=== PATIENT | male | born 1955 | race American Indian/Alaskan Native ===

== ENCOUNTER 2020-02-21 15:06 | Inpatient (IN) | payer OTHER ==
[2020-02-21 15:50] LABS: Basophils # (Auto) 0.1 K/mm3 (0.0-0.1); Basophils % (Auto) 1.7 % (0.0-1.8); Eosinophils % (Auto) 0.1 % (0.0-4.3); Hematocrit 47.5 % (35.5-45.6); Hemoglobin 16.5 gm/dl (11.8-15.2); Lymphocytes # (Auto) 0.6 K/mm3 (1.2-5.4); Mean Corpuscular HGB Conc 35 % (32-34); Mean Corpuscular Volume 85 fl (84-94); Monocytes # (Auto) 0.3 K/mm3 (0.0-0.8); Monocytes % (Auto) 8.9 % (0.0-7.3); Platelet Count 321 K/mm3 (140-440); Red Blood Count 5.62 M/mm3 (3.65-5.03); Red Cell Distribution Width 13.8 % (13.2-15.2)
--- NOTE | 2020-02-21 16:02 | XRay Report ---
CHEST 2 VIEWS INDICATION / CLINICAL INFORMATION: Fever cough hypoxia. COMPARISON: None available. FINDINGS: SUPPORT DEVICES: None. HEART / MEDIASTINUM: No significant abnormality. LUNGS / PLEURA: Moderate streaky bilateral parenchymal disease suggestive for pneumonia. No pneumotho rax. ADDITIONAL FINDINGS: No significant additional findings. IMPRESSION: 1. Probable bilateral pneumonia Signer Name: Sanjiv Henry MD Signed: 02/21/2020 3:58 PM Workstation Name: [id number]
[2020-02-21 16:13] LABS: Alanine Aminotransferase 18 units/L (7-56); Albumin 3.8 g/dL (3.9-5); BUN/Creatinine Ratio 20; Blood Urea Nitrogen 22 mg/dL (9-20); C-Reactive Protein 4.4 mg/dL (0.00-1.30); Calcium 8.8 mg/dL (8.4-10.2); Hemolysis Index 6
[2020-02-21] MEDS ORDERED: ACETAMINOPHEN 325 MG TAB ONE (16:32)
[2020-02-21] MEDS ORDERED: ONDANSETRON 4 MG/2 ML INJ ONE (16:32)
[2020-02-21] MEDS ORDERED: cefTRIAXone/NS 1 GM/50 ML 1 GM/50 ML BAG IV ONE (16:33)
[2020-02-21] MEDS ORDERED: AZITHROMYCIN 500 MG in SODIUM CHLORIDE 0.9% 250ML 250 ML IV ONE (16:34)
--- NOTE | 2020-02-21 16:35 | Emergency Department Report ---
HPI - General Chief Complaint: Nausea/Vomiting/Diarrhea Time Seen by Provider: 02/21/20 16:05 - HPI HPI: 64-year-old male presents to the emergency department with complaint of a few days of intermittent fever, loss of appetite, generalized headache, mild shortness of breath and mild mixed dry and productive cough. He has not taken anything for symptoms prior to presentation. No recent travel or sick contacts at home. No known exposure to anyone positive for Covid 19. Denies any tobacco or illicit drug use. Denies any past medical history. ED Past Medical Hx - Past Medical History Previous Medical History?: No - Surgical History Past Surgical History?: Yes Additional Surgical History: hernia repair x2. knee scope - Social History Smoking Status: Never Smoker Substance Use Type: None ED Review of Systems ROS: Stated complaint: HEADACHES Other details as noted in HPI Comment: All other systems reviewed and negative Constitutional: chills, fever Eyes: denies: eye pain, vision change ENT: denies: ear pain, throat pain Respiratory: cough, shortness of breath Cardiovascular: denies: chest pain, palpitations Gastrointestinal: nausea. denies: abdominal pain Genitourinary: denies: dysuria, discharge Musculoskeletal: myalgia. denies: joint swelling Skin: denies: rash, lesions Neurological: headache. denies: weakness, numbness, paresthesias Physical Exam - Physical Exam Physical Exam: GENERAL: The patient is well-developed well-nourished. HENT: Normocephalic. Atraumatic. Patient has moist mucous membranes. EYES: Extraocular motions are intact. NECK: Supple. Trachea is midline. CHEST/LUNGS: No tachypnea or accessory muscle use. No cough heard during examination. There is no respiratory distress noted. HEART/CARDIOVASCULAR: Regular. There is no tachycardia. ABDOMEN: Abdomen is soft, nontender. SKIN: Skin is warm and dry. NEURO: The patient is awake, alert, and oriented. The patient is cooperative. The patient has no focal neurologic deficits. Normal speech. MUSCULOSKELETAL: There is no tenderness or deformity. There is no evidence of acute injury. ED Medical Decision Making - Lab Data Result diagrams: 02/21/20 15:29 02/21/20 15:29 - Radiology Data Radiology results: image reviewed interpreted by me: Chest x-ray shows some bilateral patchy infiltrates concerning for pneumonia. - Medical Decision Making This patient presents with a few days of intermittent fevers, mild shortness of breath and cough, decreased appetite, generalized fatigue/weakness. On exami nation the patient does not appear in any respiratory or acute distress. However the patient had a room air pulse ox of about 88 to 90%. His oxygen went back up with oxygen supplementation via nasal cannula. Chest x-ray shows bilateral infiltrates/pneumonia. Blood cultures were sent and the patient was started on antibiotics. However he does not have any leukocytosis and does have leukopenia and this appears more consistent with a viral pneumonia and concern/suspicion for COVID-19. The patient was placed in droplet precautions immediately upon arrival to room 8. For this reason I will order full PPE including surgical, and 95, gown, double gloves and eye protection. The patient does have elevated inflammatory markers such as ferritin, CRP, d-dimer and LDH concerning for progression of this disease. For this reason, as well as the room air hypoxia, the patient will be admitted to the hospital for further evaluation and treatment and was accepted for admission by the hospitalist, Dr. Kramer. Critical Care Time: Yes Critical care time in (mins) excluding proc time.: 31 Critical care attestation.: If time is entered above; I have spent that time in minutes in the direct care of this critically ill patient, excluding procedure time. Critical care time was spent on this patient in doing his initial evaluation, multiple re- evaluations, ordering and interpretation of labs and imaging, supplemental ox ygen for his hypoxemia, discussion with the admitting hospitalist, treatment with IV antibiotics and IV fluid resuscitation. Critical Care Time: 31 minutes ED Disposition Clinical Impression: Suspected 2019 novel coronavirus infection, Hypoxemia Bilateral pneumonia Qualifiers: Pneumonia type: due to unspecified organism Lung location: unspecified part of lung Qualified Code(s): J18.9 - Pneumonia, unspecified organism Disposition: 09 OP ADMIT IP TO THIS HOSP Is pt being admited?: Yes Condition: Serious Time of Disposition: 22:38
--- NOTE | 2020-02-21 16:37 | History and Physical Report ---
History of Present Illness Chief complaint: I feel weak, tired, and i have fever History of present illness: 64 YO Male with No PMH presents to ED for evaluation. Pt states that he has experienced subjective fever, loss of appetite, generalized weakness, headache, shortness of breath, both dry and productive cough with production of yellow sputum over the past 1 week with progressively worsening symptoms over the past 3 days. Patient transported to [facility] via private vehicle for further evaluation and care. Patient seen and evaluated in the emergency department. Lab and imaging studies reviewed. Patient found to have temperature of 100.3 F, and pulse oximetry of 86% on room air which is consistent with acute hypoxemic respiratory failure. Patient underwent chest x-ray which revealed bilateral pneumonia which are consistent with suspected CO VID19. Patient admitted to medical floor and treated with pneumonia protocol. Patient also treated with initiation of CO VID19 protocol. Infectious disease service consulted in ED. Patient denies chest pain, palpitations, syncope, trauma, prolonged travel/ immobility, individual/family history of DVT/bleeding/PE/blood clotting disorders, or known ill contacts. No prior admission for review. No medication listed for reconciliation at the time of admission. PUI?: Yes COVID19: Pending Past History Past Medical History: No medical history, other (Reviewed) Past Surgical History: hernia repair, Other (Knee surgery) Social history: , lives with family. denies: smoking, alcohol abuse, prescription drug abuse Family history: CAD, hypertension Medications and Allergies Allergies Allergy/AdvReac Type Severity Reaction Status Date / Time No Known Allergies Allergy Verified 02/21/20 15:12 Active Meds: Active Medications Ceftriaxone Sodium (Rocephin/Ns 1 Gm/50 Ml) 1 gm in 50 mls @ 100 mls/hr IV ONCE ONE; Protocol Stop: 02/21/20 17:02 Azithromycin 500 mg/ Sodium (Chloride) 250 mls @ 250 mls/hr IV ONCE ONE; Protocol Stop: 02/21/20 17:33 Review of Systems Constitutional: fever, fatigue, weakness, poor appetite Ears, nose, mouth and throat: no ear pain, no ear discharge, no tinnitis, no decreased hearing, no nose pain Cardiovascular: no chest pain, no orthopnea, no palpitations, no rapid/irregular heart beat Respiratory: cough, cough with sputum, shortness of breath, no hemoptysis, no pain on inspiration Gastrointestinal: vomiting, no abdominal pain, no diarrhea, no constipation Genitourinary Male: no hematuria, no flank pain, no discharge, no urinary frequency, no urinary hesitancy Rectal: no pain, no incontinence, no bleeding Musculoskeletal: no neck stiffness, no neck pain, no shooting arm pain, no arm numbness/tingling Integumentary: no rash, no pruritis, no redness, no sores, no wounds Neurological: no transient paralysis, no paralysis, no weakness, no parathesias, no numbness Psychiatric: no anxiety, no memory loss, no change in sleep habits, no sleep disturbances, no hypersomnia Endocrine: no cold intolerance, no heat intolerance, no polyphagia, no excessive thirst, no polydipsia Hematologic/Lymphatic: no easy bruising, no easy bleeding Allergic/Immunologic: no urticaria, no allergic rhinitis, no wheezing Exam - Constitutional General appearance: Present: mild distress - EENT Eyes: Present: PERRL ENT: hearing intact, clear oral mucosa - Neck Neck: Present: supple, normal ROM - Respiratory Respiratory effort: labored, accessory muscle use Respiratory: bilateral: diminished, rhonchi - Cardiovascular Heart Sounds: Present: S1 & S2. Absent: rub, click - Extremities Extremities: pulses symmetrical, No edema Peripheral Pulses: within normal limits - Abdominal General gastrointestinal: Present: soft, non-tender, non-distended, normal bowel sounds Male genitourinary: Present: normal - Integumentary Integumentary: Present: clear, warm, dry - Musculoskeletal Musculoskeletal: generalized weakness - Psychiatric Psychiatric: appropriate mood/affect, intact judgment & insight - Neurologic Neurologic: CNII-XII intact, moves all extremities Results - Labs CBC & Chem 7: 02/21/20 15:29 02/21/20 15:29 Labs: Abnormal lab results 02/21/20 02/21/20 02/21/20 Range/Units 15:29 15:29 15:29 WBC 3.7 L (4.5-11.0) K/mm3 RBC 5.62 H (3.65-5.03) M/mm3 Hgb 16.5 H (11.8-15.2) gm/dl Hct 47.5 H (35.5-45.6) % MCHC 35 H (32-34) % [place] % (Auto) 8.9 H (0.0-7.3) % Lymph # 0.6 L (1.2-5.4) K/mm3 Seg Neutrophils % 72.3 H (40.0-70.0) % D-Dimer 5638.87 H (0-234) ng/mlDDU Sodium 136 L (137-145) mmol/L Chloride 96.2 L (98-107) mmol/L Carbon Dioxide 20 L (22-30) mmol/L BUN 22 H (9-20) mg/dL Glucose 124 H (75-100) mg/dL Ferritin (13.0-400.0) ng/mL Lactate Dehydrogenase (91-180) units/L C-Reactive Protein (0.00-1.30) mg/dL Albumin 3.8 L (3.9-5) g/dL 02/21/20 02/21/20 Range/Units 15:29 15:29 WBC (4.5-11.0) K/mm3 RBC (3.65-5.03) M/mm3 Hgb (11.8-15.2) gm/dl Hct (35.5-45.6) % MCHC (32-34) % [place] % (Auto) (0.0-7.3) % Lymph # (1.2-5.4) K/mm3 Seg Neutrophils % (40.0-70.0) % D-Dimer (0-234) ng/mlDDU Sodium (137-145) mmol/L Chloride (98-107) mmol/L Carbon Dioxide (22-30) mmol/L BUN (9-20) mg/dL Glucose (75-100) mg/dL Ferritin 1484.0 H (13.0-400.0) ng/mL Lactate Dehydrogenase 486 H (91-180) units/L C-Reactive Protein 4.40 H (0.00-1.30) mg/dL Albumin (3.9-5) g/dL Assessment and Plan - Patient Problems (1) Acute hypoxemic respiratory failure Current Visit: Yes Status: Acute Plan to address problem: Supplemental oxygen, chest x ray, pulse oximetry, nebulizer therapy, (2) Bilateral pneumonia Current Visit: Yes Status: Acute Qualifiers: Lung location: lower lobe of lung Plan to address problem: Chest x ray, pulse oximetry, nebulizer therapy, NIPPV as clinically indicated, IV antibiotic therapy, (3) Suspected 2019 novel coronavirus infection Current Visit: Yes Status: Acute Plan to address problem: COVID 19 Protocol: LDH, Ferritin, D dimer, CRP, ID consulted, (4) DVT prophylaxis Current Visit: Yes Status: Acute Plan to address problem: SCD to BLE while in bed, prophylactic heparin
[2020-02-21] MEDS ORDERED: SODIUM CHLORIDE 0.9% 1000 ML 1,000 ML IV ONE (16:38)
[2020-02-21] MEDS ORDERED: ACETAMINOPHEN 325 MG TAB PO ONE (16:59)
[2020-02-21] MEDS ORDERED: ONDANSETRON 4 MG/2 ML INJ IV ONE (16:59)
[2020-02-21] MEDS: ACETAMINOPHEN 325 MG TAB PO PRN (21:48)
[2020-02-22 04:42] LABS: Basophils % (Auto) 0.9 % (0.0-1.8); Eosinophils % (Auto) 0.4 % (0.0-4.3); Hematocrit 45.4 % (35.5-45.6); Hemoglobin 15.8 gm/dl (11.8-15.2); Lymphocytes # (Auto) 0.7 K/mm3 (1.2-5.4); Lymphocytes % (Auto) 18.1 % (13.4-35.0); Mean Corpuscular HGB Conc 35 % (32-34); Mean Corpuscular Volume 83 fl (84-94); Monocytes # (Auto) 0.4 K/mm3 (0.0-0.8); Monocytes % (Auto) 10.5 % (0.0-7.3); Platelet Count 322 K/mm3 (140-440); Red Blood Count 5.47 M/mm3 (3.65-5.03); Red Cell Distribution Width 13.9 % (13.2-15.2)
[2020-02-22 05:05] LABS: BUN/Creatinine Ratio 20; Blood Urea Nitrogen 20 mg/dL (9-20); Calcium 8.3 mg/dL (8.4-10.2); Hemolysis Index 6
--- NOTE | 2020-02-22 08:54 | Progress Note ---
Assessment and Plan Assessment and plan: 64 YO Male with No PMH presents to ED for evaluation. Pt states that he has experienced subjective fever, loss of appetite, generalized weakness, headache, shortness of breath, both dry and productive cough with production of yellow sputum over the past 1 week with progressively worsening symptoms over the past 3 days. Patient transported to [facility] via private vehicle for further evaluation and care. Patient seen and evaluated in the emergency department. Lab and imaging studies reviewed. Patient found to have temperature of 100.3 F, and pulse oximetry of 86% on room air which is consistent with acute hypoxemic respiratory failure. Patient underwent chest x-ray which revealed bilateral pneumonia which are consistent with suspected CO VID19. Patient admitted to medical floor and treated with pneumonia protocol. Patient also treated with initiation of CO VID19 protocol. Infectious disease service consulted in ED. Patient denies chest pain, palpitations, syncope, trauma, prolonged tr rolanda/immobility, individual/family history of DVT/bleeding/PE/blood clotting disorders, or known ill contacts. No prior admission for review. No medication listed for reconciliation at the time of admission. Bilateral pneumonia with suspicion for COVID-19 Sepsis syndrome Acute hypoxic respiratory failure with pulse oximetry of 86% on room air Elevated d-dimer Headache Plan We will start patient on sepsis protocol, fluid is restricted due to the concern for COVID-19 and rapidly to ARDS. We will start patient on full dose Lovenox considering a d-dimer greater than 5000 Await ID evaluation in the meantime we will start patient on Plaquenil in addition to the azithromycin will monitor EKGs for QT prolongation. Resume appropriate home medications At this time there are no neurological symptoms but if any arises will pursue imaging studies of the head. If no improvement in respiratory status will obtain pulmonary consult Daily pre-and post ambulatory pulse ox. History Interval history: Patient seen and examined resting comfortably this morning although earlier on this morning should he worsen increased respiratory distress. PUI?: Yes COVID19: Pending Hospitalist Physical - Physical exam Narrative exam: VITAL SIGNS: Reviewed. GENERAL: The patient appears normally developed, Vital signs as documented. HEAD: No signs of head trauma. EYES: Pupils are equal. Extraocular motions intact. EARS: Hearing grossly intact. MOUTH: Oropharynx is normal. NECK: No adenopathy, no JVD. CHEST: Chest with clear breath sounds bilaterally. No wheezes, rales, or rhonchi. CARDIAC: Regular rate and rhythm. S1 and S2, without murmurs, gallops, or rubs. VASCULAR: No Edema. Peripheral pulses normal and equal in all extremities. ABDOMEN: Soft, non tender and non distended. No rebound or guarding, and no masses palpated. Bowel Sounds normal. MUSCULOSKELETAL: Good range of motion of all major joints. Extremities without clubbing, cyanosis or edema. NEUROLOGIC EXAM: Alert and oriented x 3 No focal sensory or strength deficits. Speech normal. Follows commands. PSYCHIATRIC: Mood normal. SKIN: detial exam as documented in skin assessment - Constitutional Vitals: Temp Pulse Resp BP Pulse Ox 100.0 F H 71 22 130/83 92 02/22/20 04:59 02/22/20 04:59 02/22/20 06:29 02/22/20 04:59 02/22/20 06:29 General appearance: Present: mild distress Results - Labs CBC & Chem 7: 02/22/20 04:04 02/22/20 04:04 Labs: Laboratory Last Values WBC 3.9 K/mm3 (4.5-11.0) L 02/22/20 04:04 RBC 5.47 M/mm3 (3.65-5.03) H 02/22/20 04:04 Hgb 15.8 gm/dl (11.8-15.2) H 02/22/20 04:04 Hct 45.4 % (35.5-45.6) 02/22/20 04:04 MCV 83 fl (84-94) L 02/22/20 04:04 MCH 29 pg (28-32) 02/22/20 04:04 MCHC 35 % (32-34) H 02/22/20 04:04 RDW 13.9 % (13.2-15.2) 02/22/20 04:04 Plt Count 322 K/mm3 (140-440) 02/22/20 04:04 Lymph % (Auto) 18.1 % (13.4-35.0) 02/22/20 04:04 [place] % (Auto) 10.5 % (0.0-7.3) H 02/22/20 04:04 Eos % (Auto) 0.4 % (0.0-4.3) 02/22/20 04:04 Baso % (Auto) 0.9 % (0.0-1.8) 02/22/20 04:04 Lymph # 0.7 K/mm3 (1.2-5.4) L 02/22/20 04:04 [place] # 0.4 K/mm3 (0.0-0.8) 02/22/20 04:04 Eos # 0.0 K/mm3 (0.0-0.4) 02/22/20 04:04 Baso # 0.0 K/mm3 (0.0-0.1) 02/22/20 04:04 Seg Neutrophils % 70.1 % (40.0-70.0) H 02/22/20 04:04 Seg Neutrophils # 2.8 K/mm3 (1.8-7.7) 02/22/20 04:04 D-Dimer 5638.87 ng/mlDDU (0-234) H 02/21/20 15:29 Sodium 139 mmol/L (137-145) 02/22/20 04:04 Potassium 4.3 mmol/L (3.6-5.0) 02/22/20 04:04 Chloride 102.8 mmol/L (98-107) 02/22/20 04:04 Carbon Dioxide 25 mmol/L (22-30) 02/22/20 04:04 Anion Gap 16 mmol/L 02/22/20 04:04 BUN 20 mg/dL (9-20) 02/22/20 04:04 Creatinine 1.0 mg/dL (0.8-1.5) 02/22/20 04:04 Estimated GFR > 60 ml/min 02/22/20 04:04 BUN/Creatinine Ratio 20 % 02/22/20 04:04 Glucose 114 mg/dL (75-100) H 02/22/20 04:04 Lactic Acid 1.80 mmol/L (0.7-2.0) 02/21/20 15: Calcium 8.3 mg/dL (8.4-10.2) L 02/22/20 04:04 Ferritin 1484.0 ng/mL (13.0-400.0) H 02/21/20 15:29 Total Bilirubin 0.60 mg/dL (0.1-1.2) 02/21/20 15:29 AST 31 units/L (5-40) 02/21/20 15:29 ALT 18 units/L (7-56) 02/21/20 15:29 Alkaline Phosphatase 71 units/L (35-129) 02/21/20 15:29 Lactate Dehydrogenase 486 units/L (91-180) H 02/21/20 15:29 C-Reactive Protein 4.40 mg/dL (0.00-1.30) H 02/21/20 15:29 Total Protein 7.4 g/dL (6.3-8.2) 02/21/20 15:29 Albumin 3.8 g/dL (3.9-5) L 02/21/20 15:29 Albumin/Globulin Ratio 1.1 % 02/21/20 15:29 Influenza A (Rapid) Negative (Negative) 02/21/20 16:34 Influenza B (Rapid) Negative (Negative) 02/21/20 16:34 Microbiology: Microbiology 02/21/20 15:38 Peripheral/Venous Blood Culture - Preliminary Culture in Progress 02/21/20 15:29 Peripheral/Venous Blood Culture - Preliminary Culture in Progress Rivera/IV: Voiding Method Toilet IV Catheter Type [Right INT / Saline Lock Forearm] IV Catheter Type [Right INT / Saline Lock Antecubital] Active Medications - Current Medications Current Medications: Generic Name Dose Route Start Last Admin Trade Name Freq PRN Reason Stop Dose Admin Acetaminophen 650 mg 02/21/20 16:41 02/21/20 21:48 Tylenol PO 650 mg Q4H PRN Administration Pain MILD(1-3)/Fever >100.5/DELUNA Enoxaparin Sodium 130 mg 02/22/20 10:00 Enoxaparin 1.5 mg/kg (130 mg) SUB-Q Q24HR SCOT Ondansetron HCl 4 mg 02/21/20 16:41 Zofran IV Q8H PRN Nausea And Vomiting Sodium Chloride 10 ml 02/21/20 22:00 02/21/20 22:38 Sodium Chloride Flush Syringe 10 Ml IV Not Given BID SCOT Sodium Chloride 10 ml 02/21/20 16:41 Sodium Chloride Flush Syringe 10 Ml IV PRN PRN LINE FLUSH
--- NOTE | 2020-02-22 09:30 | Consultation ---
History of Present Illness Consult date: 02/22/20 Requesting physician: VICETNE BARRERA Reason for consult: hypoxemia, other (Rule COVID 19) Past History Past Medical History: No medical history, other (Reviewed) Past Surgical History: hernia repair, Other (Knee surgery) Social history: , lives with family. denies: smoking, alcohol abuse, prescription drug abuse Family history: CAD, hypertension Medications and Allergies Allergies Allergy/AdvReac Type Severity Reaction Status Date / Time No Known Allergies Allergy Verified 02/21/20 15:12 Home Medications Medication Instructions Recorded Confirmed Last Taken Type No Known Home Medications [No 02/22/20 02/22/20 Unknown History Reported Home Medications] Active Meds: Active Medications Acetaminophen (Tylenol) 650 mg PO Q4H PRN PRN Reason: Pain MILD(1-3)/Fever >100.5/DELUNA Last Admin: 02/21/20 21:48 Dose: 650 mg Documented by: Enoxaparin Sodium (Enoxaparin) 130 mg SUB-Q Q24HR [facility] Hydroxychloroquine Sulfate (Plaquenil) 400 mg PO BID [facility] Stop: 02/22/20 22:01 Hydroxychloroquine Sulfate (Plaquenil) 200 mg PO BID [facility] Stop: 02/26/20 22:01 Ondansetron HCl (Zofran) 4 mg IV Q8H PRN PRN Reason: Nausea And Vomiting Sodium Chloride (Sodium Chloride Flush Syringe 10 Ml) 10 ml IV BID [facility] Last Admin: 02/21/20 22:38 Dose: Not Given Documented by: Sodium Chloride (Sodium Chloride Flush Syringe 10 Ml) 10 ml IV PRN PRN PRN Reason: LINE FLUSH Physical Examination Vital signs: Vital Signs Temp Pulse Resp BP Pulse Ox 100.3 F H 89 20 108/70 90 02/21/20 15:16 02/21/20 15:16 02/21/20 15:16 02/21/20 15:16 02/21/20 15:16 Results - Laboratory Findings CBC and BMP: 02/22/20 04:04 02/22/20 04:04 PT/INR, D-dimer D-Dimer 5638.87 ng/mlDDU (0-234) H 02/21/20 15:29 Abnormal lab findings: Abnormal Labs 02/21/20 02/21/20 02/21/20 15:29 15:29 15:29 WBC 3.7 L RBC 5.62 H Hgb 16.5 H Hct 47.5 H MCV MCHC 35 H Leslie % (Auto) 8.9 H Lymph # 0.6 L Seg Neutrophils % 72.3 H D-Dimer 5638.87 H Sodium 136 L Chloride 96.2 L Carbon Dioxide 20 L BUN 22 H Glucose 124 H Calcium Ferritin Lactate Dehydrogenase C-Reactive Protein Albumin 3.8 L 02/21/20 02/21/20 02/22/20 15:29 15:29 04:04 WBC 3.9 L RBC 5.47 H Hgb 15.8 H Hct MCV 83 L MCHC 35 H Leslie % (Auto) 10.5 H Lymph # 0.7 L Seg Neutrophils % 70.1 H D-Dimer Sodium Chloride Carbon Dioxide BUN Glucose Calcium Ferritin 1484.0 H Lactate Dehydrogenase 486 H C-Reactive Protein 4.40 H Albumin 02/22/20 04:04 WBC RBC Hgb Hct MCV MCHC Leslie % (Auto) Lymph # Seg Neutrophils % D-Dimer Sodium Chloride Carbon Dioxide BUN Glucose 114 H Calcium 8.3 L Ferritin Lactate Dehydrogenase C-Reactive Protein Albumin Assessment and Plan 64 y/o male with COVID 19 positive pneumonia and no other prior medical history. 1. Tested positive, back today. Already on experimental therapy 2. Requiring 6 liters of Nasal cannula but improved with proning. Would ask that patient prone himself, multiple times during the day shit and sleep proned at night. 3. No IVF, suggest to encourage PO intake 4. Will continue to follow and monitor.
[2020-02-22] MEDS ORDERED: ENOXAPARIN 100 MG/1 ML INJ SUB-Q SCH (10:00)
[2020-02-22] MEDS: HYDROXYCHLOROQUINE 200 MG TAB PO SCH ×2 (10:12→21:04)
[2020-02-22] MEDS: ENOXAPARIN 150 MG/1 ML INJ SUB-Q SCH (10:13)
--- NOTE | 2020-02-22 14:02 | Consultation ---
History of Present Illness - Reason for Consult Consult date: 02/22/20 COVID rule out Requesting physician: MARIBELL HUII?: Yes COVID19: Pending - History of Present Illness The patient is a 64-year-old male with no significant past medical history came into the emergency room with complaints of subjective fever, loss of appetite, weakness, headaches along with cough and shortness of breath for a week. Chest x-ray revealed bilateral pneumonia. Concern for COVID-19 was raised. Infectious diseases was consulted for additional evaluation. Temperature on admission was 100.3 F. Labs show leukopenia, elevated d-dimer along with elevated ferritin, LDH and CRP. Procalcitonin is 0.06. Influenza rapid test is negative. Review of Systems: reviewed in the chart, unable to obtain directly due to PPE shortage and preservation Past History Past Medical History: No medical history, other (Reviewed) Past Surgical History: hernia repair, Other (Knee surgery) Social history: , lives with family. denies: smoking, alcohol abuse, prescription drug abuse Family history: CAD, hypertension Medications and Allergies Allergies Allergy/AdvReac Type Severity Reaction Status Date / Time No Known Allergies Allergy Verified 02/21/20 15:12 Home Medications Medication Instructions Recorded Confirmed Last Taken Type No Known Home Medications [No 02/22/20 02/22/20 Unknown History Reported Home Medications] Active Meds: Active Medications Acetaminophen (Tylenol) 650 mg PO Q4H PRN PRN Reason: Pain MILD(1-3)/Fever >100.5/DELUNA Last Admin: 02/21/20 21:48 Dose: 650 mg Documented by: Enoxaparin Sodium (Enoxaparin) 130 mg SUB-Q Q24HR [facility] Last Admin: 02/22/20 10:13 Dose: 130 mg Documented by: Hydroxychloroquine Sulfate (Plaquenil) 400 mg PO BID [facility] Stop: 02/22/20 22:01 Last Admin: 02/22/20 10:12 Dose: 400 mg Documented by: Hydroxychloroquine Sulfate (Plaquenil) 200 mg PO BID [facility] Stop: 02/26/20 22:01 Ondansetron HCl (Zofran) 4 mg IV Q8H PRN PRN Reason: Nausea And Vomiting Sodium Chloride (Sodium Chloride Flush Syringe 10 Ml) 10 ml IV BID [facility] Last Admin: 02/22/20 10:13 Dose: 10 ml Documented by: Sodium Chloride (Sodium Chloride Flush Syringe 10 Ml) 10 ml IV PRN PRN PRN Reason: LINE FLUSH Physical Examination - Physical Exam Narrative exam: Physical Exam (reviewed in chart due to PPE conservation) Constitutional: limited due to PPE conservation strategy Head, Ears, Nose: limited due to PPE conservation strategy Eyes: limited due to PPE conservation strategy Neck: limited due to PPE conservation strategy Oral: limited due to PPE conservation strategy Cardiovascular: limited due to PPE conservation strategy Respiratory: limited due to PPE conservation strategy GI: limited due to PPE conservation strategy Musculoskeletal: limited due to PPE conservation strategy Skin: limited due to PPE conservation strategy Hem/Lymphatic: limited due to PPE conservation strategy Psych: limited due to PPE conservation strategy Neurological: limited due to PPE conservation strategy - Constitutional Vitals: Vital Signs Temp Pulse Resp BP Pulse Ox 98.0 F 80 20 118/56 91 02/22/20 11:30 02/22/20 11:30 02/22/20 11:30 02/22/20 11:30 02/22/20 11:30 Temperature -Last 24 Hours Temperature 98.0 F Temperature 100.0 F Temperature 97.7 F Temperature 100.3 F Results - Labs CBC & Chem 7: 02/22/20 04:04 02/22/20 04:04 Labs: Abnormal lab results 02/21/20 02/21/20 02/21/20 Range/Units 15:29 15:29 15:29 WBC 3.7 L (4.5-11.0) K/mm3 RBC 5.62 H (3.65-5.03) M/mm3 Hgb 16.5 H (11.8-15.2) gm/dl Hct 47.5 H (35.5-45.6) % MCV (84-94) fl MCHC 35 H (32-34) % [place] % (Auto) 8.9 H (0.0-7.3) % Lymph # 0.6 L (1.2-5.4) K/mm3 Seg Neutrophils % 72.3 H (40.0-70.0) % D-Dimer 5638.87 H (0-234) ng/mlDDU Sodium 136 L (137-145) mmol/L Chloride 96.2 L (98-107) mmol/L Carbon Dioxide 20 L (22-30) mmol/L BUN 22 H (9-20) mg/dL Glucose 124 H (75-100) mg/dL Calcium (8.4-10.2) mg/dL Ferritin (13.0-400.0) ng/mL Lactate Dehydrogenase (91-180) units/L C-Reactive Protein (0.00-1.30) mg/dL Albumin 3.8 L (3.9-5) g/dL 02/21/20 02/21/20 02/22/20 Range/Units 15:29 15:29 04:04 WBC 3.9 L (4.5-11.0) K/mm3 RBC 5.47 H (3.65-5.03) M/mm3 Hgb 15.8 H (11.8-15.2) gm/dl Hct (35.5-45.6) % MCV 83 L (84-94) fl MCHC 35 H (32-34) % [place] % (Auto) 10.5 H (0.0-7.3) % Lymph # 0.7 L (1.2-5.4) K/mm3 Seg Neutrophils % 70.1 H (40.0-70.0) % D-Dimer (0-234) ng/mlDDU Sodium (137-145) mmol/L Chloride (98-107) mmol/L Carbon Dioxide (22-30) mmol/L BUN (9-20) mg/dL Glucose (75-100) mg/dL Calcium (8.4-10.2) mg/dL Ferritin 1484.0 H (13.0-400.0) ng/mL Lactate Dehydrogenase 486 H (91-180) units/L C-Reactive Protein 4.40 H (0.00-1.30) mg/dL Albumin (3.9-5) g/dL 02/22/20 Range/Units 04:04 WBC (4.5-11.0) K/mm3 RBC (3.65-5.03) M/mm3 Hgb (11.8-15.2) gm/dl Hct (35.5-45.6) % MCV (84-94) fl MCHC (32-34) % [place] % (Auto) (0.0-7.3) % Lymph # (1.2-5.4) K/mm3 Seg Neutrophils % (40.0-70.0) % D-Dimer (0-234) ng/mlDDU Sodium (137-145) mmol/L Chloride (98-107) mmol/L Carbon Dioxide (22-30) mmol/L BUN (9-20) mg/dL Glucose 114 H (75-100) mg/dL Calcium 8.3 L (8.4-10.2) mg/dL Ferritin (13.0-400.0) ng/mL Lactate Dehydrogenase (91-180) units/L C-Reactive Protein (0.00-1.30) mg/dL Albumin (3.9-5) g/dL - Imaging and Cardiology Chest x-ray: report reviewed, image reviewed (probable b/l pneumonia) Assessment and Plan Cultures: 02/21/2020 blood culture: In progress A/P: 64/M with subjective fever, loss of appetite, weakness, headaches along with cough and shortness of breath for a week prior to admission #Bilateral pneumonia: Agree with COVID-19 evaluation. Labs show leukopenia, elevated d-dimer along with elevated ferritin, LDH and CRP. Procalcitonin is 0.06. Influenza rapid test is negative. #Acute hypoxic respiratory failure: Requiring oxygen. Recs: Agree with COVID-19 evaluation Since inflammatory markers are elevated, reasonable to treat empirically with Plaquenil till COVID-19 results are back trend ferritin, LDH, d-dimer, CRP every 2-3 days for risk stratification and to assess disease progression Jocelynn Chahal MD, FACP [facility] ([facility] C: [phone] O: [phone] F: [phone]
[2020-02-22] MEDS: ACETAMINOPHEN 325 MG TAB PO PRN ×2 (16:44→21:05)
[2020-02-23 06:38] LABS: Hematocrit 43.8 % (35.5-45.6); Hemoglobin 15.1 gm/dl (11.8-15.2); Mean Corpuscular HGB Conc 35 % (32-34); Mean Corpuscular Volume 84 fl (84-94); Platelet Count 349 K/mm3 (140-440); Red Blood Count 5.19 M/mm3 (3.65-5.03); Red Cell Distribution Width 13.8 % (13.2-15.2)
[2020-02-23 07:05] LABS: BUN/Creatinine Ratio 17; Blood Urea Nitrogen 17 mg/dL (9-20); Calcium 8.4 mg/dL (8.4-10.2); Hemolysis Index 24
--- NOTE | 2020-02-23 07:28 | Progress Note ---
Assessment and Plan Assessment and plan: 64 YO Male with No PMH presents to ED for evaluation. Pt states that he has experienced subjective fever, loss of appetite, generalized weakness, headache, shortness of breath, both dry and productive cough with production of yellow sputum over the past 1 week with progressively worsening symptoms over the past 3 days. Patient transported to [facility] via private vehicle for further evaluation and care. Patient seen and evaluated in the emergency department. Lab and imaging studies reviewed. Patient found to have temperature of 100.3 F, and pulse oximetry of 86% on room air which is consistent with acute hypoxemic respiratory failure. Patient underwent chest x-ray which revealed bilateral pneumonia which are consistent with suspected CO VID19. Patient admitted to medical floor and treated with pneumonia protocol. Patient also treated with initiation of CO VID19 protocol. Infectious disease service consulted in ED. Patient denies chest pain, palpitations, syncope, trauma, prolonged tr rolanda/immobility, individual/family history of DVT/bleeding/PE/blood clotting disorders, or known ill contacts. No prior admission for review. No medication listed for reconciliation at the time of admission. Bilateral pneumonia suspected secondary to COVID-19 Sepsis syndrome Acute hypoxic respiratory failure with pulse oximetry of 86% on room air Elevated d-dimer Headache Plan We will start patient on sepsis protocol, fluid is restricted due to the concern for COVID-19 and rapidly to ARDS. Awaiting result Continue Lovenox considering a d-dimer greater than 5000, will obtain imaging studies prior to discharge if needed Pulmonary and ID input noted Continue experimental drugs Plaquenil in addition to the azithromycin will monitor EKGs for QT prolongation. Resume appropriate home medications Continue suggested Prone Positioning At this time there are no neurological symptoms but if any arises will pursue imaging studies of the head. If no improvement in respiratory status will obtain pulmonary consult Daily pre-and post ambulatory pulse ox. History Interval history: Patient seen and examined resting comfortably this morning but still with intermittent fever, he still complaints of shortness of breath with exertion. PUI?: Yes COVID19: Pending Hospitalist Physical - Physical exam Narrative exam: VITAL SIGNS: Reviewed. GENERAL: The patient appears normally developed, Vital signs as documented. HEAD: No signs of head trauma. EYES: Pupils are equal. Extraocular motions intact. EARS: Hearing grossly intact. MOUTH: Oropharynx is normal. NECK: No adenopathy, no JVD. CHEST: Chest with diminished breath sounds bilaterally. No wheezes, rales, or rhonchi. CARDIAC: Regular rate and rhythm. S1 and S2, without murmurs, gallops, or rubs. VASCULAR: No Edema. Peripheral pulses normal and equal in all extremities. ABDOMEN: Soft, non tender and non distended. No rebound or guarding, and no masses palpated. Bowel Sounds normal. MUSCULOSKELETAL: Good range of motion of all major joints. Extremities without clubbing, cyanosis or edema. NEUROLOGIC EXAM: Alert and oriented x 3 No focal sensory or strength deficits. Speech normal. Follows commands. PSYCHIATRIC: Mood normal. SKIN: detail exam as documented in skin assessment - Constitutional Vitals: Temp Pulse Resp BP Pulse Ox 98.8 F 64 20 114/66 91 02/23/20 04:50 02/23/20 04:50 02/23/20 04:50 02/23/20 04:50 02/23/20 04:50 General appearance: Present: mild distress Results - Labs CBC & Chem 7: 02/23/20 05:02 02/23/20 05:02 Labs: Laboratory Last Values WBC 3.3 K/mm3 (4.5-11.0) L 02/23/20 05:02 RBC 5.19 M/mm3 (3.65-5.03) H 02/23/20 05:02 Hgb 15.1 gm/dl (11.8-15.2) 02/23/20 05:02 Hct 43.8 % (35.5-45.6) 02/23/20 05:02 MCV 84 fl (84-94) 02/23/20 05:02 MCH 29 pg (28-32) 02/23/20 05:02 MCHC 35 % (32-34) H 02/23/20 05:02 RDW 13.8 % (13.2-15.2) 02/23/20 05:02 Plt Count 349 K/mm3 (140-440) 02/23/20 05:02 Lymph % (Auto) 18.1 % (13.4-35.0) 02/22/20 04:04 [place] % (Auto) 10.5 % (0.0-7.3) H 02/22/20 04:04 Eos % (Auto) 0.4 % (0.0-4.3) 02/22/20 04:04 Baso % (Auto) 0.9 % (0.0-1.8) 02/22/20 04:04 Lymph # 0.7 K/mm3 (1.2-5.4) L 02/22/20 04:04 [place] # 0.4 K/mm3 (0.0-0.8) 02/22/20 04:04 Eos # 0.0 K/mm3 (0.0-0.4) 02/22/20 04:04 Baso # 0.0 K/mm3 (0.0-0.1) 02/22/20 04:04 Seg Neutrophils % 70.1 % (40.0-70.0) H 02/22/20 04:04 Seg Neutrophils # 2.8 K/mm3 (1.8-7.7) 02/22/20 04:04 D-Dimer 2109.52 ng/mlDDU (0-234) H 02/23/20 05:02 Sodium 138 mmol/L (137-145) 02/23/20 05:02 Potassium 4.1 mmol/L (3.6-5.0) 02/23/20 05:02 Chloride 100.6 mmol/L (98-107) 02/23/20 05:02 Carbon Dioxide 22 mmol/L (22-30) 02/23/20 05:02 Anion Gap 20 mmol/L 02/23/20 05:02 BUN 17 mg/dL (9-20) 02/23/20 05:02 Creatinine 1.0 mg/dL (0.8-1.5) 02/23/20 05:02 Estimated GFR > 60 ml/min 02/23/20 05:02 BUN/Creatinine Ratio 17 % 02/23/20 05:02 Glucose 94 mg/dL (75-100) 02/23/20 05:02 Lactic Acid 1.80 mmol/L (0.7-2.0) 02/21/20 15:29 Calcium 8.4 mg/dL (8.4-10.2) 02/23/20 05:02 Ferritin 1571.0 ng/mL (13.0-400.0) H 02/23/20 05:02 Total Bilirubin 0.60 mg/dL (0.1-1.2) 02/21/20 15:29 AST 31 units/L (5-40) 02/21/20 15:29 ALT 18 units/L (7-56) 02/21/20 15:29 Alkaline Phosphatase 71 units/L (35-129) 02/21/20 15:29 Lactate Dehydrogenase 531 units/L (91-180) H 02/23/20 05:02 C-Reactive Protein 6.40 mg/dL (0.00-1.30) H 02/23/20 05:02 Total Protein 7.4 g/dL (6.3-8.2) 02/21/20 15:29 Albumin 3.8 g/dL (3.9-5) L 02/21/20 15:29 Albumin/Globulin Ratio 1.1 % 02/21/20 15:29 Procalcitonin 0.06 ng/mL (<0.15) 02/21/20 15:29 Influenza A (Rapid) Negative (Negative) 02/21/20 16:34 Influenza B (Rapid) Negative (Negative) 02/21/20 16:34 Microbiology: Microbiology 02/21/20 15:29 Peripheral/Venous Blood Culture - Preliminary NO GROWTH AFTER 24 HOURS 02/21/20 15:38 Peripheral/Venous Blood Culture - Preliminary NO GROWTH AFTER 24 HOURS Rivera/IV: Voiding Method Toilet IV Catheter Type [Right INT / Saline Lock Forearm] IV Catheter Type [Right INT / Saline Lock Antecubital] Active Medications - Current Medications Current Medications: Generic Name Dose Route Start Last Admin Trade Name Freq PRN Reason Stop Dose Admin Acetaminophen 650 mg 02/21/20 16:41 02/22/20 21:05 Tylenol PO 650 mg Q4H PRN Administration Pain MILD(1-3)/Fever >100.5/DELUNA Enoxaparin Sodium 130 mg 02/22/20 10:00 02/22/20 10:13 Enoxaparin SUB-Q 130 mg Q24HR [facility] Administration Hydroxychloroquine Sulfate 200 mg 02/23/20 10:00 Plaquenil PO 02/26/20 22:01 BID SCOT Ondansetron HCl 4 mg 02/21/20 16:41 Zofran IV Q8H PRN Nausea And Vomiting Sodium Chloride 10 ml 02/21/20 22:00 02/22/20 21:07 Sodium Chloride Flush Syringe 10 Ml IV 10 ml BID [facility] Administration Sodium Chloride 10 ml 02/21/20 16:41 Sodium Chloride Flush Syringe 10 Ml IV PRN PRN LINE FLUSH
[2020-02-23] MEDS: ENOXAPARIN 150 MG/1 ML INJ SUB-Q SCH (09:13)
[2020-02-23] MEDS: HYDROXYCHLOROQUINE 200 MG TAB PO SCH ×2 (09:15→22:17)
[2020-02-23] MEDS: ACETAMINOPHEN 325 MG TAB PO PRN ×2 (12:23→17:42)
--- NOTE | 2020-02-23 12:59 | Progress Note ---
Assessment and Plan Cultures: 02/21/2020 blood culture: no growth A/P: 64/M with subjective fever, loss of appetite, weakness, headaches along with cough and shortness of breath for a week prior to admission #Bilateral pneumonia secondary to COVID-19: Labs show leukopenia, elevated d- dimer along with elevated ferritin, LDH and CRP. Procalcitonin is 0.06. Influenza rapid test is negative. #Acute hypoxic respiratory failure: Requiring oxygen. Recs: complete 5 days of Plaquenil trend ferritin, LDH, d-dimer, CRP every 2-3 days for risk stratification and to assess disease progression if hypoxia progressive, may consider Actemra or steroid trial encourage lying in prone position if patient able to tolerate Jocelynn Chahal MD, FACP [facility] C: [phone] O: [phone] F: [phone] Subjective Date of service: 02/23/20 Interval history: COVID test positive. Remains febrile, on oxygen. PUI?: Yes COVID19: Positive Objective - Exam Narrative Exam: Physical Exam (reviewed in chart due to PPE conservation) Constitutional: limited due to PPE conservation strategy Head, Ears, Nose: limited due to PPE conservation strategy Eyes: limited due to PPE conservation strategy Neck: limited due to PPE conservation strategy Oral: limited due to PPE conservation strategy Cardiovascular: limited due to PPE conservation strategy Respiratory: limited due to PPE conservation strategy GI: limited due to PPE conservation strategy Musculoskeletal: limited due to PPE conservation strategy Skin: limited due to PPE conservation strategy Hem/Lymphatic: limited due to PPE conservation strategy Psych: limited due to PPE conservation strategy Neurological: limited due to PPE conservation strategy - Constitutional Vitals: Vital Signs Temp Pulse Resp BP Pulse Ox 102.3 F H 83 24 109/66 96 02/23/20 11:39 02/23/20 11:39 02/23/20 11:39 02/23/20 11:39 02/23/20 11:39 Temperature -Last 24 Hours Temperature 102.3 F Temperature 98.8 F Temperature 98.5 F Temperature 102.9 F - Labs CBC & Chem 7: 02/23/20 05:02 02/23/20 05:02 Labs: Abnormal lab results 02/22/20 02/23/20 02/23/20 Range/Units 11:23 05:02 05:02 WBC 3.3 L (4.5-11.0) K/mm3 RBC 5.19 H (3.65-5.03) M/mm3 MCHC 35 H (32-34) % D-Dimer 2109.52 H (0-234) ng/mlDDU Ferritin (13.0-400.0) ng/mL Lactate Dehydrogenase (91-180) units/L C-Reactive Protein (0.00-1.30) mg/dL Coronavirus (PCR) Positive A (Negative) 02/23/20 02/23/20 Range/Units 05:02 05:02 WBC (4.5-11.0) K/mm3 RBC (3.65-5.03) M/mm3 MCHC (32-34) % D-Dimer (0-234) ng/mlDDU Ferritin 1571.0 H (13.0-400.0) ng/mL Lactate Dehydrogenase 531 H (91-180) units/L C-Reactive Protein 6.40 H (0.00-1.30) mg/dL Coronavirus (PCR) (Negative)
--- NOTE | 2020-02-23 15:28 | Progress Note ---
Assessment and Plan 64 y/o male with COVID 19 positive pneumonia and no other prior medical history. 1. COVID positive 2. Requiring 6 liters of Nasal cannula but improved with proning. Would ask that patient prone himself, multiple times during the day shit and sleep proned at night. 3. No IVF, suggest to encourage PO intake 4. Will continue to follow and monitor. Subjective Date of service: 02/23/20 Interval history: Remains on 6 liters NC. Sats stable. PUI?: Yes COVID19: Pending Objective Vital Signs - 12hr 02/23/20 02/23/20 02/23/20 04:50 08:28 11:39 Temperature 98.8 F 102.3 F H Pulse Rate 64 83 Respiratory 20 20 24 Rate Blood Pressure 114/66 109/66 O2 Sat by Pulse 91 96 Oximetry 02/23/20 13:15 Temperature 98.9 F Pulse Rate Respiratory Rate Blood Pressure O2 Sat by Pulse Oximetry CBC and BMP: 02/23/20 05:02 02/23/20 05:02 ABG, PT/INR, D-dimer: PT/INR, D-dimer D-Dimer 2109.52 ng/mlDDU (0-234) H 02/23/20 05:02 Abnormal lab findings: Abnormal Labs 02/21/20 02/21/20 02/21/20 15:29 15:29 15:29 WBC 3.7 L RBC 5.62 H Hgb 16.5 H Hct 47.5 H MCV MCHC 35 H [place] % (Auto) 8.9 H Lymph # 0.6 L Seg Neutrophils % 72.3 H D-Dimer 5638.87 H Sodium 136 L Chloride 96.2 L Carbon Dioxide 20 L BUN 22 H Glucose 124 H Calcium Ferritin Lactate Dehydrogenase C-Reactive Protein Albumin 3.8 L Coronavirus (PCR) 02/21/20 02/21/20 02/22/20 15:29 15:29 04:04 WBC 3.9 L RBC 5.47 H Hgb 15.8 H Hct MCV 83 L MCHC 35 H [place] % (Auto) 10.5 H Lymph # 0.7 L Seg Neutrophils % 70.1 H D-Dimer Sodium Chloride Carbon Dioxide BUN Glucose Calcium Ferritin 1484.0 H Lactate Dehydrogenase 486 H C-Reactive Protein 4.40 H Albumin Coronavirus (PCR) 0402/22/20 02/23/20 04:04 11:23 05:02 WBC 3.3 L RBC 5.19 H Hgb Hct MCV MCHC 35 H [place] % (Auto) Lymph # Seg Neutrophils % D-Dimer Sodium Chloride Carbon Dioxide BUN Glucose 114 H Calcium 8.3 L Ferritin Lactate Dehydrogenase C-Reactive Protein Albumin Coronavirus (PCR) Positive A 02/23/20 02/23/20 02/23/20 05:02 05:02 05:02 WBC RBC Hgb Hct MCV MCHC [place] % (Auto) Lymph # Seg Neutrophils % D-Dimer 2109.52 H Sodium Chloride Carbon Dioxide BUN Glucose Calcium Ferritin 1571.0 H Lactate Dehydrogenase 531 H C-Reactive Protein 6.40 H Albumin Coronavirus (PCR)
[2020-02-24] MEDS: ACETAMINOPHEN 325 MG TAB PO PRN ×2 (06:44→16:11)
--- NOTE | 2020-02-24 08:36 | Progress Note ---
Assessment and Plan Assessment and plan: 64 YO Male with No PMH presents to ED for evaluation. Pt states that he has experienced subjective fever, loss of appetite, generalized weakness, headache, shortness of breath, both dry and productive cough with production of yellow sputum over the past 1 week with progressively worsening symptoms over the past 3 days. Patient transported to [facility] via private vehicle for further evaluation and care. Patient seen and evaluated in the emergency department. Lab and imaging studies reviewed. Patient found to have temperature of 100.3 F, and pulse oximetry of 86% on room air which is consistent with acute hypoxemic respiratory failure. Patient underwent chest x-ray which revealed bilateral pneumonia which are consistent with suspected CO VID19. Patient admitted to medical floor and treated with pneumonia protocol. Patient also treated with initiation of CO VID19 protocol. Infectious disease service consulted in ED. Patient denies chest pain, palpitations, syncope, trauma, prolonged tr rolanda/immobility, individual/family history of DVT/bleeding/PE/blood clotting disorders, or known ill contacts. No prior admission for review. No medication listed for reconciliation at the time of admission. Bilateral pneumonia secondary to COVID-19 COVID-19 viral infection confirmed Sepsis syndrome Acute hypoxic respiratory failure with pulse oximetry of 86% on room air Elevated d-dimer Headache Plan Patient unfortunately continues to have repeated fever. Inflammatory markers improving. With d-dimer now down to just mildly above 2000. Repeat blood cultures are done still with no growth Antibiotics per ID -if hypoxia progressive, may consider Actemra or steroid trial Continue Lovenox considering a d-dimer greater than 5000, will obtain imaging studies prior to discharge if needed Remains on 6 L of nasal cannula continue to encourage prone position multiple times during the day and during hours of sleep Pulmonary and ID input noted Complete 5 days of experimental drugs Plaquenil in addition to the azithromycin will monitor EKGs for QT prolongation. Daily pre-and post ambulatory pulse ox. History Interval history: Patient seen and examined resting comfortably this morning but still with intermittent fever, he still complaints of shortness of breath with exertion. Was on 6 L this morning with decreased to 4 L as patient was satting 98% PUI?: Yes COVID19: Positive Hospitalist Physical - Physical exam Narrative exam: VITAL SIGNS: Reviewed. GENERAL: The patient appears normally developed, Vital signs as documented. HEAD: No signs of head trauma. EYES: Pupils are equal. Extraocular motions intact. EARS: Hearing grossly intact. MOUTH: Oropharynx is normal. NECK: No adenopathy, no JVD. CHEST: Chest with diminished breath sounds bilaterally. No wheezes, rales, or rhonchi. CARDIAC: Regular rate and rhythm. S1 and S2, without murmurs, gallops, or rubs. VASCULAR: No Edema. Peripheral pulses normal and equal in all extremities. ABDOMEN: Soft, non tender and non distended. No rebound or guarding, and no masses palpated. Bowel Sounds normal. MUSCULOSKELETAL: Good range of motion of all major joints. Extremities without clubbing, cyanosis or edema. NEUROLOGIC EXAM: Alert and oriented x 3 No focal sensory or strength deficits. Speech normal. Follows commands. PSYCHIATRIC: Mood normal. SKIN: detail exam as documented in skin assessment - Constitutional Vitals: Temp Pulse Resp BP Pulse Ox 101.0 F H 82 18 112/67 91 02/24/20 03:58 02/24/20 03:58 02/24/20 03:58 02/24/20 03:58 02/24/20 03:58 General appearance: Present: mild distress Results - Labs CBC & Chem 7: 02/23/20 05:02 02/23/20 05:02 Labs: Laboratory Last Values WBC 3.3 K/mm3 (4.5-11.0) L 02/23/20 05:02 RBC 5.19 M/mm3 (3.65-5.03) H 02/23/20 05:02 Hgb 15.1 gm/dl (11.8-15.2) 02/23/20 05:02 Hct 43.8 % (35.5-45.6) 02/23/20 05:02 MCV 84 fl (84-94) 02/23/20 05:02 MCH 29 pg (28-32) 02/23/20 05:02 MCHC 35 % (32-34) H 02/23/20 05:02 RDW 13.8 % (13.2-15.2) 02/23/20 05:02 Plt Count 349 K/mm3 (140-440) 02/23/20 05:02 Lymph % (Auto) 18.1 % (13.4-35.0) 02/22/20 04:04 [place] % (Auto) 10.5 % (0.0-7.3) H 02/22/20 04:04 Eos % (Auto) 0.4 % (0.0-4.3) 02/22/20 04:04 Baso % (Auto) 0.9 % (0.0-1.8) 02/22/20 04:04 Lymph # 0.7 K/mm3 (1.2-5.4) L 02/22/20 04:04 [place] # 0.4 K/mm3 (0.0-0.8) 02/22/20 04:04 Eos # 0.0 K/mm3 (0.0-0.4) 02/22/20 04:04 Baso # 0.0 K/mm3 (0.0-0.1) 02/22/20 04:04 Seg Neutrophils % 70.1 % (40.0-70.0) H 02/22/20 04:04 Seg Neutrophils # 2.8 K/mm3 (1.8-7.7) 02/22/20 04:04 D-Dimer 2109.52 ng/mlDDU (0-234) H 02/23/20 05:02 Sodium 138 mmol/L (137-145) 02/23/20 05:02 Potassium 4.1 mmol/L (3.6-5.0) 02/23/20 05:02 Chloride 100.6 mmol/L (98-107) 02/23/20 05:02 Carbon Dioxide 22 mmol/L (22-30) 02/23/20 05:02 Anion Gap 20 mmol/L 02/23/20 05:02 BUN 17 mg/dL (9-20) 02/23/20 05:02 Creatinine 1.0 mg/dL (0.8-1.5) 02/23/20 05:02 Estimated GFR > 60 ml/min 02/23/20 05:02 BUN/Creatinine Ratio 17 % 02/23/20 05:02 Glucose 94 mg/dL (75-100) 02/23/20 05:02 Lactic Acid 1.80 mmol/L (0.7-2.0) 02/21/20 15:29 Calcium 8.4 mg/dL (8.4-10.2) 02/23/20 05:02 Ferritin 1571.0 ng/mL (13.0-400.0) H 02/23/20 05:02 Total Bilirubin 0.60 mg/dL (0.1-1.2) 02/21/20 15:29 AST 31 units/L (5-40) 02/21/20 15:29 ALT 18 units/L (7-56) 02/21/20 15:29 Alkaline Phosphatase 71 units/L (35-129) 02/21/20 15:29 Lactate Dehydrogenase 531 units/L (91-180) H 02/23/20 05:02 C-Reactive Protein 6.40 mg/dL (0.00-1.30) H 02/23/20 05:02 Total Protein 7.4 g/dL (6.3-8.2) 02/21/20 15:29 Albumin 3.8 g/dL (3.9-5) L 02/21/20 15:29 Albumin/Globulin Ratio 1.1 % 02/21/20 15:29 Procalcitonin 0.09 ng/mL (<0.15) 02/23/20 05:02 Coronavirus (PCR) Positive (Negative) A 02/22/20 11:23 Influenza A (Rapid) Negative (Negative) 02/21/20 16:34 Influenza B (Rapid) Negative (Negative) 02/21/20 16:34 Microbiology: Microbiology 02/23/20 20:41 Peripheral/Venous Blood Culture - Preliminary Culture in Progress 02/23/20 20:41 Peripheral/Venous Blood Culture - Preliminary Culture in Progress 02/21/20 15:38 Peripheral/Venous Blood Culture - Preliminary NO GROWTH AFTER 48 HOURS 02/21/20 15:29 Peripheral/Venous Blood Culture - Preliminary NO GROWTH AFTER 48 HOURS Rivera/IV: Voiding Method Urinal IV Catheter Type [Right INT / Saline Lock Forearm] IV Catheter Type [Right INT / Saline Lock Antecubital] Active Medications - Current Medications Current Medications: Generic Name Dose Route Start Last Admin Trade Name Freq PRN Reason Stop Dose Admin Acetaminophen 650 mg 02/21/20 16:41 02/24/20 06:44 Tylenol PO 650 mg Q4H PRN Administration Pain MILD(1-3)/Fever >100.5/DELUNA Enoxaparin Sodium 130 mg 02/22/20 10:00 02/23/20 09:13 Enoxaparin SUB-Q 130 mg Q24HR SCOT Administration Hydroxychloroquine Sulfate 200 mg 02/23/20 10:00 02/23/20 22:17 Plaquenil PO 02/26/20 22:01 200 mg BID SCOT Administration Ondansetron HCl 4 mg 02/21/20 16:41 Zofran IV Q8H PRN Nausea And Vomiting Sodium Chloride 10 ml 02/21/20 22:00 02/23/20 22:16 Sodium Chloride Flush Syringe 10 Ml IV 10 ml BID SCOT Administration Sodium Chloride 10 ml 02/21/20 16:41 Sodium Chloride Flush Syringe 10 Ml IV PRN PRN LINE FLUSH Nutrition/Malnutrition Assess - Dietary Evaluation Nutrition/Malnutrition Findings: Nutrition Notes Start: 02/23/20 09:12 Freq: Status: Active Protocol: Document 02/23/20 09:12 LM (Rec: 02/23/20 09:13 LM [email or web address]) Nutrition Notes Need for Assessment generated from: Low BMI Initial or Follow up Brief Note Height 5 ft 9 in Weight 83.91 kg [place] Body Weight (kg) 72.72 BMI 27.3 Subjective/Other Information Screen for low BMI. Wrong wt entered in chart. Nutrition Intervention Revisit per MD consult or patient Sign Off request:
[2020-02-24] MEDS: ENOXAPARIN 150 MG/1 ML INJ SUB-Q SCH (09:42)
[2020-02-24] MEDS: HYDROXYCHLOROQUINE 200 MG TAB PO SCH ×2 (09:43→21:46)
--- NOTE | 2020-02-24 09:55 | Progress Note ---
Assessment and Plan 64 y/o male with COVID 19 positive pneumonia and no other prior medical history. 1. COVID positive 2. Requiring 6 liters of Nasal cannula but improved with proning. Would ask that patient prone himself, multiple times during the day shit and sleep proned at night. 3. No IVF, suggest to encourage PO intake 4. Will continue to follow and monitor. Subjective Date of service: 02/24/20 Interval history: Still on 6 liters NC with adequate sats. PUI?: Yes COVID19: Positive Objective Vital Signs - 12hr 02/23/20 02/23/20 02/23/20 22:00 22:29 22:30 Temperature Pulse Rate 79 79 Respiratory 16 Rate Blood Pressure O2 Sat by Pulse 92 92 Oximetry 02/24/20 02/24/20 03:58 09:38 Temperature 101.0 F H Pulse Rate 82 Respiratory 18 Rate Blood Pressure 112/67 O2 Sat by Pulse 91 91 Oximetry CBC and BMP: 02/23/20 05:02 02/23/20 05:02 ABG, PT/INR, D-dimer: PT/INR, D-dimer D-Dimer 2109.52 ng/mlDDU (0-234) H 02/23/20 05:02 Abnormal lab findings: Abnormal Labs 02/21/20 02/21/20 02/21/20 15:29 15:29 15:29 WBC 3.7 L RBC 5.62 H Hgb 16.5 H Hct 47.5 H MCV MCHC 35 H [place] % (Auto) 8.9 H Lymph # 0.6 L Seg Neutrophils % 72.3 H D-Dimer 5638.87 H Sodium 136 L Chloride 96.2 L Carbon Dioxide 20 L BUN 22 H Glucose 124 H Calcium Ferritin Lactate Dehydrogenase C-Reactive Protein Albumin 3.8 L Coronavirus (PCR) 02/21/20 02/21/20 02/22/20 15:29 15:29 04:04 WBC 3.9 L RBC 5.47 H Hgb 15.8 H Hct MCV 83 L MCHC 35 H [place] % (Auto) 10.5 H Lymph # 0.7 L Seg Neutrophils % 70.1 H D-Dimer Sodium Chloride Carbon Dioxide BUN Glucose Calcium Ferritin 1484.0 H Lactate Dehydrogenase 486 H C-Reactive Protein 4.40 H Albumin Coronavirus (PCR) 02/22/20 02/22/2002/22/20 04:04 11:23 05:02 WBC 3.3 L RBC 5.19 H Hgb Hct MCV MCHC 35 H [place] % (Auto) Lymph # Seg Neutrophils % D-Dimer Sodium Chloride Carbon Dioxide BUN Glucose 114 H Calcium 8.3 L Ferritin Lactate Dehydrogenase C-Reactive Protein Albumin Coronavirus (PCR) Positive A 02/23/20 02/23/20 02/23/20 05:02 05:02 05:02 WBC RBC Hgb Hct MCV MCHC [place] % (Auto) Lymph # Seg Neutrophils % D-Dimer 2109.52 H Sodium Chloride Carbon Dioxide BUN Glucose Calcium Ferritin 1571.0 H Lactate Dehydrogenase 531 H C-Reactive Protein 6.40 H Albumin Coronavirus (PCR)
--- NOTE | 2020-02-24 10:45 | Progress Note ---
Assessment and Plan Cultures: 02/21/2020 blood culture: no growth 02/23/2020 blood culture: in progress A/P: 64/M with subjective fever, loss of appetite, weakness, headaches along with cough and shortness of breath for a week prior to admission #Bilateral pneumonia secondary to COVID-19: Labs show leukopenia, elevated d- dimer along with elevated ferritin, LDH and CRP. Procalcitonin is 0.06. Influenza rapid test is negative. #Acute hypoxic respiratory failure: Requiring oxygen. Recs: complete 5 days of Plaquenil trend ferritin, LDH, d-dimer, CRP every 2-3 days for risk stratification and to assess disease progression if hypoxia progressive, may consider Actemra or steroid trial continue to encourage lying in prone position if patient able to tolerate Jocelynn Chahal MD, FACP [facility] C: [phone] O: [phone] F: [phone] Subjective Date of service: 02/24/20 Interval history: STill febrile. Remains on 6 liters oxygen. PUI?: Yes COVID19: Positive Objective - Exam Narrative Exam: Physical Exam (reviewed in chart due to PPE conservation) Constitutional: limited due to PPE conservation strategy Head, Ears, Nose: limited due to PPE conservation strategy Eyes: limited due to PPE conservation strategy Neck: limited due to PPE conservation strategy Oral: limited due to PPE conservation strategy Cardiovascular: limited due to PPE conservation strategy Respiratory: limited due to PPE conservation strategy GI: limited due to PPE conservation strategy Musculoskeletal: limited due to PPE conservation strategy Skin: limited due to PPE conservation strategy Hem/Lymphatic: limited due to PPE conservation strategy Psych: limited due to PPE conservation strategy Neurological: limited due to PPE conservation strategy - Constitutional Vitals: Vital Signs Temp Pulse Resp BP Pulse Ox 101.0 F H 82 18 112/67 91 02/24/20 03:58 02/24/20 03:58 02/24/20 03:58 02/24/20 03:58 02/24/20 09:38 Temperature -Last 24 Hours Temperature 101.0 F Temperature 99.3 F Temperature 99.3 F Temperature 102.0 F Temperature 98.9 F Temperature 102.3 F - Labs CBC & Chem 7: 02/23/20 05:02 02/23/20 05:02 Labs: Abnormal lab results 02/22/20 Range/Units 11:23 Coronavirus (PCR) Positive A (Negative)
[2020-02-25] MEDS: ONDANSETRON 4 MG/2 ML INJ IV PRN ×2 (03:15→16:17)
[2020-02-25] MEDS: ACETAMINOPHEN 325 MG TAB PO PRN (05:27)
[2020-02-25 05:48] LABS: C-Reactive Protein 8.7 mg/dL (0.00-1.30)
--- NOTE | 2020-02-25 07:40 | Progress Note ---
Assessment and Plan Assessment and plan: 64 YO Male with No PMH presents to ED for evaluation. Pt states that he has experienced subjective fever, loss of appetite, generalized weakness, headache, shortness of breath, both dry and productive cough with production of yellow sputum over the past 1 week with progressively worsening symptoms over the past 3 days. Patient transported to [facility] via private vehicle for further evaluation and care. Patient seen and evaluated in the emergency department. Lab and imaging studies reviewed. Patient found to have temperature of 100.3 F, and pulse oximetry of 86% on room air which is consistent with acute hypoxemic respiratory failure. Patient underwent chest x-ray which revealed bilateral pneumonia which are consistent with suspected CO VID19. Patient admitted to medical floor and treated with pneumonia protocol. Patient also treated with initiation of CO VID19 protocol. Infectious disease service consulted in ED. Patient denies chest pain, palpitations, syncope, trauma, prolonged tr rolanda/immobility, individual/family history of DVT/bleeding/PE/blood clotting disorders, or known ill contacts. No prior admission for review. No medication listed for reconciliation at the time of admission. Bilateral pneumonia secondary to COVID-19 COVID-19 viral infection confirmed Sepsis syndrome Acute hypoxic respiratory failure with pulse oximetry of 86% on room air Elevated d-dimer Headache Plan Patient unfortunately continues to have repeated fever. Worsening hypoxia requiring increased oxygen. Will defer to ID for possible trial of Actemra or steroid trial Inflammatory markers improving. With d-dimer now down to just mildly above 2000. Repeat blood cultures are done still with no growth Antibiotics per ID Continue Lovenox considering a d-dimer greater than 5000, will obtain imaging studies prior to discharge if needed Remains on 6 L of nasal cannula continue to encourage prone position multiple times during the day and during hours of sleep Pulmonary and ID input noted Complete 5 days of experimental drugs Plaquenil in addition to the azithromycin will monitor EKGs for QT prolongation. Daily pre-and post ambulatory pulse ox. History Interval history: Patient seen and examined unfortunately declined yesterday with worsening shortness of breath now on 90% high flow nasal cannula. Denies any chest pain nausea vomiting. Hospitalist Physical - Physical exam Narrative exam: VITAL SIGNS: Reviewed. GENERAL: The patient appears normally developed, Vital signs as documented. HEAD: No signs of head trauma. EYES: Pupils are equal. Extraocular motions intact. EARS: Hearing grossly intact. MOUTH: Oropharynx is normal. NECK: No adenopathy, no JVD. CHEST: Chest with diminished breath sounds bilaterally. No wheezes, rales, or rhonchi. CARDIAC: Regular rate and rhythm. S1 and S2, without murmurs, gallops, or rubs. VASCULAR: No Edema. Peripheral pulses normal and equal in all extremities. ABDOMEN: Soft, non tender and non distended. No rebound or guarding, and no masses palpated. Bowel Sounds normal. MUSCULOSKELETAL: Good range of motion of all major joints. Extremities without clubbing, cyanosis or edema. NEUROLOGIC EXAM: Alert and oriented x 3 No focal sensory or strength deficits. Speech normal. Follows commands. PSYCHIATRIC: Mood a bit more anxious than yesterday. SKIN: detail exam as documented in skin assessment - Constitutional Vitals: Temp Pulse Resp BP Pulse Ox 99.2 F 77 25 H 129/74 98 02/24/20 22:21 02/25/20 05:17 02/25/20 05:17 02/25/20 05:17 02/25/20 05:17 General appearance: Present: mild distress Results - Labs CBC & Chem 7: 02/23/20 05:02 02/23/20 05:02 Labs: Laboratory Last Values WBC 3.3 K/mm3 (4.5-11.0) L 02/23/20 05:02 RBC 5.19 M/mm3 (3.65-5.03) H 02/23/20 05:02 Hgb 15.1 gm/dl (11.8-15.2) 02/23/20 05:02 Hct 43.8 % (35.5-45.6) 02/23/20 05:02 MCV 84 fl (84-94) 02/23/20 05:02 MCH 29 pg (28-32) 02/23/20 05:02 MCHC 35 % (32-34) H 02/23/20 05:02 RDW 13.8 % (13.2-15.2) 02/23/20 05:02 Plt Count 349 K/mm3 (140-440) 02/23/20 05:02 Lymph % (Auto) 18.1 % (13.4-35.0) 02/22/20 04:04 [place] % (Auto) 10.5 % (0.0-7.3) H 02/22/20 04:04 Eos % (Auto) 0.4 % (0.0-4.3) 02/22/20 04:04 Baso % (Auto) 0.9 % (0.0-1.8) 02/22/20 04:04 Lymph # 0.7 K/mm3 (1.2-5.4) L 02/22/20 04:04 [place] # 0.4 K/mm3 (0.0-0.8) 02/22/20 04:04 Eos # 0.0 K/mm3 (0.0-0.4) 02/22/20 04:04 Baso # 0.0 K/mm3 (0.0-0.1) 02/22/20 04:04 Seg Neutrophils % 70.1 % (40.0-70.0) H 02/22/20 04:04 Seg Neutrophils # 2.8 K/mm3 (1.8-7.7) 02/22/20 04:04 D-Dimer 1422.33 ng/mlDDU (0-234) H 02/25/20 04:20 Sodium 138 mmol/L (137-145) 02/23/20 05:02 Potassium 4.1 mmol/L (3.6-5.0) 02/23/20 05:02 Chloride 100.6 mmol/L (98-107) 02/23/20 05:02 Carbon Dioxide 22 mmol/L (22-30) 02/23/20 05:02 Anion Gap 20 mmol/L 02/23/20 05:02 BUN 17 mg/dL (9-20) 02/23/20 05:02 Creatinine 1.0 mg/dL (0.8-1.5) 02/23/20 05:02 Estimated GFR > 60 ml/min 02/23/20 05:02 BUN/Creatinine Ratio 17 % 02/23/20 05:02 Glucose 94 mg/dL (75-100) 02/23/20 05:02 Lactic Acid 1.80 mmol/L (0.7-2.0) 02/21/20 15:29 Calcium 8.4 mg/dL (8.4-10.2) 02/23/20 05:02 Ferritin 2172.0 ng/mL (13.0-400.0) H 02/25/20 04:20 Total Bilirubin 0.60 mg/dL (0.1-1.2) 02/21/20 15:29 AST 31 units/L (5-40) 02/21/20 15:29 ALT 18 units/L (7-56) 02/21/20 15:29 Alkaline Phosphatase 71 units/L (35-129) 02/21/20 15:29 Lactate Dehydrogenase 594 units/L (91-180) H 02/25/20 04:20 C-Reactive Protein 8.70 mg/dL (0.00-1.30) H 02/25/20 04:20 Total Protein 7.4 g/dL (6.3-8.2) 02/21/20 15:29 Albumin 3.8 g/dL (3.9-5) L 02/21/20 15:29 Albumin/Globulin Ratio 1.1 % 02/21/20 15:29 Procalcitonin 0.09 ng/mL (<0.15) 02/23/20 05:02 Coronavirus (PCR) Positive (Negative) A 02/22/20 11:23 Influenza A (Rapid) Negative (Negative) 02/21/20 16:34 Influenza B (Rapid) Negative (Negative) 02/21/20 16:34 Microbiology: Microbiology 02/23/20 20:41 Peripheral/Venous Blood Culture - Preliminary NO GROWTH AFTER 24 HOURS 02/23/20 20:41 Peripheral/Venous Blood Culture - Preliminary NO GROWTH AFTER 24 HOURS 02/21/20 15:38 Peripheral/Venous Blood Culture - Preliminary NO GROWTH AFTER 72 HOURS 02/21/20 15:29 Peripheral/Venous Blood Culture - Preliminary NO GROWTH AFTER 72 HOURS Rivera/IV: Voiding Method Urinal IV Catheter Type [Right INT / Saline Lock Forearm] IV Catheter Type [Right INT / Saline Lock Antecubital] Active Medications - Current Medications Current Medications: Generic Name Dose Route Start Last Admin Trade Name Freq PRN Reason Stop Dose Admin Acetaminophen 650 mg 02/21/20 16:41 02/25/20 05:27 Tylenol PO 650 mg Q4H PRN Administration Pain MILD(1-3)/Fever >100.5/DELUNA Enoxaparin Sodium 130 mg 02/22/20 10:00 02/24/20 09:42 Enoxaparin SUB-Q 130 mg Q24HR SCOT Administration Hydroxychloroquine Sulfate 200 mg 02/23/20 10:00 02/24/20 21:46 Plaquenil PO 02/26/20 22:01 200 mg BID SCOT Administration Ondansetron HCl 4 mg 02/21/20 16:41 02/25/20 03:15 Zofran IV 4 mg Q8H PRN Administration Nausea And Vomiting Sodium Chloride 10 ml 02/21/20 22:00 02/24/20 21:47 Sodium Chloride Flush Syringe 10 Ml IV 10 ml BID SCOT Administration Sodium Chloride 10 ml 02/21/20 16:41 Sodium Chloride Flush Syringe 10 Ml IV PRN PRN LINE FLUSH Nutrition/Malnutrition Assess - Dietary Evaluation Nutrition/Malnutrition Findings: Nutrition Notes Start: 02/23/20 09:12 Freq: Status: Active Protocol: Document 02/23/20 09:12 LM (Rec: 02/23/20 09:13 LM [email or web address]) Nutrition Notes Need for Assessment generated from: Low BMI Initial or Follow up Brief Note Height 5 ft 9 in Weight 83.91 kg [place] Body Weight (kg) 72.72 BMI 27.3 Subjective/Other Information Screen for low BMI. Wrong wt entered in chart. Nutrition Intervention Revisit per MD consult or patient Sign Off request:
[2020-02-25] MEDS: HYDROXYCHLOROQUINE 200 MG TAB PO SCH ×2 (09:56→21:12)
[2020-02-25] MEDS: ENOXAPARIN 150 MG/1 ML INJ SUB-Q SCH (09:56)
[2020-02-25] MEDS ORDERED: ALBUTEROL 8.5 GM INHALATION IH PRN (10:39)
--- NOTE | 2020-02-25 11:32 | Progress Note ---
Assessment and Plan - Patient Problems (1) COVID-19 virus infection Current Visit: Yes Status: Acute (2) Acute hypoxemic respiratory failure Current Visit: Yes Status: Acute (3) Bilateral pneumonia Current Visit: Yes Status: Acute Qualifiers: Pneumonia type: due to unspecified organism Lung location: unspecified part of lung Qualified Code(s): J18.9 - Pneumonia, unspecified organism (4) Hypoxemia Current Visit: Yes Status: Acute Subjective Interval history: fever overnight Objective Vital Signs - 12hr 02/25/20 02/25/20 05:17 08:09 Pulse Rate 77 Respiratory 25 H Rate Blood Pressure 129/74 O2 Sat by Pulse 98 93 Oximetry Constitutional: no acute distress Eyes: non-icteric Ascultation: Bilateral: diminished breath sounds Cardiovascular: regular rate and rhythm Gastrointestinal: normoactive bowel sounds CBC and BMP: 02/23/20 05:02 02/23/20 05:02 ABG, PT/INR, D-dimer: PT/INR, D-dimer D-Dimer 1422.33 ng/mlDDU (0-234) H 02/25/20 04:20 Abnormal lab findings: Abnormal Labs 02/21/20 02/21/20 02/21/20 15:29 15:29 15:29 WBC 3.7 L RBC 5.62 H Hgb 16.5 H Hct 47.5 H MCV MCHC 35 H [place] % (Auto) 8.9 H Lymph # 0.6 L Seg Neutrophils % 72.3 H D-Dimer 5638.87 H Sodium 136 L Chloride 96.2 L Carbon Dioxide 20 L BUN 22 H Glucose 124 H Calcium Ferritin Lactate Dehydrogenase C-Reactive Protein Albumin 3.8 L Coronavirus (PCR) 02/21/20 02/21/20 02/22/20 15:29 15:29 04:04 WBC 3.9 L RBC 5.47 H Hgb 15.8 H Hct MCV 83 L MCHC 35 H [place] % (Auto) 10.5 H Lymph # 0.7 L Seg Neutrophils % 70.1 H D-Dimer Sodium Chloride Carbon Dioxide BUN Glucose Calcium Ferritin 1484.0 H Lactate Dehydrogenase 486 H C-Reactive Protein 4.40 H Albumin Coronavirus (PCR) 02/22/20 02/22/20 02/23/20 04:04 11:23 05:02 WBC 3.3 L RBC 5.19 H Hgb Hct MCV MCHC 35 H [place] % (Auto) Lymph # Seg Neutrophils % D-Dimer Sodium Chloride Carbon Dioxide BUN Glucose 114 H Calcium 8.3 L Ferritin Lactate Dehydrogenase C-Reactive Protein Albumin Coronavirus (PCR) Positive A 02/23/20 02/23/20 02/23/20 05:02 05:02 05:02 WBC RBC Hgb Hct MCV MCHC [place] % (Auto) Lymph # Seg Neutrophils % D-Dimer 2109.52 H Sodium Chloride Carbon Dioxide BUN Glucose Calcium Ferritin 1571.0 H Lactate Dehydrogenase 531 H C-Reactive Protein 6.40 H Albumin Coronavirus (PCR) 02/25/20 02/25/20 02/25/20 04:20 04:20 04:20 WBC RBC Hgb Hct MCV MCHC [place] % (Auto) Lymph # Seg Neutrophils % D-Dimer 1422.33 H Sodium Chloride Carbon Dioxide BUN Glucose Calcium Ferritin 2172.0 H Lactate Dehydrogenase 594 H C-Reactive Protein 8.70 H Albumin Coronavirus (PCR)
[2020-02-25] MEDS: ZINC SULFATE 220 MG CAP PO SCH (13:42)
--- NOTE | 2020-02-26 08:37 | Progress Note ---
Assessment and Plan Assessment and plan: 64 YO Male with No PMH presents to ED for evaluation. Pt states that he has experienced subjective fever, loss of appetite, generalized weakness, headache, shortness of breath, both dry and productive cough with production of yellow sputum over the past 1 week with progressively worsening symptoms over the past 3 days. Patient transported to [facility] via private vehicle for further evaluation and care. Patient seen and evaluated in the emergency department. Lab and imaging studies reviewed. Patient found to have temperature of 100.3 F, and pulse oximetry of 86% on room air which is consistent with acute hypoxemic respiratory failure. Patient underwent chest x-ray which revealed bilateral pneumonia which are consistent with suspected CO VID19. Patient admitted to medical floor and treated with pneumonia protocol. Patient also treated with initiation of CO VID19 protocol. Infectious disease service consulted in ED. Patient denies chest pain, palpitations, syncope, trauma, prolonged tr rolanda/immobility, individual/family history of DVT/bleeding/PE/blood clotting disorders, or known ill contacts. No prior admission for review. No medication listed for reconciliation at the time of admission. Bilateral pneumonia secondary to COVID-19 COVID-19 viral infection confirmed Sepsis syndrome Acute hypoxic respiratory failure with pulse oximetry of 86% on room air Elevated d-dimer Headache Plan No new fever, Has been unable to wean, May transfer to [facility] for closer monitoring, as patient still on High flow at 100% Obtain chest xray ?Trial of steroids, will discuss with ID Worsening hypoxia requiring increased oxygen. Will defer to ID for possible trial of Actemra or steroid trial Inflammatory markers improving. With d-dimer now down to just mildly above 2000. Repeat blood cultures are done still with no growth Antibiotics per ID Continue Lovenox considering a d-dimer greater than 5000, will obtain imaging studies prior to discharge if needed Continue to encourage prone position multiple times during the day and during hours of sleep Pulmonary and ID input noted Complete 5 days of experimental drugs Plaquenil in addition to the azithromycin will monitor EKGs for QT prolongation. Daily pre-and post ambulatory pulse ox. [place] threshold [place] [facility] [place] History Interval history: Patient seen and examined unfortunately continues on high flow oxygen 100% although denies any chest pain dizziness nausea vomiting he still does have significant exertional d hypoxia but does not have any use of accessory muscles. Hospitalist Physical - Physical exam Narrative exam: VITAL SIGNS: Reviewed. GENERAL: The patient appears normally developed, Vital signs as documented. HEAD: No signs of head trauma. EYES: Pupils are equal. Extraocular motions intact. EARS: Hearing grossly intact. MOUTH: Oropharynx is normal. NECK: No adenopathy, no JVD. CHEST: Chest with diminished breath sounds bilaterally. No wheezes, rales, or rhonchi. CARDIAC: Regular rate and rhythm. S1 and S2, without murmurs, gallops, or rubs. VASCULAR: No Edema. Peripheral pulses normal and equal in all extremities. ABDOMEN: Soft, non tender and non distended. No rebound or guarding, and no masses palpated. Bowel Sounds normal. MUSCULOSKELETAL: Good range of motion of all major joints. Extremities without clubbing, cyanosis or edema. NEUROLOGIC EXAM: Alert and oriented x 3 No focal sensory or strength deficits. Speech normal. Follows commands. PSYCHIATRIC: Mood a bit more anxious than yesterday. SKIN: detail exam as documented in skin assessment - Constitutional Vitals: Temp Pulse Resp BP Pulse Ox 99.7 F H 83 22 108/68 93 02/26/20 05:38 02/26/20 05:38 02/26/20 05:38 02/26/20 05:38 02/26/20 05:38 General appearance: Present: mild distress Results - Labs CBC & Chem 7: 02/23/20 05:02 02/23/20 05:02 Labs: Laboratory Last Values WBC 3.3 K/mm3 (4.5-11.0) L 02/23/20 05:02 RBC 5.19 M/mm3 (3.65-5.03) H 02/23/20 05:02 Hgb 15.1 gm/dl (11.8-15.2) 02/23/20 05:02 Hct 43.8 % (35.5-45.6) 02/23/20 05:02 MCV 84 fl (84-94) 02/23/20 05:02 MCH 29 pg (28-32) 02/23/20 05:02 MCHC 35 % (32-34) H 02/23/20 05:02 RDW 13.8 % (13.2-15.2) 02/23/20 05:02 Plt Count 349 K/mm3 (140-440) 02/23/20 05:02 Lymph % (Auto) 18.1 % (13.4-35.0) 02/22/20 04:04 [place] % (Auto) 10.5 % (0.0-7.3) H 02/22/20 04:04 Eos % (Auto) 0.4 % (0.0-4.3) 02/22/20 04:04 Baso % (Auto) 0.9 % (0.0-1.8) 02/22/20 04:04 Lymph # 0.7 K/mm3 (1.2-5.4) L 02/22/20 04:04 [place] # 0.4 K/mm3 (0.0-0.8) 02/22/20 04:04 Eos # 0.0 K/mm3 (0.0-0.4) 02/22/20 04:04 Baso # 0.0 K/mm3 (0.0-0.1) 02/22/20 04:04 Seg Neutrophils % 70.1 % (40.0-70.0) H 02/22/20 04:04 Seg Neutrophils # 2.8 K/mm3 (1.8-7.7) 02/22/20 04:04 D-Dimer 1422.33 ng/mlDDU (0-234) H 02/25/20 04:20 Sodium 138 mmol/L (137-145) 02/23/20 05:02 Potassium 4.1 mmol/L (3.6-5.0) 02/23/20 05:02 Chloride 100.6 mmol/L (98-107) 02/23/20 05:02 Carbon Dioxide 22 mmol/L (22-30) 02/23/20 05:02 Anion Gap 20 mmol/L 02/23/20 05:02 BUN 17 mg/dL (9-20) 02/23/20 05:02 Creatinine 1.0 mg/dL (0.8-1.5) 02/23/20 05:02 Estimated GFR > 60 ml/min 02/23/20 05:02 BUN/Creatinine Ratio 17 % 02/23/20 05:02 Glucose 94 mg/dL (75-100) 02/23/20 05:02 Lactic Acid 1.80 mmol/L (0.7-2.0) 02/21/20 15:29 Calcium 8.4 mg/dL (8.4-10.2) 02/23/20 05:02 Ferritin 2172.0 ng/mL (13.0-400.0) H 02/25/20 04:20 Total Bilirubin 0.60 mg/dL (0.1-1.2) 02/21/20 15:29 AST 31 units/L (5-40) 02/21/20 15:29 ALT 18 units/L (7-56) 02/21/20 15:29 Alkaline Phosphatase 71 units/L (35-129) 02/21/20 15:29 Lactate Dehydrogenase 594 units/L (91-180) H 02/25/20 04:20 C-Reactive Protein 8.70 mg/dL (0.00-1.30) H 02/25/20 04:20 Total Protein 7.4 g/dL (6.3-8.2) 02/21/20 15:29 Albumin 3.8 g/dL (3.9-5) L 02/21/20 15:29 Albumin/Globulin Ratio 1.1 % 02/21/20 15:29 Procalcitonin 0.16 ng/mL (<0.15) 02/25/20 04:20 Coronavirus (PCR) Positive (Negative) A 02/22/20 11:23 Influenza A (Rapid) Negative (Negative) 02/21/20 16:34 Influenza B (Rapid) Negative (Negative) 02/21/20 16:34 Microbiology: Microbiology 02/23/20 20:41 Peripheral/Venous Blood Culture - Preliminary NO GROWTH AFTER 48 HOURS 02/23/20 20:41 Peripheral/Venous Blood Culture - Preliminary NO GROWTH AFTER 48 HOURS 02/21/20 15:29 Peripheral/Venous Blood Culture - Preliminary NO GROWTH AFTER 4 DAYS 02/21/20 15:38 Peripheral/Venous Blood Culture - Preliminary NO GROWTH AFTER 4 DAYS Rivera/IV: Voiding Method Urinal IV Catheter Type [Right INT / Saline Lock Forearm] IV Catheter Type [Right INT / Saline Lock Antecubital] Active Medications - Current Medications Current Medications: Generic Name Dose Route Start Last Admin Trade Name Freq PRN Reason Stop Dose Admin Acetaminophen 650 mg 02/21/20 16:41 02/25/20 05:27 Tylenol PO 650 mg Q4H PRN Administration Pain MILD(1-3)/Fever >100.5/DELUNA Albuterol 2 puff 02/25/20 10:39 Proair IH Q6HRT PRN Shortness Of Breath Enoxaparin Sodium 130 mg 02/22/20 10:00 02/25/20 09:56 Enoxaparin SUB-Q 130 mg Q24HR SCOT Administration Hydroxychloroquine Sulfate 200 mg 02/23/20 10:00 02/25/20 21:12 Plaquenil PO 02/26/20 22:01 200 mg BID SCOT Administration Ondansetron HCl 4 mg 02/21/20 16:41 02/25/20 16:17 Zofran IV 4 mg Q8H PRN Administration Nausea And Vomiting Sodium Chloride 10 ml 02/21/20 22:00 02/25/20 21:12 Sodium Chloride Flush Syringe 10 Ml IV 10 ml BID SCOT Administration Sodium Chloride 10 ml 02/21/20 16:41 Sodium Chloride Flush Syringe 10 Ml IV PRN PRN LINE FLUSH Zinc Sulfate 220 mg 02/25/20 11:00 02/25/20 13:42 Zinc Sulfate PO 220 mg QDAY SCOT Administration Nutrition/Malnutrition Assess - Dietary Evaluation Nutrition/Malnutrition Findings: Nutrition Notes Start: 02/23/20 09:12 Freq: Status: Active Protocol: Document 02/23/20 09:12 LM (Rec: 02/23/20 09:13 LM [email or web address]) Nutrition Notes Need for Assessment generated from: Low BMI Initial or Follow up Brief Note Height 5 ft 9 in Weight 83.91 kg [place] Body Weight (kg) 72.72 BMI 27.3 Subjective/Other Information Screen for low BMI. Wrong wt entered in chart. Nutrition Intervention Revisit per MD consult or patient Sign Off request:
[2020-02-26] MEDS: ENOXAPARIN 150 MG/1 ML INJ SUB-Q SCH (09:39)
[2020-02-26] MEDS: acetaZOLAMIDE 250 MG TAB PO SCH (09:40)
[2020-02-26] MEDS: HYDROXYCHLOROQUINE 200 MG TAB PO SCH ×2 (09:40→21:18)
[2020-02-26] MEDS: ZINC SULFATE 220 MG CAP PO SCH (09:40)
--- NOTE | 2020-02-26 10:46 | XRay Report ---
CHEST 1 VIEW 02/26/2020 10:04 AM INDICATION / CLINICAL INFORMATION: covid 19 viral infection. COMPARISON: 2 views of the chest from 02/21/2020. FINDINGS: SUPPORT DEVICES: None. HEART / MEDIASTINUM: No significant abnormality. LUNGS / PLEURA: Bilateral airspace opacities have worsened. No significant pleural effusion. No pneum othorax. ADDITIONAL FINDINGS: No significant additional findings. IMPRESSION: Interval worsening of bilateral pneumonia. Signer Name: Nathaniel Damon MD Signed: 02/26/2020 10:42 AM Workstation Name: [id number]
--- NOTE | 2020-02-26 11:18 | Progress Note ---
Assessment and Plan - Patient Problems (1) COVID-19 virus infection Current Visit: Yes Status: Acute (2) Acute hypoxemic respiratory failure Current Visit: Yes Status: Acute (3) Bilateral pneumonia Current Visit: Yes Status: Acute Qualifiers: Pneumonia type: due to unspecified organism Lung location: unspecified part of lung Qualified Code(s): J18.9 - Pneumonia, unspecified organism (4) Hypoxemia Current Visit: Yes Status: Acute Subjective Interval history: reports nausea when in prone position no reports of abd pain or discomfort still on 100% Objective Vital Signs - 12hr 02/26/20 02/26/20 02/26/20 02:35 05:38 08:00 Temperature 99.7 F H Pulse Rate 83 Respiratory 22 Rate Blood Pressure 108/68 O2 Sat by Pulse 87 93 94 Oximetry 02/26/20 08:48 Temperature Pulse Rate Respiratory Rate Blood Pressure O2 Sat by Pulse 91 Oximetry Constitutional: no acute distress Eyes: non-icteric Ascultation: Bilateral: diminished breath sounds Cardiovascular: regular rate and rhythm Gastrointestinal: normoactive bowel sounds CBC and BMP: 02/23/20 05:02 02/23/20 05:02 ABG, PT/INR, D-dimer: PT/INR, D-dimer D-Dimer 1422.33 ng/mlDDU (0-234) H 02/25/20 04:20 Abnormal lab findings: Abnormal Labs 02/21/20 02/21/20 02/21/20 15:29 15:29 15:29 WBC 3.7 L RBC 5.62 H Hgb 16.5 H Hct 47.5 H MCV MCHC 35 H [place] % (Auto) 8.9 H Lymph # 0.6 L Seg Neutrophils % 72.3 H D-Dimer 5638.87 H Sodium 136 L Chloride 96.2 L Carbon Dioxide 20 L BUN 22 H Glucose 124 H Calcium Ferritin Lactate Dehydrogenase C-Reactive Protein Albumin 3.8 L Coronavirus (PCR) 02/21/20 02/21/20 02/22/20 15:29 15:29 04:04 WBC 3.9 L RBC 5.47 H Hgb 15.8 H Hct MCV 83 L MCHC 35 H [place] % (Auto) 10.5 H Lymph # 0.7 L Seg Neutrophils % 70.1 H D-Dimer Sodium Chloride Carbon Dioxide BUN Glucose Calcium Ferritin 1484.0 H Lactate Dehydrogenase 486 H C-Reactive Protein 4.40 H Albumin Coronavirus (PCR) 02/22/20 02/22/20 02/23/20 04:04 11:23 05:02 WBC 3.3 L RBC 5.19 H Hgb Hct MCV MCHC 35 H [place] % (Auto) Lymph # Seg Neutrophils % D-Dimer Sodium Chloride Carbon Dioxide BUN Glucose 114 H Calcium 8.3 L Ferritin Lactate Dehydrogenase C-Reactive Protein Albumin Coronavirus (PCR) Positive A 02/23/20 02/23/20 02/23/20 05:02 05:02 05:02 WBC RBC Hgb Hct MCV MCHC [place] % (Auto) Lymph # Seg Neutrophils % D-Dimer 2109.52 H Sodium Chloride Carbon Dioxide BUN Glucose Calcium Ferritin 1571.0 H Lactate Dehydrogenase 531 H C-Reactive Protein 6.40 H Albumin Coronavirus (PCR) 02/25/20 02/25/20 02/25/20 04:20 04:20 04:20 WBC RBC Hgb Hct MCV MCHC [place] % (Auto) Lymph # Seg Neutrophils % D-Dimer 1422.33 H Sodium Chloride Carbon Dioxide BUN Glucose Calcium Ferritin 2172.0 H Lactate Dehydrogenase 594 H C-Reactive Protein 8.70 H Albumin Coronavirus (PCR) Chest x-ray: report reviewed, image reviewed
--- NOTE | 2020-02-26 13:50 | Progress Note ---
Assessment and Plan Cultures: 02/21/2020 blood culture: no growth 02/23/2020 blood culture: in progress A/P: 64/M with subjective fever, loss of appetite, weakness, headaches along with cough and shortness of breath for a week prior to admission #Bilateral pneumonia secondary to COVID-19: Labs show leukopenia, elevated d- dimer along with elevated ferritin, LDH and CRP. Procalcitonin is 0.06. Influenza rapid test is negative. completed 5 days of Plaquenil. #Acute hypoxic respiratory failure: Requiring oxygen. Recs: given progressive hypoxia and risk of intubation, will administer 1 dose of Actemra today considering the risks and benefits trend ferritin, LDH, d-dimer, CRP every 2-3 days for risk stratification and to assess disease progression continue to encourage lying in prone position if patient is able to tolerate Jocelynn Chahal MD, FACP [facility] C: [phone] O: [phone] F: [phone] Subjective Date of service: 02/26/20 Interval history: No fever. Oxygen requirements have worsened, now on 100%. Objective - Exam Narrative Exam: Physical Exam (reviewed in chart due to PPE conservation) Constitutional: limited due to PPE conservation strategy Head, Ears, Nose: limited due to PPE conservation strategy Eyes: limited due to PPE conservation strategy Neck: limited due to PPE conservation strategy Oral: limited due to PPE conservation strategy Cardiovascular: limited due to PPE conservation strategy Respiratory: limited due to PPE conservation strategy GI: limited due to PPE conservation strategy Musculoskeletal: limited due to PPE conservation strategy Skin: limited due to PPE conservation strategy Hem/Lymphatic: limited due to PPE conservation strategy Psych: limited due to PPE conservation strategy Neurological: limited due to PPE conservation strategy - Constitutional Vitals: Vital Signs Temp Pulse Resp BP Pulse Ox 98.4 F 90 32 H 107/71 91 02/26/20 11:42 02/26/20 11:42 02/26/20 11:42 02/26/20 11:42 02/26/20 13:15 Temperature -Last 24 Hours Temperature 98.4 F Temperature 99.7 F Temperature 99.3 F Temperature 99.4 F - Labs CBC & Chem 7: 02/23/20 05:02 02/23/20 05:02
[2020-02-26] MEDS ORDERED: ACTEMRA IV ONE (13:51)
[2020-02-26] MEDS ORDERED: TOCILIZUMAB 400 MG in SODIUM CHLORIDE 0.9% 100 ML IV ONE (15:00)
[2020-02-26] MEDS: ACETAMINOPHEN 325 MG TAB PO PRN (16:53)
[2020-02-27 05:28] LABS: Hematocrit 43.3 % (35.5-45.6); Hemoglobin 14.9 gm/dl (11.8-15.2); Mean Corpuscular HGB Conc 34 % (32-34); Mean Corpuscular Volume 84 fl (84-94); Platelet Count 428 K/mm3 (140-440); Red Blood Count 5.19 M/mm3 (3.65-5.03); Red Cell Distribution Width 13.7 % (13.2-15.2)
[2020-02-27 05:56] LABS: BUN/Creatinine Ratio 27; Blood Urea Nitrogen 24 mg/dL (9-20); Calcium 8.5 mg/dL (8.4-10.2); Hemolysis Index 6
[2020-02-27 06:42] LABS: Hepatitis B Surface Antigen Non-Reactive (Negative); Hepatitis C Virus Antibody Non-Reactive (NonReactive)
--- NOTE | 2020-02-27 08:04 | Progress Note ---
Assessment and Plan Assessment and plan: 64 YO Male with No PMH presents to ED for evaluation. Pt states that he has experienced subjective fever, loss of appetite, generalized weakness, headache, shortness of breath, both dry and productive cough with production of yellow sputum over the past 1 week with progressively worsening symptoms over the past 3 days. Patient transported to [facility] via private vehicle for further evaluation and care. Patient seen and evaluated in the emergency department. Lab and imaging studies reviewed. Patient found to have temperature of 100.3 F, and pulse oximetry of 86% on room air which is consistent with acute hypoxemic respiratory failure. Patient underwent chest x-ray which revealed bilateral pneumonia which are consistent with suspected CO VID19. Patient admitted to medical floor and treated with pneumonia protocol. Patient also treated with initiation of CO VID19 protocol. Infectious disease service consulted in ED. Patient denies chest pain, palpitations, syncope, trauma, prolonged tr rolanda/immobility, individual/family history of DVT/bleeding/PE/blood clotting disorders, or known ill contacts. No prior admission for review. No medication listed for reconciliation at the time of admission. CXR: worsening Opacities Bilateral pneumonia secondary to COVID-19 COVID-19 viral infection confirmed Sepsis syndrome Hypotension Acute hypoxic respiratory failure with pulse oximetry of 86% on room air Elevated d-dimer Headache Leukopenia Plan No new fever, Has been unable to wean, Patient at high risk for intubation, 1 dose of Actemra given 02/25 considering risk and benefitis ?Trial of steroids, will discuss with ID Follow Inflammatory markers. With d-dimer now down to just mildly above 2000. Repeat blood cultures are done still with no growth Antibiotics per ID Continue Lovenox considering a d-dimer greater than 5000, will obtain imaging studies prior to discharge if needed Continue to encourage prone position multiple times during the day and during hours of sleep Pulmonary and ID input noted Complete 5 days of experimental drugs Plaquenil in addition to the azithromycin will monitor EKGs for QT prolongation. Daily pre-and post ambulatory pulse ox. Low threshold to transfer to [facility]. Discussed with oracle manager will keep patient in the floor unless patient requires a BiPAP or any other invasive measures. cct 35mins History Interval history: Patient seen and examined unfortunately continues on high flow oxygen 100% with desaturation to the 70% when off oxygen, although denies any chest pain dizziness nausea vomiting he still does have significant exertional hypoxia but does not have any use of accessory muscles. Hospitalist Physical - Physical exam Narrative exam: VITAL SIGNS: Reviewed. GENERAL: The patient appears normally developed, Vital signs as documented. HEAD: No signs of head trauma. EYES: Pupils are equal. Extraocular motions intact. EARS: Hearing grossly intact. MOUTH: Oropharynx is normal. NECK: No adenopathy, no JVD. CHEST: Chest with diminished breath sounds bilaterally. No wheezes, rales, or rhonchi. CARDIAC: Regular rate and rhythm. S1 and S2, without murmurs, gallops, or rubs. VASCULAR: No Edema. Peripheral pulses normal and equal in all extremities. ABDOMEN: Soft, non tender and non distended. No rebound or guarding, and no masses palpated. Bowel Sounds normal. MUSCULOSKELETAL: Good range of motion of all major joints. Extremities without clubbing, cyanosis or edema. NEUROLOGIC EXAM: Alert and oriented x 3 No focal sensory or strength deficits. Speech normal. Follows commands. PSYCHIATRIC: Mood anxious SKIN: detail exam as documented in skin assessment - Constitutional Vitals: Temp Pulse Resp BP Pulse Ox 97.6 F 66 22 95/64 97 02/27/20 05:27 02/27/20 05:27 02/27/20 05:27 02/27/20 05:27 02/27/20 05:27 General appearance: Present: mild distress Results - Labs CBC & Chem 7: 02/27/20 04:58 02/27/20 04:58 Labs: Laboratory Last Values WBC 2.1 K/mm3 (4.5-11.0) L 02/27/20 04:58 RBC 5.19 M/mm3 (3.65-5.03) H 02/27/20 04:58 Hgb 14.9 gm/dl (11.8-15.2) 02/27/20 04:58 Hct 43.3 % (35.5-45.6) 02/27/20 04:58 MCV 84 fl (84-94) 02/27/20 04:58 MCH 29 pg (28-32) 02/27/20 04:58 MCHC 34 % (32-34) 02/27/20 04:58 RDW 13.7 % (13.2-15.2) 02/27/20 04:58 Plt Count 428 K/mm3 (140-440) 02/27/20 04:58 Lymph % (Auto) 18.1 % (13.4-35.0) 02/22/20 04:04 [place] % (Auto) 10.5 % (0.0-7.3) H 02/22/20 04:04 Eos % (Auto) 0.4 % (0.0-4.3) 02/22/20 04:04 Baso % (Auto) 0.9 % (0.0-1.8) 02/22/20 04:04 Lymph # 0.7 K/mm3 (1.2-5.4) L 02/22/20 04:04 [place] # 0.4 K/mm3 (0.0-0.8) 02/22/20 04:04 Eos # 0.0 K/mm3 (0.0-0.4) 02/22/20 04:04 Baso # 0.0 K/mm3 (0.0-0.1) 02/22/20 04:04 Seg Neutrophils % 70.1 % (40.0-70.0) H 02/22/20 04:04 Seg Neutrophils # 2.8 K/mm3 (1.8-7.7) 02/22/20 04:04 D-Dimer 1111.97 ng/mlDDU (0-234) H 02/27/20 04:58 Sodium 134 mmol/L (137-145) L 02/27/20 04:58 Potassium 4.0 mmol/L (3.6-5.0) 02/27/20 04:58 Chloride 99.9 mmol/L (98-107) 02/27/20 04:58 Carbon Dioxide 18 mmol/L (22-30) L 02/27/20 04:58 Anion Gap 20 mmol/L 02/27/20 04:58 BUN 24 mg/dL (9-20) H 02/27/20 04:58 Creatinine 0.9 mg/dL (0.8-1.5) 02/27/20 04:58 Estimated GFR > 60 ml/min 02/27/20 04:58 BUN/Creatinine Ratio 27 % 02/27/20 04:58 Glucose 107 mg/dL (75-100) H 02/27/20 04:58 Lactic Acid 1.80 mmol/L (0.7-2.0) 02/21/20 15:29 Calcium 8.5 mg/dL (8.4-10.2) 02/27/20 04:58 Ferritin 3392.0 ng/mL (13.0-400.0) H 02/27/20 04:58 Total Bilirubin 0.60 mg/dL (0.1-1.2) 02/21/20 15:29 AST 31 units/L (5-40) 02/21/20 15:29 ALT 18 units/L (7-56) 02/21/20 15:29 Alkaline Phosphatase 71 units/L (35-129) 02/21/20 15:29 Lactate Dehydrogenase 681 units/L (91-180) H 02/27/20 04:58 C-Reactive Protein 9.70 mg/dL (0.00-1.30) H 02/27/20 04:58 Total Protein 7.4 g/dL (6.3-8.2) 02/21/20 15:29 Albumin 3.8 g/dL (3.9-5) L 02/21/20 15:29 Albumin/Globulin Ratio 1.1 % 02/21/20 15:29 Procalcitonin 0.16 ng/mL (<0.15) 02/25/20 04:20 Coronavirus (PCR) Positive (Negative) A 02/22/20 11:23 Hepatitis A IgM Ab Non-reactive (NonReactive) 02/27/20 04:58 Hep Bs Antigen Non-reactive (Negative) 02/27/20 04:58 Hep B Core IgM Ab Non-reactive (NonReactive) 02/27/20 04:58 Hepatitis C Antibody Non-reactive (NonReactive) 02/27/20 04:58 Influenza A (Rapid) Negative (Negative) 02/21/20 16:34 Influenza B (Rapid) Negative (Negative) 02/21/20 16:34 Microbiology: Microbiology 02/23/20 20:41 Peripheral/Venous Blood Culture - Preliminary NO GROWTH AFTER 72 HOURS 02/23/20 20:41 Peripheral/Venous Blood Culture - Preliminary NO GROWTH AFTER 72 HOURS 02/21/20 15:29 Peripheral/Venous Blood Culture - Final NO GROWTH AFTER 5 DAYS 02/21/20 15:38 Peripheral/Venous Blood Culture - Final NO GROWTH AFTER 5 DAYS Rivera/IV: Voiding Method Urinal IV Catheter Type [Right INT / Saline Lock Forearm] IV Catheter Type [Right INT / Saline Lock Antecubital] Active Medications - Current Medications Current Medications: Generic Name Dose Route Start Last Admin Trade Name Freq PRN Reason Stop Dose Admin Acetaminophen 650 mg 02/21/20 16:41 02/26/20 16:53 Tylenol PO 650 mg Q4H PRN Administration Pain MILD(1-3)/Fever >100.5/DELUNA Acetazolamide 250 mg 02/26/20 10:00 02/26/20 09:40 Diamox PO 02/27/20 10:01 250 mg DAILY SCOT Administration Albuterol 2 puff 02/25/20 10:39 Proair IH Q6HRT PRN Shortness Of Breath Enoxaparin Sodium 130 mg 02/22/20 10:00 02/26/20 09:39 Enoxaparin SUB-Q 130 mg Q24HR SCOT Administration Ondansetron HCl 4 mg 02/21/20 16:41 02/25/20 16:17 Zofran IV 4 mg Q8H PRN Administration Nausea And Vomiting Sodium Chloride 10 ml 02/21/20 22:00 02/26/20 21:17 Sodium Chloride Flush Syringe 10 Ml IV 10 ml BID SCOT Administration Sodium Chloride 10 ml 02/21/20 16:41 Sodium Chloride Flush Syringe 10 Ml IV PRN PRN LINE FLUSH Zinc Sulfate 220 mg 02/25/20 11:00 02/26/20 09:40 Zinc Sulfate PO 220 mg QDAY SCOT Administration Nutrition/Malnutrition Assess - Dietary Evaluation Nutrition/Malnutrition Findings: Nutrition Notes Start: 02/23/20 09:12 Freq: Status: Active Protocol: Document 02/23/20 09:12 LM (Rec: 02/23/20 09:13 LM [email or web address]) Nutrition Notes Need for Assessment generated from: Low BMI Initial or Follow up Brief Note Height 5 ft 9 in Weight 83.91 kg [place] Body Weight (kg) 72.72 BMI 27.3 Subjective/Other Information Screen for low BMI. Wrong wt entered in chart. Nutrition Intervention Revisit per MD consult or patient Sign Off request:
[2020-02-27] MEDS: ZINC SULFATE 220 MG CAP PO SCH (09:40)
[2020-02-27] MEDS: acetaZOLAMIDE 250 MG TAB PO SCH (09:40)
[2020-02-27] MEDS: ENOXAPARIN 150 MG/1 ML INJ SUB-Q SCH (09:40)
--- NOTE | 2020-02-27 12:33 | Progress Note ---
Assessment and Plan 64 y/o male with COVID 19 positive pneumonia and no other prior medical history. 1. COVID positive 2. Now on HFNC at 20 and 100%. Got Atemra yesterday. Continue HFNC, if work of breathing increases or unable to maintain adequate sats on HFNC, then will consider intubation. Would ask that patient prone himself, multiple times during the day shift and sleep proned at night. 3. No IVF, suggest to encourage PO intake 4. Will continue to follow and monitor. Subjective Date of service: 02/27/20 Interval history: Now on HFNC compared to 6 liters on Thursday morning the last time I saw him. Received Actemra on yesterday. Stable sats, complaing of how high the flow is. Objective Vital Signs - 12hr 02/27/20 02/27/20 02/27/20 00:42 02:22 05:27 Temperature 97.6 F Pulse Rate 66 66 Respiratory 22 Rate Blood Pressure 95/64 Blood Pressure 95/60 [Left] O2 Sat by Pulse 96 97 Oximetry 02/27/20 02/27/20 08:00 11:33 Temperature 98.0 F Pulse Rate 77 Respiratory 52 H Rate Blood Pressure 101/69 Blood Pressure [Left] O2 Sat by Pulse 93 93 Oximetry Constitutional: no acute distress Eyes: non-icteric Ascultation: Bilateral: diminished breath sounds Cardiovascular: regular rate and rhythm Gastrointestinal: normoactive bowel sounds CBC and BMP: 02/27/20 04:58 02/27/20 04:58 ABG, PT/INR, D-dimer: PT/INR, D-dimer D-Dimer 1111.97 ng/mlDDU (0-234) H 02/27/20 04:58 Abnormal lab findings: Abnormal Labs 02/21/20 02/21/20 02/21/20 15:29 15:29 15:29 WBC 3.7 L RBC 5.62 H Hgb 16.5 H Hct 47.5 H MCV MCHC 35 H [place] % (Auto) 8.9 H Lymph # 0.6 L Seg Neutrophils % 72.3 H D-Dimer 5638.87 H Sodium 136 L Chloride 96.2 L Carbon Dioxide 20 L BUN 22 H Glucose 124 H Calcium Ferritin Lactate Dehydrogenase C-Reactive Protein Albumin 3.8 L Coronavirus (PCR) 02/21/20 02/21/2002/21/20 15:29 15:29 04:04 WBC 3.9 L RBC 5.47 H Hgb 15.8 H Hct MCV 83 L MCHC 35 H [place] % (Auto) 10.5 H Lymph # 0.7 L Seg Neutrophils % 70.1 H D-Dimer Sodium Chloride Carbon Dioxide BUN Glucose Calcium Ferritin 1484.0 H Lactate Dehydrogenase 486 H C-Reactive Protein 4.40 H Albumin Coronavirus (PCR) 02/22/20 02/22/20 02/23/20 04:04 11:23 05:02 WBC 3.3 L RBC 5.19 H Hgb Hct MCV MCHC 35 H [place] % (Auto) Lymph # Seg Neutrophils % D-Dimer Sodium Chloride Carbon Dioxide BUN Glucose 114 H Calcium 8.3 L Ferritin Lactate Dehydrogenase C-Reactive Protein Albumin Coronavirus (PCR) Positive A 02/23/20 02/23/20 02/23/20 05:02 05:02 05:02 WBC RBC Hgb Hct MCV MCHC [place] % (Auto) Lymph # Seg Neutrophils % D-Dimer 2109.52 H Sodium Chloride Carbon Dioxide BUN Glucose Calcium Ferritin 1571.0 H Lactate Dehydrogenase 531 H C-Reactive Protein 6.40 H Albumin Coronavirus (PCR) 02/25/20 02/25/20 02/25/20 04:20 04:20 04:20 WBC RBC Hgb Hct MCV MCHC [place] % (Auto) Lymph # Seg Neutrophils % D-Dimer 1422.33 H Sodium Chloride Carbon Dioxide BUN Glucose Calcium Ferritin 2172.0 H Lactate Dehydrogenase 594 H C-Reactive Protein 8.70 H Albumin Coronavirus (PCR) 02/27/20 02/27/20 02/27/20 04:58 04:58 04:58 WBC RBC Hgb Hct MCV MCHC [place] % (Auto) Lymph # Seg Neutrophils % D-Dimer 1111.97 H Sodium 134 L Chloride Carbon Dioxide 18 L BUN 24 H Glucose 107 H Calcium Ferritin 3392.0 H Lactate Dehydrogenase 681 H C-Reactive Protein 9.70 H Albumin Coronavirus (PCR) 02/27/20 04:58 WBC 2.1 L RBC 5.19 H Hgb Hct MCV MCHC [place] % (Auto) Lymph # Seg Neutrophils % D-Dimer Sodium Chloride Carbon Dioxide BUN Glucose Calcium Ferritin Lactate Dehydrogenase C-Reactive Protein Albumin Coronavirus (PCR)
--- NOTE | 2020-02-27 12:35 | Progress Note ---
Assessment and Plan Cultures: 02/21/2020 blood culture: no growth 02/23/2020 blood culture: no growth A/P: 64/M with subjective fever, loss of appetite, weakness, headaches along with cough and shortness of breath for a week prior to admission #Severe bilateral pneumonia secondary to COVID-19: Completed 5 days of Brandon quenil. S/P Actemra 02/26/2020. #Acute hypoxic respiratory failure: Requiring oxygen. Recs: started IV Solumedrol 40 mg q12 hrs due to ongoing hypoxia post Actemra continue trend ferritin, LDH, d-dimer, CRP every 2-3 days for risk stratification and to assess disease progression continue to encourage lying in prone position if patient is able to tolerate Jocelynn Chahal MD, FACP [facility] C: [phone] O: [phone] F: [phone] Subjective Date of service: 02/27/20 Interval history: No fever. Oxygen requirements remain elevated. Got 1 dose of Actemra yesterday. Objective - Exam Narrative Exam: Physical Exam (reviewed in chart due to PPE conservation) Constitutional: limited due to PPE conservation strategy Head, Ears, Nose: limited due to PPE conservation strategy Eyes: limited due to PPE conservation strategy Neck: limited due to PPE conservation strategy Oral: limited due to PPE conservation strategy Cardiovascular: limited due to PPE conservation strategy Respiratory: limited due to PPE conservation strategy GI: limited due to PPE conservation strategy Musculoskeletal: limited due to PPE conservation strategy Skin: limited due to PPE conservation strategy Hem/Lymphatic: limited due to PPE conservation strategy Psych: limited due to PPE conservation strategy Neurological: limited due to PPE conservation strategy - Constitutional Vitals: Vital Signs Temp Pulse Resp BP Pulse Ox 98.0 F 77 52 H 101/69 93 02/27/20 11:33 02/27/20 11:33 02/27/20 11:33 02/27/20 11:33 02/27/20 11:33 Temperature -Last 24 Hours Temperature 98.0 F Temperature 97.6 F Temperature 97.6 F Temperature 100.7 F - Labs CBC & Chem 7: 02/27/20 04:58 02/27/20 04:58 Labs: Abnormal lab results 02/27/20 02/27/20 02/27/20 Range/Units 04:58 04:58 04:58 WBC (4.5-11.0) K/mm3 RBC (3.65-5.03) M/mm3 D-Dimer 1111.97 H (0-234) ng/mlDDU Sodium 134 L (137-145) mmol/L Carbon Dioxide 18 L (22-30) mmol/L BUN 24 H (9-20) mg/dL Glucose 107 H (75-100) mg/dL Ferritin 3392.0 H (13.0-400.0) ng/mL Lactate Dehydrogenase 681 H (91-180) units/L C-Reactive Protein 9.70 H (0.00-1.30) mg/dL 02/26/ Range/Units 04:58 WBC 2.1 L (4.5-11.0) K/mm3 RBC 5.19 H (3.65-5.03) M/mm3 D-Dimer (0-234) ng/mlDDU Sodium (137-145) mmol/L Carbon Dioxide (22-30) mmol/L BUN (9-20) mg/dL Glucose (75-100) mg/dL Ferritin (13.0-400.0) ng/mL Lactate Dehydrogenase (91-180) units/L C-Reactive Protein (0.00-1.30) mg/dL
[2020-02-27] MEDS: methylPREDNISolone Sod Succinate 40 MG/1 ML INJ IV SCH ×2 (13:37→21:29)
[2020-02-28] MEDS: ZINC SULFATE 220 MG CAP PO SCH (10:10)
[2020-02-28] MEDS: methylPREDNISolone Sod Succinate 40 MG/1 ML INJ IV SCH ×3 (10:11→22:51)
[2020-02-28] MEDS: ENOXAPARIN 150 MG/1 ML INJ SUB-Q SCH (10:11)
--- NOTE | 2020-02-28 12:47 | Progress Note ---
Assessment and Plan 64 y/o male with COVID 19 positive pneumonia and no other prior medical history. 1. COVID positive 2. Now on HFNC at 20 and 100%. Got Atemra 2 days ago. Continue HFNC, if work of breathing increases or unable to maintain adequate sats on HFNC, then will consider intubation. Would ask that patient prone himself, multiple times during the day shift and sleep proned at night. 3. No IVF, suggest to encourage PO intake 4. Will continue to follow and monitor. Subjective Date of service: 02/28/20 Interval history: No acute events. Still on HFNC at 25 liters and 100%. Sats in the low 90's. Objective Vital Signs - 12hr 02/28/20 02/28/20 02/28/20 02:00 05:26 07:50 Temperature 98.6 F Pulse Rate 78 Respiratory 44 H Rate Blood Pressure 103/68 O2 Sat by Pulse 94 90 93 Oximetry 02/28/20 02/28/20 08:00 11:21 Temperature 98.6 F Pulse Rate 72 Respiratory 18 Rate Blood Pressure 99/67 O2 Sat by Pulse 91 96 Oximetry Constitutional: no acute distress Eyes: non-icteric Ascultation: Bilateral: diminished breath sounds Cardiovascular: regular rate and rhythm Gastrointestinal: normoactive bowel sounds CBC and BMP: 02/27/20 04:58 02/27/20 04:58 ABG, PT/INR, D-dimer: PT/INR, D-dimer D-Dimer 1111.97 ng/mlDDU (0-234) H 02/27/20 04:58 Abnormal lab findings: Abnormal Labs 02/21/20 02/21/20 02/21/20 15:29 15:29 15:29 WBC 3.7 L RBC 5.62 H Hgb 16.5 H Hct 47.5 H MCV MCHC 35 H [place] % (Auto) 8.9 H Lymph # 0.6 L Seg Neutrophils % 72.3 H D-Dimer 5638.87 H Sodium 136 L Chloride 96.2 L Carbon Dioxide 20 L BUN 22 H Glucose 124 H POC Glucose Calcium Ferritin Lactate Dehydrogenase C-Reactive Protein Albumin 3.8 L Coronavirus (PCR) 02/21/20 02/21/20 02/22/20 15:29 15:29 04:04 WBC 3.9 L RBC 5.47 H Hgb 15.8 H Hct MCV 83 L MCHC 35 H [place] % (Auto) 10.5 H Lymph # 0.7 L Seg Neutrophils % 70.1 H D-Dimer Sodium Chloride Carbon Dioxide BUN Glucose POC Glucose Calcium Ferritin 1484.0 H Lactate Dehydrogenase 486 H C-Reactive Protein 4.40 H Albumin Coronavirus (PCR) 02/22/20 02/22/20 02/23/20 04:04 11:23 05:02 WBC 3.3 L RBC 5.19 H Hgb Hct MCV MCHC 35 H [place] % (Auto) Lymph # Seg Neutrophils % D-Dimer Sodium Chloride Carbon Dioxide BUN Glucose 114 H POC Glucose Calcium 8.3 L Ferritin Lactate Dehydrogenase C-Reactive Protein Albumin Coronavirus (PCR) Positive A 02/23/20 02/23/20 02/23/20 05:02 05:02 05:02 WBC RBC Hgb Hct MCV MCHC [place] % (Auto) Lymph # Seg Neutrophils % D-Dimer 2109.52 H Sodium Chloride Carbon Dioxide BUN Glucose POC Glucose Calcium Ferritin 1571.0 H Lactate Dehydrogenase 531 H C-Reactive Protein 6.40 H Albumin Coronavirus (PCR) 02/25/20 02/25/20 02/25/20 04:20 04:20 04:20 WBC RBC Hgb Hct MCV MCHC [place] % (Auto) Lymph # Seg Neutrophils % D-Dimer 1422.33 H Sodium Chloride Carbon Dioxide BUN Glucose POC Glucose Calcium Ferritin 2172.0 H Lactate Dehydrogenase 594 H C-Reactive Protein 8.70 H Albumin Coronavirus (PCR) 02/27/20 02/27/20 02/27/20 04:58 04:58 04:58 WBC RBC Hgb Hct MCV MCHC [place] % (Auto) Lymph # Seg Neutrophils % D-Dimer 1111.97 H Sodium 134 L Chloride Carbon Dioxide 18 L BUN 24 H Glucose 107 H POC Glucose Calcium Ferritin 3392.0 H Lactate Dehydrogenase 681 H C-Reactive Protein 9.70 H Albumin Coronavirus (PCR) 02/27/20 02/28/20 02/28/20 04:58 07:47 11:32 WBC 2.1 L RBC 5.19 H Hgb Hct MCV MCHC [place] % (Auto) Lymph # Seg Neutrophils % D-Dimer Sodium Chloride Carbon Dioxide BUN Glucose POC Glucose 130 H 120 H Calcium Ferritin Lactate Dehydrogenase C-Reactive Protein Albumin Coronavirus (PCR)
--- NOTE | 2020-02-28 15:26 | Progress Note ---
Assessment and Plan Cultures: 02/21/2020 blood culture: no growth 02/23/2020 blood culture: no growth A/P: 64/M with subjective fever, loss of appetite, weakness, headaches along with cough and shortness of breath for a week prior to admission #Severe bilateral pneumonia secondary to COVID-19: Completed 5 days of [place] quenil. S/P Actemra 02/26/2020. Started steroid trial on 02/27/2020 #Acute hypoxic respiratory failure: Requiring oxygen. Recs: increased IV Solumedrol dose to 40 mg q8 hrs due to ongoing hypoxia post Actemra. Plan for 5-7 days followed by slow taper continue to encourage lying in prone position if patient is able to tolerate agree with weight based anticoagulation/LMWH prophylaxis Jocelynn Chahal MD, FACP [facility] ([facility] C: [phone] O: [phone] F: [phone] Subjective Date of service: 02/28/20 Interval history: No fever. Oxygen requirements remain elevated. Started steroids yesterday. Objective - Exam Narrative Exam: Physical Exam (reviewed in chart due to PPE conservation) Constitutional: limited due to PPE conservation strategy Head, Ears, Nose: limited due to PPE conservation strategy Eyes: limited due to PPE conservation strategy Neck: limited due to PPE conservation strategy Oral: limited due to PPE conservation strategy Cardiovascular: limited due to PPE conservation strategy Respiratory: limited due to PPE conservation strategy GI: limited due to PPE conservation strategy Musculoskeletal: limited due to PPE conservation strategy Skin: limited due to PPE conservation strategy Hem/Lymphatic: limited due to PPE conservation strategy Psych: limited due to PPE conservation strategy Neurological: limited due to PPE conservation strategy - Constitutional Vitals: Vital Signs Temp Pulse Resp BP Pulse Ox 98.6 F 72 18 99/67 96 02/28/20 11:21 02/28/20 11:21 02/28/20 11:21 02/28/20 11:21 02/28/20 11:21 Temperature -Last 24 Hours Temperature 98.6 F Temperature 98.6 F Temperature 98.7 F Temperature 98.2 F - Labs CBC & Chem 7: 02/27/20 04:58 02/27/20 04:58 Labs: Abnormal lab results 02/28/20 02/28/20 Range/Units 07:47 11:32 POC Glucose 130 H 120 H (70-105)
--- NOTE | 2020-02-28 16:18 | Progress Note ---
Assessment and Plan Assessment and plan: Patient is a 64 yo AA man without known past medical condition who presented to [facility] ED with subjective fever, loss of appetite, generalized weakness, headache, shortness of breath, both dry and productive cough with production of yellow sputum over the past 1 week with progressively worsening symptoms over the past 3 days. Patient transported to [facility] via private vehicle for further evaluation and care. Patient seen and evaluated in the emergency department. Lab and imaging studies reviewed. Patient found to have temperature of 100.3 F, and pulse oximetry of 86% on room air which is consistent with acute hypoxemic respiratory failure. Patient underwent chest x-ray which revealed bilateral pneu monia which are consistent with suspected CO VID19. Patient admitted to medical floor and treated with pna and COVID-19 protocol. Infectious disease service consulted in ED. Acute hypoxic respiratory failure due to COVID-19 pneumonia Bilateral pneumonia secondary to COVID-19 COVID-19 viral infection confirmed, completed 5 days of plaquenil Sepsis syndrome, poa due to above Hypotension Acute hypoxic respiratory failure with pulse oximetry of 86% on room air Elevated d-dimer Headache Plan 02/28/20: Day 7, my first day with patient and he looks ill but is trying to move around, he was in the prone position overnight which did help some; he is on 100% high flow. I spoke with cousin, Derrick Ray [phone] who is NOK. Patient has a son who is estranged per Derrick, Stressed the importance of Incentive spirometry History Interval history: Patient was seen and examined. Follow-up on current diagnosis COVID-19 pneumonia. Overnight uneventful as no events directly reported to me. Patient denies any chest pain, , nausea/vomiting or severe headaches. Imaging, nursing note, chart, labs and old chart reviewed. Discussed with patient. Incentive spirometry at bedside. Hospitalist Physical - Physical exam Narrative exam: Gen: ill appearing, lethargic, mild increase accessory muscles, Awake, Alert, Orientated HEENT: NCAT, EOMI, PERRL, OP Clear Neck: supple, no adenopathy, no thyromegaly, no JVD CVS/Heart: RRR, normal S1S2, pulses present bilaterally Chest/Lungs: diminished with inspiratory crackles, Symmetrical chest expansion, good air entry bilaterally GI/Abdomen: soft, NTND, good bowel sounds, no guarding or rebound /Bladder: no suprapubic tenderness, no CVA or paraspinal tenderness Extermity/Skin: no c/c/e, no obvious rash MSK: FROM x 4 Neuro: CN 2-12 grossly intact, no new focal deficits Psych: calm - Constitutional Vitals: Temp Pulse Resp BP Pulse Ox 98.6 F 72 18 99/67 96 02/28/20 11:21 02/28/20 11:21 02/28/20 11:21 02/28/20 11:21 02/28/20 11:21 General appearance: Absent: mild distress Results - Labs CBC & Chem 7: 02/27/20 04:58 02/27/20 04:58 Labs: Laboratory Last Values WBC 2.1 K/mm3 (4.5-11.0) L 02/27/20 04:58 RBC 5.19 M/mm3 (3.65-5.03) H 02/27/20 04:58 Hgb 14.9 gm/dl (11.8-15.2) 02/27/20 04:58 Hct 43.3 % (35.5-45.6) 02/27/20 04:58 MCV 84 fl (84-94) 02/27/20 04:58 MCH 29 pg (28-32) 02/27/20 04:58 MCHC 34 % (32-34) 02/27/20 04:58 RDW 13.7 % (13.2-15.2) 02/27/20 04:58 Plt Count 428 K/mm3 (140-440) 02/27/20 04:58 Lymph % (Auto) 18.1 % (13.4-35.0) 02/22/20 04:04 [place] % (Auto) 10.5 % (0.0-7.3) H 02/22/20 04:04 Eos % (Auto) 0.4 % (0.0-4.3) 02/22/20 04:04 Baso % (Auto) 0.9 % (0.0-1.8) 02/22/20 04:04 Lymph # 0.7 K/mm3 (1.2-5.4) L 02/22/20 04:04 [place] # 0.4 K/mm3 (0.0-0.8) 02/22/20 04:04 Eos # 0.0 K/mm3 (0.0-0.4) 02/22/20 04:04 Baso # 0.0 K/mm3 (0.0-0.1) 02/22/20 04:04 Seg Neutrophils % 70.1 % (40.0-70.0) H 02/22/20 04:04 Seg Neutrophils # 2.8 K/mm3 (1.8-7.7) 02/22/20 04:04 D-Dimer 1111.97 ng/mlDDU (0-234) H 02/27/20 04:58 Sodium 134 mmol/L (137-145) L 02/27/20 04:58 Potassium 4.0 mmol/L (3.6-5.0) 02/27/20 04:58 Chloride 99.9 mmol/L (98-107) 02/27/20 04:58 Carbon Dioxide 18 mmol/L (22-30) L 02/27/20 04:58 Anion Gap 20 mmol/L 02/27/20 04:58 BUN 24 mg/dL (9-20) H 02/27/20 04:58 Creatinine 0.9 mg/dL (0.8-1.5) 02/27/20 04:58 Estimated GFR > 60 ml/min 02/27/20 04:58 BUN/Creatinine Ratio 27 % 02/27/20 04:58 Glucose 107 mg/dL (75-100) H 02/27/20 04:58 POC Glucose 120 (70-105) H 02/28/20 11:32 Lactic Acid 1.80 mmol/L (0.7-2.0) 02/21/20 15:29 Calcium 8.5 mg/dL (8.4-10.2) 02/27/20 04:58 Ferritin 3392.0 ng/mL (13.0-400.0) H 02/27/20 04:58 Total Bilirubin 0.60 mg/dL (0.1-1.2) 02/21/20 15:29 AST 31 units/L (5-40) 02/21/20 15:29 ALT 18 units/L (7-56) 02/21/20 15:29 Alkaline Phosphatase 71 units/L (35-129) 02/21/20 15:29 Lactate Dehydrogenase 681 units/L (91-180) H 02/27/20 04:58 C-Reactive Protein 9.70 mg/dL (0.00-1.30) H 02/27/20 04:58 Total Protein 7.4 g/dL (6.3-8.2) 02/21/20 15:29 Albumin 3.8 g/dL (3.9-5) L 02/21/20 15:29 Albumin/Globulin Ratio 1.1 % 02/21/20 15:29 Procalcitonin 0.20 ng/mL (<0.15) 02/27/20 04:58 Coronavirus (PCR) Positive (Negative) A 02/22/20 11:23 Hepatitis A IgM Ab Non-reactive (NonReactive) 02/27/20 04:58 Hep Bs Antigen Non-reactive (Negative) 02/27/20 04:58 Hep B Core IgM Ab Non-reactive (NonReactive) 02/27/20 04:58 Hepatitis C Antibody Non-reactive (NonReactive) 02/27/20 04:58 Influenza A (Rapid) Negative (Negative) 02/21/20 16:34 Influenza B (Rapid) Negative (Negative) 02/21/20 16:34 Microbiology: Microbiology 02/23/20 20:41 Peripheral/Venous Blood Culture - Preliminary NO GROWTH AFTER 4 DAYS 02/23/20 20:41 Peripheral/Venous Blood Culture - Preliminary NO GROWTH AFTER 4 DAYS Rivera/IV: Voiding Method Urinal IV Catheter Type [Right INT / Saline Lock Forearm] IV Catheter Type [Right INT / Saline Lock Antecubital] Active Medications - Current Medications Current Medications: Generic Name Dose Route Start Last Admin Trade Name Freq PRN Reason Stop Dose Admin Acetaminophen 650 mg 02/21/20 16:41 02/26/20 16:53 Tylenol PO 650 mg Q4H PRN Administration Pain MILD(1-3)/Fever >100.5/DELUNA Albuterol 2 puff 02/25/20 10:39 Proair IH Q6HRT PRN Shortness Of Breath Enoxaparin Sodium 130 mg 02/22/20 10:00 02/28/20 10:11 Enoxaparin SUB-Q 130 mg Q24HR SCOT Administration Methylprednisolone Sodium Succinate 40 mg 02/28/20 16:00 Solu-Medrol IV 03/05/20 15:59 Q8HR SCOT Ondansetron HCl 4 mg 02/21/20 16:41 02/25/20 16:17 Zofran IV 4 mg Q8H PRN Administration Nausea And Vomiting Sodium Chloride 10 ml 02/21/20 22:00 02/28/20 10:11 Sodium Chloride Flush Syringe 10 Ml IV 10 ml BID SCOT Administration Sodium Chloride 10 ml 02/21/20 16:41 Sodium Chloride Flush Syringe 10 Ml IV PRN PRN LINE FLUSH Zinc Sulfate 220 mg 02/25/20 11:00 02/28/20 10:10 Zinc Sulfate PO 02/29/20 10:01 220 mg QDAY SOCT Administration Nutrition/Malnutrition Assess - Dietary Evaluation Nutrition/Malnutrition Findings: Nutrition Notes Start: 02/23/20 09:12 Freq: Status: Active Protocol: Document 02/28/20 14:37 LM (Rec: 02/28/20 14:41 LM [email or web address]) Nutrition Notes Need for Assessment generated from: LOS Initial or Follow up Brief Note Other Pertinent Diagnosis COVID-19 (+), pneu, ARF Current Diet Regular Weight Status Overweight Subjective/Other Information Screen for LOS. Unable to reach pt. 50-75% intakes in chart. Nutrition Intervention Follow-Up By: 02/29/20 Additional Comments F/U for assessment, intakes
[2020-02-29] MEDS: methylPREDNISolone Sod Succinate 40 MG/1 ML INJ IV SCH ×3 (08:22→21:52)
[2020-02-29] MEDS: ENOXAPARIN 150 MG/1 ML INJ SUB-Q SCH (09:02)
[2020-02-29] MEDS: ZINC SULFATE 220 MG CAP PO SCH (09:02)
--- NOTE | 2020-02-29 10:29 | Progress Note ---
Assessment and Plan Cultures: 02/21/2020 blood culture: no growth 02/23/2020 blood culture: no growth A/P: 64/M with subjective fever, loss of appetite, weakness, headaches along with cough and shortness of breath for a week prior to admission #Severe bilateral pneumonia secondary to COVID-19: Completed 5 days of Brandon quenil. S/P Actemra 02/26/2020. Started steroid trial on 02/27/2020 #Acute hypoxic respiratory failure: Requiring oxygen. Recs: continue IV Solumedrol dose to 40 mg q8 hrs due to ongoing hypoxia post Actemra. Plan for 5-7 days followed by slow taper. Day 2 today continue to encourage lying in prone position if patient is able to tolerate continue with weight based anticoagulation/LMWH prophylaxis labs ordered (d-dimer, LDH, CRP and ferritin along with procalcitonin) Jocelynn Chahal MD, FACP [facility] ([facility] C: [phone] O: [phone] F: [phone] Subjective Date of service: 02/29/20 Interval history: No fever. Oxygen requirements remain elevated. Continues on steroids. Objective - Exam Narrative Exam: Physical Exam (reviewed in chart due to PPE conservation) Constitutional: limited due to PPE conservation strategy Head, Ears, Nose: limited due to PPE conservation strategy Eyes: limited due to PPE conservation strategy Neck: limited due to PPE conservation strategy Oral: limited due to PPE conservation strategy Cardiovascular: limited due to PPE conservation strategy Respiratory: limited due to PPE conservation strategy GI: limited due to PPE conservation strategy Musculoskeletal: limited due to PPE conservation strategy Skin: limited due to PPE conservation strategy Hem/Lymphatic: limited due to PPE conservation strategy Psych: limited due to PPE conservation strategy Neurological: limited due to PPE conservation strategy - Constitutional Vitals: Vital Signs Temp Pulse Resp BP Pulse Ox 97.7 F 85 44 H 107/70 91 02/29/20 04:25 02/29/20 04:25 02/29/20 04:25 02/29/20 04:25 02/29/20 09:28 Temperature -Last 24 Hours Temperature 97.7 F Temperature 98.1 F Temperature 97.9 F Temperature 98.6 F - Labs CBC & Chem 7: 02/27/20 04:58 02/27/20 04:58 Labs: Abnormal lab results 02/28/20 Range/Units 11:32 POC Glucose 120 H (70-105)
[2020-02-29 11:57] LABS: Hematocrit 53.8 % (35.5-45.6); Hemoglobin 18.3 gm/dl (11.8-15.2); Mean Corpuscular HGB Conc 34 % (32-34); Mean Corpuscular Volume 83 fl (84-94); Platelet Count 544 K/mm3 (140-440); Red Blood Count 6.47 M/mm3 (3.65-5.03); Red Cell Distribution Width 14.3 % (13.2-15.2)
--- NOTE | 2020-02-29 12:44 | Progress Note ---
Assessment and Plan 64 y/o male with COVID 19 positive pneumonia and no other prior medical history. 1. COVID positive 2. Now on HFNC at 28 and 100%. Got Actemra 3 days ago. Continue HFNC, if work of breathing increases or unable to maintain adequate sats on HFNC, then will consider intubation. Would ask that patient prone himself, multiple times during the day shift and sleep proned at night. Agree with addition of steroid therapy. 3. Will given a one time dose of IV lasix today, 20mg. 4. Will continue to follow and monitor. Guarded prognosis Subjective Date of service: 02/29/20 Interval history: Still on HFNC, had to increase flow this am. STarted on steroids yesterday by ID. Reviewed I/O and has been positive on a daily basis. Remainder is n egative. Objective Vital Signs - 12hr 02/29/20 02/29/20 02/29/20 02:00 04:25 09:28 Temperature 97.7 F Pulse Rate 85 Respiratory 44 H Rate Blood Pressure 107/70 O2 Sat by Pulse 94 90 91 Oximetry 02/29/20 11:35 Temperature 97.9 F Pulse Rate 89 Respiratory 36 H Rate Blood Pressure 100/70 O2 Sat by Pulse 95 Oximetry Constitutional: no acute distress Eyes: non-icteric Ascultation: Bilateral: diminished breath sounds Cardiovascular: regular rate and rhythm Gastrointestinal: normoactive bowel sounds CBC and BMP: 02/29/20 11:24 02/27/20 04:58 ABG, PT/INR, D-dimer: PT/INR, D-dimer D-Dimer 1464.27 ng/mlDDU (0-234) H 02/29/20 11:24 Abnormal lab findings: Abnormal Labs 02/21/20 02/21/20 02/21/20 15:29 15:29 15:29 WBC 3.7 L RBC 5.62 H Hgb 16.5 H Hct 47.5 H MCV MCHC 35 H Plt Count Walsh % (Auto) 8.9 H Lymph # 0.6 L Seg Neutrophils % 72.3 H D-Dimer 5638.87 H Sodium 136 L Chloride 96.2 L Carbon Dioxide 20 L BUN 22 H Glucose 124 H POC Glucose Calcium Ferritin Lactate Dehydrogenase C-Reactive Protein Albumin 3.8 L Coronavirus (PCR) 02/21/20 02/21/20 02/22/20 15:29 15:29 04:04 WBC 3.9 L RBC 5.47 H Hgb 15.8 H Hct MCV 83 L MCHC 35 H Plt Count Walsh % (Auto) 10.5 H Lymph # 0.7 L Seg Neutrophils % 70.1 H D-Dimer Sodium Chloride Carbon Dioxide BUN Glucose POC Glucose Calcium Ferritin 1484.0 H Lactate Dehydrogenase 486 H C-Reactive Protein 4.40 H Albumin Coronavirus (PCR) 02/22/20 02/22/20 02/23/20 04:04 11:23 05:02 WBC 3.3 L RBC 5.19 H Hgb Hct MCV MCHC 35 H Plt Count Walsh % (Auto) Lymph # Seg Neutrophils % D-Dimer Sodium Chloride Carbon Dioxide BUN Glucose 114 H POC Glucose Calcium 8.3 L Ferritin Lactate Dehydrogenase C-Reactive Protein Albumin Coronavirus (PCR) Positive A 02/23/20 02/23/20 02/23/20 05:02 05:02 05:02 WBC RBC Hgb Hct MCV MCHC Plt Count Walsh % (Auto) Lymph # Seg Neutrophils % D-Dimer 2109.52 H Sodium Chloride Carbon Dioxide BUN Glucose POC Glucose Calcium Ferritin 1571.0 H Lactate Dehydrogenase 531 H C-Reactive Protein 6.40 H Albumin Coronavirus (PCR) 02/25/20 02/25/20 02/25/20 04:20 04:20 04:20 WBC RBC Hgb Hct MCV MCHC Plt Count Walsh % (Auto) Lymph # Seg Neutrophils % D-Dimer 1422.33 H Sodium Chloride Carbon Dioxide BUN Glucose POC Glucose Calcium Ferritin 2172.0 H Lactate Dehydrogenase 594 H C-Reactive Protein 8.70 H Albumin Coronavirus (PCR) 02/27/20 02/27/20 02/27/20 04:58 04:58 04:58 WBC RBC Hgb Hct MCV MCHC Plt Count Walsh % (Auto) Lymph # Seg Neutrophils % D-Dimer 1111.97 H Sodium 134 L Chloride Carbon Dioxide 18 L BUN 24 H Glucose 107 H POC Glucose Calcium Ferritin 3392.0 H Lactate Dehydrogenase 681 H C-Reactive Protein 9.70 H Albumin Coronavirus (PCR) 02/27/20 02/28/20 02/28/20 04:58 07:47 11:32 WBC 2.1 L RBC 5.19 H Hgb Hct MCV MCHC Plt Count Walsh % (Auto) Lymph # Seg Neutrophils % D-Dimer Sodium Chloride Carbon Dioxide BUN Glucose POC Glucose 130 H 120 H Calcium Ferritin Lactate Dehydrogenase C-Reactive Protein Albumin Coronavirus (PCR) 02/29/20 02/29/20 11:24 11:24 WBC RBC 6.47 H Hgb 18.3 H D Hct 53.8 H D MCV 83 L MCHC Plt Count 544 H Walsh % (Auto) Lymph # Seg Neutrophils % D-Dimer 1464.27 H Sodium Chloride Carbon Dioxide BUN Glucose POC Glucose Calcium Ferritin Lactate Dehydrogenase C-Reactive Protein Albumin Coronavirus (PCR)
[2020-02-29 12:56] LABS: Basophils % (Manual) 0 % (0.0-1.8); Total Cells Counted 100
[2020-02-29 12:57] LABS: Band Neutrophils # (Manual) 0.1 K/mm3; Eosinophils % (Manual) 0 % (0.0-4.3); Platelet Clumps Rare; Platelet Estimate Consistent w Auto; RBC Morphology Normal
[2020-02-29] MEDS ORDERED: FUROSEMIDE 20 MG/2 ML INJ IV ONE (13:00)
--- NOTE | 2020-02-29 14:04 | Progress Note ---
Assessment and Plan Assessment and plan: Patient is a 64 yo AA man without known past medical condition who presented to [facility] ED with subjective fever, loss of appetite, generalized weakness, headache, shortness of breath, both dry and productive cough with production of yellow sputum over the past 1 week with progressively worsening symptoms over the past 3 days. Patient transported to [facility] via private vehicle for further evaluation and care. Patient seen and evaluated in the emergency department. Lab and imaging studies reviewed. Patient found to have temperature of 100.3 F, and pulse oximetry of 86% on room air which is consistent with acute hypoxemic respiratory failure. Patient underwent chest x-ray which revealed bilateral pneu monia which are consistent with suspected CO VID19. Patient admitted to medical floor and treated with pna and COVID-19 protocol. Infectious disease service consulted in ED. Acute hypoxic respiratory failure due to COVID-19 pneumonia Bilateral pneumonia secondary to COVID-19 COVID-19 viral infection confirmed, completed 5 days of plaquenil Sepsis syndrome, poa due to above Hypotension Acute hypoxic respiratory failure with pulse oximetry of 86% on room air Elevated d-dimer Headache Plan 02/28/20: Day 7, my first day with patient and he looks ill but is trying to move around, he was in the prone position overnight which did help some; he is on 100% high flow. I spoke with cousin, Derrick Ray [phone] who is NOK. Patient has a son who is estranged per Derrick, Stressed the importance of Incentive spirometry 02/29/20: More tachypneic today, continue IV steroids day 2/ then oral taper. Patient not doing Incentive spirometry correctly, I showed him how to do it correctly. He is trying. I called his cousin Derrick for update, left message. History Interval history: Patient was seen and examined. Follow-up on current diagnosis COVID-19 pneumonia. Overnight uneventful as no events directly reported to me. Patient denies any chest pain, , nausea/vomiting or severe headaches. Imaging, nursing note, chart, labs and old chart reviewed. Discussed with patient. Incentive spirometry at bedside. Hospitalist Physical - Physical exam Narrative exam: Gen: ill appearing, lethargic, mild increase accessory muscles, Awake, Alert, Orientated HEENT: NCAT, EOMI, PERRL, OP Clear Neck: supple, no adenopathy, no thyromegaly, no JVD CVS/Heart: RRR, normal S1S2, pulses present bilaterally Chest/Lungs: tachypnic, diminished with inspiratory crackles, Symmetrical chest expansion, good air entry bilaterally GI/Abdomen: soft, NTND, good bowel sounds, no guarding or rebound /Bladder: no suprapubic tenderness, no CVA or paraspinal tenderness Extermity/Skin: no c/c/e, no obvious rash MSK: FROM x 4 Neuro: CN 2-12 grossly intact, no new focal deficits Psych: calm - Constitutional Vitals: Temp Pulse Resp BP Pulse Ox 97.9 F 89 36 H 100/70 95 02/29/20 11:35 02/29/20 11:35 02/29/20 11:35 02/29/20 11:35 02/29/20 11:35 General appearance: Absent: mild distress Results - Labs CBC & Chem 7: 02/29/20 11:24 02/27/20 04:58 Labs: Laboratory Last Values WBC 6.5 K/mm3 (4.5-11.0) 02/29/20 11:24 RBC 6.47 M/mm3 (3.65-5.03) H 02/29/20 11:24 Hgb 18.3 gm/dl (11.8-15.2) H D 02/29/20 11:24 Hct 53.8 % (35.5-45.6) H D 02/29/20 11:24 MCV 83 fl (84-94) L 02/29/20 11:24 MCH 28 pg (28-32) 02/29/20 11:24 MCHC 34 % (32-34) 02/29/20 11:24 RDW 14.3 % (13.2-15.2) 02/29/20 11:24 Plt Count 544 K/mm3 (140-440) H 02/29/20 11:24 Lymph % (Auto) 18.1 % (13.4-35.0) 02/22/20 04:04 [place] % (Auto) 10.5 % (0.0-7.3) H 02/22/20 04:04 Eos % (Auto) 0.4 % (0.0-4.3) 02/22/20 04:04 Baso % (Auto) 0.9 % (0.0-1.8) 02/22/20 04:04 Lymph # 0.7 K/mm3 (1.2-5.4) L 02/22/20 04:04 [place] # 0.4 K/mm3 (0.0-0.8) 02/22/20 04:04 Eos # 0.0 K/mm3 (0.0-0.4) 02/22/20 04:04 Baso # 0.0 K/mm3 (0.0-0.1) 02/22/20 04:04 Add Manual Diff Complete 02/29/20 11:24 Total Counted 100 02/29/20 11:24 Seg Neutrophils % Formula Bottler 02/29/20 11:24 Seg Neuts % (Manual) 93.0 % (40.0-70.0) H 02/29/20 11:24 Band Neutrophils % 2.0 % 02/29/20 11:24 Lymphocytes % (Manual) 2.0 % (13.4-35.0) L 02/29/20 11:24 Reactive Lymphs % (Man) 0 % 02/29/20 11:24 Monocytes % (Manual) 3.0 % (0.0-7.3) 02/29/20 11:24 Eosinophils % (Manual) 0 % (0.0-4.3) 02/29/20 11:24 Basophils % (Manual) 0 % (0.0-1.8) 02/29/20 11:24 Metamyelocytes % 0 % 02/29/20 11:24 Myelocytes % 0 % 02/29/20 11:24 Promyelocytes % 0 % 02/29/20 11:24 Blast Cells % 0 % 02/29/20 11:24 Nucleated RBC % Not Reportable 02/29/20 11:24 Seg Neutrophils # 2.8 K/mm3 (1.8-7.7) 02/22/20 04:04 Seg Neutrophils # Man 6.0 K/mm3 (1.8-7.7) 02/29/20 11:24 Band Neutrophils # 0.1 K/mm3 02/29/20 11:24 Lymphocytes # (Manual) 0.1 K/mm3 (1.2-5.4) L 02/29/20 11:24 Abs React Lymphs (Man) 0.0 K/mm3 02/29/20 11:24 Monocytes # (Manual) 0.2 K/mm3 (0.0-0.8) 02/29/20 11:24 Eosinophils # (Manual) 0.0 K/mm3 (0.0-0.4) 02/29/20 11:24 Basophils # (Manual) 0.0 K/mm3 (0.0-0.1) 02/29/20 11:24 Metamyelocytes # 0.0 K/mm3 02/29/20 11:24 Myelocytes # 0.0 K/mm3 02/29/20 11:24 Promyelocytes # 0.0 K/mm3 02/29/20 11:24 Blast Cells # 0.0 K/mm3 02/29/20 11:24 WBC Morphology Not Reportable 02/29/20 11:24 Hypersegmented Neuts Not Reportable 02/29/20 11:24 Hyposegmented Neuts Not Reportable 02/29/20 11:24 Hypogranular Neuts Not Reportable 02/29/20 11:24 Smudge Cells Not Reportable 02/29/20 11:24 Toxic Granulation Not Reportable 02/29/20 11:24 Toxic Vacuolation Not Reportable 02/29/20 11:24 Dohle Bodies Not Reportable 02/29/20 11:24 Pelger-Huet Anomaly Not Reportable 02/29/20 11:24 Kana Rods Not Reportable 02/29/20 11:24 Platelet Estimate Consistent w auto 02/29/20 11:24 Clumped Platelets Rare 02/29/20 11:24 Plt Clumps, EDTA Not Reportable 02/29/20 11:24 Large Platelets Not Reportable 02/29/20 11:24 Giant Platelets Not Reportable 02/29/20 11:24 Platelet Satelliting Not Reportable 02/29/20 11:24 Plt Morphology Comment Not Reportable 02/29/20 11:24 RBC Morphology Normal 02/29/20 11:24 Dimorphic RBCs Not Reportable 02/29/20 11:24 Polychromasia Not Reportable 02/29/20 11:24 Hypochromasia Not Reportable 02/29/20 11:24 Poikilocytosis Not Reportable 02/29/20 11:24 Anisocytosis Not Reportable 02/29/20 11:24 Microcytosis Not Reportable 02/29/20 11:24 Macrocytosis Not Reportable 02/29/20 11:24 Spherocytes Not Reportable 02/29/20 11:24 Pappenheimer Bodies Not Reportable 02/29/20 11:24 Sickle Cells Not Reportable 02/29/20 11:24 Target Cells Not Reportable 02/29/20 11:24 Tear Drop Cells Not Reportable 02/29/20 11:24 Ovalocytes Not Reportable 02/29/20 11:24 Helmet Cells Not Reportable 02/29/20 11:24 Carpio-[place] Bodies Not Reportable 02/29/20 11:24 [place] Rings Not Reportable 02/29/20 11:24 Elijah Cells Not Reportable 02/29/20 11:24 Bite Cells Not Reportable 02/29/20 11:24 Crenated Cell Not Reportable 02/29/20 11:24 Elliptocytes Not Reportable 02/29/20 11:24 Acanthocytes (Spur) Not Reportable 02/29/20 11:24 Rouleaux Not Reportable 02/29/20 11:24 Hemoglobin C Crystals Not Reportable 02/29/20 11:24 Schistocytes Not Reportable 02/29/20 11:24 Malaria parasites Not Reportable 02/29/20 11:24 Martín Bodies Not Reportable 02/29/20 11:24 Hem Pathologist Commnt No 02/29/20 11:24 D-Dimer 1464.27 ng/mlDDU (0-234) H 02/29/20 11:24 Sodium 134 mmol/L (137-145) L 02/27/20 04:58 Potassium 4.0 mmol/L (3.6-5.0) 02/27/20 04:58 Chloride 99.9 mmol/L (98-107) 02/27/20 04:58 Carbon Dioxide 18 mmol/L (22-30) L 02/27/20 04:58 Anion Gap 20 mmol/L 02/27/20 04:58 BUN 24 mg/dL (9-20) H 02/27/20 04:58 Creatinine 0.9 mg/dL (0.8-1.5) 02/27/20 04:58 Estimated GFR > 60 ml/min 02/27/20 04:58 BUN/Creatinine Ratio 27 % 02/27/20 04:58 Glucose 107 mg/dL (75-100) H 02/27/20 04:58 POC Glucose 120 (70-105) H 02/28/20 11:32 Lactic Acid 1.80 mmol/L (0.7-2.0) 02/21/20 15:29 Calcium 8.5 mg/dL (8.4-10.2) 02/27/20 04:58 Ferritin 3392.0 ng/mL (13.0-400.0) H 02/27/20 04:58 Total Bilirubin 0.60 mg/dL (0.1-1.2) 02/21/20 15:29 AST 31 units/L (5-40) 02/21/20 15:29 ALT 18 units/L (7-56) 02/21/20 15:29 Alkaline Phosphatase 71 units/L (35-129) 02/21/20 15:29 Lactate Dehydrogenase 822 units/L (91-180) H 02/29/20 11:24 C-Reactive Protein 1.00 mg/dL (0.00-1.30) 02/29/20 11:24 Total Protein 7.4 g/dL (6.3-8.2) 02/21/20 15:29 Albumin 3.8 g/dL (3.9-5) L 02/21/20 15:29 Albumin/Globulin Ratio 1.1 % 02/21/20 15:29 Procalcitonin 0.06 ng/mL (<0.15) 02/29/20 11:24 Coronavirus (PCR) Positive (Negative) A 02/22/20 11:23 Hepatitis A IgM Ab Non-reactive (NonReactive) 02/27/20 04:58 Hep Bs Antigen Non-reactive (Negative) 02/27/20 04:58 Hep B Core IgM Ab Non-reactive (NonReactive) 02/27/20 04:58 Hepatitis C Antibody Non-reactive (NonReactive) 02/27/20 04:58 Influenza A (Rapid) Negative (Negative) 02/21/20 16:34 Influenza B (Rapid) Negative (Negative) 02/21/20 16:34 Microbiology: Microbiology 02/23/20 20:41 Peripheral/Venous Blood Culture - Final NO GROWTH AFTER 5 DAYS 02/23/20 20:41 Peripheral/Venous Blood Culture - Final NO GROWTH AFTER 5 DAYS Rivera/IV: Voiding Method Urinal IV Catheter Type [Right Upper INT / Saline Lock arm] IV Catheter Type [Right INT / Saline Lock Forearm] IV Catheter Type [Right INT / Saline Lock Antecubital] Active Medications - Current Medications Current Medications: Generic Name Dose Route Start Last Admin Trade Name Freq PRN Reason Stop Dose Admin Acetaminophen 650 mg 02/21/20 16:41 02/26/20 16:53 Tylenol PO 650 mg Q4H PRN Administration Pain MILD(1-3)/Fever >100.5/DELUNA Albuterol 2 puff 02/25/20 10:39 Proair IH Q6HRT PRN Shortness Of Breath Enoxaparin Sodium 130 mg 02/22/20 10:00 02/29/20 09:02 Enoxaparin SUB-Q 130 mg Q24HR SCOT Administration Methylprednisolone Sodium Succinate 40 mg 02/28/20 16:00 02/29/20 08:22 Solu-Medrol IV 03/05/20 15:59 Not Given Q8HR SCOT Ondansetron HCl 4 mg 02/21/20 16:41 02/25/20 16:17 Zofran IV 4 mg Q8H PRN Administration Nausea And Vomiting Sodium Chloride 10 ml 02/21/20 22:00 02/29/20 09:02 Sodium Chloride Flush Syringe 10 Ml IV 10 ml BID SCOT Administration Sodium Chloride 10 ml 02/21/20 16:41 Sodium Chloride Flush Syringe 10 Ml IV PRN PRN LINE FLUSH Nutrition/Malnutrition Assess - Dietary Evaluation Nutrition/Malnutrition Findings: Nutrition Notes Start: 02/23/20 09:12 Freq: Status: Active Protocol: Document 02/29/20 11:56 LM (Rec: 02/29/20 12:01 LM [id number]) Nutrition Notes Initial or Follow up Assessment Other Pertinent Diagnosis COVID-19 (+), pneu, ARF Current Diet Regular Labs/Tests Reviewed Pertinent Medications Reviewed Height 5 ft 9 in Weight 77 kg Howell Body Weight (kg) 72.72 BMI 25.0 Weight Status Overweight Subjective/Other Information Unable to reach pt. Pt ate 0% of breakfast this AM per chart . Will order ONS. Burn Absent Trauma Absent Current % PO Poor (25-49%) Minimum of two criteria No physical signs of malnutrition #1 Nutrition Diagnosis Inadequate oral intake Etiology decreased appetite secondary to COVID-19 infection As Evidenced by Signs and Symptoms pt with poor intakes Is patient on ventilator? No Is Patient Ambulatory and/or Out of Bed Yes REE-([facility]-ambulatory/OOB) [ 2027.494 [id number]] Calculation Used for Recommendations [facility] Additional Notes Protein: 77-92g (1-1.2g/kg) Fluid: 1 ml/kcal Nutrition Intervention Change Diet Order: Continue regular diet Add Supplement/Snack (indicate name/kcal Ensure Enlive BID /protein ) Provides kCal: 700 Provides Protein (gm) 40 Goal #1 Meet at least 75% of energy and protein needs Anticipated Discharge Needs: Regular diet Follow-Up By: 03/02/20 Additional Comments F/U for PO/ONS intakes
[2020-03-01] MEDS: methylPREDNISolone Sod Succinate 40 MG/1 ML INJ IV SCH ×3 (05:55→21:48)
--- NOTE | 2020-03-01 09:12 | XRay Report ---
CHEST 1 VIEW INDICATION: sob, cough. COMPARISON: 02/26/2020 FINDINGS: Support devices: None. Heart: Within normal limits. Lungs/Pleura: Persistent mild diffuse interstitial disease and central peribronchial thickening. No s ignificant effusion. Additional findings: None. IMPRESSION: 1. Largely unchanged exam. Signer Name: Mook Israel MD Signed: 03/01/2020 9:08 AM Workstation Name: [id number]
[2020-03-01] MEDS: ENOXAPARIN 150 MG/1 ML INJ SUB-Q SCH (09:15)
--- NOTE | 2020-03-01 11:49 | Progress Note ---
Assessment and Plan 64 y/o male with COVID 19 positive pneumonia and no other prior medical history. 1. COVID positive 2. Now on HFNC at 28 and 100%. Got Actemra 4 days ago. Continue HFNC, if work of breathing increases or unable to maintain adequate sats on HFNC, then will consider intubation. Would ask that patient prone himself, multiple times during the day shift and sleep proned at night. Agree with addition of steroid therapy. 3. Spoke with IMS, per chart patient is negative. If his work of breathing appears easier, would consider another 20 IV. If no change would not give any further lasix. 4. Will continue to follow and monitor. Guarded prognosis Subjective Date of service: 03/01/20 Interval history: No acute events. Oxygen requirement is unchanged, no worse but not better. No labs drawn today. Reviewed IMS note. Objective Vital Signs - 12hr 03/01/20 02:20 O2 Sat by Pulse 95 Oximetry Constitutional: no acute distress Eyes: non-icteric Ascultation: Bilateral: diminished breath sounds Cardiovascular: regular rate and rhythm Gastrointestinal: normoactive bowel sounds CBC and BMP: 02/29/20 11:24 02/27/20 04:58 ABG, PT/INR, D-dimer: PT/INR, D-dimer D-Dimer 1464.27 ng/mlDDU (0-234) H 02/29/20 11:24 Abnormal lab findings: Abnormal Labs 02/21/20 02/21/20 02/21/20 15:29 15:29 15:29 WBC 3.7 L RBC 5.62 H Hgb 16.5 H Hct 47.5 H MCV MCHC 35 H Plt Count Walker % (Auto) 8.9 H Lymph # 0.6 L Seg Neutrophils % 72.3 H Seg Neuts % (Manual) Lymphocytes % (Manual) Lymphocytes # (Manual) D-Dimer 5638.87 H Sodium 136 L Chloride 96.2 L Carbon Dioxide 20 L BUN 22 H Glucose 124 H POC Glucose Calcium Ferritin Lactate Dehydrogenase C-Reactive Protein Albumin 3.8 L Coronavirus (PCR) 02/21/20 02/21/20 02/22/20 15:29 15:29 04:04 WBC 3.9 L RBC 5.47 H Hgb 15.8 H Hct MCV 83 L MCHC 35 H Plt Count [place] % (Auto) 10.5 H Lymph # 0.7 L Seg Neutrophils % 70.1 H Seg Neuts % (Manual) Lymphocytes % (Manual) Lymphocytes # (Manual) D-Dimer Sodium Chloride Carbon Dioxide BUN Glucose POC Glucose Calcium Ferritin 1484.0 H Lactate Dehydrogenase 486 H C-Reactive Protein 4.40 H Albumin Coronavirus (PCR) 02/22/20 02/22/20 02/23/20 04:04 11:23 05:02 WBC 3.3 L RBC 5.19 H Hgb Hct MCV MCHC 35 H Plt Count [place] % (Auto) Lymph # Seg Neutrophils % Seg Neuts % (Manual) Lymphocytes % (Manual) Lymphocytes # (Manual) D-Dimer Sodium Chloride Carbon Dioxide BUN Glucose 114 H POC Glucose Calcium 8.3 L Ferritin Lactate Dehydrogenase C-Reactive Protein Albumin Coronavirus (PCR) Positive A 02/23/20 02/23/20 02/23/20 05:02 05:02 05:02 WBC RBC Hgb Hct MCV MCHC Plt Count [place] % (Auto) Lymph # Seg Neutrophils % Seg Neuts % (Manual) Lymphocytes % (Manual) Lymphocytes # (Manual) D-Dimer 2109.52 H Sodium Chloride Carbon Dioxide BUN Glucose POC Glucose Calcium Ferritin 1571.0 H Lactate Dehydrogenase 531 H C-Reactive Protein 6.40 H Albumin Coronavirus (PCR) 02/25/20 02/25/20 02/25/20 04:20 04:20 04:20 WBC RBC Hgb Hct MCV MCHC Plt Count [place] % (Auto) Lymph # Seg Neutrophils % Seg Neuts % (Manual) Lymphocytes % (Manual) Lymphocytes # (Manual) D-Dimer 1422.33 H Sodium Chloride Carbon Dioxide BUN Glucose POC Glucose Calcium Ferritin 2172.0 H Lactate Dehydrogenase 594 H C-Reactive Protein 8.70 H Albumin Coronavirus (PCR) 02/27/20 02/27/20 02/27/20 04:58 04:58 04:58 WBC RBC Hgb Hct MCV MCHC Plt Count [place] % (Auto) Lymph # Seg Neutrophils % Seg Neuts % (Manual) Lymphocytes % (Manual) Lymphocytes # (Manual) D-Dimer 1111.97 H Sodium 134 L Chloride Carbon Dioxide 18 L BUN 24 H Glucose 107 H POC Glucose Calcium Ferritin 3392.0 H Lactate Dehydrogenase 681 H C-Reactive Protein 9.70 H Albumin Coronavirus (PCR) 02/27/20 02/28/20 02/28/20 04:58 07:47 11:32 WBC 2.1 L RBC 5.19 H Hgb Hct MCV MCHC Plt Count [place] % (Auto) Lymph # Seg Neutrophils % Seg Neuts % (Manual) Lymphocytes % (Manual) Lymphocytes # (Manual) D-Dimer Sodium Chloride Carbon Dioxide BUN Glucose POC Glucose 130 H 120 H Calcium Ferritin Lactate Dehydrogenase C-Reactive Protein Albumin Coronavirus (PCR) 02/29/20 02/29/20 02/29/20 11:24 11:24 11:24 WBC RBC 6.47 H Hgb 18.3 H D Hct 53.8 H D MCV 83 L MCHC Plt Count 544 H Walker % (Auto) Lymph # Seg Neutrophils % Seg Neuts % (Manual) 93.0 H Lymphocytes % (Manual) 2.0 L Lymphocytes # (Manual) 0.1 L D-Dimer 1464.27 H Sodium Chloride Carbon Dioxide BUN Glucose POC Glucose Calcium Ferritin Lactate Dehydrogenase 822 H C-Reactive Protein Albumin Coronavirus (PCR) 02/29/20 11:24 WBC RBC Hgb Hct MCV MCHC Plt Count [place] % (Auto) Lymph # Seg Neutrophils % Seg Neuts % (Manual) Lymphocytes % (Manual) Lymphocytes # (Manual) D-Dimer Sodium Chloride Carbon Dioxide BUN Glucose POC Glucose Calcium Ferritin 4163.0 H Lactate Dehydrogenase C-Reactive Protein Albumin Coronavirus (PCR)
--- NOTE | 2020-03-01 13:11 | Progress Note ---
Assessment and Plan Cultures: 02/21/2020 blood culture: no growth 02/23/2020 blood culture: no growth A/P: 64/M with subjective fever, loss of appetite, weakness, headaches along with cough and shortness of breath for a week prior to admission #Severe bilateral pneumonia secondary to COVID-19: Completed 5 days of Brandon quenil. S/P Actemra 02/26/2020. Started steroid trial on 02/27/2020 #Acute hypoxic respiratory failure: Requiring oxygen. Recs: continue IV Solumedrol 40 mg q8 hrs due to ongoing hypoxia post Actemra. Plan for 7 days followed by slow taper. Day 3 today continue to encourage lying in prone position if patient is able to tolerate continue with weight based anticoagulation/LMWH prophylaxis markers: CRP and d-dimer show improving trend. Ferritin, LDH high. Procalcitonin is normal. continue supportive care Jocelynn Chahal MD, FACP [facility] C: [phone] O: [phone] F: [phone] Subjective Date of service: 03/01/20 Interval history: No fever. Oxygen requirements stable. Continues on steroids. Objective - Exam Narrative Exam: Physical Exam (reviewed in chart due to PPE conservation) Constitutional: limited due to PPE conservation strategy Head, Ears, Nose: limited due to PPE conservation strategy Eyes: limited due to PPE conservation strategy Neck: limited due to PPE conservation strategy Oral: limited due to PPE conservation strategy Cardiovascular: limited due to PPE conservation strategy Respiratory: limited due to PPE conservation strategy GI: limited due to PPE conservation strategy Musculoskeletal: limited due to PPE conservation strategy Skin: limited due to PPE conservation strategy Hem/Lymphatic: limited due to PPE conservation strategy Psych: limited due to PPE conservation strategy Neurological: limited due to PPE conservation strategy - Constitutional Vitals: Vital Signs Temp Pulse Resp BP Pulse Ox 97.8 F 90 22 101/72 92 03/01/20 12:16 03/01/20 12:16 03/01/20 12:16 03/01/20 12:16 03/01/20 12:16 Temperature -Last 24 Hours Temperature 97.8 F Temperature 97.7 F Temperature 97.6 F Temperature 98.4 F - Labs CBC & Chem 7: 02/29/20 11:24 02/27/20 04:58 Labs: Abnormal lab results 02/29/20 Range/Units 11:24 Ferritin 4163.0 H (13.0-400.0) ng/mL
[2020-03-02] MEDS: methylPREDNISolone Sod Succinate 40 MG/1 ML INJ IV SCH ×3 (05:19→21:48)
--- NOTE | 2020-03-02 09:45 | Progress Note ---
Assessment and Plan 64 y/o male with COVID 19 positive pneumonia and no other prior medical history. 1. COVID positive 2. Now on HFNC at 28 and 100%. Got Actemra 5 days ago. Continue HFNC, if work of breathing increases or unable to maintain adequate sats on HFNC, then will consider intubation. Would ask that patient prone himself, multiple times during the day shift and sleep proned at night. Agree with addition of steroid therapy, today is day 4. 3. Spoke with IMS, per chart patient is negative. If his work of breathing appears easier, would consider another 20 IV. If no change would not give any further lasix. Do not think he got lasix yesterday. 4. All markers have increased. Will speak with ID in regards to any further recs. Only thing I can think of is to increase the steroid. Guarded prognosis Subjective Date of service: 03/02/20 Interval history: No acute events. No fever. Oxygen requirement is the same. Not sure how weaning is going but sats on this are good. Objective Vital Signs - 12hr 03/01/20 03/01/20 03/02/20 22:19 22:51 02:20 Temperature 97.4 F L Pulse Rate 73 Respiratory 20 Rate Blood Pressure 101/70 O2 Sat by Pulse 95 95 94 Oximetry 03/02/20 06:03 Temperature 97.4 F L Pulse Rate 70 Respiratory 21 Rate Blood Pressure 106/65 O2 Sat by Pulse 94 Oximetry Constitutional: no acute distress Eyes: non-icteric Ascultation: Bilateral: diminished breath sounds Cardiovascular: regular rate and rhythm Gastrointestinal: normoactive bowel sounds CBC and BMP: 02/29/20 11:24 02/27/20 04:58 ABG, PT/INR, D-dimer: PT/INR, D-dimer D-Dimer 1464.27 ng/mlDDU (0-234) H 02/29/20 11:24 Abnormal lab findings: Abnormal Labs 02/21/20 02/21/20 02/21/20 15:29 15:29 15:29 WBC 3.7 L RBC 5.62 H Hgb 16.5 H Hct 47.5 H MCV MCHC 35 H Plt Count [place] % (Auto) 8.9 H Lymph # 0.6 L Seg Neutrophils % 72.3 H Seg Neuts % (Manual) Lymphocytes % (Manual) Lymphocytes # (Manual) D-Dimer 5638.87 H Sodium 136 L Chloride 96.2 L Carbon Dioxide 20 L BUN 22 H Glucose 124 H POC Glucose Calcium Ferritin Lactate Dehydrogenase C-Reactive Protein Albumin 3.8 L Coronavirus (PCR) 02/21/20 02/21/20 02/22/20 15:29 15:29 04:04 WBC 3.9 L RBC 5.47 H Hgb 15.8 H Hct MCV 83 L MCHC 35 H Plt Count [place] % (Auto) 10.5 H Lymph # 0.7 L Seg Neutrophils % 70.1 H Seg Neuts % (Manual) Lymphocytes % (Manual) Lymphocytes # (Manual) D-Dimer Sodium Chloride Carbon Dioxide BUN Glucose POC Glucose Calcium Ferritin 1484.0 H Lactate Dehydrogenase 486 H C-Reactive Protein 4.40 H Albumin Coronavirus (PCR) 02/22/20 02/22/20 02/23/20 04:04 11:23 05:02 WBC 3.3 L RBC 5.19 H Hgb Hct MCV MCHC 35 H Plt Count [place] % (Auto) Lymph # Seg Neutrophils % Seg Neuts % (Manual) Lymphocytes % (Manual) Lymphocytes # (Manual) D-Dimer Sodium Chloride Carbon Dioxide BUN Glucose 114 H POC Glucose Calcium 8.3 L Ferritin Lactate Dehydrogenase C-Reactive Protein Albumin Coronavirus (PCR) Positive A 02/23/20 02/23/20 02/23/20 05:02 05:02 05:02 WBC RBC Hgb Hct MCV MCHC Plt Count [place] % (Auto) Lymph # Seg Neutrophils % Seg Neuts % (Manual) Lymphocytes % (Manual) Lymphocytes # (Manual) D-Dimer 2109.52 H Sodium Chloride Carbon Dioxide BUN Glucose POC Glucose Calcium Ferritin 1571.0 H Lactate Dehydrogenase 531 H C-Reactive Protein 6.40 H Albumin Coronavirus (PCR) 02/25/20 02/25/20 02/25/20 04:20 04:20 04:20 WBC RBC Hgb Hct MCV MCHC Plt Count [place] % (Auto) Lymph # Seg Neutrophils % Seg Neuts % (Manual) Lymphocytes % (Manual) Lymphocytes # (Manual) D-Dimer 1422.33 H Sodium Chloride Carbon Dioxide BUN Glucose POC Glucose Calcium Ferritin 2172.0 H Lactate Dehydrogenase 594 H C-Reactive Protein 8.70 H Albumin Coronavirus (PCR) 02/27/20 02/27/20 02/27/20 04:58 04:58 04:58 WBC RBC Hgb Hct MCV MCHC Plt Count [place] % (Auto) Lymph # Seg Neutrophils % Seg Neuts % (Manual) Lymphocytes % (Manual) Lymphocytes # (Manual) D-Dimer 1111.97 H Sodium 134 L Chloride Carbon Dioxide 18 L BUN 24 H Glucose 107 H POC Glucose Calcium Ferritin 3392.0 H Lactate Dehydrogenase 681 H C-Reactive Protein 9.70 H Albumin Coronavirus (PCR) 02/27/20 02/28/20 02/28/20 04:58 07:47 11:32 WBC 2.1 L RBC 5.19 H Hgb Hct MCV MCHC Plt Count [place] % (Auto) Lymph # Seg Neutrophils % Seg Neuts % (Manual) Lymphocytes % (Manual) Lymphocytes # (Manual) D-Dimer Sodium Chloride Carbon Dioxide BUN Glucose POC Glucose 130 H 120 H Calcium Ferritin Lactate Dehydrogenase C-Reactive Protein Albumin Coronavirus (PCR) 02/29/20 02/29/20 02/29/20 11:24 11:24 11:24 WBC RBC 6.47 H Hgb 18.3 H D Hct 53.8 H D MCV 83 L MCHC Plt Count 544 H [place] % (Auto) Lymph # Seg Neutrophils % Seg Neuts % (Manual) 93.0 H Lymphocytes % (Manual) 2.0 L Lymphocytes # (Manual) 0.1 L D-Dimer 1464.27 H Sodium Chloride Carbon Dioxide BUN Glucose POC Glucose Calcium Ferritin Lactate Dehydrogenase 822 H C-Reactive Protein Albumin Coronavirus (PCR) 02/29/20 11:24 WBC RBC Hgb Hct MCV MCHC Plt Count [place] % (Auto) Lymph # Seg Neutrophils % Seg Neuts % (Manual) Lymphocytes % (Manual) Lymphocytes # (Manual) D-Dimer Sodium Chloride Carbon Dioxide BUN Glucose POC Glucose Calcium Ferritin 4163.0 H Lactate Dehydrogenase C-Reactive Protein Albumin Coronavirus (PCR)
[2020-03-02] MEDS: ENOXAPARIN 150 MG/1 ML INJ SUB-Q SCH (09:51)
--- NOTE | 2020-03-02 15:24 | Progress Note ---
Assessment and Plan Cultures: 02/21/2020 blood culture: no growth 02/23/2020 blood culture: no growth A/P: 64/M with subjective fever, loss of appetite, weakness, headaches along with cough and shortness of breath for a week prior to admission #Severe bilateral pneumonia secondary to COVID-19: Completed 5 days of [place] quenil. S/P Actemra 02/26/2020. Started steroid trial on 02/27/2020 #Acute hypoxic respiratory failure: Requiring oxygen. Recs: continue IV Solumedrol 40 mg q8 hrs due to ongoing hypoxia post Actemra. Plan for 7 days followed by slow taper. Day 4 today continue with weight based anticoagulation/LMWH prophylaxis continue to encourage lying in prone position if patient is able to tolerate recheck markers: CRP, d-dimer, Ferritin, LDH if O2 requirements remain unchanged and if markers remain significantly elevated, we could consider a repeat dose of Actemra continue supportive care Jocelynn Chahal MD, FACP [facility] C: [phone] O: [phone] F: [phone] Subjective Date of service: 03/02/20 Interval history: No fever. Oxygen requirements stable to slightly lower. Continues on steroids. Objective - Exam Narrative Exam: Physical Exam (reviewed in chart due to PPE conservation) Constitutional: limited due to PPE conservation strategy Head, Ears, Nose: limited due to PPE conservation strategy Eyes: limited due to PPE conservation strategy Neck: limited due to PPE conservation strategy Oral: limited due to PPE conservation strategy Cardiovascular: limited due to PPE conservation strategy Respiratory: limited due to PPE conservation strategy GI: limited due to PPE conservation strategy Musculoskeletal: limited due to PPE conservation strategy Skin: limited due to PPE conservation strategy Hem/Lymphatic: limited due to PPE conservation strategy Psych: limited due to PPE conservation strategy Neurological: limited due to PPE conservation strategy - Constitutional Vitals: Vital Signs Temp Pulse Resp BP Pulse Ox 97.6 F 77 24 100/66 95 03/02/20 10:39 03/02/20 10:39 03/02/20 10:39 03/02/20 10:39 03/02/20 10:39 Temperature -Last 24 Hours Temperature 97.6 F Temperature 97.4 F Temperature 97.4 F Temperature 98.1 F - Labs CBC & Chem 7: 02/29/20 11:24 02/27/20 04:58
--- NOTE | 2020-03-02 17:38 | Progress Note ---
Assessment and Plan Assessment and plan: Patient is a 64 yo AA man without known past medical condition who presented to [facility] ED with subjective fever, loss of appetite, generalized weakness, headache, shortness of breath, both dry and productive cough with production of yellow sputum over the past 1 week with progressively worsening symptoms over the past 3 days. Patient transported to [facility] via private vehicle for further evaluation and care. Patient seen and evaluated in the emergency department. Lab and imaging studies reviewed. Patient found to have temperature of 100.3 F, and pulse oximetry of 86% on room air which is consistent with acute hypoxemic respiratory failure. Patient underwent chest x-ray which revealed bilateral pneu monia which are consistent with suspected CO VID19. Patient admitted to medical floor and treated with pna and COVID-19 protocol. Infectious disease service consulted in ED. Acute hypoxic respiratory failure due to COVID-19 pneumonia Bilateral pneumonia secondary to COVID-19 COVID-19 viral infection confirmed, completed 5 days of plaquenil Sepsis syndrome, poa due to above Hypotension Acute hypoxic respiratory failure with pulse oximetry of 86% on room air Elevated d-dimer Headache Plan 02/28/20: Day 7, my first day with patient and he looks ill but is trying to move around, he was in the prone position overnight which did help some; he is on 100% high flow. I spoke with cousin, Derrick Ray [phone] who is NOK in EMR. Patient has a son who is estranged per Derrick, Stressed the importance of Incentive spirometry 02/29/20: More tachypneic today, continue IV steroids day 2/7 then oral taper. Patient not doing Incentive spirometry correctly, I showed him how to do it correctly. He is trying. I called his cousin Derrick for update, left message. 03/01/20: Doing slightly better, able to hold his breath for 20 seconds, still doing poorly on Incentive spirometry, still on 100% High Flow, Inflammatory markers at up. He received Actmera 5 days ago, on day 4/7 of IV steroids. I called his cousin Derrick for update, no answer, no messgae left. History Interval history: Patient was seen and examined. Follow-up on current diagnosis COVID-19 pneumonia. Overnight uneventful as no events directly reported to me. Patient denies any chest pain, , nausea/vomiting or severe headaches. Imaging, nursing note, chart, labs and old chart reviewed. Discussed with patient. Incentive spirometry at bedside. Hospitalist Physical - Physical exam Narrative exam: Gen: ill appearing, lethargic, mild increase accessory muscles, Awake, Alert, Orientated HEENT: NCAT, EOMI, PERRL, OP Clear Neck: supple, no adenopathy, no thyromegaly, no JVD CVS/Heart: RRR, normal S1S2, pulses present bilaterally Chest/Lungs: tachypnic, diminished with inspiratory crackles, Symmetrical chest expansion, good air entry bilaterally GI/Abdomen: soft, NTND, good bowel sounds, no guarding or rebound /Bladder: no suprapubic tenderness, no CVA or paraspinal tenderness Extermity/Skin: no c/c/e, no obvious rash MSK: FROM x 4 Neuro: CN 2-12 grossly intact, no new focal deficits Psych: calm - Constitutional Vitals: Temp Pulse Resp BP Pulse Ox 97.5 F L 68 20 115/72 96 03/02/20 14:56 03/02/20 14:56 03/02/20 14:56 03/02/20 14:56 03/02/20 14:56 General appearance: Absent: mild distress Results - Labs CBC & Chem 7: 02/29/20 11:24 02/27/20 04:58 Labs: Laboratory Last Values WBC 6.5 K/mm3 (4.5-11.0) 02/29/20 11:24 RBC 6.47 M/mm3 (3.65-5.03) H 02/29/20 11:24 Hgb 18.3 gm/dl (11.8-15.2) H D 02/29/20 11:24 Hct 53.8 % (35.5-45.6) H D 02/29/20 11:24 MCV 83 fl (84-94) L 02/29/20 11:24 MCH 28 pg (28-32) 02/29/20 11:24 MCHC 34 % (32-34) 02/29/20 11:24 RDW 14.3 % (13.2-15.2) 02/29/20 11:24 Plt Count 544 K/mm3 (140-440) H 02/29/20 11:24 Lymph % (Auto) 18.1 % (13.4-35.0) 02/22/20 04:04 [place] % (Auto) 10.5 % (0.0-7.3) H 02/22/20 04:04 Eos % (Auto) 0.4 % (0.0-4.3) 02/22/20 04:04 Baso % (Auto) 0.9 % (0.0-1.8) 02/22/20 04:04 Lymph # 0.7 K/mm3 (1.2-5.4) L 02/22/20 04:04 [place] # 0.4 K/mm3 (0.0-0.8) 02/22/20 04:04 Eos # 0.0 K/mm3 (0.0-0.4) 02/22/20 04:04 Baso # 0.0 K/mm3 (0.0-0.1) 02/22/20 04:04 Add Manual Diff Complete 02/29/20 11:24 Total Counted 100 02/29/20 11:24 Seg Neutrophils % Enzyme Chemist 02/29/20 11:24 Seg Neuts % (Manual) 93.0 % (40.0-70.0) H 02/29/20 11:24 Band Neutrophils % 2.0 % 02/29/20 11:24 Lymphocytes % (Manual) 2.0 % (13.4-35.0) L 02/29/20 11:24 Reactive Lymphs % (Man) 0 % 02/29/20 11:24 Monocytes % (Manual) 3.0 % (0.0-7.3) 02/29/20 11:24 Eosinophils % (Manual) 0 % (0.0-4.3) 02/29/20 11:24 Basophils % (Manual) 0 % (0.0-1.8) 02/29/20 11:24 Metamyelocytes % 0 % 02/29/20 11:24 Myelocytes % 0 % 02/29/20 11:24 Promyelocytes % 0 % 02/29/20 11:24 Blast Cells % 0 % 02/29/20 11:24 Nucleated RBC % Not Reportable 02/29/20 11:24 Seg Neutrophils # 2.8 K/mm3 (1.8-7.7) 02/22/20 04:04 Seg Neutrophils # Man 6.0 K/mm3 (1.8-7.7) 02/29/20 11:24 Band Neutrophils # 0.1 K/mm3 02/29/20 11:24 Lymphocytes # (Manual) 0.1 K/mm3 (1.2-5.4) L 02/29/20 11:24 Abs React Lymphs (Man) 0.0 K/mm3 02/29/20 11:24 Monocytes # (Manual) 0.2 K/mm3 (0.0-0.8) 02/29/20 11:24 Eosinophils # (Manual) 0.0 K/mm3 (0.0-0.4) 02/29/20 11:24 Basophils # (Manual) 0.0 K/mm3 (0.0-0.1) 02/29/20 11:24 Metamyelocytes # 0.0 K/mm3 02/29/20 11:24 Myelocytes # 0.0 K/mm3 02/29/20 11:24 Promyelocytes # 0.0 K/mm3 02/29/20 11:24 Blast Cells # 0.0 K/mm3 02/29/20 11:24 WBC Morphology Not Reportable 02/29/20 11:24 Hypersegmented Neuts Not Reportable 02/29/20 11:24 Hyposegmented Neuts Not Reportable 02/29/20 11:24 Hypogranular Neuts Not Reportable 02/29/20 11:24 Smudge Cells Not Reportable 02/29/20 11:24 Toxic Granulation Not Reportable 02/29/20 11:24 Toxic Vacuolation Not Reportable 02/29/20 11:24 Dohle Bodies Not Reportable 02/29/20 11:24 Pelger-Huet Anomaly Not Reportable 02/29/20 11:24 Kana Rods Not Reportable 02/29/20 11:24 Platelet Estimate Consistent w auto 02/29/20 11:24 Clumped Platelets Rare 02/29/20 11:24 Plt Clumps, EDTA Not Reportable 02/29/20 11:24 Large Platelets Not Reportable 02/29/20 11:24 Giant Platelets Not Reportable 02/29/20 11:24 Platelet Satelliting Not Reportable 02/29/20 11:24 Plt Morphology Comment Not Reportable 02/29/20 11:24 RBC Morphology Normal 02/29/20 11:24 Dimorphic RBCs Not Reportable 02/29/20 11:24 Polychromasia Not Reportable 02/29/20 11:24 Hypochromasia Not Reportable 02/29/20 11:24 Poikilocytosis Not Reportable 02/29/20 11:24 Anisocytosis Not Reportable 02/29/20 11:24 Microcytosis Not Reportable 02/29/20 11:24 Macrocytosis Not Reportable 02/29/20 11:24 Spherocytes Not Reportable 02/29/20 11:24 Pappenheimer Bodies Not Reportable 02/29/20 11:24 Sickle Cells Not Reportable 02/29/20 11:24 Target Cells Not Reportable 02/29/20 11:24 Tear Drop Cells Not Reportable 02/29/20 11:24 Ovalocytes Not Reportable 02/29/20 11:24 Helmet Cells Not Reportable 02/29/20 11:24 [place] Bodies Not Reportable 02/29/20 11:24 [place] Rings Not Reportable 02/29/20 11:24 [place] Cells Not Reportable 02/29/20 11:24 Bite Cells Not Reportable 02/29/20 11:24 Crenated Cell Not Reportable 02/29/20 11:24 Elliptocytes Not Reportable 02/29/20 11:24 Acanthocytes (Spur) Not Reportable 02/29/20 11:24 Rouleaux Not Reportable 02/29/20 11:24 Hemoglobin C Crystals Not Reportable 02/29/20 11:24 Schistocytes Not Reportable 02/29/20 11:24 Malaria parasites Not Reportable 02/29/20 11:24 Martín Bodies Not Reportable 02/29/20 11:24 Hem Pathologist Commnt No 02/29/20 11:24 D-Dimer 1464.27 ng/mlDDU (0-234) H 02/29/20 11:24 Sodium 134 mmol/L (137-145) L 02/27/20 04:58 Potassium 4.0 mmol/L (3.6-5.0) 02/27/20 04:58 Chloride 99.9 mmol/L (98-107) 02/27/20 04:58 Carbon Dioxide 18 mmol/L (22-30) L 02/27/20 04:58 Anion Gap 20 mmol/L 02/27/20 04:58 BUN 24 mg/dL (9-20) H 02/27/20 04:58 Creatinine 0.9 mg/dL (0.8-1.5) 02/27/20 04:58 Estimated GFR > 60 ml/min 02/27/20 04:58 BUN/Creatinine Ratio 27 % 02/27/20 04:58 Glucose 107 mg/dL (75-100) H 02/27/20 04:58 POC Glucose 120 (70-105) H 02/28/20 11:32 Lactic Acid 1.80 mmol/L (0.7-2.0) 02/21/20 15:29 Calcium 8.5 mg/dL (8.4-10.2) 02/27/20 04:58 Ferritin 4163.0 ng/mL (13.0-400.0) H 02/29/20 11:24 Total Bilirubin 0.60 mg/dL (0.1-1.2) 02/21/20 15:29 AST 31 units/L (5-40) 02/21/20 15:29 ALT 18 units/L (7-56) 02/21/20 15:29 Alkaline Phosphatase 71 units/L (35-129) 02/21/20 15:29 Lactate Dehydrogenase 822 units/L (91-180) H 02/29/20 11:24 C-Reactive Protein 1.00 mg/dL (0.00-1.30) 02/29/20 11:24 Total Protein 7.4 g/dL (6.3-8.2) 02/21/20 15:29 Albumin 3.8 g/dL (3.9-5) L 02/21/20 15:29 Albumin/Globulin Ratio 1.1 % 02/21/20 15:29 Procalcitonin 0.06 ng/mL (<0.15) 02/29/20 11:24 Coronavirus (PCR) Positive (Negative) A 02/22/20 11:23 Hepatitis A IgM Ab Non-reactive (NonReactive) 02/27/20 04:58 Hep Bs Antigen Non-reactive (Negative) 02/27/20 04:58 Hep B Core IgM Ab Non-reactive (NonReactive) 02/27/20 04:58 Hepatitis C Antibody Non-reactive (NonReactive) 02/27/20 04:58 Influenza A (Rapid) Negative (Negative) 02/21/20 16:34 Influenza B (Rapid) Negative (Negative) 02/21/20 16:34 TB (QFT) Gold In Tube See scanned result 02/27/20 09:58 TB Test (QFT) Nil See scanned result 02/27/20 09:58 TB Test Mitogen - Nil See scanned result 02/27/20 09:58 TB Test Antigen - Nil See scanned result 02/27/20 09:58 Rivera/IV: Voiding Method Urinal IV Catheter Type [Right Upper INT / Saline Lock arm] IV Catheter Type [Right INT / Saline Lock Forearm] IV Catheter Type [Right INT / Saline Lock Antecubital] Active Medications - Current Medications Current Medications: Generic Name Dose Route Start Last Admin Trade Name Freq PRN Reason Stop Dose Admin Acetaminophen 650 mg 02/21/20 16:41 02/26/20 16:53 Tylenol PO 650 mg Q4H PRN Administration Pain MILD(1-3)/Fever >100.5/DELUNA Albuterol 2 puff 02/25/20 10:39 Proair IH Q6HRT PRN Shortness Of Breath Enoxaparin Sodium 130 mg 02/22/20 10:00 03/02/20 09:51 Enoxaparin SUB-Q 130 mg Q24HR SCOT Administration Methylprednisolone Sodium Succinate 40 mg 02/28/20 16:00 03/02/20 14:29 Solu-Medrol IV 03/05/20 15:59 40 mg Q8HR SCOT Administration Ondansetron HCl 4 mg 02/21/20 16:41 02/25/20 16:17 Zofran IV 4 mg Q8H PRN Administration Nausea And Vomiting Sodium Chloride 10 ml 02/21/20 22:00 03/02/20 09:40 Sodium Chloride Flush Syringe 10 Ml IV 10 ml BID SCOT Administration Sodium Chloride 10 ml 02/21/20 16:41 Sodium Chloride Flush Syringe 10 Ml IV PRN PRN LINE FLUSH Nutrition/Malnutrition Assess - Dietary Evaluation Nutrition/Malnutrition Findings: Nutrition Notes Start: 02/23/20 09:12 Freq: Status: Active Protocol: Document 03/02/20 13:46 LM (Rec: 03/02/20 13:57 LM [id number]) Nutrition Notes Initial or Follow up Reassessment Other Pertinent Diagnosis COVID-19 (+), pneu, ARF Current Diet Regular Labs/Tests Reviewed Pertinent Medications Solumedrol Height 5 ft 9 in Weight 75.9 kg [place] Body Weight (kg) 72.72 BMI 24.7 Weight change and time frame wt change noted Weight Status Overweight Subjective/Other Information Pt stated he ate less than 50% of his lunch today. Pt denied wt loss. Pt would like strawberry Ensure. Burn Absent Trauma Absent Current % PO Poor (25-49%) Minimum of two criteria No physical signs of malnutrition #1 Nutrition Diagnosis Inadequate oral intake Diagnosis Progress(for reassessment Continues documentation) Is patient on ventilator? No Is Patient Ambulatory and/or Out of Bed Yes REE-([facility]-ambulatory/OOB) [ [id number] [id number]] Nutrition Intervention Add Supplement/Snack (indicate name/kcal Ensure Enlive [place] BID /protein ) Provides kCal: 700 Provides Protein (gm) 40 Goal #1 Meet at least 75% of energy and protein needs Anticipated Discharge Needs: Regular diet Follow-Up By: 03/05/20 Additional Comments F/U for PO/ONS intakes
[2020-03-03 05:16] LABS: C-Reactive Protein 0.2 mg/dL (0.00-1.30)
[2020-03-03] MEDS: methylPREDNISolone Sod Succinate 40 MG/1 ML INJ IV SCH ×3 (06:39→22:18)
--- NOTE | 2020-03-03 09:24 | Progress Note ---
Assessment and Plan 64 y/o male with COVID 19 positive pneumonia and no other prior medical history. 1. COVID positive 2. Now on HFNC at 28 and 100%. Got Actemra 6 days ago. Continue HFNC, if work of breathing increases or unable to maintain adequate sats on HFNC, then will consider intubation. Would ask that patient prone himself, multiple times during the day shift and sleep proned at night. Agree with addition of steroid therapy, today is day 5. 3. Hold on lasix therapy today. 4. Reviewed ID note. Patient should have markers checked again tomorrow. Plans will be based on those numbers plus O2 requirements. Guarded prognosis Subjective Date of service: 03/03/20 Interval history: Patient remains on HFNC at 28 and 100%/ All sats documented have been greater than 92%. Objective Vital Signs - 12hr 03/02/20 03/03/20 22:22 04:20 Temperature 97.6 F 97.5 F L Pulse Rate 68 67 Respiratory 24 16 Rate Blood Pressure 105/68 95/64 O2 Sat by Pulse 94 95 Oximetry Constitutional: no acute distress Eyes: non-icteric Ascultation: Bilateral: diminished breath sounds Cardiovascular: regular rate and rhythm Gastrointestinal: normoactive bowel sounds CBC and BMP: 02/29/20 11:24 02/27/20 04:58 ABG, PT/INR, D-dimer: PT/INR, D-dimer D-Dimer 3769.82 ng/mlDDU (0-234) H 03/03/20 04:22 Abnormal lab findings: Abnormal Labs 02/21/20 02/21/20 02/21/20 15:29 15:29 15:29 WBC 3.7 L RBC 5.62 H Hgb 16.5 H Hct 47.5 H MCV MCHC 35 H Plt Count [place] % (Auto) 8.9 H Lymph # 0.6 L Seg Neutrophils % 72.3 H Seg Neuts % (Manual) Lymphocytes % (Manual) Lymphocytes # (Manual) D-Dimer 5638.87 H Sodium 136 L Chloride 96.2 L Carbon Dioxide 20 L BUN 22 H Glucose 124 H POC Glucose Calcium Ferritin Lactate Dehydrogenase C-Reactive Protein Albumin 3.8 L Coronavirus (PCR) 02/21/20 02/21/20 02/22/20 15:29 15:29 04:04 WBC 3.9 L RBC 5.47 H Hgb 15.8 H Hct MCV 83 L MCHC 35 H Plt Count [place] % (Auto) 10.5 H Lymph # 0.7 L Seg Neutrophils % 70.1 H Seg Neuts % (Manual) Lymphocytes % (Manual) Lymphocytes # (Manual) D-Dimer Sodium Chloride Carbon Dioxide BUN Glucose POC Glucose Calcium Ferritin 1484.0 H Lactate Dehydrogenase 486 H C-Reactive Protein 4.40 H Albumin Coronavirus (PCR) 02/22/20 02/22/20 02/23/20 04:04 11:23 05:02 WBC 3.3 L RBC 5.19 H Hgb Hct MCV MCHC 35 H Plt Count [place] % (Auto) Lymph # Seg Neutrophils % Seg Neuts % (Manual) Lymphocytes % (Manual) Lymphocytes # (Manual) D-Dimer Sodium Chloride Carbon Dioxide BUN Glucose 114 H POC Glucose Calcium 8.3 L Ferritin Lactate Dehydrogenase C-Reactive Protein Albumin Coronavirus (PCR) Positive A 02/23/20 02/23/20 02/23/20 05:02 05:02 05:02 WBC RBC Hgb Hct MCV MCHC Plt Count [place] % (Auto) Lymph # Seg Neutrophils % Seg Neuts % (Manual) Lymphocytes % (Manual) Lymphocytes # (Manual) D-Dimer 2109.52 H Sodium Chloride Carbon Dioxide BUN Glucose POC Glucose Calcium Ferritin 1571.0 H Lactate Dehydrogenase 531 H C-Reactive Protein 6.40 H Albumin Coronavirus (PCR) 02/25/20 02/25/20 02/25/20 04:20 04:20 04:20 WBC RBC Hgb Hct MCV MCHC Plt Count [place] % (Auto) Lymph # Seg Neutrophils % Seg Neuts % (Manual) Lymphocytes % (Manual) Lymphocytes # (Manual) D-Dimer 1422.33 H Sodium Chloride Carbon Dioxide BUN Glucose POC Glucose Calcium Ferritin 2172.0 H Lactate Dehydrogenase 594 H C-Reactive Protein 8.70 H Albumin Coronavirus (PCR) 02/27/20 02/27/20 02/27/20 04:58 04:58 04:58 WBC RBC Hgb Hct MCV MCHC Plt Count [place] % (Auto) Lymph # Seg Neutrophils % Seg Neuts % (Manual) Lymphocytes % (Manual) Lymphocytes # (Manual) D-Dimer 1111.97 H Sodium 134 L Chloride Carbon Dioxide 18 L BUN 24 H Glucose 107 H POC Glucose Calcium Ferritin 3392.0 H Lactate Dehydrogenase 681 H C-Reactive Protein 9.70 H Albumin Coronavirus (PCR) 02/27/20 02/28/20 02/28/20 04:58 07:47 11:32 WBC 2.1 L RBC 5.19 H Hgb Hct MCV MCHC Plt Count [place] % (Auto) Lymph # Seg Neutrophils % Seg Neuts % (Manual) Lymphocytes % (Manual) Lymphocytes # (Manual) D-Dimer Sodium Chloride Carbon Dioxide BUN Glucose POC Glucose 130 H 120 H Calcium Ferritin Lactate Dehydrogenase C-Reactive Protein Albumin Coronavirus (PCR) 02/29/20 02/29/20 02/29/20 11:24 11:24 11:24 WBC RBC 6.47 H Hgb 18.3 H D Hct 53.8 H D MCV 83 L MCHC Plt Count 544 H [place] % (Auto) Lymph # Seg Neutrophils % Seg Neuts % (Manual) 93.0 H Lymphocytes % (Manual) 2.0 L Lymphocytes # (Manual) 0.1 L D-Dimer 1464.27 H Sodium Chloride Carbon Dioxide BUN Glucose POC Glucose Calcium Ferritin Lactate Dehydrogenase 822 H C-Reactive Protein Albumin Coronavirus (PCR) 02/29/20 03/03/20 03/03/20 11:24 04:22 04:22 WBC RBC Hgb Hct MCV MCHC Plt Count [place] % (Auto) Lymph # Seg Neutrophils % Seg Neuts % (Manual) Lymphocytes % (Manual) Lymphocytes # (Manual) D-Dimer 3769.82 H Sodium Chloride Carbon Dioxide BUN Glucose POC Glucose Calcium Ferritin 4163.0 H 2491.0 H Lactate Dehydrogenase C-Reactive Protein Albumin Coronavirus (PCR) 03/03/20 04:22 WBC RBC Hgb Hct MCV MCHC Plt Count [place] % (Auto) Lymph # Seg Neutrophils % Seg Neuts % (Manual) Lymphocytes % (Manual) Lymphocytes # (Manual) D-Dimer Sodium Chloride Carbon Dioxide BUN Glucose POC Glucose Calcium Ferritin Lactate Dehydrogenase 938 H C-Reactive Protein Albumin Coronavirus (PCR)
[2020-03-03] MEDS: ENOXAPARIN 150 MG/1 ML INJ SUB-Q SCH (10:36)
--- NOTE | 2020-03-03 16:27 | Progress Note ---
Assessment and Plan Assessment and plan: Patient is a 64 yo AA man without known past medical condition who [facility] with subjective fever, loss of appetite, generalized weakness, headache, shortness of breath, both dry and productive cough with production of yellow sputum over the past 1 week with progressively worsening symptoms over the past 3 days. Patient transported to [facility] via private vehicle for further evaluation and care. Patient seen and evaluated in the emergency department. Lab and imaging studies reviewed. Patient found to have temperature of 100.3 F, and pulse oximetry of 86% on room air which is consistent with acute hypoxemic respiratory failure. Patient underwent chest x-ray which revealed bilateral pneu monia which are consistent with suspected CO VID19. Patient admitted to medical floor and treated with pna and COVID-19 protocol. Infectious disease service consulted in ED. Acute hypoxic respiratory failure due to COVID-19 pneumonia Bilateral pneumonia secondary to COVID-19 COVID-19 viral infection confirmed, completed 5 days of plaquenil Sepsis syndrome, poa due to above Hypotension Acute hypoxic respiratory failure with pulse oximetry of 86% on room air Elevated d-dimer Headache Plan 02/28/20: Day 7, my first day with patient and he looks ill but is trying to move around, he was in the prone position overnight which did help some; he is on 100% high flow. I spoke with cousin, Drerick Ray [phone] who is NOK in EMR. Patient has a son who is estranged per Derrick, Stressed the importance of Incentive spirometry 02/29/20: More tachypneic today, continue IV steroids day 2/7 then oral taper. Patient not doing Incentive spirometry correctly, I showed him how to do it correctly. He is trying. I called his cousin Derrick for update, left message. 03/01/20: Doing slightly better, able to hold his breath for 20 seconds, still doing poorly on Incentive spirometry, still on 100% High Flow, Inflammatory markers at up. He received Actmera 5 days ago, on day 4/7 of IV steroids. I called his cousin Derrick for update, no answer, no messgae left. 03/02/20: on 95% high flow, still doing poorly on Incentive spirometry but trying, still not in prone position, counseling done. Mixed picture with inflammatory markers as d-dimer/LDH increasing but Ferritin/CRP decreasing. History Interval history: Patient was seen and examined. Follow-up on current diagnosis COVID-19 pneumonia. Overnight uneventful as no events directly reported to me. Patient denies any chest pain, , nausea/vomiting or severe headaches. Imaging, nursing note, chart, labs and old chart reviewed. Discussed with patient. Incentive spirometry at bedside. Hospitalist Physical - Physical exam Narrative exam: Gen: ill appearing, lethargic, mild increase accessory muscles, Awake, Alert, O rientated HEENT: NCAT, EOMI, PERRL, OP Clear Neck: supple, no adenopathy, no thyromegaly, no JVD CVS/Heart: RRR, normal S1S2, pulses present bilaterally Chest/Lungs: tachypnic, diminished with inspiratory crackles, Symmetrical chest expansion, good air entry bilaterally GI/Abdomen: soft, NTND, good bowel sounds, no guarding or rebound /Bladder: no suprapubic tenderness, no CVA or paraspinal tenderness Extermity/Skin: no c/c/e, no obvious rash MSK: FROM x 4 Neuro: CN 2-12 grossly intact, no new focal deficits Psych: calm - Constitutional Vitals: Temp Pulse Resp BP Pulse Ox 98.2 F 74 18 93/62 94 03/03/20 11:48 03/03/20 11:48 03/03/20 11:48 03/03/20 11:48 03/03/20 11:48 General appearance: Absent: mild distress Results - Labs CBC & Chem 7: 02/29/20 11:24 02/27/20 04:58 Labs: Laboratory Last Values WBC 6.5 K/mm3 (4.5-11.0) 02/29/20 11:24 RBC 6.47 M/mm3 (3.65-5.03) H 02/29/20 11:24 Hgb 18.3 gm/dl (11.8-15.2) H D 02/29/20 11:24 Hct 53.8 % (35.5-45.6) H D 02/29/20 11:24 MCV 83 fl (84-94) L 02/29/20 11:24 MCH 28 pg (28-32) 02/29/20 11:24 MCHC 34 % (32-34) 02/29/20 11:24 RDW 14.3 % (13.2-15.2) 02/29/20 11:24 Plt Count 544 K/mm3 (140-440) H 02/29/20 11:24 Lymph % (Auto) 18.1 % (13.4-35.0) 02/22/20 04:04 [place] % (Auto) 10.5 % (0.0-7.3) H 02/22/20 04:04 Eos % (Auto) 0.4 % (0.0-4.3) 02/22/20 04:04 Baso % (Auto) 0.9 % (0.0-1.8) 02/22/20 04:04 Lymph # 0.7 K/mm3 (1.2-5.4) L 02/22/20 04:04 [place] # 0.4 K/mm3 (0.0-0.8) 02/22/20 04:04 Eos # 0.0 K/mm3 (0.0-0.4) 02/22/20 04:04 Baso # 0.0 K/mm3 (0.0-0.1) 02/22/20 04:04 Add Manual Diff Complete 02/29/20 11:24 Total Counted 100 02/29/20 11:24 Seg Neutrophils % Station Engineer 02/29/20 11:24 Seg Neuts % (Manual) 93.0 % (40.0-70.0) H 02/29/20 11:24 Band Neutrophils % 2.0 % 02/29/20 11:24 Lymphocytes % (Manual) 2.0 % (13.4-35.0) L 02/29/20 11:24 Reactive Lymphs % (Man) 0 % 02/29/20 11:24 Monocytes % (Manual) 3.0 % (0.0-7.3) 02/29/20 11:24 Eosinophils % (Manual) 0 % (0.0-4.3) 02/29/20 11:24 Basophils % (Manual) 0 % (0.0-1.8) 02/29/20 11:24 Metamyelocytes % 0 % 02/29/20 11:24 Myelocytes % 0 % 02/29/20 11:24 Promyelocytes % 0 % 02/29/20 11:24 Blast Cells % 0 % 02/29/20 11:24 Nucleated RBC % Not Reportable 02/29/20 11:24 Seg Neutrophils # 2.8 K/mm3 (1.8-7.7) 02/22/20 04:04 Seg Neutrophils # Man 6.0 K/mm3 (1.8-7.7) 02/29/20 11:24 Band Neutrophils # 0.1 K/mm3 02/29/20 11:24 Lymphocytes # (Manual) 0.1 K/mm3 (1.2-5.4) L 02/29/20 11:24 Abs React Lymphs (Man) 0.0 K/mm3 02/29/20 11:24 Monocytes # (Manual) 0.2 K/mm3 (0.0-0.8) 02/29/20 11:24 Eosinophils # (Manual) 0.0 K/mm3 (0.0-0.4) 02/29/20 11:24 Basophils # (Manual) 0.0 K/mm3 (0.0-0.1) 02/29/20 11:24 Metamyelocytes # 0.0 K/mm3 02/29/20 11:24 Myelocytes # 0.0 K/mm3 02/29/20 11:24 Promyelocytes # 0.0 K/mm3 02/29/20 11:24 Blast Cells # 0.0 K/mm3 02/29/20 11:24 WBC Morphology Not Reportable 02/29/20 11:24 Hypersegmented Neuts Not Reportable 02/29/20 11:24 Hyposegmented Neuts Not Reportable 02/29/20 11:24 Hypogranular Neuts Not Reportable 02/29/20 11:24 Smudge Cells Not Reportable 02/29/20 11:24 Toxic Granulation Not Reportable 02/29/20 11:24 Toxic Vacuolation Not Reportable 02/29/20 11:24 Dohle Bodies Not Reportable 02/29/20 11:24 Pelger-Huet Anomaly Not Reportable 02/29/20 11:24 Kana Rods Not Reportable 02/29/20 11:24 Platelet Estimate Consistent w auto 02/29/20 11:24 Clumped Platelets Rare 02/29/20 11:24 Plt Clumps, EDTA Not Reportable 02/29/20 11:24 Large Platelets Not Reportable 02/29/20 11:24 Giant Platelets Not Reportable 02/29/20 11:24 Platelet Satelliting Not Reportable 02/29/20 11:24 Plt Morphology Comment Not Reportable 02/29/20 11:24 RBC Morphology Normal 02/29/20 11:24 Dimorphic RBCs Not Reportable 02/29/20 11:24 Polychromasia Not Reportable 02/29/20 11:24 Hypochromasia Not Reportable 02/29/20 11:24 Poikilocytosis Not Reportable 02/29/20 11:24 Anisocytosis Not Reportable 02/29/20 11:24 Microcytosis Not Reportable 02/29/20 11:24 Macrocytosis Not Reportable 02/29/20 11:24 Spherocytes Not Reportable 02/29/20 11:24 Pappenheimer Bodies Not Reportable 02/29/20 11:24 Sickle Cells Not Reportable 02/29/20 11:24 Target Cells Not Reportable 02/29/20 11:24 Tear Drop Cells Not Reportable 02/29/20 11:24 Ovalocytes Not Reportable 02/29/20 11:24 Helmet Cells Not Reportable 02/29/20 11:24 Carpio-[place] Bodies Not Reportable 02/29/20 11:24 [place] Rings Not Reportable 02/29/20 11:24 [place] Cells Not Reportable 02/29/20 11:24 Bite Cells Not Reportable 02/29/20 11:24 Crenated Cell Not Reportable 02/29/20 11:24 Elliptocytes Not Reportable 02/29/20 11:24 Acanthocytes (Spur) Not Reportable 02/29/20 11:24 Rouleaux Not Reportable 02/29/20 11:24 Hemoglobin C Crystals Not Reportable 02/29/20 11:24 Schistocytes Not Reportable 02/29/20 11:24 Malaria parasites Not Reportable 02/29/20 11:24 Martín Bodies Not Reportable 02/29/20 11:24 Hem Pathologist Commnt No 02/29/20 11:24 D-Dimer 3769.82 ng/mlDDU (0-234) H 03/03/20 04:22 Sodium 134 mmol/L (137-145) L 02/27/20 04:58 Potassium 4.0 mmol/L (3.6-5.0) 02/27/20 04:58 Chloride 99.9 mmol/L (98-107) 02/27/20 04:58 Carbon Dioxide 18 mmol/L (22-30) L 02/27/20 04:58 Anion Gap 20 mmol/L 02/27/20 04:58 BUN 24 mg/dL (9-20) H 02/27/20 04:58 Creatinine 0.9 mg/dL (0.8-1.5) 02/27/20 04:58 Estimated GFR > 60 ml/min 02/27/20 04:58 BUN/Creatinine Ratio 27 % 02/27/20 04:58 Glucose 107 mg/dL (75-100) H 02/27/20 04:58 POC Glucose 120 (70-105) H 02/28/20 11:32 Lactic Acid 1.80 mmol/L (0.7-2.0) 02/21/20 15:29 Calcium 8.5 mg/dL (8.4-10.2) 02/27/20 04:58 Ferritin 2491.0 ng/mL (13.0-400.0) H 03/03/20 04:22 Total Bilirubin 0.60 mg/dL (0.1-1.2) 02/21/20 15:29 AST 31 units/L (5-40) 02/21/20 15:29 ALT 18 units/L (7-56) 02/21/20 15:29 Alkaline Phosphatase 71 units/L (35-129) 02/21/20 15:29 Lactate Dehydrogenase 938 units/L (91-180) H 03/03/20 04:22 C-Reactive Protein 0.20 mg/dL (0.00-1.30) 03/03/20 04:22 Total Protein 7.4 g/dL (6.3-8.2) 02/21/20 15:29 Albumin 3.8 g/dL (3.9-5) L 02/21/20 15:29 Albumin/Globulin Ratio 1.1 % 02/21/20 15:29 Procalcitonin 0.07 ng/mL (<0.15) 03/03/20 04:22 Coronavirus (PCR) Positive (Negative) A 02/22/20 11:23 Hepatitis A IgM Ab Non-reactive (NonReactive) 02/27/20 04:58 Hep Bs Antigen Non-reactive (Negative) 02/27/20 04:58 Hep B Core IgM Ab Non-reactive (NonReactive) 02/27/20 04:58 Hepatitis C Antibody Non-reactive (NonReactive) 02/27/20 04:58 Influenza A (Rapid) Negative (Negative) 02/21/20 16:34 Influenza B (Rapid) Negative (Negative) 02/21/20 16:34 TB (QFT) Gold In Tube See scanned result 02/27/20 09:58 TB Test (QFT) Nil See scanned result 02/27/20 09:58 TB Test Mitogen - Nil See scanned result 02/27/20 09:58 TB Test Antigen - Nil See scanned result 02/27/20 09:58 Rivera/IV: Voiding Method Urinal IV Catheter Type [Right Upper INT / Saline Lock arm] IV Catheter Type [Right INT / Saline Lock Forearm] IV Catheter Type [Right INT / Saline Lock Antecubital] Active Medications - Current Medications Current Medications: Generic Name Dose Route Start Last Admin Trade Name Freq PRN Reason Stop Dose Admin Acetaminophen 650 mg 02/21/20 16:41 02/26/20 16:53 Tylenol PO 650 mg Q4H PRN Administration Pain MILD(1-3)/Fever >100.5/DELUNA Albuterol 2 puff 02/25/20 10:39 Proair IH Q6HRT PRN Shortness Of Breath Enoxaparin Sodium 130 mg 02/22/20 10:00 03/03/20 10:36 Enoxaparin SUB-Q 130 mg Q24HR SCOT Administration Methylprednisolone Sodium Succinate 40 mg 02/28/20 16:00 03/03/20 15:01 Solu-Medrol IV 03/05/20 15:59 40 mg Q8HR SCOT Administration Ondansetron HCl 4 mg 02/21/20 16:41 02/25/20 16:17 Zofran IV 4 mg Q8H PRN Administration Nausea And Vomiting Sodium Chloride 10 ml 02/21/20 22:00 03/03/20 10:37 Sodium Chloride Flush Syringe 10 Ml IV 10 ml BID SCOT Administration Sodium Chloride 10 ml 02/21/20 16:41 Sodium Chloride Flush Syringe 10 Ml IV PRN PRN LINE FLUSH Nutrition/Malnutrition Assess - Dietary Evaluation Nutrition/Malnutrition Findings: Nutrition Notes Start: 02/23/20 09:12 Freq: Status: Active Protocol: Document 03/02/20 13:46 LM (Rec: 03/02/20 13:57 LM [id number]) Nutrition Notes Initial or Follow up Reassessment Other Pertinent Diagnosis COVID-19 (+), pneu, ARF Current Diet Regular Labs/Tests Reviewed Pertinent Medications Solumedrol Height 5 ft 9 in Weight 75.9 kg [place] Body Weight (kg) 72.72 BMI 24.7 Weight change and time frame wt change noted Weight Status Overweight Subjective/Other Information Pt stated he ate less than 50% of his lunch today. Pt denied wt loss. Pt would like strawberry Ensure. Burn Absent Trauma Absent Current % PO Poor (25-49%) Minimum of two criteria No physical signs of malnutrition #1 Nutrition Diagnosis Inadequate oral intake Diagnosis Progress(for reassessment Continues documentation) Is patient on ventilator? No Is Patient Ambulatory and/or Out of Bed Yes REE-([facility] [place]-ambulatory/OOB) [ 2014.194 [id number]] Nutrition Intervention Add Supplement/Snack (indicate name/kcal Ensure Enlive [place] BID /protein ) Provides kCal: 700 Provides Protein (gm) 40 Goal #1 Meet at least 75% of energy and protein needs Anticipated Discharge Needs: Regular diet Follow-Up By: 03/05/20 Additional Comments F/U for PO/ONS intakes
[2020-03-04] MEDS: methylPREDNISolone Sod Succinate 40 MG/1 ML INJ IV SCH ×3 (05:32→22:12)
--- NOTE | 2020-03-04 07:36 | Progress Note ---
Assessment and Plan Assessment and plan: Patient is a 64 yo AA man without known past medical condition who presented to [facility] ED with subjective fever, loss of appetite, generalized weakness, headache, shortness of breath, both dry and productive cough with production of yellow sputum over the past 1 week with progressively worsening symptoms over the past 3 days. Patient transported to [facility] via private vehicle for further evaluation and care. Patient seen and evaluated in the emergency department. Lab and imaging studies reviewed. Patient found to have temperature of 100.3 F, and pulse oximetry of 86% on room air which is consistent with acute hypoxemic respiratory failure. Patient underwent chest x-ray which revealed bilateral pneu monia which are consistent with suspected CO VID19. Patient admitted to medical floor and treated with pna and COVID-19 protocol. Infectious disease service consulted in ED. Acute hypoxic respiratory failure due to COVID-19 pneumonia Bilateral pneumonia secondary to COVID-19 COVID-19 viral infection confirmed, completed 5 days of plaquenil Sepsis syndrome, poa due to above Hypotension Acute hypoxic respiratory failure with pulse oximetry of 86% on room air Elevated d-dimer Headache Plan 02/28/20: Day 7, my first day with patient and he looks ill but is trying to move around, he was in the prone position overnight which did help some; he is on 100% high flow. I spoke with cousin, Derrick Ray [phone] who is NOK in EMR. Patient has a son who is estranged per Derrick, Stressed the importance of Incentive spirometry 02/29/20: More tachypneic today, continue IV steroids day 2/7 then oral taper. Patient not doing Incentive spirometry correctly, I showed him how to do it correctly. He is trying. I called his cousin Derrick for update, left message. 03/01/20: Doing slightly better, able to hold his breath for 20 seconds, still doing poorly on Incentive spirometry, still on 100% High Flow, Inflammatory markers at up. He received Actmera 5 days ago, on day 47 of IV steroids. I called his cousin Derrick for update, no answer, no messgae left. 03/02/20: still on 100% fiO2 High flow, trying to do Incentive spirometry, advise to get in prone position. 03/03/20: on 95% high flow, still doing poorly on Incentive spirometry but trying, still not in prone position, counseling done. Mixed picture with inflammatory markers as d-dimer/LDH increasing but Ferritin/CRP decreasing. 03/04/20: on 95% high flow and O2 sat 95%, have asked Respiratory to try to wean down FiO2. Inflammatory marker tomorrow. 11 beat run of VTach. I will check bmp, magnesium, I will give IV mag/potassium and consult Cardiology History Interval history: Patient was seen and examined. Follow-up on current diagnosis COVID-19 pneumonia. Overnight uneventful as no events directly reported to me. Patient denies any chest pain, , nausea/vomiting or severe headaches. Imaging, nursing note, chart, labs and old chart reviewed. Discussed with patient. Incentive spirometry at bedside. Hospitalist Physical - Physical exam Narrative exam: Gen: ill appearing, lethargic, mild increase accessory muscles, Awake, Alert, Orientated HEENT: NCAT, EOMI, PERRL, OP Clear Neck: supple, no adenopathy, no thyromegaly, no JVD CVS/Heart: RRR, normal S1S2, pulses present bilaterally Chest/Lungs: tachypnic, diminished with inspiratory crackles, Symmetrical chest expansion, good air entry bilaterally GI/Abdomen: soft, NTND, good bowel sounds, no guarding or rebound /Bladder: no suprapubic tenderness, no CVA or paraspinal tenderness Extermity/Skin: no c/c/e, no obvious rash MSK: FROM x 4 Neuro: CN 2-12 grossly intact, no new focal deficits Psych: calm - Constitutional Vitals: Temp Pulse Resp BP Pulse Ox 98.2 F 76 18 100/66 94 03/04/20 04:50 03/04/20 04:50 03/04/20 04:50 03/04/20 04:50 03/04/20 04:50 General appearance: Absent: mild distress Results - Labs CBC & Chem 7: 02/29/20 11:24 02/27/20 04:58 Labs: Laboratory Last Values WBC 6.5 K/mm3 (4.5-11.0) 02/29/20 11:24 RBC 6.47 M/mm3 (3.65-5.03) H 02/29/20 11:24 Hgb 18.3 gm/dl (11.8-15.2) H D 02/29/20 11:24 Hct 53.8 % (35.5-45.6) H D 02/29/20 11:24 MCV 83 fl (84-94) L 02/29/20 11:24 MCH 28 pg (28-32) 02/29/20 11:24 MCHC 34 % (32-34) 02/29/20 11:24 RDW 14.3 % (13.2-15.2) 02/29/20 11:24 Plt Count 544 K/mm3 (140-440) H 02/29/20 11:24 Lymph % (Auto) 18.1 % (13.4-35.0) 02/22/20 04:04 [place] % (Auto) 10.5 % (0.0-7.3) H 02/22/20 04:04 Eos % (Auto) 0.4 % (0.0-4.3) 02/22/20 04:04 Baso % (Auto) 0.9 % (0.0-1.8) 02/22/20 04:04 Lymph # 0.7 K/mm3 (1.2-5.4) L 02/22/20 04:04 [place] # 0.4 K/mm3 (0.0-0.8) 02/22/20 04:04 Eos # 0.0 K/mm3 (0.0-0.4) 02/22/20 04:04 Baso # 0.0 K/mm3 (0.0-0.1) 02/22/20 04:04 Add Manual Diff Complete 02/29/20 11:24 Total Counted 100 02/29/20 11:24 Seg Neutrophils % Vp Genetic 02/29/20 11:24 Seg Neuts % (Manual) 93.0 % (40.0-70.0) H 02/29/20 11:24 Band Neutrophils % 2.0 % 02/29/20 11:24 Lymphocytes % (Manual) 2.0 % (13.4-35.0) L 02/29/20 11:24 Reactive Lymphs % (Man) 0 % 02/29/20 11:24 Monocytes % (Manual) 3.0 % (0.0-7.3) 02/29/20 11:24 Eosinophils % (Manual) 0 % (0.0-4.3) 02/29/20 11:24 Basophils % (Manual) 0 % (0.0-1.8) 02/29/20 11:24 Metamyelocytes % 0 % 02/29/20 11:24 Myelocytes % 0 % 02/29/20 11:24 Promyelocytes % 0 % 02/29/20 11:24 Blast Cells % 0 % 02/29/20 11:24 Nucleated RBC % Not Reportable 02/29/20 11:24 Seg Neutrophils # 2.8 K/mm3 (1.8-7.7) 02/22/20 04:04 Seg Neutrophils # Man 6.0 K/mm3 (1.8-7.7) 02/29/20 11:24 Band Neutrophils # 0.1 K/mm3 02/29/20 11:24 Lymphocytes # (Manual) 0.1 K/mm3 (1.2-5.4) L 02/29/20 11:24 Abs React Lymphs (Man) 0.0 K/mm3 02/29/20 11:24 Monocytes # (Manual) 0.2 K/mm3 (0.0-0.8) 02/29/20 11:24 Eosinophils # (Manual) 0.0 K/mm3 (0.0-0.4) 02/29/20 11:24 Basophils # (Manual) 0.0 K/mm3 (0.0-0.1) 02/29/20 11:24 Metamyelocytes # 0.0 K/mm3 02/29/20 11:24 Myelocytes # 0.0 K/mm3 02/29/20 11:24 Promyelocytes # 0.0 K/mm3 02/29/20 11:24 Blast Cells # 0.0 K/mm3 02/29/20 11:24 WBC Morphology Not Reportable 02/29/20 11:24 Hypersegmented Neuts Not Reportable 02/29/20 11:24 Hyposegmented Neuts Not Reportable 02/29/20 11:24 Hypogranular Neuts Not Reportable 02/29/20 11:24 Smudge Cells Not Reportable 02/29/20 11:24 Toxic Granulation Not Reportable 02/29/20 11:24 Toxic Vacuolation Not Reportable 02/29/20 11:24 Dohle Bodies Not Reportable 02/29/20 11:24 Pelger-Huet Anomaly Not Reportable 02/29/20 11:24 Kana Rods Not Reportable 02/29/20 11:24 Platelet Estimate Consistent w auto 02/29/20 11:24 Clumped Platelets Rare 02/29/20 11:24 Plt Clumps, EDTA Not Reportable 02/29/20 11:24 Large Platelets Not Reportable 02/29/20 11:24 Giant Platelets Not Reportable 02/29/20 11:24 Platelet Satelliting Not Reportable 02/29/20 11:24 Plt Morphology Comment Not Reportable 02/29/20 11:24 RBC Morphology Normal 02/29/20 11:24 Dimorphic RBCs Not Reportable 02/29/20 11:24 Polychromasia Not Reportable 02/29/20 11:24 Hypochromasia Not Reportable 02/29/20 11:24 Poikilocytosis Not Reportable 02/29/20 11:24 Anisocytosis Not Reportable 02/29/20 11:24 Microcytosis Not Reportable 02/29/20 11:24 Macrocytosis Not Reportable 02/29/20 11:24 Spherocytes Not Reportable 02/29/20 11:24 Pappenheimer Bodies Not Reportable 02/29/20 11:24 Sickle Cells Not Reportable 02/29/20 11:24 Target Cells Not Reportable 02/29/20 11:24 Tear Drop Cells Not Reportable 02/29/20 11:24 Ovalocytes Not Reportable 02/29/20 11:24 Helmet Cells Not Reportable 02/29/20 11:24 [place] Bodies Not Reportable 02/29/20 11:24 Moore Rings Not Reportable 02/29/20 11:24 Elijah Cells Not Reportable 02/29/20 11:24 Bite Cells Not Reportable 02/29/20 11:24 Crenated Cell Not Reportable 02/29/20 11:24 Elliptocytes Not Reportable 02/29/20 11:24 Acanthocytes (Spur) Not Reportable 02/29/20 11:24 Rouleaux Not Reportable 02/29/20 11:24 Hemoglobin C Crystals Not Reportable 02/29/20 11:24 Schistocytes Not Reportable 02/29/20 11:24 Malaria parasites Not Reportable 02/29/20 11:24 Martín Bodies Not Reportable 02/29/20 11:24 Hem Pathologist Commnt No 02/29/20 11:24 D-Dimer 3769.82 ng/mlDDU (0-234) H 03/03/20 04:22 Sodium 134 mmol/L (137-145) L 02/27/20 04:58 Potassium 4.0 mmol/L (3.6-5.0) 02/27/20 04:58 Chloride 99.9 mmol/L (98-107) 02/27/20 04:58 Carbon Dioxide 18 mmol/L (22-30) L 02/27/20 04:58 Anion Gap 20 mmol/L 02/27/20 04:58 BUN 24 mg/dL (9-20) H 02/27/20 04:58 Creatinine 0.9 mg/dL (0.8-1.5) 02/27/20 04:58 Estimated GFR > 60 ml/min 02/27/20 04:58 BUN/Creatinine Ratio 27 % 02/27/20 04:58 Glucose 107 mg/dL (75-100) H 02/27/20 04:58 POC Glucose 120 (70-105) H 02/28/20 11:32 Lactic Acid 1.80 mmol/L (0.7-2.0) 02/21/20 15:29 Calcium 8.5 mg/dL (8.4-10.2) 02/27/20 04:58 Ferritin 2491.0 ng/mL (13.0-400.0) H 03/03/20 04:22 Total Bilirubin 0.60 mg/dL (0.1-1.2) 02/21/20 15:29 AST 31 units/L (5-40) 02/21/20 15:29 ALT 18 units/L (7-56) 02/21/20 15:29 Alkaline Phosphatase 71 units/L (35-129) 02/21/20 15:29 Lactate Dehydrogenase 938 units/L (91-180) H 03/03/20 04:22 C-Reactive Protein 0.20 mg/dL (0.00-1.30) 03/03/20 04:22 Total Protein 7.4 g/dL (6.3-8.2) 02/21/20 15:29 Albumin 3.8 g/dL (3.9-5) L 02/21/20 15:29 Albumin/Globulin Ratio 1.1 % 02/21/20 15:29 Procalcitonin 0.07 ng/mL (<0.15) 03/03/20 04:22 Coronavirus (PCR) Positive (Negative) A 02/22/20 11:23 Hepatitis A IgM Ab Non-reactive (NonReactive) 02/27/20 04:58 Hep Bs Antigen Non-reactive (Negative) 02/27/20 04:58 Hep B Core IgM Ab Non-reactive (NonReactive) 02/27/20 04:58 Hepatitis C Antibody Non-reactive (NonReactive) 02/27/20 04:58 Influenza A (Rapid) Negative (Negative) 02/21/20 16:34 Influenza B (Rapid) Negative (Negative) 02/21/20 16:34 TB (QFT) Gold In Tube See scanned result 02/27/20 09:58 TB Test (QFT) Nil See scanned result 02/27/20 09:58 TB Test Mitogen - Nil See scanned result 02/27/20 09:58 TB Test Antigen - Nil See scanned result 02/27/20 09:58 Rivera/IV: Voiding Method Urinal IV Catheter Type [Right Upper INT / Saline Lock arm] IV Catheter Type [Right INT / Saline Lock Forearm] IV Catheter Type [Right INT / Saline Lock Antecubital] Active Medications - Current Medications Current Medications: Generic Name Dose Route Start Last Admin Trade Name Freq PRN Reason Stop Dose Admin Acetaminophen 650 mg 02/21/20 16:41 02/26/20 16:53 Tylenol PO 650 mg Q4H PRN Administration Pain MILD(1-3)/Fever >100.5/DELUNA Albuterol 2 puff 02/25/20 10:39 Proair IH Q6HRT PRN Shortness Of Breath Enoxaparin Sodium 130 mg 02/22/20 10:00 03/03/20 10:36 Enoxaparin SUB-Q 130 mg Q24HR SCOT Administration Methylprednisolone Sodium Succinate 40 mg 02/28/20 16:00 03/04/20 05:32 Solu-Medrol IV 03/05/20 15:59 40 mg Q8HR SCOT Administration Ondansetron HCl 4 mg 02/21/20 16:41 02/25/20 16:17 Zofran IV 4 mg Q8H PRN Administration Nausea And Vomiting Sodium Chloride 10 ml 02/21/20 22:00 03/03/20 22:18 Sodium Chloride Flush Syringe 10 Ml IV 10 ml BID SCOT Administration Sodium Chloride 10 ml 02/21/20 16:41 Sodium Chloride Flush Syringe 10 Ml IV PRN PRN LINE FLUSH Nutrition/Malnutrition Assess - Dietary Evaluation Nutrition/Malnutrition Findings: Nutrition Notes Start: 02/23/20 09:12 Freq: Status: Active Protocol: Document 03/02/20 13:46 LM (Rec: 03/02/20 13:57 LM [id number]) Nutrition Notes Initial or Follow up Reassessment Other Pertinent Diagnosis COVID-19 (+), pneu, ARF Current Diet Regular Labs/Tests Reviewed Pertinent Medications Solumedrol Height 5 ft 9 in Weight 75.9 kg [place] Body Weight (kg) 72.72 BMI 24.7 Weight change and time frame wt change noted Weight Status Overweight Subjective/Other Information Pt stated he ate less than 50% of his lunch today. Pt denied wt loss. Pt would like strawberry Ensure. Burn Absent Trauma Absent Current % PO Poor (25-49%) Minimum of two criteria No physical signs of malnutrition #1 Nutrition Diagnosis Inadequate oral intake Diagnosis Progress(for reassessment Continues documentation) Is patient on ventilator? No Is Patient Ambulatory and/or Out of Bed Yes REE-([facility]-ambulatory/OOB) [ 2014.194 [id number]] Nutrition Intervention Add Supplement/Snack (indicate name/kcal Ensure Enlive [place] BID /protein ) Provides kCal: 700 Provides Protein (gm) 40 Goal #1 Meet at least 75% of energy and protein needs Anticipated Discharge Needs: Regular diet Follow-Up By: 03/05/20 Additional Comments F/U for PO/ONS intakes
[2020-03-04] MEDS: ENOXAPARIN 150 MG/1 ML INJ SUB-Q SCH (09:33)
--- NOTE | 2020-03-04 12:32 | Progress Note ---
Assessment and Plan 64 y/o male with COVID 19 positive pneumonia and no other prior medical history. 1. COVID positive 2. Now on HFNC at 15 and 100%. Got Actemra 7 days ago. Continue HFNC, if work of breathing increases or unable to maintain adequate sats on HFNC, then will consider intubation. Would ask that patient prone himself, multiple times during the day shift and sleep proned at night. Agree with addition of steroid therapy, today is day 6. 3. Hold on lasix therapy today. 4. Reviewed ID note. Suggest holding on second dose of actemera and reveiwing labs on Thursday. Guarded prognosis Subjective Date of service: 03/04/20 Interval history: No acute events. Down to 15 liters and 100%. good sats. D-Dimer and LDH both increased. Ferritin decreased. CRP and Procal are normal. No fevers. Remainder is negative. Objective Vital Signs - 12hr 03/04/20 03/04/20 03/04/20 02:00 04:50 08:00 Temperature 98.2 F Pulse Rate 76 Respiratory 18 Rate Blood Pressure 100/66 O2 Sat by Pulse 95 94 94 Oximetry 03/04/20 11:40 Temperature 98.2 F Pulse Rate 71 Respiratory 24 Rate Blood Pressure 111/74 O2 Sat by Pulse 93 Oximetry Constitutional: no acute distress Eyes: non-icteric Ascultation: Bilateral: diminished breath sounds Cardiovascular: regular rate and rhythm Gastrointestinal: normoactive bowel sounds CBC and BMP: 02/29/20 11:24 02/27/20 04:58 ABG, PT/INR, D-dimer: PT/INR, D-dimer D-Dimer 3769.82 ng/mlDDU (0-234) H 03/03/20 04:22 Abnormal lab findings: Abnormal Labs 02/21/20 02/21/20 02/21/20 15:29 15:29 15:29 WBC 3.7 L RBC 5.62 H Hgb 16.5 H Hct 47.5 H MCV MCHC 35 H Plt Count [place] % (Auto) 8.9 H Lymph # 0.6 L Seg Neutrophils % 72.3 H Seg Neuts % (Manual) Lymphocytes % (Manual) Lymphocytes # (Manual) D-Dimer 5638.87 H Sodium 136 L Chloride 96.2 L Carbon Dioxide 20 L BUN 22 H Glucose 124 H POC Glucose Calcium Ferritin Lactate Dehydrogenase C-Reactive Protein Albumin 3.8 L Coronavirus (PCR) 02/21/20 02/21/20 02/22/20 15:29 15:29 04:04 WBC 3.9 L RBC 5.47 H Hgb 15.8 H Hct MCV 83 L MCHC 35 H Plt Count [place] % (Auto) 10.5 H Lymph # 0.7 L Seg Neutrophils % 70.1 H Seg Neuts % (Manual) Lymphocytes % (Manual) Lymphocytes # (Manual) D-Dimer Sodium Chloride Carbon Dioxide BUN Glucose POC Glucose Calcium Ferritin 1484.0 H Lactate Dehydrogenase 486 H C-Reactive Protein 4.40 H Albumin Coronavirus (PCR) 02/22/20 02/22/20 02/23/20 04:04 11:23 05:02 WBC 3.3 L RBC 5.19 H Hgb Hct MCV MCHC 35 H Plt Count [place] % (Auto) Lymph # Seg Neutrophils % Seg Neuts % (Manual) Lymphocytes % (Manual) Lymphocytes # (Manual) D-Dimer Sodium Chloride Carbon Dioxide BUN Glucose 114 H POC Glucose Calcium 8.3 L Ferritin Lactate Dehydrogenase C-Reactive Protein Albumin Coronavirus (PCR) Positive A 02/23/20 02/23/20 02/23/20 05:02 05:02 05:02 WBC RBC Hgb Hct MCV MCHC Plt Count [place] % (Auto) Lymph # Seg Neutrophils % Seg Neuts % (Manual) Lymphocytes % (Manual) Lymphocytes # (Manual) D-Dimer 2109.52 H Sodium Chloride Carbon Dioxide BUN Glucose POC Glucose Calcium Ferritin 1571.0 H Lactate Dehydrogenase 531 H C-Reactive Protein 6.40 H Albumin Coronavirus (PCR) 02/25/20 02/25/20 02/25/20 04:20 04:20 04:20 WBC RBC Hgb Hct MCV MCHC Plt Count [place] % (Auto) Lymph # Seg Neutrophils % Seg Neuts % (Manual) Lymphocytes % (Manual) Lymphocytes # (Manual) D-Dimer 1422.33 H Sodium Chloride Carbon Dioxide BUN Glucose POC Glucose Calcium Ferritin 2172.0 H Lactate Dehydrogenase 594 H C-Reactive Protein 8.70 H Albumin Coronavirus (PCR) 02/27/20 02/27/20 02/27/20 04:58 04:58 04:58 WBC RBC Hgb Hct MCV MCHC Plt Count [place] % (Auto) Lymph # Seg Neutrophils % Seg Neuts % (Manual) Lymphocytes % (Manual) Lymphocytes # (Manual) D-Dimer 1111.97 H Sodium 134 L Chloride Carbon Dioxide 18 L BUN 24 H Glucose 107 H POC Glucose Calcium Ferritin 3392.0 H Lactate Dehydrogenase 681 H C-Reactive Protein 9.70 H Albumin Coronavirus (PCR) 02/27/20 02/28/20 02/28/20 04:58 07:47 11:32 WBC 2.1 L RBC 5.19 H Hgb Hct MCV MCHC Plt Count [place] % (Auto) Lymph # Seg Neutrophils % Seg Neuts % (Manual) Lymphocytes % (Manual) Lymphocytes # (Manual) D-Dimer Sodium Chloride Carbon Dioxide BUN Glucose POC Glucose 130 H 120 H Calcium Ferritin Lactate Dehydrogenase C-Reactive Protein Albumin Coronavirus (PCR) 02/29/20 02/29/20 02/29/20 11:24 11:24 11:24 WBC RBC 6.47 H Hgb 18.3 H D Hct 53.8 H D MCV 83 L MCHC Plt Count 544 H [place] % (Auto) Lymph # Seg Neutrophils % Seg Neuts % (Manual) 93.0 H Lymphocytes % (Manual) 2.0 L Lymphocytes # (Manual) 0.1 L D-Dimer 1464.27 H Sodium Chloride Carbon Dioxide BUN Glucose POC Glucose Calcium Ferritin Lactate Dehydrogenase 822 H C-Reactive Protein Albumin Coronavirus (PCR) 02/29/20 03/03/20 03/03/20 11:24 04:22 04:22 WBC RBC Hgb Hct MCV MCHC Plt Count [place] % (Auto) Lymph # Seg Neutrophils % Seg Neuts % (Manual) Lymphocytes % (Manual) Lymphocytes # (Manual) D-Dimer 3769.82 H Sodium Chloride Carbon Dioxide BUN Glucose POC Glucose Calcium Ferritin 4163.0 H 2491.0 H Lactate Dehydrogenase C-Reactive Protein Albumin Coronavirus (PCR) 03/03/20 04:22 WBC RBC Hgb Hct MCV MCHC Plt Count [place] % (Auto) Lymph # Seg Neutrophils % Seg Neuts % (Manual) Lymphocytes % (Manual) Lymphocytes # (Manual) D-Dimer Sodium Chloride Carbon Dioxide BUN Glucose POC Glucose Calcium Ferritin Lactate Dehydrogenase 938 H C-Reactive Protein Albumin Coronavirus (PCR)
[2020-03-04] MEDS ORDERED: POTASSIUM CHLORIDE ER 20 MEQ TAB PO ONE (12:41)
--- NOTE | 2020-03-04 13:26 | Progress Note ---
Assessment and Plan Cultures: 02/21/2020 blood culture: no growth 02/23/2020 blood culture: no growth A/P: 64/M with subjective fever, loss of appetite, weakness, headaches along with cough and shortness of breath for a week prior to admission #Severe bilateral pneumonia secondary to COVID-19: Completed 5 days of [place] quenil. S/P Actemra 02/26/2020. Started steroid trial on 02/27/2020 #Acute hypoxic respiratory failure: Requiring oxygen. Remains on HFO2 18L, 100% Recs: add vitamin C 1.5 g IV q6h continue IV Solumedrol 40 mg q8 hrs due to ongoing hypoxia post Actemra. Plan for 7 days followed by slow taper. Day 4 today continue with weight based anticoagulation/LMWH prophylaxis continue to encourage lying in prone position if patient is able to tolerate recheck markers: CRP, d-dimer, Ferritin, LDH if O2 requirements remain unchanged and if markers remain significantly elevated, we could consider a repeat dose of Actemra continue supportive care Kelsie Tapia MD, [facility] ([facility]) Subjective Date of service: 03/04/20 Principal diagnosis: COVID Interval history: He is feeling better, cough minimal, no SOB, onHFO2 18L, 100%. Objective - Exam Narrative Exam: Constitutional: alert talking on HFO2 Head, Ears, Nose: limited due to PPE conservation strategy Eyes: limited due to PPE conservation strategy Neck: limited due to PPE conservation strategy Oral: limited due to PPE conservation strategy Cardiovascular: limited due to PPE conservation strategy Respiratory: diminished per RT GI: limited due to PPE conservation strategy Musculoskeletal: limited due to PPE conservation strategy Skin: limited due to PPE conservation strategy Hem/Lymphatic: limited due to PPE conservation strategy Psych: limited due to PPE conservation strategy Neurological: limited due to PPE conservation strategy - Constitutional Vitals: Vital Signs Temp Pulse Resp BP Pulse Ox 98.2 F 71 24 111/74 93 03/04/20 11:40 03/04/20 11:40 03/04/20 11:40 03/04/20 11:40 03/04/20 11:40 Temperature -Last 24 Hours Temperature 98.2 F Temperature 98.2 F Temperature 97.4 F Temperature 98.2 F - Labs CBC & Chem 7: 02/29/20 11:24 02/27/20 04:58
[2020-03-04] MEDS ORDERED: MAGNESIUM SULFATE 2 GM/50 ML BAG IV ONE (13:30)
[2020-03-04] MEDS ORDERED: TOCILIZUMAB 400 MG in SODIUM CHLORIDE 0.9% 100 ML IV ONE (14:00)
[2020-03-04 14:47] LABS: BUN/Creatinine Ratio 29; Blood Urea Nitrogen 26 mg/dL (9-20); Calcium 9.1 mg/dL (8.4-10.2); Hemolysis Index 5
[2020-03-04] MEDS: SODIUM CHLORIDE 0.9% IV SCH ×2 (15:37→23:47)
[2020-03-04] MEDS: ASCORBIC ACID IV SCH ×2 (15:37→23:47)
[2020-03-05 05:45] LABS: Hematocrit 46.8 % (35.5-45.6); Hemoglobin 15.7 gm/dl (11.8-15.2); Mean Corpuscular HGB Conc 34 % (32-34); Mean Corpuscular Volume 84 fl (84-94); Platelet Count 393 K/mm3 (140-440); Red Blood Count 5.56 M/mm3 (3.65-5.03); Red Cell Distribution Width 13.7 % (13.2-15.2)
[2020-03-05] MEDS: SODIUM CHLORIDE 0.9% IV SCH ×3 (05:58→18:28)
[2020-03-05] MEDS: methylPREDNISolone Sod Succinate 40 MG/1 ML INJ IV SCH ×2 (05:58→14:30)
[2020-03-05] MEDS: ASCORBIC ACID IV SCH ×3 (05:58→18:28)
[2020-03-05 06:05] LABS: BUN/Creatinine Ratio 30; Blood Urea Nitrogen 21 mg/dL (9-20); Calcium 8.8 mg/dL (8.4-10.2); Hemolysis Index 8
--- NOTE | 2020-03-05 09:01 | Consultation ---
History of Present Illness Consult date: 03/05/20 Requesting physician: KIRILL ORNELAS Consult reason: other (NSVT) History of present illness: The patient is a 64 yo male with no known significant past medical history. Pt is COVID-19 positive and thus HPI is obtained per the chart. Pt presented on 02/21/2020 with c/o subjective fever, loss of appetite, generalized weakness, headache, shortness of breath, both dry and productive cough with production of yellow sputum for 1 week with progressively worsening symptoms for 3 days prior to arrival. Following admission, pt found to have bilateral PNA and COVID-19. Pt as noted to have 11 beat run NSVT yesterday around noon on telemetry and thus cardiology has been consulted. Past History Past Medical History: No medical history, other (Reviewed) Past Surgical History: hernia repair, Other (Knee surgery) Social history: , lives with family. denies: smoking, alcohol abuse, prescription drug abuse Family history: CAD, hypertension Medications and Allergies Allergies Allergy/AdvReac Type Severity Reaction Status Date / Time No Known Allergies Allergy Verified 02/21/20 15:12 Home Medications Medication Instructions Recorded Confirmed Last Taken Type No Known Home Medications [No 02/22/20 02/22/20 Unknown History Reported Home Medications] Active Meds: Active Medications Acetaminophen (Tylenol) 650 mg PO Q4H PRN PRN Reason: Pain MILD(1-3)/Fever >100.5/DELUNA Last Admin: 02/26/20 16:53 Dose: 650 mg Documented by: Albuterol (Proair) 2 puff IH Q6HRT PRN PRN Reason: Shortness Of Breath Enoxaparin Sodium (Enoxaparin) 130 mg SUB-Q Q24HR SCOT Last Admin: 03/04/20 09:33 Dose: 130 mg Documented by: Ascorbic Acid 1,500 mg/ Sodium (Chloride) 53 mls @ 50 mls/30 min IV Q6HR SCOT Stop: 03/06/20 12:32 Last Admin: 03/05/20 05:58 Dose: 50 mls/30 min Documented by: Methylprednisolone Sodium Succinate (Solu-Medrol) 40 mg IV Q8HR SCOT Stop: 03/05/20 15:59 Last Admin: 03/05/20 05:58 Dose: 40 mg Documented by: Ondansetron HCl (Zofran) 4 mg IV Q8H PRN PRN Reason: Nausea And Vomiting Last Admin: 02/25/20 16:17 Dose: 4 mg Documented by: Sodium Chloride (Sodium Chloride Flush Syringe 10 Ml) 10 ml IV BID SCOT Last Admin: 03/04/20 22:11 Dose: 10 ml Documented by: Sodium Chloride (Sodium Chloride Flush Syringe 10 Ml) 10 ml IV PRN PRN PRN Reason: LINE FLUSH Review of Systems All systems: negative (ROS per H&P) Physical Examination Vital Signs Temp Pulse Resp BP Pulse Ox 100.3 F H 89 20 108/70 90 02/21/20 15:16 02/21/20 15:16 02/21/20 15:16 02/21/20 15:16 02/21/20 15:16 Narrative exam: agree with physical examination per primary team Results 03/05/20 04:54 03/05/20 04:54 Cardiac Enzymes 03/05/20 Range/Units 04:54 Lactate Dehydrogenase 726 H (91-180) units/L CBC 03/05/20 Range/Units 04:54 WBC 9.7 (4.5-11.0) K/mm3 RBC 5.56 H (3.65-5.03) M/mm3 Hgb 15.7 H (11.8-15.2) gm/dl Hct 46.8 H (35.5-45.6) % Plt Count 393 (140-440) K/mm3 Comprehensive Metabolic Panel 03/04/20 03/05/20 Range/Units 13:37 04:54 Sodium 138 138 (137-145) mmol/L Potassium 5.6 H 5.0 (3.6-5.0) mmol/L Chloride 98.7 97.9 L (98-107) mmol/L Carbon Dioxide 29 32 H (22-30) mmol/L BUN 26 H 21 H (9-20) mg/dL Creatinine 0.9 0.7 L (0.8-1.5) mg/dL Glucose 195 H 155 H (75-100) mg/dL Calcium 9.1 8.8 (8.4-10.2) mg/dL - Imaging and Cardiology EKG: report reviewed, image reviewed EKG interpretations - Telemetry EKG Rhythm: Sinus Rhythm - EKG Sinus rhythms and dysrhythmias: sinus rhythm Assessment and Plan Bilateral pneumonia / COVID-19 positive / sepsis Completed 5 days of Plaquenil. S/P Actemra 02/26/2020. Started steroid trial on 02/27/2020. Management per primary, pulmonary and ID teams. Acute respiratory failure Requiring O2 HiFlo NC. Management per pulmonary. NSVT 11 beat run NSVT yesterday around noon on telemetry. Consider addition of BB if BPs permit. Monitor electrolytes. Check thyroid profile. Will defer echocardiogram at this time in setting of COVID-19 positive status. Can consider as OP. Cont to monitor closely on telemetry. F/u ECG in AM. Elevated DDimer Further eval per primary. The patient has been seen in conjunction with Dr. Anderson who agrees with the assessment and plan of care.
[2020-03-05] MEDS: ENOXAPARIN 150 MG/1 ML INJ SUB-Q SCH (09:42)
--- NOTE | 2020-03-05 10:16 | Progress Note ---
Subjective Date of service: 03/05/20 Principal diagnosis: COVID Interval history: No acute events. Still on HFNC at 18 liters with 100%, sats in the high 90's. No fever Objective Vital Signs - 12hr 03/05/20 03/05/20 03/05/20 02:00 04:41 08:23 Temperature 98.0 F Pulse Rate 65 Respiratory 16 Rate Blood Pressure 119/80 O2 Sat by Pulse 93 95 95 Oximetry Constitutional: no acute distress Eyes: non-icteric Ascultation: Bilateral: diminished breath sounds Cardiovascular: regular rate and rhythm Gastrointestinal: normoactive bowel sounds CBC and BMP: 03/05/20 04:54 03/05/20 04:54 ABG, PT/INR, D-dimer: PT/INR, D-dimer D-Dimer 1964.52 ng/mlDDU (0-234) H 03/05/20 04:54 Abnormal lab findings: Abnormal Labs 02/21/20 02/21/20 02/21/20 15:29 15:29 15:29 WBC 3.7 L RBC 5.62 H Hgb 16.5 H Hct 47.5 H MCV MCHC 35 H Plt Count [place] % (Auto) 8.9 H Lymph # 0.6 L Seg Neutrophils % 72.3 H Seg Neuts % (Manual) Lymphocytes % (Manual) Lymphocytes # (Manual) D-Dimer 5638.87 H Sodium 136 L Potassium Chloride 96.2 L Carbon Dioxide 20 L BUN 22 H Creatinine Glucose 124 H POC Glucose Calcium Magnesium Ferritin Lactate Dehydrogenase C-Reactive Protein Albumin 3.8 L Coronavirus (PCR) 02/21/20 02/21/20 02/22/20 15:29 15:29 04:04 WBC 3.9 L RBC 5.47 H Hgb 15.8 H Hct MCV 83 L MCHC 35 H Plt Count [place] % (Auto) 10.5 H Lymph # 0.7 L Seg Neutrophils % 70.1 H Seg Neuts % (Manual) Lymphocytes % (Manual) Lymphocytes # (Manual) D-Dimer Sodium Potassium Chloride Carbon Dioxide BUN Creatinine Glucose POC Glucose Calcium Magnesium Ferritin 1484.0 H Lactate Dehydrogenase 486 H C-Reactive Protein 4.40 H Albumin Coronavirus (PCR) 02/22/20 02/22/20 02/23/20 04:04 11:23 05:02 WBC 3.3 L RBC 5.19 H Hgb Hct MCV MCHC 35 H Plt Count [place] % (Auto) Lymph # Seg Neutrophils % Seg Neuts % (Manual) Lymphocytes % (Manual) Lymphocytes # (Manual) D-Dimer Sodium Potassium Chloride Carbon Dioxide BUN Creatinine Glucose 114 H POC Glucose Calcium 8.3 L Magnesium Ferritin Lactate Dehydrogenase C-Reactive Protein Albumin Coronavirus (PCR) Positive A 02/23/20 02/23/20 02/23/20 05:02 05:02 05:02 WBC RBC Hgb Hct MCV MCHC Plt Count [place] % (Auto) Lymph # Seg Neutrophils % Seg Neuts % (Manual) Lymphocytes % (Manual) Lymphocytes # (Manual) D-Dimer 2109.52 H Sodium Potassium Chloride Carbon Dioxide BUN Creatinine Glucose POC Glucose Calcium Magnesium Ferritin 1571.0 H Lactate Dehydrogenase 531 H C-Reactive Protein 6.40 H Albumin Coronavirus (PCR) 02/25/20 02/25/20 02/25/20 04:20 04:20 04:20 WBC RBC Hgb Hct MCV MCHC Plt Count [place] % (Auto) Lymph # Seg Neutrophils % Seg Neuts % (Manual) Lymphocytes % (Manual) Lymphocytes # (Manual) D-Dimer 1422.33 H Sodium Potassium Chloride Carbon Dioxide BUN Creatinine Glucose POC Glucose Calcium Magnesium Ferritin 2172.0 H Lactate Dehydrogenase 594 H C-Reactive Protein 8.70 H Albumin Coronavirus (PCR) 02/27/20 02/27/20 02/27/20 04:58 04:58 04:58 WBC RBC Hgb Hct MCV MCHC Plt Count [place] % (Auto) Lymph # Seg Neutrophils % Seg Neuts % (Manual) Lymphocytes % (Manual) Lymphocytes # (Manual) D-Dimer 1111.97 H Sodium 134 L Potassium Chloride Carbon Dioxide 18 L BUN 24 H Creatinine Glucose 107 H POC Glucose Calcium Magnesium Ferritin 3392.0 H Lactate Dehydrogenase 681 H C-Reactive Protein 9.70 H Albumin Coronavirus (PCR) 02/27/20 02/28/20 02/28/20 04:58 07:47 11:32 WBC 2.1 L RBC 5.19 H Hgb Hct MCV MCHC Plt Count [place] % (Auto) Lymph # Seg Neutrophils % Seg Neuts % (Manual) Lymphocytes % (Manual) Lymphocytes # (Manual) D-Dimer Sodium Potassium Chloride Carbon Dioxide BUN Creatinine Glucose POC Glucose 130 H 120 H Calcium Magnesium Ferritin Lactate Dehydrogenase C-Reactive Protein Albumin Coronavirus (PCR) 02/29/20 02/29/20 02/29/20 11:24 11:24 11:24 WBC RBC 6.47 H Hgb 18.3 H D Hct 53.8 H D MCV 83 L MCHC Plt Count 544 H [place] % (Auto) Lymph # Seg Neutrophils % Seg Neuts % (Manual) 93.0 H Lymphocytes % (Manual) 2.0 L Lymphocytes # (Manual) 0.1 L D-Dimer 1464.27 H Sodium Potassium Chloride Carbon Dioxide BUN Creatinine Glucose POC Glucose Calcium Magnesium Ferritin Lactate Dehydrogenase 822 H C-Reactive Protein Albumin Coronavirus (PCR) 02/29/20 03/03/20 03/03/20 11:24 04:22 04:22 WBC RBC Hgb Hct MCV MCHC Plt Count [place] % (Auto) Lymph # Seg Neutrophils % Seg Neuts % (Manual) Lymphocytes % (Manual) Lymphocytes # (Manual) D-Dimer 3769.82 H Sodium Potassium Chloride Carbon Dioxide BUN Creatinine Glucose POC Glucose Calcium Magnesium Ferritin 4163.0 H 2491.0 H Lactate Dehydrogenase C-Reactive Protein Albumin Coronavirus (PCR) 03/03/20 03/04/20 03/05/20 04:22 13:37 04:54 WBC RBC Hgb Hct MCV MCHC Plt Count [place] % (Auto) Lymph # Seg Neutrophils % Seg Neuts % (Manual) Lymphocytes % (Manual) Lymphocytes # (Manual) D-Dimer 1964.52 H Sodium Potassium 5.6 H Chloride Carbon Dioxide BUN 26 H Creatinine Glucose 195 H POC Glucose Calcium Magnesium 2.40 H Ferritin Lactate Dehydrogenase 938 H C-Reactive Protein Albumin Coronavirus (PCR) 03/05/20 03/05/20 03/05/20 04:54 04:54 04:54 WBC RBC 5.56 H Hgb 15.7 H Hct 46.8 H MCV MCHC Plt Count [place] % (Auto) Lymph # Seg Neutrophils % Seg Neuts % (Manual) Lymphocytes % (Manual) Lymphocytes # (Manual) D-Dimer Sodium Potassium Chloride 97.9 L Carbon Dioxide 32 H BUN 21 H Creatinine 0.7 L Glucose 155 H POC Glucose Calcium Magnesium Ferritin 1798.0 H Lactate Dehydrogenase 726 H C-Reactive Protein Albumin Coronavirus (PCR)
[2020-03-05] MEDS ORDERED: FUROSEMIDE 20 MG/2 ML INJ IV ONE (10:30)
--- NOTE | 2020-03-05 11:27 | Progress Note ---
Assessment and Plan Assessment and plan: Patient is a 64 yo AA man without known past medical condition who presented to [facility] ED with subjective fever, loss of appetite, generalized weakness, headache, shortness of breath, both dry and productive cough with production of yellow sputum over the past 1 week with progressively worsening symptoms over the past 3 days. Patient transported to [facility] via private vehicle for further evaluation and care. Patient seen and evaluated in the emergency department. Lab and imaging studies reviewed. Patient found to have temperature of 100.3 F, and pulse oximetry of 86% on room air which is consistent with acute hypoxemic respiratory failure. Patient underwent chest x-ray which revealed bilateral pneu monia which are consistent with suspected CO VID19. Patient admitted to medical floor and treated with pna and COVID-19 protocol. Infectious disease service consulted in ED. Acute hypoxic respiratory failure due to COVID-19 pneumonia Bilateral pneumonia secondary to COVID-19 COVID-19 viral infection confirmed, completed 5 days of plaquenil Sepsis syndrome, poa due to above NSVT Hypotension Acute hypoxic respiratory failure with pulse oximetry of 86% on room air Elevated d-dimer Headache Plan 02/28/20: Day 7, my first day with patient and he looks ill but is trying to move around, he was in the prone position overnight which did help some; he is on 100% high flow. I spoke with cousin, Derrick Ray [phone] who is NOK in EMR. Patient has a son who is estranged per Derrick, Stressed the importance of Incentive spirometry 02/29/20: More tachypneic today, continue IV steroids day 2/7 then oral taper. Patient not doing Incentive spirometry correctly, I showed him how to do it correctly. He is trying. I called his cousin Derrick for update, left message. 03/01/20: Doing slightly better, able to hold his breath for 20 seconds, still doing poorly on Incentive spirometry, still on 100% High Flow, Inflammatory markers at up. He received Actmera 5 days ago, on day 4/7 of IV steroids. I called his cousin Derrick for update, no answer, no messgae left. 03/02/20: still on 100% fiO2 High flow, trying to do Incentive spirometry, advise to get in prone position. 03/03/20: on 95% high flow, still doing poorly on Incentive spirometry but trying, still not in prone position, counseling done. Mixed picture with inflammatory markers as d-dimer/LDH increasing but Ferritin/CRP decreasing. 03/04/20: on 95% high flow and O2 sat 95%, have asked Respiratory to try to wean down FiO2. Inflammatory marker tomorrow. 11 beat run of VTach. I will check bmp, magnesium, I will give IV mag/potassium and consult Cardiology 03/05/20: down to 90% high flow, we practiced the Inspirative spirometry, RTherapist at bedside, patient able to hold breath for 20 secords, still very difficult but he feels better. Still very weak. Inflammatory markers are improved. d/w Cardiology regarding NSVT. d/w Case management, hopefully d/c to LTACH if facility approved, I believe patient insurance has approved LTACH. Needs slow steroid taper per ID. History Interval history: Patient was seen and examined. Follow-up on current diagnosis COVID-19 pneumoni a. Overnight uneventful as no events directly reported to me. Patient denies any chest pain, , nausea/vomiting or severe headaches. Imaging, nursing note, chart, labs and old chart reviewed. Discussed with patient. Incentive spirometry at bedside. Hospitalist Physical - Physical exam Narrative exam: Gen: ill appearing, lethargic, mild increase accessory muscles, Awake, Alert, Orientated HEENT: NCAT, EOMI, PERRL, OP Clear Neck: supple, no adenopathy, no thyromegaly, no JVD CVS/Heart: RRR, normal S1S2, pulses present bilaterally Chest/Lungs: tachypnic, diminished with inspiratory crackles, Symmetrical chest expansion, good air entry bilaterally GI/Abdomen: soft, NTND, good bowel sounds, no guarding or rebound /Bladder: no suprapubic tenderness, no CVA or paraspinal tenderness Extermity/Skin: no c/c/e, no obvious rash MSK: FROM x 4 Neuro: CN 2-12 grossly intact, no new focal deficits Psych: calm - Constitutional Vitals: Temp Pulse Resp BP Pulse Ox 98.0 F 65 16 119/80 95 03/05/20 04:41 03/05/20 04:41 03/05/20 04:41 03/05/20 04:41 03/05/20 10:15 General appearance: Absent: mild distress Results - Labs CBC & Chem 7: 03/05/20 04:54 03/05/20 04:54 Labs: Laboratory Last Values WBC 9.7 K/mm3 (4.5-11.0) 03/05/20 04:54 RBC 5.56 M/mm3 (3.65-5.03) H 03/05/20 04:54 Hgb 15.7 gm/dl (11.8-15.2) H 03/05/20 04:54 Hct 46.8 % (35.5-45.6) H 03/05/20 04:54 MCV 84 fl (84-94) 03/05/20 04:54 MCH 28 pg (28-32) 03/05/20 04:54 MCHC 34 % (32-34) 03/05/20 04:54 RDW 13.7 % (13.2-15.2) 03/05/20 04:54 Plt Count 393 K/mm3 (140-440) 03/05/20 04:54 Lymph % (Auto) 18.1 % (13.4-35.0) 02/22/20 04:04 [place] % (Auto) 10.5 % (0.0-7.3) H 02/22/20 04:04 Eos % (Auto) 0.4 % (0.0-4.3) 02/22/20 04:04 Baso % (Auto) 0.9 % (0.0-1.8) 02/22/20 04:04 Lymph # 0.7 K/mm3 (1.2-5.4) L 02/22/20 04:04 [place] # 0.4 K/mm3 (0.0-0.8) 02/22/20 04:04 Eos # 0.0 K/mm3 (0.0-0.4) 02/22/20 04:04 Baso # 0.0 K/mm3 (0.0-0.1) 02/22/20 04:04 Add Manual Diff Complete 02/29/20 11:24 Total Counted 100 02/29/20 11:24 Seg Neutrophils % Cake Decorator 02/29/20 11:24 Seg Neuts % (Manual) 93.0 % (40.0-70.0) H 02/29/20 11:24 Band Neutrophils % 2.0 % 02/29/20 11:24 Lymphocytes % (Manual) 2.0 % (13.4-35.0) L 02/29/20 11:24 Reactive Lymphs % (Man) 0 % 02/29/20 11:24 Monocytes % (Manual) 3.0 % (0.0-7.3) 02/29/20 11:24 Eosinophils % (Manual) 0 % (0.0-4.3) 02/29/20 11:24 Basophils % (Manual) 0 % (0.0-1.8) 02/29/20 11:24 Metamyelocytes % 0 % 02/29/20 11:24 Myelocytes % 0 % 02/29/20 11:24 Promyelocytes % 0 % 02/29/20 11:24 Blast Cells % 0 % 02/29/20 11:24 Nucleated RBC % Not Reportable 02/29/20 11:24 Seg Neutrophils # 2.8 K/mm3 (1.8-7.7) 02/22/20 04:04 Seg Neutrophils # Man 6.0 K/mm3 (1.8-7.7) 02/29/20 11:24 Band Neutrophils # 0.1 K/mm3 02/29/20 11:24 Lymphocytes # (Manual) 0.1 K/mm3 (1.2-5.4) L 02/29/20 11:24 Abs React Lymphs (Man) 0.0 K/mm3 02/29/20 11:24 Monocytes # (Manual) 0.2 K/mm3 (0.0-0.8) 02/29/20 11:24 Eosinophils # (Manual) 0.0 K/mm3 (0.0-0.4) 02/29/20 11:24 Basophils # (Manual) 0.0 K/mm3 (0.0-0.1) 02/29/20 11:24 Metamyelocytes # 0.0 K/mm3 02/29/20 11:24 Myelocytes # 0.0 K/mm3 02/29/20 11:24 Promyelocytes # 0.0 K/mm3 02/29/20 11:24 Blast Cells # 0.0 K/mm3 02/29/20 11:24 WBC Morphology Not Reportable 02/29/20 11:24 Hypersegmented Neuts Not Reportable 02/29/20 11:24 Hyposegmented Neuts Not Reportable 02/29/20 11:24 Hypogranular Neuts Not Reportable 02/29/20 11:24 Smudge Cells Not Reportable 02/29/20 11:24 Toxic Granulation Not Reportable 02/29/20 11:24 Toxic Vacuolation Not Reportable 02/29/20 11:24 Dohle Bodies Not Reportable 02/29/20 11:24 Pelger-Huet Anomaly Not Reportable 02/29/20 11:24 Kana Rods Not Reportable 02/29/20 11:24 Platelet Estimate Consistent w auto 02/29/20 11:24 Clumped Platelets Rare 02/29/20 11:24 Plt Clumps, EDTA Not Reportable 02/29/20 11:24 Large Platelets Not Reportable 02/29/20 11:24 Giant Platelets Not Reportable 02/29/20 11:24 Platelet Satelliting Not Reportable 02/29/20 11:24 Plt Morphology Comment Not Reportable 02/29/20 11:24 RBC Morphology Normal 02/29/20 11:24 Dimorphic RBCs Not Reportable 02/29/20 11:24 Polychromasia Not Reportable 02/29/20 11:24 Hypochromasia Not Reportable 02/29/20 11:24 Poikilocytosis Not Reportable 02/29/20 11:24 Anisocytosis Not Reportable 02/29/20 11:24 Microcytosis Not Reportable 02/29/20 11:24 Macrocytosis Not Reportable 02/29/20 11:24 Spherocytes Not Reportable 02/29/20 11:24 Pappenheimer Bodies Not Reportable 02/29/20 11:24 Sickle Cells Not Reportable 02/29/20 11:24 Target Cells Not Reportable 02/29/20 11:24 Tear Drop Cells Not Reportable 02/29/20 11:24 Ovalocytes Not Reportable 02/29/20 11:24 Helmet Cells Not Reportable 02/29/20 11:24 Carpio-[place] Bodies Not Reportable 02/29/20 11:24 [place] Rings Not Reportable 02/29/20 11:24 [place] Cells Not Reportable 02/29/20 11:24 Bite Cells Not Reportable 02/29/20 11:24 Crenated Cell Not Reportable 02/29/20 11:24 Elliptocytes Not Reportable 02/29/20 11:24 Acanthocytes (Spur) Not Reportable 02/29/20 11:24 Rouleaux Not Reportable 02/29/20 11:24 Hemoglobin C Crystals Not Reportable 02/29/20 11:24 Schistocytes Not Reportable 02/29/20 11:24 Malaria parasites Not Reportable 02/29/20 11:24 Martín Bodies Not Reportable 02/29/20 11:24 Hem Pathologist Commnt No 02/29/20 11:24 D-Dimer 1964.52 ng/mlDDU (0-234) H 03/05/20 04:54 Sodium 138 mmol/L (137-145) 03/05/20 04:54 Potassium 5.0 mmol/L (3.6-5.0) 03/05/20 04:54 Chloride 97.9 mmol/L (98-107) L 03/05/20 04:54 Carbon Dioxide 32 mmol/L (22-30) H 03/05/20 04:54 Anion Gap 13 mmol/L 03/05/20 04:54 BUN 21 mg/dL (9-20) H 03/05/20 04:54 Creatinine 0.7 mg/dL (0.8-1.5) L 03/05/20 04:54 Estimated GFR > 60 ml/min 03/05/20 04:54 BUN/Creatinine Ratio 30 % 03/05/20 04:54 Glucose 155 mg/dL (75-100) H 03/05/20 04:54 POC Glucose 120 (70-105) H 02/28/20 11:32 Lactic Acid 1.80 mmol/L (0.7-2.0) 02/21/20 15:29 Calcium 8.8 mg/dL (8.4-10.2) 03/05/20 04:54 Magnesium 2.40 mg/dL (1.7-2.3) H 03/04/20 13:37 Ferritin 1798.0 ng/mL (13.0-400.0) H 03/05/20 04:54 Total Bilirubin 0.60 mg/dL (0.1-1.2) 02/21/20 15:29 AST 31 units/L (5-40) 02/21/20 15:29 ALT 18 units/L (7-56) 02/21/20 15:29 Alkaline Phosphatase 71 units/L (35-129) 02/21/20 15:29 Lactate Dehydrogenase 726 units/L (91-180) H 03/05/20 04:54 C-Reactive Protein 0.10 mg/dL (0.00-1.30) 03/05/20 04:54 Total Protein 7.4 g/dL (6.3-8.2) 02/21/20 15:29 Albumin 3.8 g/dL (3.9-5) L 02/21/20 15:29 Albumin/Globulin Ratio 1.1 % 02/21/20 15:29 Procalcitonin 0.07 ng/mL (<0.15) 03/03/20 04:22 Coronavirus (PCR) Positive (Negative) A 02/22/20 11:23 Hepatitis A IgM Ab Non-reactive (NonReactive) 02/27/20 04:58 Hep Bs Antigen Non-reactive (Negative) 02/27/20 04:58 Hep B Core IgM Ab Non-reactive (NonReactive) 02/27/20 04:58 Hepatitis C Antibody Non-reactive (NonReactive) 02/27/20 04:58 Influenza A (Rapid) Negative (Negative) 02/21/20 16:34 Influenza B (Rapid) Negative (Negative) 02/21/20 16:34 TB (QFT) Gold In Tube See scanned result 02/27/20 09:58 TB Test (QFT) Nil See scanned result 02/27/20 09:58 TB Test Mitogen - Nil See scanned result 02/27/20 09:58 TB Test Antigen - Nil See scanned result 02/27/20 09:58 Rivera/IV: Voiding Method Urinal IV Catheter Type [Right Upper INT / Saline Lock arm] IV Catheter Type [Right INT / Saline Lock Forearm] IV Catheter Type [Right INT / Saline Lock Antecubital] Active Medications - Current Medications Current Medications: Generic Name Dose Route Start Last Admin Trade Name Freq PRN Reason Stop Dose Admin Acetaminophen 650 mg 02/21/20 16:41 02/26/20 16:53 Tylenol PO 650 mg Q4H PRN Administration Pain MILD(1-3)/Fever >100.5/DELUNA Albuterol 2 puff 02/25/20 10:39 Proair IH Q6HRT PRN Shortness Of Breath Enoxaparin Sodium 130 mg 02/22/20 10:00 03/05/20 09:42 Enoxaparin SUB-Q 130 mg Q24HR SCOT Administration Furosemide 20 mg 03/05/20 10:30 03/05/20 10:07 Lasix IV 03/05/20 10:31 20 mg ONCE ONE Administration Ascorbic Acid 1,500 mg/ Sodium 53 mls @ 50 mls/30 min 03/04/20 14:00 03/05/20 05:58 Chloride IV 03/06/20 12:32 50 mls/30 min Q6HR SCOT Administration Methylprednisolone Sodium Succinate 40 mg 02/28/20 16:00 03/05/20 05:58 Solu-Medrol IV 03/05/20 15:59 40 mg Q8HR SCOT Administration Ondansetron HCl 4 mg 02/21/20 16:41 02/25/20 16:17 Zofran IV 4 mg Q8H PRN Administration Nausea And Vomiting Sodium Chloride 10 ml 02/21/20 22:00 03/05/20 09:43 Sodium Chloride Flush Syringe 10 Ml IV 10 ml BID SCOT Administration Sodium Chloride 10 ml 02/21/20 16:41 Sodium Chloride Flush Syringe 10 Ml IV PRN PRN LINE FLUSH Nutrition/Malnutrition Assess - Dietary Evaluation Nutrition/Malnutrition Findings: Nutrition Notes Start: 02/23/20 09:12 Freq: Status: Active Protocol: Document 03/02/20 13:46 LM (Rec: 03/02/20 13:57 LM [facility]) Nutrition Notes Initial or Follow up Reassessment Other Pertinent Diagnosis COVID-19 (+), pneu, ARF Current Diet Regular Labs/Tests Reviewed Pertinent Medications Solumedrol Height 5 ft 9 in Weight 75.9 kg [place] Body Weight (kg) 72.72 BMI 24.7 Weight change and time frame wt change noted Weight Status Overweight Subjective/Other Information Pt stated he ate less than 50% of his lunch today. Pt denied wt loss. Pt would like strawberry Ensure. Burn Absent Trauma Absent Current % PO Poor (25-49%) Minimum of two criteria No physical signs of malnutrition #1 Nutrition Diagnosis Inadequate oral intake Diagnosis Progress(for reassessment Continues documentation) Is patient on ventilator? No Is Patient Ambulatory and/or Out of Bed Yes REE-([place]. Jeor-ambulatory/OOB) [ 2013.194 [id number]] Nutrition Intervention Add Supplement/Snack (indicate name/kcal Ensure Enlive [place] BID /protein ) Provides kCal: 700 Provides Protein (gm) 40 Goal #1 Meet at least 75% of energy and protein needs Anticipated Discharge Needs: Regular diet Follow-Up By: 03/05/20 Additional Comments F/U for PO/ONS intakes
--- NOTE | 2020-03-05 13:34 | Progress Note ---
Assessment and Plan Cultures: 02/21/2020 blood culture: no growth 02/23/2020 blood culture: no growth A/P: 64/M with subjective fever, loss of appetite, weakness, headaches along with cough and shortness of breath for a week prior to admission #Severe bilateral pneumonia secondary to COVID-19: Completed 5 days of Plaquenil. S/P Actemra 02/26/2020. Started steroid trial on 02/27/2020 #Acute hypoxic respiratory failure: Requiring oxygen. Remains on HFO2 18L, 100% Recs: Continue vitamin C 1.5 g IV q6h continue IV Solumedrol 40 mg q8 hrs due to ongoing hypoxia post Actemra. Plan for 7 days followed by slow taper. Day 5 today continue with weight based anticoagulation/LMWH prophylaxis continue to encourage lying in prone position if patient is able to tolerate recheck markers: CRP, d-dimer, Ferritin, LDH - improved. Markers are improved, though O2 requirements are stable. Will hold off on repeat dose of Actemra for now. continue supportive care Santy Ortiz MD [facility] ([facility] M: [phone] O: [phone] F: [phone] Subjective Date of service: 03/05/20 Principal diagnosis: COVID Interval history: Afebrile, remains on HFNC. No other issues noted. Objective - Exam Narrative Exam: Constitutional: alert talking on HFO2 Head, Ears, Nose: limited due to PPE conservation strategy Eyes: limited due to PPE conservation strategy Neck: limited due to PPE conservation strategy Oral: limited due to PPE conservation strategy Cardiovascular: limited due to PPE conservation strategy Respiratory: diminished per RT GI: limited due to PPE conservation strategy Musculoskeletal: limited due to PPE conservation strategy Skin: limited due to PPE conservation strategy Hem/Lymphatic: limited due to PPE conservation strategy Psych: limited due to PPE conservation strategy Neurological: limited due to PPE conservation strategy - Constitutional Vitals: Vital Signs Temp Pulse Resp BP Pulse Ox 98.0 F 65 16 119/80 95 03/05/20 04:41 03/05/20 04:41 03/05/20 04:41 03/05/20 04:41 03/05/20 10:15 Temperature -Last 24 Hours Temperature 98.0 F Temperature 98.2 F Temperature 98.1 F - Labs CBC & Chem 7: 03/05/20 04:54 03/05/20 04:54 Labs: Abnormal lab results 03/04/20 03/05/20 03/05/20 Range/Units 13:37 04:54 04:54 RBC (3.65-5.03) M/mm3 Hgb (11.8-15.2) gm/dl Hct (35.5-45.6) % D-Dimer 1964.52 H (0-234) ng/mlDDU Potassium 5.6 H (3.6-5.0) mmol/L Chloride (98-107) mmol/L Carbon Dioxide (22-30) mmol/L BUN 26 H (9-20) mg/dL Creatinine (0.8-1.5) mg/dL Glucose 195 H (75-100) mg/dL Magnesium 2.40 H (1.7-2.3) mg/dL Ferritin 1798.0 H (13.0-400.0) ng/mL Lactate Dehydrogenase (91-180) units/L Free T4 (0.76-1.46) ng/dL 03/05/20 03/05/20 03/05/20 Range/Units 04:54 04:54 10:19 RBC 5.56 H (3.65-5.03) M/mm3 Hgb 15.7 H (11.8-15.2) gm/dl Hct 46.8 H (35.5-45.6) % D-Dimer (0-234) ng/mlDDU Potassium (3.6-5.0) mmol/L Chloride 97.9 L (98-107) mmol/L Carbon Dioxide 32 H (22-30) mmol/L BUN 21 H (9-20) mg/dL Creatinine 0.7 L (0.8-1.5) mg/dL Glucose 155 H (75-100) mg/dL Magnesium (1.7-2.3) mg/dL Ferritin (13.0-400.0) ng/mL Lactate Dehydrogenase 726 H (91-180) units/L Free T4 1.59 H (0.76-1.46) ng/dL
[2020-03-06] MEDS: SODIUM CHLORIDE 0.9% IV SCH ×3 (02:01→12:56)
[2020-03-06] MEDS: ASCORBIC ACID IV SCH ×3 (02:01→12:56)
--- NOTE | 2020-03-06 08:12 | Progress Note ---
Assessment and Plan Assessment and plan: 64 YO Male with No PMH presents to ED for evaluation. Pt states that he has experienced subjective fever, loss of appetite, generalized weakness, headache, shortness of breath, both dry and productive cough with production of yellow sputum over the past 1 week with progressively worsening symptoms over the past 3 days. Patient transported to [facility] via private vehicle for further evaluation and care. Patient seen and evaluated in the emergency department. Lab and imaging studies reviewed. Patient found to have temperature of 100.3 F, and pulse oximetry of 86% on room air which is consistent with acute hypoxemic respiratory failure. Patient underwent chest x-ray which revealed bilateral pneumonia which are consistent with suspected CO VID19. Patient admitted to medical floor and treated with pneumonia protocol. Patient also treated with initiation of CO VID19 protocol. Infectious disease service consulted in ED. Patient denies chest pain, palpitations, syncope, trauma, prolonged tr rolanda/immobility, individual/family history of DVT/bleeding/PE/blood clotting disorders, or known ill contacts. No prior admission for review. No medication listed for reconciliation at the time of admission. CXR: worsening Opacities Acute hypoxic respiratory failure due to COVID-19 pneumonia Bilateral pneumonia secondary to COVID-19 COVID-19 viral infection confirmed, completed 5 days of plaquenil, 1 dose of Actemra given 02/25 Sepsis syndrome, poa due to above NSVT-resolved Hypotension Acute hypoxic respiratory failure with pulse oximetry of 86% on room air Elevated d-dimer Headache Leukopenia- Resolved Plan 02/28/20: Day 7, my first day with patient and he looks ill but is trying to move around, he was in the prone position overnight which did help some; he is on 100% high flow. I spoke with cousin, Derrick Ray [phone] who is NOK in EMR. Patient has a son who is estranged per Derrick, Stressed the importance of Incentive spirometry 02/29/20: More tachypneic today, continue IV steroids day 2/7 then oral taper. Patient not doing Incentive spirometry correctly, I showed him how to do it correctly. He is trying. I called his cousin Derrick for update, left message. 03/01/20: Doing slightly better, able to hold his breath for 20 seconds, still doing poorly on Incentive spirometry, still on 100% High Flow, Inflammatory markers at up. He received Actmera 5 days ago, on day 4 of IV steroids. I called his cousin Derrick for update, no answer, no messgae left. 03/02/20: still on 100% fiO2 High flow, trying to do Incentive spirometry, advise to get in prone position. 03/03/20: on 95% high flow, still doing poorly on Incentive spirometry but trying, still not in prone position, counseling done. Mixed picture with inflammatory markers as d-dimer/LDH increasing but Ferritin/CRP decreasing. 03/04/20: on 95% high flow and O2 sat 95%, have asked Respiratory to try to wean down FiO2. Inflammatory marker tomorrow. 11 beat run of VTach. I will check bmp, magnesium, I will give IV mag/potassium and consult Cardiology 03/05/20: down to 90% high flow, we practiced the Inspirative spirometry, RTherapist at bedside, patient able to hold breath for 20 secords, still very difficult but he feels better. Still very weak. Inflammatory markers are improved. d/w Cardiology regarding NSVT. d/w Case management, hopefully d/c to LTACH if facility approved, I believe patient insurance has approved LTACH. Needs slow steroid taper per ID. 03/06: Over the past few days appears the patient has been weaning on steroids. Lasix has already been given to help improve oxygenation and aeration of the chest x-ray. Will obtain repeat electrolytes today and possibly repeat Lasix. I have also ordered a repeat coronavirus test as this is a requirement for the LTAC to be able to accept this patient, if repeat study comes back negative. Pulmonary weaning steroids and input is noted. ID input is noted. Cardiology input noted History Interval history: Patient seen and examined unfortunately continues on high flow oxygen 90% still with exertional dyspnea. No adverse event reported to me overnight. Hospitalist Physical - Physical exam Narrative exam: VITAL SIGNS: Reviewed. GENERAL: The patient appears normally developed, lethargic appearing vital signs as documented. HEAD: No signs of head trauma. EYES: Pupils are equal. Extraocular motions intact. EARS: Hearing grossly intact. MOUTH: Oropharynx is normal. NECK: No adenopathy, no JVD. CHEST: Chest with diminished breath sounds bilaterally. No wheezes, rales, or rhonchi. CARDIAC: Regular rate and rhythm. S1 and S2, without murmurs, gallops, or rub s. VASCULAR: No Edema. Peripheral pulses normal and equal in all extremities. ABDOMEN: Soft, non tender and non distended. No rebound or guarding, and no masses palpated. Bowel Sounds normal. MUSCULOSKELETAL: Good range of motion of all major joints. Extremities without clubbing, cyanosis or edema. NEUROLOGIC EXAM: Alert and oriented x 3 No focal sensory or strength deficits. Speech normal. Follows commands. PSYCHIATRIC: Mood anxious SKIN: detail exam as documented in skin assessment - Constitutional Vitals: Temp Pulse Resp BP Pulse Ox 98.0 F 81 18 98/72 92 03/06/20 05:43 03/06/20 05:43 03/06/20 06:49 03/06/20 06:49 03/06/20 06:49 General appearance: Absent: mild distress Results - Labs CBC & Chem 7: 03/05/20 04:54 03/06/20 08:31 Labs: Laboratory Last Values WBC 9.7 K/mm3 (4.5-11.0) 03/05/20 04:54 RBC 5.56 M/mm3 (3.65-5.03) H 03/05/20 04:54 Hgb 15.7 gm/dl (11.8-15.2) H 03/05/20 04:54 Hct 46.8 % (35.5-45.6) H 03/05/20 04:54 MCV 84 fl (84-94) 03/05/20 04:54 MCH 28 pg (28-32) 03/05/20 04:54 MCHC 34 % (32-34) 03/05/20 04:54 RDW 13.7 % (13.2-15.2) 03/05/20 04:54 Plt Count 393 K/mm3 (140-440) 03/05/20 04:54 Lymph % (Auto) 18.1 % (13.4-35.0) 02/22/20 04:04 Brule % (Auto) 10.5 % (0.0-7.3) H 02/22/20 04:04 Eos % (Auto) 0.4 % (0.0-4.3) 02/22/20 04:04 Baso % (Auto) 0.9 % (0.0-1.8) 02/22/20 04:04 Lymph # 0.7 K/mm3 (1.2-5.4) L 02/22/20 04:04 Brule # 0.4 K/mm3 (0.0-0.8) 02/22/20 04:04 Eos # 0.0 K/mm3 (0.0-0.4) 02/22/20 04:04 Baso # 0.0 K/mm3 (0.0-0.1) 02/22/20 04:04 Add Manual Diff Complete 02/29/20 11:24 Total Counted 100 02/29/20 11:24 Seg Neutrophils % Commis Chef 02/29/20 11:24 Seg Neuts % (Manual) 93.0 % (40.0-70.0) H 02/29/20 11:24 Band Neutrophils % 2.0 % 02/29/20 11:24 Lymphocytes % (Manual) 2.0 % (13.4-35.0) L 02/29/20 11:24 Reactive Lymphs % (Man) 0 % 02/29/20 11:24 Monocytes % (Manual) 3.0 % (0.0-7.3) 02/29/20 11:24 Eosinophils % (Manual) 0 % (0.0-4.3) 02/29/20 11:24 Basophils % (Manual) 0 % (0.0-1.8) 02/29/20 11:24 Metamyelocytes % 0 % 02/29/20 11:24 Myelocytes % 0 % 02/29/20 11:24 Promyelocytes % 0 % 02/29/20 11:24 Blast Cells % 0 % 02/29/20 11:24 Nucleated RBC % Not Reportable 02/29/20 11:24 Seg Neutrophils # 2.8 K/mm3 (1.8-7.7) 02/22/20 04:04 Seg Neutrophils # Man 6.0 K/mm3 (1.8-7.7) 02/29/20 11:24 Band Neutrophils # 0.1 K/mm3 02/29/20 11:24 Lymphocytes # (Manual) 0.1 K/mm3 (1.2-5.4) L 02/29/20 11:24 Abs React Lymphs (Man) 0.0 K/mm3 02/29/20 11:24 Monocytes # (Manual) 0.2 K/mm3 (0.0-0.8) 02/29/20 11:24 Eosinophils # (Manual) 0.0 K/mm3 (0.0-0.4) 02/29/20 11:24 Basophils # (Manual) 0.0 K/mm3 (0.0-0.1) 02/29/20 11:24 Metamyelocytes # 0.0 K/mm3 02/29/20 11:24 Myelocytes # 0.0 K/mm3 02/29/20 11:24 Promyelocytes # 0.0 K/mm3 02/29/20 11:24 Blast Cells # 0.0 K/mm3 02/29/20 11:24 WBC Morphology Not Reportable 02/29/20 11:24 Hypersegmented Neuts Not Reportable 02/29/20 11:24 Hyposegmented Neuts Not Reportable 02/29/20 11:24 Hypogranular Neuts Not Reportable 02/29/20 11:24 Smudge Cells Not Reportable 02/29/20 11:24 Toxic Granulation Not Reportable 02/29/20 11:24 Toxic Vacuolation Not Reportable 02/29/20 11:24 Dohle Bodies Not Reportable 02/29/20 11:24 Pelger-Huet Anomaly Not Reportable 02/29/20 11:24 Kana Rods Not Reportable 02/29/20 11:24 Platelet Estimate Consistent w auto 02/29/20 11:24 Clumped Platelets Rare 02/29/20 11:24 Plt Clumps, EDTA Not Reportable 02/29/20 11:24 Large Platelets Not Reportable 02/29/20 11:24 Giant Platelets Not Reportable 02/29/20 11:24 Platelet Satelliting Not Reportable 02/29/20 11:24 Plt Morphology Comment Not Reportable 02/29/20 11:24 RBC Morphology Normal 02/29/20 11:24 Dimorphic RBCs Not Reportable 02/29/20 11:24 Polychromasia Not Reportable 02/29/20 11:24 Hypochromasia Not Reportable 02/29/20 11:24 Poikilocytosis Not Reportable 02/29/20 11:24 Anisocytosis Not Reportable 02/29/20 11:24 Microcytosis Not Reportable 02/29/20 11:24 Macrocytosis Not Reportable 02/29/20 11:24 Spherocytes Not Reportable 02/29/20 11:24 Pappenheimer Bodies Not Reportable 02/29/20 11:24 Sickle Cells Not Reportable 02/29/20 11:24 Target Cells Not Reportable 02/29/20 11:24 Tear Drop Cells Not Reportable 02/29/20 11:24 Ovalocytes Not Reportable 02/29/20 11:24 Helmet Cells Not Reportable 02/29/20 11:24 [place] Bodies Not Reportable 02/29/20 11:24 [place] Rings Not Reportable 02/29/20 11:24 Elijah Cells Not Reportable 02/29/20 11:24 Bite Cells Not Reportable 02/29/20 11:24 Crenated Cell Not Reportable 02/29/20 11:24 Elliptocytes Not Reportable 02/29/20 11:24 Acanthocytes (Spur) Not Reportable 02/29/20 11:24 Rouleaux Not Reportable 02/29/20 11:24 Hemoglobin C Crystals Not Reportable 02/29/20 11:24 Schistocytes Not Reportable 02/29/20 11:24 Malaria parasites Not Reportable 02/29/20 11:24 Martín Bodies Not Reportable 02/29/20 11:24 Hem Pathologist Commnt No 02/29/20 11:24 D-Dimer 1964.52 ng/mlDDU (0-234) H 03/05/20 04:54 Sodium 138 mmol/L (137-145) 03/05/20 04:54 Potassium 5.0 mmol/L (3.6-5.0) 03/05/20 04:54 Chloride 97.9 mmol/L (98-107) L 03/05/20 04:54 Carbon Dioxide 32 mmol/L (22-30) H 03/05/20 04:54 Anion Gap 13 mmol/L 03/05/20 04:54 BUN 21 mg/dL (9-20) H 03/05/20 04:54 Creatinine 0.7 mg/dL (0.8-1.5) L 03/05/20 04:54 Estimated GFR > 60 ml/min 03/05/20 04:54 BUN/Creatinine Ratio 30 % 03/05/20 04:54 Glucose 155 mg/dL (75-100) H 03/05/20 04:54 POC Glucose 120 (70-105) H 02/28/20 11:32 Lactic Acid 1.80 mmol/L (0.7-2.0) 02/21/20 15:29 Calcium 8.8 mg/dL (8.4-10.2) 03/05/20 04:54 Magnesium 2.40 mg/dL (1.7-2.3) H 03/04/20 13:37 Ferritin 1798.0 ng/mL (13.0-400.0) H 03/05/20 04:54 Total Bilirubin 0.60 mg/dL (0.1-1.2) 02/21/20 15:29 AST 31 units/L (5-40) 02/21/20 15:29 ALT 18 units/L (7-56) 02/21/20 15:29 Alkaline Phosphatase 71 units/L (35-129) 02/21/20 15:29 Lactate Dehydrogenase 726 units/L (91-180) H 03/05/20 04:54 C-Reactive Protein 0.10 mg/dL (0.00-1.30) 03/05/20 04:54 Total Protein 7.4 g/dL (6.3-8.2) 02/21/20 15:29 Albumin 3.8 g/dL (3.9-5) L 02/21/20 15:29 Albumin/Globulin Ratio 1.1 % 02/21/20 15:29 Procalcitonin 0.07 ng/mL (<0.15) 03/03/20 04:22 TSH 0.505 mlU/mL (0.270-4.200) 03/05/20 10:19 Free T4 1.59 ng/dL (0.76-1.46) H 03/05/20 10:19 Coronavirus (PCR) Positive (Negative) A 02/22/20 11:23 Hepatitis A IgM Ab Non-reactive (NonReactive) 02/27/20 04:58 Hep Bs Antigen Non-reactive (Negative) 02/27/20 04:58 Hep B Core IgM Ab Non-reactive (NonReactive) 02/27/20 04:58 Hepatitis C Antibody Non-reactive (NonReactive) 02/27/20 04:58 Influenza A (Rapid) Negative (Negative) 02/21/20 16:34 Influenza B (Rapid) Negative (Negative) 02/21/20 16:34 TB (QFT) Gold In Tube See scanned result 02/27/20 09:58 TB Test (QFT) Nil See scanned result 02/27/20 09:58 TB Test Mitogen - Nil See scanned result 02/27/20 09:58 TB Test Antigen - Nil See scanned result 02/27/20 09:58 Rivera/IV: Voiding Method Toilet IV Catheter Type [Right Upper INT / Saline Lock arm] IV Catheter Type [Right INT / Saline Lock Forearm] IV Catheter Type [Right INT / Saline Lock Antecubital] Active Medications - Current Medications Current Medications: Generic Name Dose Route Start Last Admin Trade Name Freq PRN Reason Stop Dose Admin Acetaminophen 650 mg 02/21/20 16:41 02/26/20 16:53 Tylenol PO 650 mg Q4H PRN Administration Pain MILD(1-3)/Fever >100.5/DELUNA Albuterol 2 puff 02/25/20 10:39 Proair IH Q6HRT PRN Shortness Of Breath Enoxaparin Sodium 130 mg 02/22/20 10:00 03/05/20 09:42 Enoxaparin SUB-Q 130 mg Q24HR SCOT Administration Ascorbic Acid 1,500 mg/ Sodium 53 mls @ 50 mls/30 min 03/04/20 14:00 03/06/20 06:51 Chloride IV 03/06/20 12:32 50 mls/30 min Q6HR SCOT Administration Ondansetron HCl 4 mg 02/21/20 16:41 02/25/20 16:17 Zofran IV 4 mg Q8H PRN Administration Nausea And Vomiting Sodium Chloride 10 ml 02/21/20 22:00 03/05/20 22:14 Sodium Chloride Flush Syringe 10 Ml IV 10 ml BID SCOT Administration Sodium Chloride 10 ml 02/21/20 16:41 03/06/20 02:02 Sodium Chloride Flush Syringe 10 Ml IV 10 ml PRN PRN Administration LINE FLUSH Nutrition/Malnutrition Assess - Dietary Evaluation Nutrition/Malnutrition Findings: Nutrition Notes Start: 02/23/20 09:12 Freq: Status: Active Protocol: Document 03/05/20 14:12 LM (Rec: 03/05/20 14:18 LM [id number]) Nutrition Notes Initial or Follow up Reassessment Other Pertinent Diagnosis COVID-19 (+), pneu, ARF Current Diet Regular Labs/Tests Reviewed Pertinent Medications Solumedrol Lasix Height 5 ft 9 in Weight 72.1 kg Strawn Body Weight (kg) 72.72 BMI 23.4 Weight change and time frame Wt change noted. Pt on Lasix Weight Status Appropriate Subjective/Other Information Unable to reach pt 2x. Per RN notes pt's appetite has increased. Observed 75-100% intakes in chart over the weekend. Burn Absent Trauma Absent Current % PO Good (75-100%) Minimum of two criteria No physical signs of malnutrition #1 Nutrition Diagnosis Inadequate oral intake As Evidenced by Signs and Symptoms 75-100% intakes Diagnosis Progress(for reassessment Improved documentation) Is patient on ventilator? No Is Patient Ambulatory and/or Out of Bed Yes REE-([facility]-ambulatory/OOB) [ [id number] [id number]] Calculation Used for Recommendations [facility] Additional Notes Protein: 72-86g (1-1.2g/kg) Fluid: 1 ml/kcal Nutrition Intervention Change Diet Order: Continue regular diet Add Supplement/Snack (indicate name/kcal Ensure Enlive [place] BID /protein ) Provides kCal: 700 Provides Protein (gm) 40 Goal #1 Meet at least 75% of energy and protein needs Anticipated Discharge Needs: Regular diet Follow-Up By: 03/07/20 Additional Comments F/U for stable intakes
--- NOTE | 2020-03-06 08:37 | Progress Note ---
Assessment and Plan 64 y/o male with COVID 19 positive pneumonia and no other prior medical history. 1. COVID positive 2. Now on HFNC at 18 and 50%. Got Actemra 8 days ago. Continue HFNC, if work of breathing increases or unable to maintain adequate sats on HFNC, then will consider intubation. Would ask that patient prone himself, multiple times during the day shift and sleep proned at night. Agree with addition of steroid therapy, today is day 8, started to taper today as steroids fell of JAN. 3. Will order stat chemistry to review K and renal function. If both are ok, would like to give another dose of lasix today. Gave 20mg IV on yesterday. 4. Reviewed ID note. Guarded prognosis Subjective Date of service: 03/06/20 Principal diagnosis: COVID Interval history: Down to 50% now. Steroids fell of JAN but restarted today and starting the taper. Placed on 20q8 from 40q8. Afebrile. Also gave lasix yesterday as well. I/O is not reflective of this. No labs checked this am. Objective Vital Signs - 12hr 03/05/20 03/05/20 03/05/20 20:52 22:10 23:23 Temperature 98.2 F 97.6 F Pulse Rate 106 H 94 H Respiratory 18 18 Rate Blood Pressure 106/74 104/67 O2 Sat by Pulse 90 94 90 Oximetry 03/05/20 03/06/20 03/06/20 23:31 03:10 05:43 Temperature 98.0 F Pulse Rate 81 Respiratory 18 Rate Blood Pressure 92/63 O2 Sat by Pulse 90 94 89 Oximetry 03/06/20 03/06/20 06:20 06:49 Temperature Pulse Rate Respiratory 18 Rate Blood Pressure 98/72 O2 Sat by Pulse 90 92 Oximetry Constitutional: no acute distress Eyes: non-icteric Ascultation: Bilateral: diminished breath sounds Cardiovascular: regular rate and rhythm Gastrointestinal: normoactive bowel sounds CBC and BMP: 03/05/20 04:54 03/05/20 04:54 ABG, PT/INR, D-dimer: PT/INR, D-dimer D-Dimer 1964.52 ng/mlDDU (0-234) H 03/05/20 04:54 Abnormal lab findings: Abnormal Labs 02/21/20 02/21/20 02/21/20 15:29 15:29 15:29 WBC 3.7 L RBC 5.62 H Hgb 16.5 H Hct 47.5 H MCV MCHC 35 H Plt Count [place] % (Auto) 8.9 H Lymph # 0.6 L Seg Neutrophils % 72.3 H Seg Neuts % (Manual) Lymphocytes % (Manual) Lymphocytes # (Manual) D-Dimer 5638.87 H Sodium 136 L Potassium Chloride 96.2 L Carbon Dioxide 20 L BUN 22 H Creatinine Glucose 124 H POC Glucose Calcium Magnesium Ferritin Lactate Dehydrogenase C-Reactive Protein Albumin 3.8 L Free T4 Coronavirus (PCR) 02/21/20 02/21/20 02/22/20 15:29 15:29 04:04 WBC 3.9 L RBC 5.47 H Hgb 15.8 H Hct MCV 83 L MCHC 35 H Plt Count [place] % (Auto) 10.5 H Lymph # 0.7 L Seg Neutrophils % 70.1 H Seg Neuts % (Manual) Lymphocytes % (Manual) Lymphocytes # (Manual) D-Dimer Sodium Potassium Chloride Carbon Dioxide BUN Creatinine Glucose POC Glucose Calcium Magnesium Ferritin 1484.0 H Lactate Dehydrogenase 486 H C-Reactive Protein 4.40 H Albumin Free T4 Coronavirus (PCR) 02/22/20 02/22/20 02/23/20 04:04 11:23 05:02 WBC 3.3 L RBC 5.19 H Hgb Hct MCV MCHC 35 H Plt Count [place] % (Auto) Lymph # Seg Neutrophils % Seg Neuts % (Manual) Lymphocytes % (Manual) Lymphocytes # (Manual) D-Dimer Sodium Potassium Chloride Carbon Dioxide BUN Creatinine Glucose 114 H POC Glucose Calcium 8.3 L Magnesium Ferritin Lactate Dehydrogenase C-Reactive Protein Albumin Free T4 Coronavirus (PCR) Positive A 02/23/20 02/23/20 02/23/20 05:02 05:02 05:02 WBC RBC Hgb Hct MCV MCHC Plt Count [place] % (Auto) Lymph # Seg Neutrophils % Seg Neuts % (Manual) Lymphocytes % (Manual) Lymphocytes # (Manual) D-Dimer 2109.52 H Sodium Potassium Chloride Carbon Dioxide BUN Creatinine Glucose POC Glucose Calcium Magnesium Ferritin 1571.0 H Lactate Dehydrogenase 531 H C-Reactive Protein 6.40 H Albumin Free T4 Coronavirus (PCR) 02/25/20 02/25/20 02/25/20 04:20 04:20 04:20 WBC RBC Hgb Hct MCV MCHC Plt Count [place] % (Auto) Lymph # Seg Neutrophils % Seg Neuts % (Manual) Lymphocytes % (Manual) Lymphocytes # (Manual) D-Dimer 1422.33 H Sodium Potassium Chloride Carbon Dioxide BUN Creatinine Glucose POC Glucose Calcium Magnesium Ferritin 2172.0 H Lactate Dehydrogenase 594 H C-Reactive Protein 8.70 H Albumin Free T4 Coronavirus (PCR) 02/27/20 02/27/20 02/27/20 04:58 04:58 04:58 WBC RBC Hgb Hct MCV MCHC Plt Count [place] % (Auto) Lymph # Seg Neutrophils % Seg Neuts % (Manual) Lymphocytes % (Manual) Lymphocytes # (Manual) D-Dimer 1111.97 H Sodium 134 L Potassium Chloride Carbon Dioxide 18 L BUN 24 H Creatinine Glucose 107 H POC Glucose Calcium Magnesium Ferritin 3392.0 H Lactate Dehydrogenase 681 H C-Reactive Protein 9.70 H Albumin Free T4 Coronavirus (PCR) 02/27/20 02/28/20 02/28/20 04:58 07:47 11:32 WBC 2.1 L RBC 5.19 H Hgb Hct MCV MCHC Plt Count [place] % (Auto) Lymph # Seg Neutrophils % Seg Neuts % (Manual) Lymphocytes % (Manual) Lymphocytes # (Manual) D-Dimer Sodium Potassium Chloride Carbon Dioxide BUN Creatinine Glucose POC Glucose 130 H 120 H Calcium Magnesium Ferritin Lactate Dehydrogenase C-Reactive Protein Albumin Free T4 Coronavirus (PCR) 02/29/20 02/29/20 02/29/20 11:24 11:24 11:24 WBC RBC 6.47 H Hgb 18.3 H D Hct 53.8 H D MCV 83 L MCHC Plt Count 544 H [place] % (Auto) Lymph # Seg Neutrophils % Seg Neuts % (Manual) 93.0 H Lymphocytes % (Manual) 2.0 L Lymphocytes # (Manual) 0.1 L D-Dimer 1464.27 H Sodium Potassium Chloride Carbon Dioxide BUN Creatinine Glucose POC Glucose Calcium Magnesium Ferritin Lactate Dehydrogenase 822 H C-Reactive Protein Albumin Free T4 Coronavirus (PCR) 02/29/20 03/03/20 03/03/20 11:24 04:22 04:22 WBC RBC Hgb Hct MCV MCHC Plt Count [place] % (Auto) Lymph # Seg Neutrophils % Seg Neuts % (Manual) Lymphocytes % (Manual) Lymphocytes # (Manual) D-Dimer 3769.82 H Sodium Potassium Chloride Carbon Dioxide BUN Creatinine Glucose POC Glucose Calcium Magnesium Ferritin 4163.0 H 2491.0 H Lactate Dehydrogenase C-Reactive Protein Albumin Free T4 Coronavirus (PCR) 03/03/20 03/04/20 03/05/20 04:22 13:37 04:54 WBC RBC Hgb Hct MCV MCHC Plt Count [place] % (Auto) Lymph # Seg Neutrophils % Seg Neuts % (Manual) Lymphocytes % (Manual) Lymphocytes # (Manual) D-Dimer 1964.52 H Sodium Potassium 5.6 H Chloride Carbon Dioxide BUN 26 H Creatinine Glucose 195 H POC Glucose Calcium Magnesium 2.40 H Ferritin Lactate Dehydrogenase 938 H C-Reactive Protein Albumin Free T4 Coronavirus (PCR) 03/05/20 03/05/20 03/05/20 04:54 04:54 04:54 WBC RBC 5.56 H Hgb 15.7 H Hct 46.8 H MCV MCHC Plt Count [place] % (Auto) Lymph # Seg Neutrophils % Seg Neuts % (Manual) Lymphocytes % (Manual) Lymphocytes # (Manual) D-Dimer Sodium Potassium Chloride 97.9 L Carbon Dioxide 32 H BUN 21 H Creatinine 0.7 L Glucose 155 H POC Glucose Calcium Magnesium Ferritin 1798.0 H Lactate Dehydrogenase 726 H C-Reactive Protein Albumin Free T4 Coronavirus (PCR) 03/05/20 10:19 WBC RBC Hgb Hct MCV MCHC Plt Count [place] % (Auto) Lymph # Seg Neutrophils % Seg Neuts % (Manual) Lymphocytes % (Manual) Lymphocytes # (Manual) D-Dimer Sodium Potassium Chloride Carbon Dioxide BUN Creatinine Glucose POC Glucose Calcium Magnesium Ferritin Lactate Dehydrogenase C-Reactive Protein Albumin Free T4 1.59 H Coronavirus (PCR)
[2020-03-06 09:10] LABS: BUN/Creatinine Ratio 37; Blood Urea Nitrogen 26 mg/dL (9-20); Calcium 9.3 mg/dL (8.4-10.2); Hemolysis Index 10
--- NOTE | 2020-03-06 09:16 | Progress Note ---
Assessment and Plan Bilateral pneumonia / COVID-19 positive / sepsis Completed 5 days of Plaquenil. S/P Actemra 02/26/2020. Started steroid trial o n 02/27/2020. QT interval on ECG yesterday and today WNL. Management per primary, pulmonary and ID teams. Acute respiratory failure Requiring O2 HiFlo NC. Management per pulmonary. NSVT 11 beat run NSVT noted 03/04/2020 around noon on telemetry. No reoccurrence noted overnight. QT interval on ECG yesterday and today WNL. Will defer echocardiogram at this time in setting of COVID-19 positive status. Can consider as OP. Elevated DDimer Further eval per primary. Currently stable cardiac status. No reoccurrence of NSVT noted overnight. Cont to monitor on telemetry. Nothing further to add from cardiac perspective at this time. Will follow on as needed basis. Recommend pt follow up in our office with Dr. Anderson within 2 weeks of discharge ([phone]). The patient has been seen in conjunction with Dr. Anderson who agrees with the assessment and plan of care. Subjective Date of service: 03/06/20 Principal diagnosis: COVID Interval history: tele reviewed - in SR with no acute events overnight. Objective Last Vital Signs Temp 98.0 F 03/06/20 05:43 Pulse 81 03/06/20 05:43 Resp 18 03/06/20 06:49 BP 98/72 03/06/20 06:49 Pulse Ox 92 03/06/20 06:49 - Physical Examination Narrative exam: agree with physical examination per primary team - Labs and Meds Comprehensive Metabolic Panel 03/06/20 Range/Units 08:31 Sodium 141 (137-145) mmol/L Potassium 4.9 (3.6-5.0) mmol/L Chloride 98.0 (98-107) mmol/L Carbon Dioxide 35 H (22-30) mmol/L BUN 26 H (9-20) mg/dL Creatinine 0.7 L (0.8-1.5) mg/dL Glucose 117 H (75-100) mg/dL Calcium 9.3 (8.4-10.2) mg/dL - Imaging and Cardiology EKG: report reviewed, image reviewed - EKG Sinus rhythms and dysrhythmias: sinus rhythm
[2020-03-06] MEDS: ENOXAPARIN 150 MG/1 ML INJ SUB-Q SCH (09:41)
[2020-03-06] MEDS: methylPREDNISolone Sod Succinate 40 MG/1 ML INJ IV SCH ×3 (09:42→22:01)
--- NOTE | 2020-03-06 12:46 | Progress Note ---
Assessment and Plan Cultures: 02/21/2020 blood culture: no growth 02/23/2020 blood culture: no growth A/P: 64/M with subjective fever, loss of appetite, weakness, headaches along with cough and shortness of breath for a week prior to admission #Severe bilateral pneumonia secondary to COVID-19: Completed 5 days of Plaquenil. S/P Actemra 02/26/2020. Started steroid trial on 02/27/2020 #Acute hypoxic respiratory failure: Requiring oxygen. On nasal cannula 6 L/min Recs: Continue vitamin C 1.5 g IV q6h Steroid taper starting today per pulmonary. continue with weight based anticoagulation/LMWH prophylaxis continue to encourage lying in prone position if patient is able to tolerate recheck markers every 48 hours: CRP, d-dimer, Ferritin, LDH - improved. Markers are improved, O2 requirements are improved. Will hold off on repeat dose of Actemra for now. continue supportive care Santy Ortiz MD [facility] ([facility]) M: [phone] O: [phone] F: [phone] Subjective Date of service: 03/06/20 Principal diagnosis: COVID Interval history: Afebrile with a normal white count. Now on nasal cannula at 6 L/min, improvement from yesterday when he was on high flow nasal cannula at 18 L/min. Objective - Exam Narrative Exam: Constitutional: alert talking on HFO2 Head, Ears, Nose: limited due to PPE conservation strategy Eyes: limited due to PPE conservation strategy Neck: limited due to PPE conservation strategy Oral: limited due to PPE conservation strategy Cardiovascular: limited due to PPE conservation strategy Respiratory: diminished per RT GI: limited due to PPE conservation strategy Musculoskeletal: limited due to PPE conservation strategy Skin: limited due to PPE conservation strategy Hem/Lymphatic: limited due to PPE conservation strategy Psych: limited due to PPE conservation strategy Neurological: limited due to PPE conservation strategy - Constitutional Vitals: Vital Signs Temp Pulse Resp BP Pulse Ox 98.0 F 81 18 98/72 94 03/06/20 05:43 03/06/20 05:43 03/06/20 06:49 03/06/20 06:49 03/06/20 09:18 Temperature -Last 24 Hours Temperature 98.0 F Temperature 97.6 F Temperature 98.2 F Temperature 98.5 F - Labs CBC & Chem 7: 04/27/20 04:54 03/06/20 08:31 Labs: Abnormal lab results 03/06/20 03/06/20 Range/Units 08:08 08:31 Carbon Dioxide 35 H (22-30) mmol/L BUN 26 H (9-20) mg/dL Creatinine 0.7 L (0.8-1.5) mg/dL Glucose 117 H (75-100) mg/dL Coronavirus (PCR) Positive A (Negative)
[2020-03-07] MEDS: methylPREDNISolone Sod Succinate 40 MG/1 ML INJ IV SCH ×3 (06:08→22:09)
[2020-03-07] MEDS: ENOXAPARIN 150 MG/1 ML INJ SUB-Q SCH (09:07)
--- NOTE | 2020-03-07 11:22 | Progress Note ---
Assessment and Plan 64 y/o male with COVID 19 positive pneumonia and no other prior medical history. 1. COVID positive 2. Now nasal cannula. Got Actemra 9 days ago. Continue HFNC, if work of breathing increases or unable to maintain adequate sats on HFNC, then will consider intubation. Would ask that patient prone himself, multiple times during the day shift and sleep proned at night. Continue steroids at current dosing. 3. Did not give lasix yesterday and will hold off today given decrease in O2 requirement. 4. Reviewed ID note. 5. Rpt Umanzor PCR was positive done on yesterday. Guarded prognosis Subjective Date of service: 03/07/20 Principal diagnosis: COVID Interval history: No acute events. Down to 6-7 liters NC with sats in the low to mid 90's. Objective Vital Signs - 12hr 03/07/20 02:00 O2 Sat by Pulse 93 Oximetry Constitutional: no acute distress Eyes: non-icteric Ascultation: Bilateral: diminished breath sounds Cardiovascular: regular rate and rhythm Gastrointestinal: normoactive bowel sounds CBC and BMP: 03/05/20 04:54 03/06/20 08:31 ABG, PT/INR, D-dimer: PT/INR, D-dimer D-Dimer 1964.52 ng/mlDDU (0-234) H 03/05/20 04:54 Abnormal lab findings: Abnormal Labs 02/21/20 02/21/20 02/21/20 15:29 15:29 15:29 WBC 3.7 L RBC 5.62 H Hgb 16.5 H Hct 47.5 H MCV MCHC 35 H Plt Count Carter % (Auto) 8.9 H Lymph # 0.6 L Seg Neutrophils % 72.3 H Seg Neuts % (Manual) Lymphocytes % (Manual) Lymphocytes # (Manual) D-Dimer 5638.87 H Sodium 136 L Potassium Chloride 96.2 L Carbon Dioxide 20 L BUN 22 H Creatinine Glucose 124 H POC Glucose Calcium Magnesium Ferritin Lactate Dehydrogenase C-Reactive Protein Albumin 3.8 L Free T4 Coronavirus (PCR) 02/21/20 02/21/20 02/22/20 15:29 15:29 04:04 WBC 3.9 L RBC 5.47 H Hgb 15.8 H Hct MCV 83 L MCHC 35 H Plt Count Carter % (Auto) 10.5 H Lymph # 0.7 L Seg Neutrophils % 70.1 H Seg Neuts % (Manual) Lymphocytes % (Manual) Lymphocytes # (Manual) D-Dimer Sodium Potassium Chloride Carbon Dioxide BUN Creatinine Glucose POC Glucose Calcium Magnesium Ferritin 1484.0 H Lactate Dehydrogenase 486 H C-Reactive Protein 4.40 H Albumin Free T4 Coronavirus (PCR) 02/22/20 02/22/20 02/23/20 04:04 11:23 05:02 WBC 3.3 L RBC 5.19 H Hgb Hct MCV MCHC 35 H Plt Count Carter % (Auto) Lymph # Seg Neutrophils % Seg Neuts % (Manual) Lymphocytes % (Manual) Lymphocytes # (Manual) D-Dimer Sodium Potassium Chloride Carbon Dioxide BUN Creatinine Glucose 114 H POC Glucose Calcium 8.3 L Magnesium Ferritin Lactate Dehydrogenase C-Reactive Protein Albumin Free T4 Coronavirus (PCR) Positive A 02/23/20 02/23/20 02/23/20 05:02 05:02 05:02 WBC RBC Hgb Hct MCV MCHC Plt Count Carter % (Auto) Lymph # Seg Neutrophils % Seg Neuts % (Manual) Lymphocytes % (Manual) Lymphocytes # (Manual) D-Dimer 2109.52 H Sodium Potassium Chloride Carbon Dioxide BUN Creatinine Glucose POC Glucose Calcium Magnesium Ferritin 1571.0 H Lactate Dehydrogenase 531 H C-Reactive Protein 6.40 H Albumin Free T4 Coronavirus (PCR) 02/25/20 02/25/20 02/25/20 04:20 04:20 04:20 WBC RBC Hgb Hct MCV MCHC Plt Count Carter % (Auto) Lymph # Seg Neutrophils % Seg Neuts % (Manual) Lymphocytes % (Manual) Lymphocytes # (Manual) D-Dimer 1422.33 H Sodium Potassium Chloride Carbon Dioxide BUN Creatinine Glucose POC Glucose Calcium Magnesium Ferritin 2172.0 H Lactate Dehydrogenase 594 H C-Reactive Protein 8.70 H Albumin Free T4 Coronavirus (PCR) 02/27/20 02/27/20 02/27/20 04:58 04:58 04:58 WBC RBC Hgb Hct MCV MCHC Plt Count Carter % (Auto) Lymph # Seg Neutrophils % Seg Neuts % (Manual) Lymphocytes % (Manual) Lymphocytes # (Manual) D-Dimer 1111.97 H Sodium 134 L Potassium Chloride Carbon Dioxide 18 L BUN 24 H Creatinine Glucose 107 H POC Glucose Calcium Magnesium Ferritin 3392.0 H Lactate Dehydrogenase 681 H C-Reactive Protein 9.70 H Albumin Free T4 Coronavirus (PCR) 02/27/20 02/28/20 02/28/20 04:58 07:47 11:32 WBC 2.1 L RBC 5.19 H Hgb Hct MCV MCHC Plt Count Carter % (Auto) Lymph # Seg Neutrophils % Seg Neuts % (Manual) Lymphocytes % (Manual) Lymphocytes # (Manual) D-Dimer Sodium Potassium Chloride Carbon Dioxide BUN Creatinine Glucose POC Glucose 130 H 120 H Calcium Magnesium Ferritin Lactate Dehydrogenase C-Reactive Protein Albumin Free T4 Coronavirus (PCR) 02/29/20 02/29/20 02/29/20 11:24 11:24 11:24 WBC RBC 6.47 H Hgb 18.3 H D Hct 53.8 H D MCV 83 L MCHC Plt Count 544 H Carter % (Auto) Lymph # Seg Neutrophils % Seg Neuts % (Manual) 93.0 H Lymphocytes % (Manual) 2.0 L Lymphocytes # (Manual) 0.1 L D-Dimer 1464.27 H Sodium Potassium Chloride Carbon Dioxide BUN Creatinine Glucose POC Glucose Calcium Magnesium Ferritin Lactate Dehydrogenase 822 H C-Reactive Protein Albumin Free T4 Coronavirus (PCR) 02/29/20 03/03/20 03/03/20 11:24 04:22 04:22 WBC RBC Hgb Hct MCV MCHC Plt Count Carter % (Auto) Lymph # Seg Neutrophils % Seg Neuts % (Manual) Lymphocytes % (Manual) Lymphocytes # (Manual) D-Dimer 3769.82 H Sodium Potassium Chloride Carbon Dioxide BUN Creatinine Glucose POC Glucose Calcium Magnesium Ferritin 4163.0 H 2491.0 H Lactate Dehydrogenase C-Reactive Protein Albumin Free T4 Coronavirus (PCR) 03/03/20 03/04/20 03/05/20 04:22 13:37 04:54 WBC RBC Hgb Hct MCV MCHC Plt Count Carter % (Auto) Lymph # Seg Neutrophils % Seg Neuts % (Manual) Lymphocytes % (Manual) Lymphocytes # (Manual) D-Dimer 1964.52 H Sodium Potassium 5.6 H Chloride Carbon Dioxide BUN 26 H Creatinine Glucose 195 H POC Glucose Calcium Magnesium 2.40 H Ferritin Lactate Dehydrogenase 938 H C-Reactive Protein Albumin Free T4 Coronavirus (PCR) 03/05/20 03/05/20 03/05/20 04:54 04:54 04:54 WBC RBC 5.56 H Hgb 15.7 H Hct 46.8 H MCV MCHC Plt Count Carter % (Auto) Lymph # Seg Neutrophils % Seg Neuts % (Manual) Lymphocytes % (Manual) Lymphocytes # (Manual) D-Dimer Sodium Potassium Chloride 97.9 L Carbon Dioxide 32 H BUN 21 H Creatinine 0.7 L Glucose 155 H POC Glucose Calcium Magnesium Ferritin 1798.0 H Lactate Dehydrogenase 726 H C-Reactive Protein Albumin Free T4 Coronavirus (PCR) 03/05/20 03/06/20 03/06/20 10:19 08:08 08:31 WBC RBC Hgb Hct MCV MCHC Plt Count Carter % (Auto) Lymph # Seg Neutrophils % Seg Neuts % (Manual) Lymphocytes % (Manual) Lymphocytes # (Manual) D-Dimer Sodium Potassium Chloride Carbon Dioxide 35 H BUN 26 H Creatinine 0.7 L Glucose 117 H POC Glucose Calcium Magnesium Ferritin Lactate Dehydrogenase C-Reactive Protein Albumin Free T4 1.59 H Coronavirus (PCR) Positive A
--- NOTE | 2020-03-07 12:41 | Progress Note ---
Assessment and Plan Assessment and plan: 64 YO Male with No PMH presents to ED for evaluation. Pt states that he has experienced subjective fever, loss of appetite, generalized weakness, headache, shortness of breath, both dry and productive cough with production of yellow sputum over the past 1 week with progressively worsening symptoms over the past 3 days. Patient transported to [facility] via private vehicle for further evaluation and care. Patient seen and evaluated in the emergency department. Lab and imaging studies reviewed. Patient found to have temperature of 100.3 F, and pulse oximetry of 86% on room air which is consistent with acute hypoxemic respiratory failure. Patient underwent chest x-ray which revealed bilateral pneumonia which are consistent with suspected CO VID19. Patient admitted to medical floor and treated with pneumonia protocol. Patient also treated with initiation of CO VID19 protocol. Infectious disease service consulted in ED. Patient denies chest pain, palpitations, syncope, trauma, prolonged tr rolanda/immobility, individual/family history of DVT/bleeding/PE/blood clotting disorders, or known ill contacts. No prior admission for review. No medication listed for reconciliation at the time of admission. CXR: worsening Opacities Acute hypoxic respiratory failure due to COVID-19 pneumonia Bilateral pneumonia secondary to COVID-19 COVID-19 viral infection confirmed, completed 5 days of plaquenil, 1 dose of Actemra given 02/25 Sepsis syndrome, poa due to above NSVT-resolved Hypotension Acute hypoxic respiratory failure with pulse oximetry of 86% on room air Elevated d-dimer Headache Leukopenia- Resolved Plan 02/28/20: Day 7, my first day with patient and he looks ill but is trying to move around, he was in the prone position overnight which did help some; he is on 100% high flow. I spoke with cousin, Derrick Ray [phone] who is NOK in EMR. Patient has a son who is estranged per Derrick, Stressed the importance of Incentive spirometry 02/29/20: More tachypneic today, continue IV steroids day 2/7 then oral taper. Patient not doing Incentive spirometry correctly, I showed him how to do it correctly. He is trying. I called his cousin Derrick for update, left message. 03/01/20: Doing slightly better, able to hold his breath for 20 seconds, still doing poorly on Incentive spirometry, still on 100% High Flow, Inflammatory markers at up. He received Actmera 5 days ago, on day 4 of IV steroids. I called his cousin Derrick for update, no answer, no messgae left. 03/02/20: still on 100% fiO2 High flow, trying to do Incentive spirometry, advise to get in prone position. 03/03/20: on 95% high flow, still doing poorly on Incentive spirometry but trying, still not in prone position, counseling done. Mixed picture with inflammatory markers as d-dimer/LDH increasing but Ferritin/CRP decreasing. 03/04/20: on 95% high flow and O2 sat 95%, have asked Respiratory to try to wean down FiO2. Inflammatory marker tomorrow. 11 beat run of VTach. I will check bmp, magnesium, I will give IV mag/potassium and consult Cardiology 03/05/20: down to 90% high flow, we practiced the Inspirative spirometry, RTherapist at bedside, patient able to hold breath for 20 secords, still very difficult but he feels better. Still very weak. Inflammatory markers are improved. d/w Cardiology regarding NSVT. d/w Case management, hopefully d/c to LTACH if facility approved, I believe patient insurance has approved LTACH. Needs slow steroid taper per ID. 03/06: Over the past few days appears the patient has been weaning on steroids. Lasix has already been given to help improve oxygenation and aeration of the chest x-ray. Will obtain repeat electrolytes today and possibly repeat Lasix. I have also ordered a repeat coronavirus test as this is a requirement for the LTAC to be able to accept this patient, if repeat study comes back negative. Pulmonary weaning steroids and input is noted. ID input is noted. Cardiology input noted 03/07: Now weaned off high flow now on nasal cannula although desats when nasal cannula is off I believe today he desatted to 72% on room air. Encouraged to use oxygen encouraged to continue prone in position. Also encouraged patient to use incentive spirometer. We will continue to monitor repeat test for ambreen navirus was positive. History Interval history: Patient seen and examined has been weaned off of high flow although patient nursing staff patient not motivated to be active. He denies any depression. He is always very thankful with our visit. Hospitalist Physical - Physical exam Narrative exam: VITAL SIGNS: Reviewed. GENERAL: The patient appears normally developed, lethargic appearing sitting up. Vital signs as documented. HEAD: No signs of head trauma. EYES: Pupils are equal. Extraocular motions intact. EARS: Hearing grossly intact. MOUTH: Oropharynx is normal. NECK: No adenopathy, no JVD. CHEST: Chest with diminished breath sounds bilaterally. No wheezes, rales, or rhonchi. CARDIAC: Regular rate and rhythm. S1 and S2, without murmurs, gallops, or rubs. VASCULAR: No Edema. Peripheral pulses normal and equal in all extremities. ABDOMEN: Soft, non tender and non distended. No rebound or guarding, and no masses palpated. Bowel Sounds normal. MUSCULOSKELETAL: Good range of motion of all major joints. Extremities without clubbing, cyanosis or edema. NEUROLOGIC EXAM: Awake and oriented x 3 No focal sensory or strength deficits. Speech normal. Follows commands. PSYCHIATRIC: Mood calm SKIN: detail exam as documented in skin assessment - Constitutional Vitals: Temp Pulse Resp BP Pulse Ox 97.8 F 85 18 105/69 95 03/07/20 11:26 03/07/20 11:26 03/07/20 11:26 03/07/20 11:26 03/07/20 11:26 General appearance: Absent: mild distress Results - Labs CBC & Chem 7: 03/05/20 04:54 03/06/20 08:31 Labs: Laboratory Last Values WBC 9.7 K/mm3 (4.5-11.0) 03/05/20 04:54 RBC 5.56 M/mm3 (3.65-5.03) H 03/05/20 04:54 Hgb 15.7 gm/dl (11.8-15.2) H 03/05/20 04:54 Hct 46.8 % (35.5-45.6) H 03/05/20 04:54 MCV 84 fl (84-94) 03/05/20 04:54 MCH 28 pg (28-32) 03/05/20 04:54 MCHC 34 % (32-34) 03/05/20 04:54 RDW 13.7 % (13.2-15.2) 03/05/20 04:54 Plt Count 393 K/mm3 (140-440) 03/05/20 04:54 Lymph % (Auto) 18.1 % (13.4-35.0) 02/22/20 04:04 Stephenson % (Auto) 10.5 % (0.0-7.3) H 02/22/20 04:04 Eos % (Auto) 0.4 % (0.0-4.3) 02/22/20 04:04 Baso % (Auto) 0.9 % (0.0-1.8) 02/22/20 04:04 Lymph # 0.7 K/mm3 (1.2-5.4) L 02/22/20 04:04 Stephenson # 0.4 K/mm3 (0.0-0.8) 02/22/20 04:04 Eos # 0.0 K/mm3 (0.0-0.4) 02/22/20 04:04 Baso # 0.0 K/mm3 (0.0-0.1) 02/22/20 04:04 Add Manual Diff Complete 02/29/20 11:24 Total Counted 100 02/29/20 11:24 Seg Neutrophils % Cardiac Catheterization Technician 02/29/20 11:24 Seg Neuts % (Manual) 93.0 % (40.0-70.0) H 02/29/20 11:24 Band Neutrophils % 2.0 % 02/29/20 11:24 Lymphocytes % (Manual) 2.0 % (13.4-35.0) L 02/29/20 11:24 Reactive Lymphs % (Man) 0 % 02/29/20 11:24 Monocytes % (Manual) 3.0 % (0.0-7.3) 02/29/20 11:24 Eosinophils % (Manual) 0 % (0.0-4.3) 02/29/20 11:24 Basophils % (Manual) 0 % (0.0-1.8) 02/29/20 11:24 Metamyelocytes % 0 % 02/29/20 11:24 Myelocytes % 0 % 02/29/20 11:24 Promyelocytes % 0 % 02/29/20 11:24 Blast Cells % 0 % 02/29/20 11:24 Nucleated RBC % Not Reportable 02/29/20 11:24 Seg Neutrophils # 2.8 K/mm3 (1.8-7.7) 02/22/20 04:04 Seg Neutrophils # Man 6.0 K/mm3 (1.8-7.7) 02/29/20 11:24 Band Neutrophils # 0.1 K/mm3 02/29/20 11:24 Lymphocytes # (Manual) 0.1 K/mm3 (1.2-5.4) L 02/29/20 11:24 Abs React Lymphs (Man) 0.0 K/mm3 02/29/20 11:24 Monocytes # (Manual) 0.2 K/mm3 (0.0-0.8) 02/29/20 11:24 Eosinophils # (Manual) 0.0 K/mm3 (0.0-0.4) 02/29/20 11:24 Basophils # (Manual) 0.0 K/mm3 (0.0-0.1) 02/29/20 11:24 Metamyelocytes # 0.0 K/mm3 02/29/20 11:24 Myelocytes # 0.0 K/mm3 02/29/20 11:24 Promyelocytes # 0.0 K/mm3 02/29/20 11:24 Blast Cells # 0.0 K/mm3 02/29/20 11:24 WBC Morphology Not Reportable 02/29/20 11:24 Hypersegmented Neuts Not Reportable 02/29/20 11:24 Hyposegmented Neuts Not Reportable 02/29/20 11:24 Hypogranular Neuts Not Reportable 02/29/20 11:24 Smudge Cells Not Reportable 02/29/20 11:24 Toxic Granulation Not Reportable 02/29/20 11:24 Toxic Vacuolation Not Reportable 02/29/20 11:24 Dohle Bodies Not Reportable 02/29/20 11:24 Pelger-Huet Anomaly Not Reportable 02/29/20 11:24 Kana Rods Not Reportable 02/29/20 11:24 Platelet Estimate Consistent w auto 02/29/20 11:24 Clumped Platelets Rare 02/29/20 11:24 Plt Clumps, EDTA Not Reportable 02/29/20 11:24 Large Platelets Not Reportable 02/29/20 11:24 Giant Platelets Not Reportable 02/29/20 11:24 Platelet Satelliting Not Reportable 02/29/20 11:24 Plt Morphology Comment Not Reportable 02/29/20 11:24 RBC Morphology Normal 02/29/20 11:24 Dimorphic RBCs Not Reportable 02/29/20 11:24 Polychromasia Not Reportable 02/29/20 11:24 Hypochromasia Not Reportable 02/29/20 11:24 Poikilocytosis Not Reportable 02/29/20 11:24 Anisocytosis Not Reportable 02/29/20 11:24 Microcytosis Not Reportable 02/29/20 11:24 Macrocytosis Not Reportable 02/29/20 11:24 Spherocytes Not Reportable 02/29/20 11:24 Pappenheimer Bodies Not Reportable 02/29/20 11:24 Sickle Cells Not Reportable 02/29/20 11:24 Target Cells Not Reportable 02/29/20 11:24 Tear Drop Cells Not Reportable 02/29/20 11:24 Ovalocytes Not Reportable 02/29/20 11:24 Helmet Cells Not Reportable 02/29/20 11:24 Carpio-Gilliam Bodies Not Reportable 02/29/20 11:24 Dennison Rings Not Reportable 02/29/20 11:24 Philadelphia Cells Not Reportable 02/29/20 11:24 Bite Cells Not Reportable 02/29/20 11:24 Crenated Cell Not Reportable 02/29/20 11:24 Elliptocytes Not Reportable 02/29/20 11:24 Acanthocytes (Spur) Not Reportable 02/29/20 11:24 Rouleaux Not Reportable 02/29/20 11:24 Hemoglobin C Crystals Not Reportable 02/29/20 11:24 Schistocytes Not Reportable 02/29/20 11:24 Malaria parasites Not Reportable 02/29/20 11:24 Martín Bodies Not Reportable 02/29/20 11:24 Hem Pathologist Commnt No 02/29/20 11:24 D-Dimer 1964.52 ng/mlDDU (0-234) H 03/05/20 04:54 Sodium 141 mmol/L (137-145) 03/06/20 08:31 Potassium 4.9 mmol/L (3.6-5.0) 03/06/20 08:31 Chloride 98.0 mmol/L (98-107) 03/06/20 08:31 Carbon Dioxide 35 mmol/L (22-30) H 03/06/20 08:31 Anion Gap 13 mmol/L 03/06/20 08:31 BUN 26 mg/dL (9-20) H 03/06/20 08:31 Creatinine 0.7 mg/dL (0.8-1.5) L 03/06/20 08:31 Estimated GFR > 60 ml/min 03/06/20 08:31 BUN/Creatinine Ratio 37 % 03/06/20 08:31 Glucose 117 mg/dL (75-100) H 03/06/20 08:31 POC Glucose 120 (70-105) H 02/28/20 11:32 Lactic Acid 1.80 mmol/L (0.7-2.0) 02/21/20 15:29 Calcium 9.3 mg/dL (8.4-10.2) 03/06/20 08:31 Magnesium 2.40 mg/dL (1.7-2.3) H 03/04/20 13:37 Ferritin 1798.0 ng/mL (13.0-400.0) H 03/05/20 04:54 Total Bilirubin 0.60 mg/dL (0.1-1.2) 02/21/20 15:29 AST 31 units/L (5-40) 02/21/20 15:29 ALT 18 units/L (7-56) 02/21/20 15:29 Alkaline Phosphatase 71 units/L (35-129) 02/21/20 15:29 Lactate Dehydrogenase 726 units/L (91-180) H 03/05/20 04:54 C-Reactive Protein 0.10 mg/dL (0.00-1.30) 03/05/20 04:54 Total Protein 7.4 g/dL (6.3-8.2) 02/21/20 15:29 Albumin 3.8 g/dL (3.9-5) L 02/21/20 15:29 Albumin/Globulin Ratio 1.1 % 02/21/20 15:29 Procalcitonin 0.07 ng/mL (<0.15) 03/03/20 04:22 TSH 0.505 mlU/mL (0.270-4.200) 03/05/20 10:19 Free T4 1.59 ng/dL (0.76-1.46) H 03/05/20 10:19 Coronavirus (PCR) Positive (Negative) A 03/06/20 08:08 Hepatitis A IgM Ab Non-reactive (NonReactive) 02/27/20 04:58 Hep Bs Antigen Non-reactive (Negative) 02/27/20 04:58 Hep B Core IgM Ab Non-reactive (NonReactive) 02/27/20 04:58 Hepatitis C Antibody Non-reactive (NonReactive) 02/27/20 04:58 Influenza A (Rapid) Negative (Negative) 02/21/20 16:34 Influenza B (Rapid) Negative (Negative) 02/21/20 16:34 TB (QFT) Gold In Tube See scanned result 02/27/20 09:58 TB Test (QFT) Nil See scanned result 02/27/20 09:58 TB Test Mitogen - Nil See scanned result 02/27/20 09:58 TB Test Antigen - Nil See scanned result 02/27/20 09:58 Rivera/IV: Voiding Method Bedpan IV Catheter Type [Right Upper INT / Saline Lock arm] IV Catheter Type [Right INT / Saline Lock Forearm] IV Catheter Type [Right INT / Saline Lock Antecubital] Active Medications - Current Medications Current Medications: Generic Name Dose Route Start Last Admin Trade Name Freq PRN Reason Stop Dose Admin Acetaminophen 650 mg 02/21/20 16:41 02/26/20 16:53 Tylenol PO 650 mg Q4H PRN Administration Pain MILD(1-3)/Fever >100.5/DELUNA Albuterol 2 puff 02/25/20 10:39 Proair IH Q6HRT PRN Shortness Of Breath Enoxaparin Sodium 130 mg 02/22/20 10:00 03/07/20 09:07 Enoxaparin SUB-Q 130 mg Q24HR SCOT Administration Methylprednisolone Sodium Succinate 20 mg 03/06/20 09:00 03/07/20 06:08 Solu-Medrol IV 20 mg Q8HR SCOT Administration Ondansetron HCl 4 mg 02/21/20 16:41 02/25/20 16:17 Zofran IV 4 mg Q8H PRN Administration Nausea And Vomiting Sodium Chloride 10 ml 02/21/20 22:00 03/07/20 09:09 Sodium Chloride Flush Syringe 10 Ml IV 10 ml BID SCOT Administration Sodium Chloride 10 ml 02/21/20 16:41 03/07/20 06:08 Sodium Chloride Flush Syringe 10 Ml IV 10 ml PRN PRN Administration LINE FLUSH Nutrition/Malnutrition Assess - Dietary Evaluation Nutrition/Malnutrition Findings: Nutrition Notes Start: 02/23/20 09:12 Freq: Status: Active Protocol: Document 03/07/20 11:18 LM (Rec: 03/07/20 11:23 LM [email or web address]) Nutrition Notes Initial or Follow up Reassessment Other Pertinent Diagnosis COVID-19 (+), pneu, ARF Current Diet Regular Labs/Tests Reviewed Pertinent Medications Reviewed Height 5 ft 9 in Weight 75.7 kg [place] Body Weight (kg) 72.72 BMI 24.6 Weight Status Appropriate Subjective/Other Information Pt stated he ate most of his breakfast this AM. Received food preferences from pt. Pt stated he likes Ensure but has not been receiving them. Pt wants to continue receiving Ensure. Percent of energy/protein needs met: 87%/91% (not including ONS) Burn Absent Trauma Absent Current % PO Good (75-100%) Minimum of two criteria No physical signs of malnutrition #1 Nutrition Diagnosis Inadequate oral intake Diagnosis Progress(for reassessment Resolved documentation) Is patient on ventilator? No Is Patient Ambulatory and/or Out of Bed Yes REE-([facility]-ambulatory/OOB) [ 2010.594 [id number]] Calculation Used for Recommendations [facility] Additional Notes Protein: 72-86g (1-1.2g/kg) Fluid: 1 ml/kcal Nutrition Intervention Change Diet Order: Continue regular diet Add Supplement/Snack (indicate name/kcal Ensure Enlive [place] daily /protein ) Provides kCal: 350 Provides Protein (gm) 20 Goal #1 Meet at least 75% of energy and protein needs Anticipated Discharge Needs: Regular diet Revisit per MD consult or patient Sign Off request:
--- NOTE | 2020-03-07 14:02 | Progress Note ---
Assessment and Plan Cultures: 02/21/2020 blood culture: no growth 02/23/2020 blood culture: no growth A/P: 64/M with subjective fever, loss of appetite, weakness, headaches along with cough and shortness of breath for a week prior to admission #Severe bilateral pneumonia secondary to COVID-19: Completed 5 days of Plaquenil. S/P Actemra 02/26/2020. Started steroid trial on 02/27/2020 #Acute hypoxic respiratory failure: Requiring oxygen. On nasal cannula 6 L/min Recs: Continue vitamin C 1.5 g IV q6h Steroid taper starting today per pulmonary. continue with weight based anticoagulation/LMWH prophylaxis continue to encourage lying in prone position if patient is able to tolerate recheck markers every 48 hours: CRP, d-dimer, Ferritin, LDH - improved. Markers are improved, O2 requirements are improved. Will hold off on repeat dose of Actemra for now. continue supportive care Santy Ortiz MD [facility] ([facility]) M: [phone] O: [phone] F: [phone] Subjective Date of service: 03/07/20 Principal diagnosis: COVID Interval history: Afebrile with a normal white count. Now on nasal cannula at 7 L/min Objective - Exam Narrative Exam: Constitutional: alert talking on HFO2 Head, Ears, Nose: limited due to PPE conservation strategy Eyes: limited due to PPE conservation strategy Neck: limited due to PPE conservation strategy Oral: limited due to PPE conservation strategy Cardiovascular: limited due to PPE conservation strategy Respiratory: diminished per RT GI: limited due to PPE conservation strategy Musculoskeletal: limited due to PPE conservation strategy Skin: limited due to PPE conservation strategy Hem/Lymphatic: limited due to PPE conservation strategy Psych: limited due to PPE conservation strategy Neurological: limited due to PPE conservation strategy - Constitutional Vitals: Vital Signs Temp Pulse Resp BP Pulse Ox 97.8 F 85 18 105/69 95 03/07/20 11:26 03/07/20 11:26 03/07/20 11:26 03/07/20 11:26 03/07/20 11:26 Temperature -Last 24 Hours Temperature 97.8 F Temperature 98.2 F Temperature 97.9 F Temperature 97.5 F - Labs CBC & Chem 7: 03/05/20 04:54 03/06/20 08:31
[2020-03-08] MEDS: methylPREDNISolone Sod Succinate 40 MG/1 ML INJ IV SCH ×3 (06:07→23:09)
--- NOTE | 2020-03-08 08:01 | Progress Note ---
Assessment and Plan Assessment and plan: 64 YO Male with No PMH presents to ED for evaluation. Pt states that he has experienced subjective fever, loss of appetite, generalized weakness, headache, shortness of breath, both dry and productive cough with production of yellow sputum over the past 1 week with progressively worsening symptoms over the past 3 days. Patient transported to [facility] via private vehicle for further evaluation and care. Patient seen and evaluated in the emergency department. Lab and imaging studies reviewed. Patient found to have temperature of 100.3 F, and pulse oximetry of 86% on room air which is consistent with acute hypoxemic respiratory failure. Patient underwent chest x-ray which revealed bilateral pneumonia which are consistent with suspected CO VID19. Patient admitted to medical floor and treated with pneumonia protocol. Patient also treated with initiation of CO VID19 protocol. Infectious disease service consulted in ED. Patient denies chest pain, palpitations, syncope, trauma, prolonged tr rolanda/immobility, individual/family history of DVT/bleeding/PE/blood clotting disorders, or known ill contacts. No prior admission for review. No medication listed for reconciliation at the time of admission. CXR: worsening Opacities Acute hypoxic respiratory failure due to COVID-19 pneumonia Bilateral pneumonia secondary to COVID-19 COVID-19 viral infection confirmed, completed 5 days of plaquenil, 1 dose of Actemra given 02/25 Sepsis syndrome, poa due to above NSVT-resolved Hypotension Acute hypoxic respiratory failure with pulse oximetry of 86% on room air Elevated d-dimer Headache Leukopenia- Resolved Plan 02/28/20: Day 7, my first day with patient and he looks ill but is trying to move around, he was in the prone position overnight which did help some; he is on 100% high flow. I spoke with cousin, Derrick Ray [phone] who is NOK in EMR. Patient has a son who is estranged per Derrick, Stressed the importance of Incentive spirometry 02/29/20: More tachypneic today, continue IV steroids day 2/7 then oral taper. Patient not doing Incentive spirometry correctly, I showed him how to do it correctly. He is trying. I called his cousin Derrick for update, left message. 03/01/20: Doing slightly better, able to hold his breath for 20 seconds, still doing poorly on Incentive spirometry, still on 100% High Flow, Inflammatory markers at up. He received Actmera 5 days ago, on day 4 of IV steroids. I called his cousin Derrick for update, no answer, no messgae left. 03/02/20: still on 100% fiO2 High flow, trying to do Incentive spirometry, advise to get in prone position. 03/03/20: on 95% high flow, still doing poorly on Incentive spirometry but trying, still not in prone position, counseling done. Mixed picture with inflammatory markers as d-dimer/LDH increasing but Ferritin/CRP decreasing. 03/04/20: on 95% high flow and O2 sat 95%, have asked Respiratory to try to wean down FiO2. Inflammatory marker tomorrow. 11 beat run of VTach. I will check bmp, magnesium, I will give IV mag/potassium and consult Cardiology 03/05/20: down to 90% high flow, we practiced the Inspirative spirometry, RTherapist at bedside, patient able to hold breath for 20 secords, still very difficult but he feels better. Still very weak. Inflammatory markers are improved. d/w Cardiology regarding NSVT. d/w Case management, hopefully d/c to LTACH if facility approved, I believe patient insurance has approved LTACH. Needs slow steroid taper per ID. 03/06: Over the past few days appears the patient has been weaning on steroids. Lasix has already been given to help improve oxygenation and aeration of the chest x-ray. Will obtain repeat electrolytes today and possibly repeat Lasix. I have also ordered a repeat coronavirus test as this is a requirement for the LTAC to be able to accept this patient, if repeat study comes back negative. Pulmonary weaning steroids and input is noted. ID input is noted. Cardiology input noted 03/07: Now weaned off high flow now on nasal cannula although desats when nasal cannula is off I believe today he desatted to 72% on room air. Encouraged to use oxygen encouraged to continue prone in position. Also encouraged patient to use incentive spirometer. We will continue to monitor repeat test for ambreen navirus was positive. 03/08 will await o2 sat today, additional Lasix being given today. Continue to encourage sitting up. Incentive spirometer. Prone positioning. Anticipate discharge on oxygen once oxygen demand is less than 3. History Interval history: Patient seen and examined has been weaned off of high flow although patient nursing staff patient not motivated to be active. Appears much upbeat today. He denies any depression. He is always very thankful with our visit. Hospitalist Physical - Physical exam Narrative exam: VITAL SIGNS: Reviewed. GENERAL: The patient appears normally developed, sitting up. Vital signs as documented. HEAD: No signs of head trauma. EYES: Pupils are equal. Extraocular motions intact. EARS: Hearing grossly intact. MOUTH: Oropharynx is normal. NECK: No adenopathy, no JVD. CHEST: Chest with diminished breath sounds bilaterally. No wheezes, rales, or rhonchi. CARDIAC: Regular rate and rhythm. S1 and S2, without murmurs, gallops, or rubs. VASCULAR: No Edema. Peripheral pulses normal and equal in all extremities. ABDOMEN: Soft, non tender and non distended. No rebound or guarding, and no masses palpated. Bowel Sounds normal. MUSCULOSKELETAL: Good range of motion of all major joints. Extremities without clubbing, cyanosis or edema. NEUROLOGIC EXAM: Awake and oriented x 3 No focal sensory or strength deficits. Speech normal. Follows commands. PSYCHIATRIC: Mood calm SKIN: detail exam as documented in skin assessment - Constitutional Vitals: Temp Pulse Resp BP Pulse Ox 97.0 F L 73 46 H 97/72 92 03/08/20 06:22 03/08/20 06:22 03/08/20 06:22 03/08/20 06:22 03/08/20 06:22 General appearance: Absent: mild distress Results - Labs CBC & Chem 7: 03/05/20 04:54 03/06/20 08:31 Labs: Laboratory Last Values WBC 9.7 K/mm3 (4.5-11.0) 03/05/20 04:54 RBC 5.56 M/mm3 (3.65-5.03) H 03/05/20 04:54 Hgb 15.7 gm/dl (11.8-15.2) H 03/05/20 04:54 Hct 46.8 % (35.5-45.6) H 03/05/20 04:54 MCV 84 fl (84-94) 03/05/20 04:54 MCH 28 pg (28-32) 03/05/20 04:54 MCHC 34 % (32-34) 03/05/20 04:54 RDW 13.7 % (13.2-15.2) 03/05/20 04:54 Plt Count 393 K/mm3 (140-440) 03/05/20 04:54 Lymph % (Auto) 18.1 % (13.4-35.0) 02/22/20 04:04 [place] % (Auto) 10.5 % (0.0-7.3) H 02/22/20 04:04 Eos % (Auto) 0.4 % (0.0-4.3) 02/22/20 04:04 Baso % (Auto) 0.9 % (0.0-1.8) 02/22/20 04:04 Lymph # 0.7 K/mm3 (1.2-5.4) L 02/22/20 04:04 [place] # 0.4 K/mm3 (0.0-0.8) 02/22/20 04:04 Eos # 0.0 K/mm3 (0.0-0.4) 02/22/20 04:04 Baso # 0.0 K/mm3 (0.0-0.1) 02/22/20 04:04 Add Manual Diff Complete 02/29/20 11:24 Total Counted 100 02/29/20 11:24 Seg Neutrophils % Epic Kaleidoscope Analyst 02/29/20 11:24 Seg Neuts % (Manual) 93.0 % (40.0-70.0) H 02/29/20 11:24 Band Neutrophils % 2.0 % 02/29/20 11:24 Lymphocytes % (Manual) 2.0 % (13.4-35.0) L 02/29/20 11:24 Reactive Lymphs % (Man) 0 % 02/29/20 11:24 Monocytes % (Manual) 3.0 % (0.0-7.3) 02/29/20 11:24 Eosinophils % (Manual) 0 % (0.0-4.3) 02/29/20 11:24 Basophils % (Manual) 0 % (0.0-1.8) 02/29/20 11:24 Metamyelocytes % 0 % 02/29/20 11:24 Myelocytes % 0 % 02/29/20 11:24 Promyelocytes % 0 % 02/29/20 11:24 Blast Cells % 0 % 02/29/20 11:24 Nucleated RBC % Not Reportable 02/29/20 11:24 Seg Neutrophils # 2.8 K/mm3 (1.8-7.7) 02/22/20 04:04 Seg Neutrophils # Man 6.0 K/mm3 (1.8-7.7) 02/29/20 11:24 Band Neutrophils # 0.1 K/mm3 02/29/20 11:24 Lymphocytes # (Manual) 0.1 K/mm3 (1.2-5.4) L 02/29/20 11:24 Abs React Lymphs (Man) 0.0 K/mm3 02/29/20 11:24 Monocytes # (Manual) 0.2 K/mm3 (0.0-0.8) 02/29/20 11:24 Eosinophils # (Manual) 0.0 K/mm3 (0.0-0.4) 02/29/20 11:24 Basophils # (Manual) 0.0 K/mm3 (0.0-0.1) 02/29/20 11:24 Metamyelocytes # 0.0 K/mm3 02/29/20 11:24 Myelocytes # 0.0 K/mm3 02/29/20 11:24 Promyelocytes # 0.0 K/mm3 02/29/20 11:24 Blast Cells # 0.0 K/mm3 02/29/20 11:24 WBC Morphology Not Reportable 02/29/20 11:24 Hypersegmented Neuts Not Reportable 02/29/20 11:24 Hyposegmented Neuts Not Reportable 02/29/20 11:24 Hypogranular Neuts Not Reportable 02/29/20 11:24 Smudge Cells Not Reportable 02/29/20 11:24 Toxic Granulation Not Reportable 02/29/20 11:24 Toxic Vacuolation Not Reportable 02/29/20 11:24 Dohle Bodies Not Reportable 02/29/20 11:24 Pelger-Huet Anomaly Not Reportable 02/29/20 11:24 Kana Rods Not Reportable 02/29/20 11:24 Platelet Estimate Consistent w auto 02/29/20 11:24 Clumped Platelets Rare 02/29/20 11:24 Plt Clumps, EDTA Not Reportable 02/29/20 11:24 Large Platelets Not Reportable 02/29/20 11:24 Giant Platelets Not Reportable 02/29/20 11:24 Platelet Satelliting Not Reportable 02/29/20 11:24 Plt Morphology Comment Not Reportable 02/29/20 11:24 RBC Morphology Normal 02/29/20 11:24 Dimorphic RBCs Not Reportable 02/29/20 11:24 Polychromasia Not Reportable 02/29/20 11:24 Hypochromasia Not Reportable 02/29/20 11:24 Poikilocytosis Not Reportable 02/29/20 11:24 Anisocytosis Not Reportable 02/29/20 11:24 Microcytosis Not Reportable 02/29/20 11:24 Macrocytosis Not Reportable 02/29/20 11:24 Spherocytes Not Reportable 02/29/20 11:24 Pappenheimer Bodies Not Reportable 02/29/20 11:24 Sickle Cells Not Reportable 02/29/20 11:24 Target Cells Not Reportable 02/29/20 11:24 Tear Drop Cells Not Reportable 02/29/20 11:24 Ovalocytes Not Reportable 02/29/20 11:24 Helmet Cells Not Reportable 02/29/20 11:24 Carpio-Oolitic Bodies Not Reportable 02/29/20 11:[address] [place] Rings Not Reportable 02/29/20 11:24 Elijah Cells Not Reportable 02/29/20 11:24 Bite Cells Not Reportable 02/29/20 11:24 Crenated Cell Not Reportable 02/29/20 11:24 Elliptocytes Not Reportable 02/29/20 11:24 Acanthocytes (Spur) Not Reportable 02/29/20 11:24 Rouleaux Not Reportable 02/29/20 11:24 Hemoglobin C Crystals Not Reportable 02/29/20 11:24 Schistocytes Not Reportable 02/29/20 11:24 Malaria parasites Not Reportable 02/29/20 11:24 Martín Bodies Not Reportable 02/29/20 11:24 Hem Pathologist Commnt No 02/29/20 11:24 D-Dimer 1964.52 ng/mlDDU (0-234) H 03/05/20 04:54 Sodium 141 mmol/L (137-145) 03/06/20 08:31 Potassium 4.9 mmol/L (3.6-5.0) 03/06/20 08:31 Chloride 98.0 mmol/L (98-107) 03/06/20 08:31 Carbon Dioxide 35 mmol/L (22-30) H 03/06/20 08:31 Anion Gap 13 mmol/L 03/06/20 08:31 BUN 26 mg/dL (9-20) H 03/06/20 08:31 Creatinine 0.7 mg/dL (0.8-1.5) L 03/06/20 08:31 Estimated GFR > 60 ml/min 03/06/20 08:31 BUN/Creatinine Ratio 37 % 03/06/20 08:31 Glucose 117 mg/dL (75-100) H 03/06/20 08:31 POC Glucose 120 (70-105) H 02/28/20 11:32 Lactic Acid 1.80 mmol/L (0.7-2.0) 02/21/20 15:29 Calcium 9.3 mg/dL (8.4-10.2) 03/06/20 08:31 Magnesium 2.40 mg/dL (1.7-2.3) H 03/04/20 13:37 Ferritin 1798.0 ng/mL (13.0-400.0) H 03/05/20 04:54 Total Bilirubin 0.60 mg/dL (0.1-1.2) 02/21/20 15:29 AST 31 units/L (5-40) 02/21/20 15:29 ALT 18 units/L (7-56) 02/21/20 15:29 Alkaline Phosphatase 71 units/L (35-129) 02/21/20 15:29 Lactate Dehydrogenase 726 units/L (91-180) H 03/05/20 04:54 C-Reactive Protein 0.10 mg/dL (0.00-1.30) 03/05/20 04:54 Total Protein 7.4 g/dL (6.3-8.2) 02/21/20 15:29 Albumin 3.8 g/dL (3.9-5) L 02/21/20 15:29 Albumin/Globulin Ratio 1.1 % 02/21/20 15:29 Procalcitonin 0.07 ng/mL (<0.15) 03/03/20 04:22 TSH 0.505 mlU/mL (0.270-4.200) 03/05/20 10:19 Free T4 1.59 ng/dL (0.76-1.46) H 03/05/20 10:19 Coronavirus (PCR) Positive (Negative) A 03/06/20 08:08 Hepatitis A IgM Ab Non-reactive (NonReactive) 02/27/20 04:58 Hep Bs Antigen Non-reactive (Negative) 02/27/20 04:58 Hep B Core IgM Ab Non-reactive (NonReactive) 02/27/20 04:58 Hepatitis C Antibody Non-reactive (NonReactive) 02/27/20 04:58 Influenza A (Rapid) Negative (Negative) 02/21/20 16:34 Influenza B (Rapid) Negative (Negative) 02/21/20 16:34 TB (QFT) Gold In Tube See scanned result 02/27/20 09:58 TB Test (QFT) Nil See scanned result 02/27/20 09:58 TB Test Mitogen - Nil See scanned result 02/27/20 09:58 TB Test Antigen - Nil See scanned result 02/27/20 09:58 Rivera/IV: Voiding Method Urinal IV Catheter Type [Right Upper INT / Saline Lock arm] IV Catheter Type [Right INT / Saline Lock Forearm] IV Catheter Type [Right INT / Saline Lock Antecubital] Active Medications - Current Medications Current Medications: Generic Name Dose Route Start Last Admin Trade Name Freq PRN Reason Stop Dose Admin Acetaminophen 650 mg 02/21/20 16:41 02/26/20 16:53 Tylenol PO 650 mg Q4H PRN Administration Pain MILD(1-3)/Fever >100.5/DELUNA Albuterol 2 puff 02/25/20 10:39 Proair IH Q6HRT PRN Shortness Of Breath Enoxaparin Sodium 130 mg 02/22/20 10:00 03/07/20 09:07 Enoxaparin SUB-Q 130 mg Q24HR SCOT Administration Methylprednisolone Sodium Succinate 20 mg 03/06/20 09:00 03/08/20 06:07 Solu-Medrol IV 20 mg Q8HR SCOT Administration Ondansetron HCl 4 mg 02/21/20 16:41 02/25/20 16:17 Zofran IV 4 mg Q8H PRN Administration Nausea And Vomiting Sodium Chloride 10 ml 02/21/20 22:00 03/07/20 22:34 Sodium Chloride Flush Syringe 10 Ml IV 10 ml BID SCOT Administration Sodium Chloride 10 ml 02/21/20 16:41 03/08/20 06:08 Sodium Chloride Flush Syringe 10 Ml IV 10 ml PRN PRN Administration LINE FLUSH Nutrition/Malnutrition Assess - Dietary Evaluation Nutrition/Malnutrition Findings: Nutrition Notes Start: 02/23/20 09:12 Freq: Status: Active Protocol: Document 03/07/20 11:18 LM (Rec: 03/07/20 11:23 LM [id number]) Nutrition Notes Initial or Follow up Reassessment Other Pertinent Diagnosis COVID-19 (+), pneu, ARF Current Diet Regular Labs/Tests Reviewed Pertinent Medications Reviewed Height 5 ft 9 in Weight 75.7 kg [place] Body Weight (kg) 72.72 BMI 24.6 Weight Status Appropriate Subjective/Other Information Pt stated he ate most of his breakfast this AM. Received food preferences from pt. Pt stated he likes Ensure but has not been receiving them. Pt wants to continue receiving Ensure. Percent of energy/protein needs met: 87%/91% (not including ONS) Burn Absent Trauma Absent Current % PO Good (75-100%) Minimum of two criteria No physical signs of malnutrition #1 Nutrition Diagnosis Inadequate oral intake Diagnosis Progress(for reassessment Resolved documentation) Is patient on ventilator? No Is Patient Ambulatory and/or Out of Bed Yes REE-([facility]-ambulatory/OOB) [ 2011.594 [id number]] Calculation Used for Recommendations [facility] Additional Notes Protein: 72-86g (1-1.2g/kg) Fluid: 1 ml/kcal Nutrition Intervention Change Diet Order: Continue regular diet Add Supplement/Snack (indicate name/kcal Ensure Enlive [place] daily /protein ) Provides kCal: 350 Provides Protein (gm) 20 Goal #1 Meet at least 75% of energy and protein needs Anticipated Discharge Needs: Regular diet Revisit per MD consult or patient Sign Off request:
[2020-03-08] MEDS: ENOXAPARIN 150 MG/1 ML INJ SUB-Q SCH (10:36)
[2020-03-08] MEDS ORDERED: FUROSEMIDE 20 MG/2 ML INJ IV SCH (12:30)
--- NOTE | 2020-03-08 12:30 | Progress Note ---
Assessment and Plan 64 y/o male with COVID 19 positive pneumonia and no other prior medical history. 1. COVID positive 2. Now nasal cannula. Got Actemra 10 days ago. Continue HFNC, if work of breathing increases or unable to maintain adequate sats on HFNC, then will consider intubation. Would ask that patient prone himself, multiple times during the day shift and sleep proned at night. Continue steroids at current dosing. 3. Reviewed I/O, will given IV lasix today, 20. 4. Reviewed ID note. 5. Rpt Uman[place] PCR was positive done on yesterday. Guarded prognosis Subjective Date of service: 03/08/20 Principal diagnosis: COVID Interval history: No acute events. RT attempted to wean to 3 liters but sat was only 87%. On 5, sats are good. Objective Vital Signs - 12hr 03/08/20 03/08/20 06:22 09:40 Temperature 97.0 F L Pulse Rate 73 Respiratory 46 H Rate Blood Pressure 97/72 O2 Sat by Pulse 92 90 Oximetry Constitutional: no acute distress Eyes: non-icteric Ascultation: Bilateral: diminished breath sounds Cardiovascular: regular rate and rhythm Gastrointestinal: normoactive bowel sounds CBC and BMP: 03/05/20 04:54 03/06/20 08:31 ABG, PT/INR, D-dimer: PT/INR, D-dimer D-Dimer 1964.52 ng/mlDDU (0-234) H 03/05/20 04:54 Abnormal lab findings: Abnormal Labs 02/21/20 02/21/20 02/21/20 15:29 15:29 15:29 WBC 3.7 L RBC 5.62 H Hgb 16.5 H Hct 47.5 H MCV MCHC 35 H Plt Count [place] % (Auto) 8.9 H Lymph # 0.6 L Seg Neutrophils % 72.3 H Seg Neuts % (Manual) Lymphocytes % (Manual) Lymphocytes # (Manual) D-Dimer 5638.87 H Sodium 136 L Potassium Chloride 96.2 L Carbon Dioxide 20 L BUN 22 H Creatinine Glucose 124 H POC Glucose Calcium Magnesium Ferritin Lactate Dehydrogenase C-Reactive Protein Albumin 3.8 L Free T4 Coronavirus (PCR) 02/21/20 02/21/20 02/22/20 15:29 15:29 04:04 WBC 3.9 L RBC 5.47 H Hgb 15.8 H Hct MCV 83 L MCHC 35 H Plt Count [place] % (Auto) 10.5 H Lymph # 0.7 L Seg Neutrophils % 70.1 H Seg Neuts % (Manual) Lymphocytes % (Manual) Lymphocytes # (Manual) D-Dimer Sodium Potassium Chloride Carbon Dioxide BUN Creatinine Glucose POC Glucose Calcium Magnesium Ferritin 1484.0 H Lactate Dehydrogenase 486 H C-Reactive Protein 4.40 H Albumin Free T4 Coronavirus (PCR) 02/22/20 02/22/20 02/23/20 04:04 11:23 05:02 WBC 3.3 L RBC 5.19 H Hgb Hct MCV MCHC 35 H Plt Count [place] % (Auto) Lymph # Seg Neutrophils % Seg Neuts % (Manual) Lymphocytes % (Manual) Lymphocytes # (Manual) D-Dimer Sodium Potassium Chloride Carbon Dioxide BUN Creatinine Glucose 114 H POC Glucose Calcium 8.3 L Magnesium Ferritin Lactate Dehydrogenase C-Reactive Protein Albumin Free T4 Coronavirus (PCR) Positive A 02/23/20 02/23/20 02/23/20 05:02 05:02 05:02 WBC RBC Hgb Hct MCV MCHC Plt Count [place] % (Auto) Lymph # Seg Neutrophils % Seg Neuts % (Manual) Lymphocytes % (Manual) Lymphocytes # (Manual) D-Dimer 2109.52 H Sodium Potassium Chloride Carbon Dioxide BUN Creatinine Glucose POC Glucose Calcium Magnesium Ferritin 1571.0 H Lactate Dehydrogenase 531 H C-Reactive Protein 6.40 H Albumin Free T4 Coronavirus (PCR) 02/25/20 02/25/20 02/25/20 04:20 04:20 04:20 WBC RBC Hgb Hct MCV MCHC Plt Count [place] % (Auto) Lymph # Seg Neutrophils % Seg Neuts % (Manual) Lymphocytes % (Manual) Lymphocytes # (Manual) D-Dimer 1422.33 H Sodium Potassium Chloride Carbon Dioxide BUN Creatinine Glucose POC Glucose Calcium Magnesium Ferritin 2172.0 H Lactate Dehydrogenase 594 H C-Reactive Protein 8.70 H Albumin Free T4 Coronavirus (PCR) 02/27/20 02/27/20 02/27/20 04:58 04:58 04:58 WBC RBC Hgb Hct MCV MCHC Plt Count [place] % (Auto) Lymph # Seg Neutrophils % Seg Neuts % (Manual) Lymphocytes % (Manual) Lymphocytes # (Manual) D-Dimer 1111.97 H Sodium 134 L Potassium Chloride Carbon Dioxide 18 L BUN 24 H Creatinine Glucose 107 H POC Glucose Calcium Magnesium Ferritin 3392.0 H Lactate Dehydrogenase 681 H C-Reactive Protein 9.70 H Albumin Free T4 Coronavirus (PCR) 02/27/20 02/28/20 02/28/20 04:58 07:47 11:32 WBC 2.1 L RBC 5.19 H Hgb Hct MCV MCHC Plt Count [place] % (Auto) Lymph # Seg Neutrophils % Seg Neuts % (Manual) Lymphocytes % (Manual) Lymphocytes # (Manual) D-Dimer Sodium Potassium Chloride Carbon Dioxide BUN Creatinine Glucose POC Glucose 130 H 120 H Calcium Magnesium Ferritin Lactate Dehydrogenase C-Reactive Protein Albumin Free T4 Coronavirus (PCR) 02/29/20 02/29/20 02/29/20 11:24 11:24 11:24 WBC RBC 6.47 H Hgb 18.3 H D Hct 53.8 H D MCV 83 L MCHC Plt Count 544 H [place] % (Auto) Lymph # Seg Neutrophils % Seg Neuts % (Manual) 93.0 H Lymphocytes % (Manual) 2.0 L Lymphocytes # (Manual) 0.1 L D-Dimer 1464.27 H Sodium Potassium Chloride Carbon Dioxide BUN Creatinine Glucose POC Glucose Calcium Magnesium Ferritin Lactate Dehydrogenase 822 H C-Reactive Protein Albumin Free T4 Coronavirus (PCR) 02/29/20 03/03/20 03/03/20 11:24 04:22 04:22 WBC RBC Hgb Hct MCV MCHC Plt Count [place] % (Auto) Lymph # Seg Neutrophils % Seg Neuts % (Manual) Lymphocytes % (Manual) Lymphocytes # (Manual) D-Dimer 3769.82 H Sodium Potassium Chloride Carbon Dioxide BUN Creatinine Glucose POC Glucose Calcium Magnesium Ferritin 4163.0 H 2491.0 H Lactate Dehydrogenase C-Reactive Protein Albumin Free T4 Coronavirus (PCR) 03/03/20 03/04/20 03/05/20 04:22 13:37 04:54 WBC RBC Hgb Hct MCV MCHC Plt Count [place] % (Auto) Lymph # Seg Neutrophils % Seg Neuts % (Manual) Lymphocytes % (Manual) Lymphocytes # (Manual) D-Dimer 1964.52 H Sodium Potassium 5.6 H Chloride Carbon Dioxide BUN 26 H Creatinine Glucose 195 H POC Glucose Calcium Magnesium 2.40 H Ferritin Lactate Dehydrogenase 938 H C-Reactive Protein Albumin Free T4 Coronavirus (PCR) 03/05/20 03/05/20 03/05/20 04:54 04:54 04:54 WBC RBC 5.56 H Hgb 15.7 H Hct 46.8 H MCV MCHC Plt Count [place] % (Auto) Lymph # Seg Neutrophils % Seg Neuts % (Manual) Lymphocytes % (Manual) Lymphocytes # (Manual) D-Dimer Sodium Potassium Chloride 97.9 L Carbon Dioxide 32 H BUN 21 H Creatinine 0.7 L Glucose 155 H POC Glucose Calcium Magnesium Ferritin 1798.0 H Lactate Dehydrogenase 726 H C-Reactive Protein Albumin Free T4 Coronavirus (PCR) 03/05/20 03/06/20 03/06/20 10:19 08:08 08:31 WBC RBC Hgb Hct MCV MCHC Plt Count [place] % (Auto) Lymph # Seg Neutrophils % Seg Neuts % (Manual) Lymphocytes % (Manual) Lymphocytes # (Manual) D-Dimer Sodium Potassium Chloride Carbon Dioxide 35 H BUN 26 H Creatinine 0.7 L Glucose 117 H POC Glucose Calcium Magnesium Ferritin Lactate Dehydrogenase C-Reactive Protein Albumin Free T4 1.59 H Coronavirus (PCR) Positive A
--- NOTE | 2020-03-08 14:25 | Progress Note ---
Assessment and Plan Cultures: 02/21/2020 blood culture: no growth 02/23/2020 blood culture: no growth A/P: 64/M with subjective fever, loss of appetite, weakness, headaches along with cough and shortness of breath for a week prior to admission #Severe bilateral pneumonia secondary to COVID-19: Completed 5 days of Plaquenil. S/P Actemra 02/26/2020. Started steroid trial on 02/27/2020 #Acute hypoxic respiratory failure: Requiring oxygen. On nasal cannula 5 L/min Recs: Continue vitamin C 1.5 g IV q6h Steroid taper starting today per pulmonary. continue with weight based anticoagulation/LMWH prophylaxis continue to encourage lying in prone position if patient is able to tolerate recheck markers every 48 hours: CRP, d-dimer, Ferritin, LDH - improved. Markers are improved, O2 requirements are improved OK dfor DC from ID perspective when stable from a respiratory standpoint. Santy Ortiz MD [facility] ([facility]) M: [phone] O: [phone] F: [phone] Subjective Date of service: 03/08/20 Principal diagnosis: COVID Interval history: Afebrile with a normal white count. Now on nasal cannula at 5 L/min Objective - Exam Narrative Exam: Constitutional: alert talking on HFO2 Head, Ears, Nose: limited due to PPE conservation strategy Eyes: limited due to PPE conservation strategy Neck: limited due to PPE conservation strategy Oral: limited due to PPE conservation strategy Cardiovascular: limited due to PPE conservation strategy Respiratory: diminished per RT GI: limited due to PPE conservation strategy Musculoskeletal: limited due to PPE conservation strategy Skin: limited due to PPE conservation strategy Hem/Lymphatic: limited due to PPE conservation strategy Psych: limited due to PPE conservation strategy Neurological: limited due to PPE conservation strategy - Constitutional Vitals: Vital Signs Temp Pulse Resp BP Pulse Ox 99.3 F 89 18 106/68 95 03/08/20 11:27 03/08/20 11:27 03/08/20 11:27 03/08/20 11:27 03/08/20 11:27 Temperature -Last 24 Hours Temperature 99.3 F Temperature 97.0 F Temperature 97.4 F Temperature 97.6 F - Labs CBC & Chem 7: 03/05/20 04:54 03/06/20 08:31
[2020-03-08] MEDS ORDERED: FUROSEMIDE 40 MG/4 ML INJ IV STA (17:52)
[2020-03-09] MEDS: methylPREDNISolone Sod Succinate 40 MG/1 ML INJ IV SCH ×3 (05:27→21:51)
[2020-03-09] MEDS: ENOXAPARIN 150 MG/1 ML INJ SUB-Q SCH (09:37)
--- NOTE | 2020-03-09 11:11 | Progress Note ---
Assessment and Plan 64 y/o male with COVID 19 positive pneumonia and no other prior medical history. 1. COVID positive 2. Now nasal cannula. Got Actemra 11 days ago. Would ask that patient prone himself, multiple times during the day shift and sleep proned at night. Continue steroids at current dosing. 3. Reviewed I/O, negative from yesterday but no labs checked. Please check chemistry if patient still here over the weekend. May need another dose of lasix. 4. Reviewed ID note. Appreciate their recs. They are ok with discharge. If home oxygen therapy can be arranged, ok with discharge as well. We can follow up in office and wean further if not able to get lower. He still will need walk test to determine the amount of O2 needed with exertion. Guarded prognosis Subjective Date of service: 03/09/20 Principal diagnosis: COVID Interval history: Remains on 5 liters NC. O2 sats from this am are good but no documentation yet from RT in regards to weaning. No fevers. Objective Vital Signs - 12hr 03/09/20 04:38 Temperature 98.2 F Pulse Rate 64 Respiratory 20 Rate Blood Pressure 93/59 O2 Sat by Pulse 96 Oximetry Constitutional: no acute distress Eyes: non-icteric Ascultation: Bilateral: diminished breath sounds Cardiovascular: regular rate and rhythm Gastrointestinal: normoactive bowel sounds CBC and BMP: 03/05/20 04:54 03/06/20 08:31 ABG, PT/INR, D-dimer: PT/INR, D-dimer D-Dimer 1964.52 ng/mlDDU (0-234) H 03/05/20 04:54 Abnormal lab findings: Abnormal Labs 02/21/20 02/21/20 02/21/20 15:29 15:29 15:29 WBC 3.7 L RBC 5.62 H Hgb 16.5 H Hct 47.5 H MCV MCHC 35 H Plt Count [place] % (Auto) 8.9 H Lymph # 0.6 L Seg Neutrophils % 72.3 H Seg Neuts % (Manual) Lymphocytes % (Manual) Lymphocytes # (Manual) D-Dimer 5638.87 H Sodium 136 L Potassium Chloride 96.2 L Carbon Dioxide 20 L BUN 22 H Creatinine Glucose 124 H POC Glucose Calcium Magnesium Ferritin Lactate Dehydrogenase C-Reactive Protein Albumin 3.8 L Free T4 Coronavirus (PCR) 02/21/20 02/21/20 02/22/20 15:29 15:29 04:04 WBC 3.9 L RBC 5.47 H Hgb 15.8 H Hct MCV 83 L MCHC 35 H Plt Count [place] % (Auto) 10.5 H Lymph # 0.7 L Seg Neutrophils % 70.1 H Seg Neuts % (Manual) Lymphocytes % (Manual) Lymphocytes # (Manual) D-Dimer Sodium Potassium Chloride Carbon Dioxide BUN Creatinine Glucose POC Glucose Calcium Magnesium Ferritin 1484.0 H Lactate Dehydrogenase 486 H C-Reactive Protein 4.40 H Albumin Free T4 Coronavirus (PCR) 02/22/20 02/22/20 02/23/20 04:04 11:23 05:02 WBC 3.3 L RBC 5.19 H Hgb Hct MCV MCHC 35 H Plt Count [place] % (Auto) Lymph # Seg Neutrophils % Seg Neuts % (Manual) Lymphocytes % (Manual) Lymphocytes # (Manual) D-Dimer Sodium Potassium Chloride Carbon Dioxide BUN Creatinine Glucose 114 H POC Glucose Calcium 8.3 L Magnesium Ferritin Lactate Dehydrogenase C-Reactive Protein Albumin Free T4 Coronavirus (PCR) Positive A 02/23/20 02/23/20 02/23/20 05:02 05:02 05:02 WBC RBC Hgb Hct MCV MCHC Plt Count [place] % (Auto) Lymph # Seg Neutrophils % Seg Neuts % (Manual) Lymphocytes % (Manual) Lymphocytes # (Manual) D-Dimer 2109.52 H Sodium Potassium Chloride Carbon Dioxide BUN Creatinine Glucose POC Glucose Calcium Magnesium Ferritin 1571.0 H Lactate Dehydrogenase 531 H C-Reactive Protein 6.40 H Albumin Free T4 Coronavirus (PCR) 02/25/20 02/25/20 02/25/20 04:20 04:20 04:20 WBC RBC Hgb Hct MCV MCHC Plt Count [place] % (Auto) Lymph # Seg Neutrophils % Seg Neuts % (Manual) Lymphocytes % (Manual) Lymphocytes # (Manual) D-Dimer 1422.33 H Sodium Potassium Chloride Carbon Dioxide BUN Creatinine Glucose POC Glucose Calcium Magnesium Ferritin 2172.0 H Lactate Dehydrogenase 594 H C-Reactive Protein 8.70 H Albumin Free T4 Coronavirus (PCR) 02/27/20 02/27/20 02/27/20 04:58 04:58 04:58 WBC RBC Hgb Hct MCV MCHC Plt Count [place] % (Auto) Lymph # Seg Neutrophils % Seg Neuts % (Manual) Lymphocytes % (Manual) Lymphocytes # (Manual) D-Dimer 1111.97 H Sodium 134 L Potassium Chloride Carbon Dioxide 18 L BUN 24 H Creatinine Glucose 107 H POC Glucose Calcium Magnesium Ferritin 3392.0 H Lactate Dehydrogenase 681 H C-Reactive Protein 9.70 H Albumin Free T4 Coronavirus (PCR) 02/27/20 02/28/20 02/28/20 04:58 07:47 11:32 WBC 2.1 L RBC 5.19 H Hgb Hct MCV MCHC Plt Count [place] % (Auto) Lymph # Seg Neutrophils % Seg Neuts % (Manual) Lymphocytes % (Manual) Lymphocytes # (Manual) D-Dimer Sodium Potassium Chloride Carbon Dioxide BUN Creatinine Glucose POC Glucose 130 H 120 H Calcium Magnesium Ferritin Lactate Dehydrogenase C-Reactive Protein Albumin Free T4 Coronavirus (PCR) 02/29/20 02/29/20 02/29/20 11:24 11:24 11:24 WBC RBC 6.47 H Hgb 18.3 H D Hct 53.8 H D MCV 83 L MCHC Plt Count 544 H [place] % (Auto) Lymph # Seg Neutrophils % Seg Neuts % (Manual) 93.0 H Lymphocytes % (Manual) 2.0 L Lymphocytes # (Manual) 0.1 L D-Dimer 1464.27 H Sodium Potassium Chloride Carbon Dioxide BUN Creatinine Glucose POC Glucose Calcium Magnesium Ferritin Lactate Dehydrogenase 822 H C-Reactive Protein Albumin Free T4 Coronavirus (PCR) 02/29/20 03/03/20 03/03/20 11:24 04:22 04:22 WBC RBC Hgb Hct MCV MCHC Plt Count [place] % (Auto) Lymph # Seg Neutrophils % Seg Neuts % (Manual) Lymphocytes % (Manual) Lymphocytes # (Manual) D-Dimer 3769.82 H Sodium Potassium Chloride Carbon Dioxide BUN Creatinine Glucose POC Glucose Calcium Magnesium Ferritin 4163.0 H 2491.0 H Lactate Dehydrogenase C-Reactive Protein Albumin Free T4 Coronavirus (PCR) 03/03/20 03/04/20 03/05/20 04:22 13:37 04:54 WBC RBC Hgb Hct MCV MCHC Plt Count [place] % (Auto) Lymph # Seg Neutrophils % Seg Neuts % (Manual) Lymphocytes % (Manual) Lymphocytes # (Manual) D-Dimer 1964.52 H Sodium Potassium 5.6 H Chloride Carbon Dioxide BUN 26 H Creatinine Glucose 195 H POC Glucose Calcium Magnesium 2.40 H Ferritin Lactate Dehydrogenase 938 H C-Reactive Protein Albumin Free T4 Coronavirus (PCR) 03/05/20 03/05/20 03/05/20 04:54 04:54 04:54 WBC RBC 5.56 H Hgb 15.7 H Hct 46.8 H MCV MCHC Plt Count [place] % (Auto) Lymph # Seg Neutrophils % Seg Neuts % (Manual) Lymphocytes % (Manual) Lymphocytes # (Manual) D-Dimer Sodium Potassium Chloride 97.9 L Carbon Dioxide 32 H BUN 21 H Creatinine 0.7 L Glucose 155 H POC Glucose Calcium Magnesium Ferritin 1798.0 H Lactate Dehydrogenase 726 H C-Reactive Protein Albumin Free T4 Coronavirus (PCR) 03/05/20 03/06/20 03/06/20 10:19 08:08 08:31 WBC RBC Hgb Hct MCV MCHC Plt Count [place] % (Auto) Lymph # Seg Neutrophils % Seg Neuts % (Manual) Lymphocytes % (Manual) Lymphocytes # (Manual) D-Dimer Sodium Potassium Chloride Carbon Dioxide 35 H BUN 26 H Creatinine 0.7 L Glucose 117 H POC Glucose Calcium Magnesium Ferritin Lactate Dehydrogenase C-Reactive Protein Albumin Free T4 1.59 H Coronavirus (PCR) Positive A
--- NOTE | 2020-03-09 13:33 | Progress Note ---
Assessment and Plan Cultures: 02/21/2020 blood culture: no growth 02/23/2020 blood culture: no growth A/P: 64/M with subjective fever, loss of appetite, weakness, headaches along with cough and shortness of breath for a week prior to admission #Severe bilateral pneumonia secondary to COVID-19: Completed 5 days of Plaquenil. S/P Actemra 02/26/2020. Started steroid trial on 02/27/2020 #Acute hypoxic respiratory failure: Requiring oxygen. On nasal cannula 5 L/min Recs: Continue vitamin C 1.5 g IV q6h Steroid taper starting today per pulmonary. continue with weight based anticoagulation/LMWH prophylaxis continue to encourage lying in prone position if patient is able to tolerate recheck markers every 48 hours: CRP, d-dimer, Ferritin, LDH - improved. Markers are improved, O2 requirements are improved OK for DC from ID perspective when stable from a respiratory standpoint. Ok with pulm service as well. Santy Ortiz MD [facility] ([facility]) M: [phone] O: [phone] F: [phone] Subjective Date of service: 03/09/20 Principal diagnosis: COVID Interval history: Afebrile with a normal white count. Nasal cannula at 5 L/min Objective - Exam Narrative Exam: Constitutional: On NC Head, Ears, Nose: limited due to PPE conservation strategy Eyes: limited due to PPE conservation strategy Neck: limited due to PPE conservation strategy Oral: limited due to PPE conservation strategy Cardiovascular: limited due to PPE conservation strategy Respiratory: diminished per RT GI: limited due to PPE conservation strategy Musculoskeletal: limited due to PPE conservation strategy Skin: limited due to PPE conservation strategy Hem/Lymphatic: limited due to PPE conservation strategy Psych: limited due to PPE conservation strategy Neurological: limited due to PPE conservation strategy - Constitutional Vitals: Vital Signs Temp Pulse Resp BP Pulse Ox 98.2 F 87 24 87/47 90 03/09/20 11:28 03/09/20 11:28 03/09/20 11:28 03/09/20 11:28 03/09/20 11:28 Temperature -Last 24 Hours Temperature 98.2 F Temperature 98.2 F Temperature 98.1 F Temperature 99.4 F - Labs CBC & Chem 7: 03/05/20 04:54 03/06/20 08:31
--- NOTE | 2020-03-09 17:25 | Progress Note ---
Assessment and Plan Assessment and plan: 64 YO Male with No PMH presents to ED for evaluation. Pt states that he has experienced subjective fever, loss of appetite, generalized weakness, headache, shortness of breath, both dry and productive cough with production of yellow sputum over the past 1 week with progressively worsening symptoms over the past 3 days. Patient transported to [facility] via private vehicle for further evaluation and care. Patient seen and evaluated in the emergency department. Lab and imaging studies reviewed. Patient found to have temperature of 100.3 F, and pulse oximetry of 86% on room air which is consistent with acute hypoxemic respiratory failure. Patient underwent chest x-ray which revealed bilateral pneumonia which are consistent with suspected CO VID19. Patient admitted to medical floor and treated with pneumonia protocol. Patient also treated with initiation of CO VID19 protocol. Infectious disease service consulted in ED. Patient denies chest pain, palpitations, syncope, trauma, prolonged tr rolanda/immobility, individual/family history of DVT/bleeding/PE/blood clotting disorders, or known ill contacts. No prior admission for review. No medication listed for reconciliation at the time of admission. CXR: worsening Opacities Acute hypoxic respiratory failure due to COVID-19 pneumonia Bilateral pneumonia secondary to COVID-19 COVID-19 viral infection confirmed, completed 5 days of plaquenil, 1 dose of Actemra given 02/25 Sepsis syndrome, poa due to above NSVT-resolved Hypotension Acute hypoxic respiratory failure with pulse oximetry of 86% on room air Elevated d-dimer Headache Leukopenia- Resolved Plan 02/28/20: Day 7, my first day with patient and he looks ill but is trying to move around, he was in the prone position overnight which did help some; he is on 100% high flow. I spoke with cousin, Derrick Ray [phone] who is NOK in EMR. Patient has a son who is estranged per Derrick, Stressed the importance of Incentive spirometry 02/29/20: More tachypneic today, continue IV steroids day 2/7 then oral taper. Patient not doing Incentive spirometry correctly, I showed him how to do it correctly. He is trying. I called his cousin Derrick for update, left message. 03/01/20: Doing slightly better, able to hold his breath for 20 seconds, still doing poorly on Incentive spirometry, still on 100% High Flow, Inflammatory markers at up. He received Actmera 5 days ago, on day 4 of IV steroids. I called his cousin Derrick for update, no answer, no messgae left. 03/02/20: still on 100% fiO2 High flow, trying to do Incentive spirometry, advise to get in prone position. 03/03/20: on 95% high flow, still doing poorly on Incentive spirometry but trying, still not in prone position, counseling done. Mixed picture with inflammatory markers as d-dimer/LDH increasing but Ferritin/CRP decreasing. 03/04/20: on 95% high flow and O2 sat 95%, have asked Respiratory to try to wean down FiO2. Inflammatory marker tomorrow. 11 beat run of VTach. I will check bmp, magnesium, I will give IV mag/potassium and consult Cardiology 03/05/20: down to 90% high flow, we practiced the Inspirative spirometry, RTherapist at bedside, patient able to hold breath for 20 secords, still very difficult but he feels better. Still very weak. Inflammatory markers are improved. d/w Cardiology regarding NSVT. d/w Case management, hopefully d/c to LTACH if facility approved, I believe patient insurance has approved LTACH. Needs slow steroid taper per ID. 03/06: Over the past few days appears the patient has been weaning on steroids. Lasix has already been given to help improve oxygenation and aeration of the chest x-ray. Will obtain repeat electrolytes today and possibly repeat Lasix. I have also ordered a repeat coronavirus test as this is a requirement for the LTAC to be able to accept this patient, if repeat study comes back negative. Pulmonary weaning steroids and input is noted. ID input is noted. Cardiology input noted 03/07: Now weaned off high flow now on nasal cannula although desats when nasal cannula is off I believe today he desatted to 72% on room air. Encouraged to use oxygen encouraged to continue prone in position. Also encouraged patient to use incentive spirometer. We will continue to monitor repeat test for ambreen navirus was positive. 03/08 will await o2 sat today, additional Lasix being given today. Continue to encourage sitting up. Incentive spirometer. Prone positioning. Anticipate discharge on oxygen once oxygen demand is less than 3. 5/: Continue to encourage ambulatory, prone positioning, pulmonary exercises and wean oxygen as tolerated today. Received on the dose of Lasix keep monitoring blood pressures patient has some hypotensive episodes. History Interval history: Patient seen and examined has been weaned off of high flow although patient nursing staff patient not motivated to be active. Appears much upbeat today. He denies any depression. Did not tolerate 3 L of oxygen yesterday. Will try again today. He is always very thankful with our visit. Hospitalist Physical - Physical exam Narrative exam: VITAL SIGNS: Reviewed. GENERAL: The patient appears normally developed, sitting up. Vital signs as documented. HEAD: No signs of head trauma. EYES: Pupils are equal. Extraocular motions intact. EARS: Hearing grossly intact. MOUTH: Oropharynx is normal. NECK: No adenopathy, no JVD. CHEST: Chest with diminished breath sounds bilaterally. No wheezes, rales, or rhonchi. CARDIAC: Regular rate and rhythm. S1 and S2, without murmurs, gallops, or rubs. VASCULAR: No Edema. Peripheral pulses normal and equal in all extremities. ABDOMEN: Soft, non tender and non distended. No rebound or guarding, and no masses palpated. Bowel Sounds normal. MUSCULOSKELETAL: Good range of motion of all major joints. Extremities without clubbing, cyanosis or edema. NEUROLOGIC EXAM: Awake and oriented x 3 No focal sensory or strength deficits. Speech normal. Follows commands. PSYCHIATRIC: Mood calm SKIN: detail exam as documented in skin assessment - Constitutional Vitals: Temp Pulse Resp BP Pulse Ox 98.2 F 87 24 87/47 90 03/09/20 11:28 03/09/20 11:28 03/09/20 11:28 03/09/20 11:28 03/09/20 11:28 General appearance: Absent: mild distress Results - Labs CBC & Chem 7: 03/05/20 04:54 03/10/20 04:13 Labs: Laboratory Last Values WBC 9.7 K/mm3 (4.5-11.0) 03/05/20 04:54 RBC 5.56 M/mm3 (3.65-5.03) H 03/05/20 04:54 Hgb 15.7 gm/dl (11.8-15.2) H 03/05/20 04:54 Hct 46.8 % (35.5-45.6) H 03/05/20 04:54 MCV 84 fl (84-94) 03/05/20 04:54 MCH 28 pg (28-32) 03/05/20 04:54 MCHC 34 % (32-34) 03/05/20 04:54 RDW 13.7 % (13.2-15.2) 03/05/20 04:54 Plt Count 393 K/mm3 (140-440) 03/05/20 04:54 Lymph % (Auto) 18.1 % (13.4-35.0) 02/22/20 04:04 Caldwell % (Auto) 10.5 % (0.0-7.3) H 02/22/20 04:04 Eos % (Auto) 0.4 % (0.0-4.3) 02/22/20 04:04 Baso % (Auto) 0.9 % (0.0-1.8) 02/22/20 04:04 Lymph # 0.7 K/mm3 (1.2-5.4) L 02/22/20 04:04 Caldwell # 0.4 K/mm3 (0.0-0.8) 02/22/20 04:04 Eos # 0.0 K/mm3 (0.0-0.4) 02/22/20 04:04 Baso # 0.0 K/mm3 (0.0-0.1) 02/22/20 04:04 Add Manual Diff Complete 02/29/20 11:24 Total Counted 100 02/29/20 11:24 Seg Neutrophils % Windows Phone Developer 02/29/20 11:24 Seg Neuts % (Manual) 93.0 % (40.0-70.0) H 02/29/20 11:24 Band Neutrophils % 2.0 % 02/29/20 11:24 Lymphocytes % (Manual) 2.0 % (13.4-35.0) L 02/29/20 11:24 Reactive Lymphs % (Man) 0 % 02/29/20 11:24 Monocytes % (Manual) 3.0 % (0.0-7.3) 02/29/20 11:24 Eosinophils % (Manual) 0 % (0.0-4.3) 02/29/20 11:24 Basophils % (Manual) 0 % (0.0-1.8) 02/29/20 11:24 Metamyelocytes % 0 % 02/29/20 11:24 Myelocytes % 0 % 02/29/20 11:24 Promyelocytes % 0 % 02/29/20 11:24 Blast Cells % 0 % 02/29/20 11:24 Nucleated RBC % Not Reportable 02/29/20 11:24 Seg Neutrophils # 2.8 K/mm3 (1.8-7.7) 02/22/20 04:04 Seg Neutrophils # Man 6.0 K/mm3 (1.8-7.7) 02/29/20 11:24 Band Neutrophils # 0.1 K/mm3 02/29/20 11:24 Lymphocytes # (Manual) 0.1 K/mm3 (1.2-5.4) L 02/29/20 11:24 Abs React Lymphs (Man) 0.0 K/mm3 02/29/20 11:24 Monocytes # (Manual) 0.2 K/mm3 (0.0-0.8) 02/29/20 11:24 Eosinophils # (Manual) 0.0 K/mm3 (0.0-0.4) 02/29/20 11:24 Basophils # (Manual) 0.0 K/mm3 (0.0-0.1) 02/29/20 11:24 Metamyelocytes # 0.0 K/mm3 02/29/20 11:24 Myelocytes # 0.0 K/mm3 02/29/20 11:24 Promyelocytes # 0.0 K/mm3 02/29/20 11:24 Blast Cells # 0.0 K/mm3 02/29/20 11:24 WBC Morphology Not Reportable 02/29/20 11:24 Hypersegmented Neuts Not Reportable 02/29/20 11:24 Hyposegmented Neuts Not Reportable 02/29/20 11:24 Hypogranular Neuts Not Reportable 02/29/20 11:24 Smudge Cells Not Reportable 02/29/20 11:24 Toxic Granulation Not Reportable 02/29/20 11:24 Toxic Vacuolation Not Reportable 02/29/20 11:24 Dohle Bodies Not Reportable 02/29/20 11:24 Pelger-Huet Anomaly Not Reportable 02/29/20 11:24 Kana Rods Not Reportable 02/29/20 11:24 Platelet Estimate Consistent w auto 02/29/20 11:24 Clumped Platelets Rare 02/29/20 11:24 Plt Clumps, EDTA Not Reportable 02/29/20 11:24 Large Platelets Not Reportable 02/29/20 11:24 Giant Platelets Not Reportable 02/29/20 11:24 Platelet Satelliting Not Reportable 02/29/20 11:24 Plt Morphology Comment Not Reportable 02/29/20 11:24 RBC Morphology Normal 02/29/20 11:24 Dimorphic RBCs Not Reportable 02/29/20 11:24 Polychromasia Not Reportable 02/29/20 11:24 Hypochromasia Not Reportable 02/29/20 11:24 Poikilocytosis Not Reportable 02/29/20 11:24 Anisocytosis Not Reportable 02/29/20 11:24 Microcytosis Not Reportable 02/29/20 11:24 Macrocytosis Not Reportable 02/29/20 11:24 Spherocytes Not Reportable 02/29/20 11:24 Pappenheimer Bodies Not Reportable 02/29/20 11:24 Sickle Cells Not Reportable 02/29/20 11:24 Target Cells Not Reportable 02/29/20 11:24 Tear Drop Cells Not Reportable 02/29/20 11:24 Ovalocytes Not Reportable 02/29/20 11:24 Helmet Cells Not Reportable 02/29/20 11:24 [place] Bodies Not Reportable 02/29/20 11:24 Matthews Rings Not Reportable 02/29/20 11:24 Elijah Cells Not Reportable 02/29/20 11:24 Bite Cells Not Reportable 02/29/20 11:24 Crenated Cell Not Reportable 02/29/20 11:24 Elliptocytes Not Reportable 02/29/20 11:24 Acanthocytes (Spur) Not Reportable 02/29/20 11:24 Rouleaux Not Reportable 02/29/20 11:24 Hemoglobin C Crystals Not Reportable 02/29/20 11:24 Schistocytes Not Reportable 02/29/20 11:24 Malaria parasites Not Reportable 02/29/20 11:24 Martín Bodies Not Reportable 02/29/20 11:24 Hem Pathologist Commnt No 02/29/20 11:24 D-Dimer 1964.52 ng/mlDDU (0-234) H 03/05/20 04:54 Sodium 141 mmol/L (137-145) 03/06/20 08:31 Potassium 4.9 mmol/L (3.6-5.0) 03/06/20 08:31 Chloride 98.0 mmol/L (98-107) 03/06/20 08:31 Carbon Dioxide 35 mmol/L (22-30) H 03/06/20 08:31 Anion Gap 13 mmol/L 03/06/20 08:31 BUN 26 mg/dL (9-20) H 03/06/20 08:31 Creatinine 0.7 mg/dL (0.8-1.5) L 03/06/20 08:31 Estimated GFR > 60 ml/min 03/06/20 08:31 BUN/Creatinine Ratio 37 % 03/06/20 08:31 Glucose 117 mg/dL (75-100) H 03/06/20 08:31 POC Glucose 120 (70-105) H 02/28/20 11:32 Lactic Acid 1.80 mmol/L (0.7-2.0) 02/21/20 15:29 Calcium 9.3 mg/dL (8.4-10.2) 03/06/20 08:31 Magnesium 2.40 mg/dL (1.7-2.3) H 03/04/20 13:37 Ferritin 1798.0 ng/mL (13.0-400.0) H 03/05/20 04:54 Total Bilirubin 0.60 mg/dL (0.1-1.2) 02/21/20 15:29 AST 31 units/L (5-40) 02/21/20 15:29 ALT 18 units/L (7-56) 02/21/20 15:29 Alkaline Phosphatase 71 units/L (35-129) 02/21/20 15:29 Lactate Dehydrogenase 726 units/L (91-180) H 03/05/20 04:54 C-Reactive Protein 0.10 mg/dL (0.00-1.30) 03/05/20 04:54 Total Protein 7.4 g/dL (6.3-8.2) 02/21/20 15:29 Albumin 3.8 g/dL (3.9-5) L 02/21/20 15:29 Albumin/Globulin Ratio 1.1 % 02/21/20 15:29 Procalcitonin 0.07 ng/mL (<0.15) 03/03/20 04:22 TSH 0.505 mlU/mL (0.270-4.200) 03/05/20 10:19 Free T4 1.59 ng/dL (0.76-1.46) H 03/05/20 10:19 Coronavirus (PCR) Positive (Negative) A 03/06/20 08:08 Hepatitis A IgM Ab Non-reactive (NonReactive) 02/27/20 04:58 Hep Bs Antigen Non-reactive (Negative) 02/27/20 04:58 Hep B Core IgM Ab Non-reactive (NonReactive) 02/27/20 04:58 Hepatitis C Antibody Non-reactive (NonReactive) 02/27/20 04:58 Influenza A (Rapid) Negative (Negative) 02/21/20 16:34 Influenza B (Rapid) Negative (Negative) 02/21/20 16:34 TB (QFT) Gold In Tube See scanned result 02/27/20 09:58 TB Test (QFT) Nil See scanned result 02/27/20 09:58 TB Test Mitogen - Nil See scanned result 02/27/20 09:58 TB Test Antigen - Nil See scanned result 02/27/20 09:58 Rivera/IV: Voiding Method Urinal IV Catheter Type [Left Upper INT / Saline Lock arm] IV Catheter Type [Right Upper INT / Saline Lock arm] IV Catheter Type [Right INT / Saline Lock Forearm] IV Catheter Type [Right INT / Saline Lock Antecubital] Active Medications - Current Medications Current Medications: Generic Name Dose Route Start Last Admin Trade Name Freq PRN Reason Stop Dose Admin Acetaminophen 650 mg 02/21/20 16:41 02/26/20 16:53 Tylenol PO 650 mg Q4H PRN Administration Pain MILD(1-3)/Fever >100.5/DELUNA Albuterol 2 puff 02/25/20 10:39 Proair IH Q6HRT PRN Shortness Of Breath Enoxaparin Sodium 130 mg 02/22/20 10:00 03/09/20 09:37 Enoxaparin SUB-Q 130 mg Q24HR SCOT Administration Methylprednisolone Sodium Succinate 20 mg 03/06/20 09:00 03/09/20 13:03 Solu-Medrol IV 20 mg Q8HR SCOT Administration Ondansetron HCl 4 mg 02/21/20 16:41 02/25/20 16:17 Zofran IV 4 mg Q8H PRN Administration Nausea And Vomiting Sodium Chloride 10 ml 02/21/20 22:00 03/09/20 09:37 Sodium Chloride Flush Syringe 10 Ml IV 10 ml BID SCOT Administration Sodium Chloride 10 ml 02/21/20 16:41 03/08/20 06:08 Sodium Chloride Flush Syringe 10 Ml IV 10 ml PRN PRN Administration LINE FLUSH Nutrition/Malnutrition Assess - Dietary Evaluation Nutrition/Malnutrition Findings: Nutrition Notes Start: 02/23/20 09:12 Freq: Status: Active Protocol: Document 03/07/20 11:18 LM (Rec: 03/07/20 11:23 LM [id number]) Nutrition Notes Initial or Follow up Reassessment Other Pertinent Diagnosis COVID-19 (+), pneu, ARF Current Diet Regular Labs/Tests Reviewed Pertinent Medications Reviewed Height 5 ft 9 in Weight 75.7 kg [place]lock Body Weight (kg) 72.72 BMI 24.6 Weight Status Appropriate Subjective/Other Information Pt stated he ate most of his breakfast this AM. Received food preferences from pt. Pt stated he likes Ensure but has not been receiving them. Pt wants to continue receiving Ensure. Percent of energy/protein needs met: 87%/91% (not including ONS) Burn Absent Trauma Absent Current % PO Good (75-100%) Minimum of two criteria No physical signs of malnutrition #1 Nutrition Diagnosis Inadequate oral intake Diagnosis Progress(for reassessment Resolved documentation) Is patient on ventilator? No Is Patient Ambulatory and/or Out of Bed Yes REE-([facility]-ambulatory/OOB) [ [id number]] Calculation Used for Recommendations [facility] Additional Notes Protein: 72-86g (1-1.2g/kg) Fluid: 1 ml/kcal Nutrition Intervention Change Diet Order: Continue regular diet Add Supplement/Snack (indicate name/kcal Ensure Enlive Camby daily /protein ) Provides kCal: 350 Provides Protein (gm) 20 Goal #1 Meet at least 75% of energy and protein needs Anticipated Discharge Needs: Regular diet Revisit per MD consult or patient Sign Off request:
[2020-03-09] MEDS: ACETAMINOPHEN 325 MG TAB PO PRN (21:52)
[2020-03-10 05:10] LABS: BUN/Creatinine Ratio 37; Blood Urea Nitrogen 22 mg/dL (9-20); Calcium 8.7 mg/dL (8.4-10.2); Hemolysis Index 20
[2020-03-10] MEDS: methylPREDNISolone Sod Succinate 40 MG/1 ML INJ IV SCH ×3 (06:28→21:52)
--- NOTE | 2020-03-10 09:21 | Progress Note ---
Assessment and Plan Assessment and plan: 64 YO Male with No PMH presents to ED for evaluation. Pt states that he has experienced subjective fever, loss of appetite, generalized weakness, headache, shortness of breath, both dry and productive cough with production of yellow sputum over the past 1 week with progressively worsening symptoms over the past 3 days. Patient transported to [facility] via private vehicle for further evaluation and care. Patient seen and evaluated in the emergency department. Lab and imaging studies reviewed. Patient found to have temperature of 100.3 F, and pulse oximetry of 86% on room air which is consistent with acute hypoxemic respiratory failure. Patient underwent chest x-ray which revealed bilateral pneumonia which are consistent with suspected CO VID19. Patient admitted to medical floor and treated with pneumonia protocol. Patient also treated with initiation of CO VID19 protocol. Infectious disease service consulted in ED. Patient denies chest pain, palpitations, syncope, trauma, prolonged tr rolanda/immobility, individual/family history of DVT/bleeding/PE/blood clotting disorders, or known ill contacts. No prior admission for review. No medication listed for reconciliation at the time of admission. CXR: worsening Opacities Acute hypoxic respiratory failure due to COVID-19 pneumonia Bilateral pneumonia secondary to COVID-19 COVID-19 viral infection confirmed, completed 5 days of plaquenil, 1 dose of Actemra given 02/25 Sepsis syndrome, poa due to above NSVT-resolved Hypotension Acute hypoxic respiratory failure with pulse oximetry of 86% on room air Elevated d-dimer Headache Leukopenia- Resolved Plan 02/28/20: Day 7, my first day with patient and he looks ill but is trying to move around, he was in the prone position overnight which did help some; he is on 100% high flow. I spoke with cousin, Derrick Ray [phone] who is NOK in EMR. Patient has a son who is estranged per Derrick, Stressed the importance of Incentive spirometry 02/29/20: More tachypneic today, continue IV steroids day 2/7 then oral taper. Patient not doing Incentive spirometry correctly, I showed him how to do it correctly. He is trying. I called his cousin Derrick for update, left message. 03/01/20: Doing slightly better, able to hold his breath for 20 seconds, still doing poorly on Incentive spirometry, still on 100% High Flow, Inflammatory markers at up. He received Actmera 5 days ago, on day 4 of IV steroids. I called his cousin Derrick for update, no answer, no messgae left. 03/02/20: still on 100% fiO2 High flow, trying to do Incentive spirometry, advise to get in prone position. 03/03/20: on 95% high flow, still doing poorly on Incentive spirometry but trying, still not in prone position, counseling done. Mixed picture with inflammatory markers as d-dimer/LDH increasing but Ferritin/CRP decreasing. 03/04/20: on 95% high flow and O2 sat 95%, have asked Respiratory to try to wean down FiO2. Inflammatory marker tomorrow. 11 beat run of VTach. I will check bmp, magnesium, I will give IV mag/potassium and consult Cardiology 03/05/20: down to 90% high flow, we practiced the Inspirative spirometry, RTherapist at bedside, patient able to hold breath for 20 secords, still very difficult but he feels better. Still very weak. Inflammatory markers are improved. d/w Cardiology regarding NSVT. d/w Case management, hopefully d/c to LTACH if facility approved, I believe patient insurance has approved LTACH. Needs slow steroid taper per ID. 03/06: Over the past few days appears the patient has been weaning on steroids. Lasix has already been given to help improve oxygenation and aeration of the chest x-ray. Will obtain repeat electrolytes today and possibly repeat Lasix. I have also ordered a repeat coronavirus test as this is a requirement for the LTAC to be able to accept this patient, if repeat study comes back negative. Pulmonary weaning steroids and input is noted. ID input is noted. Cardiology input noted 03/07: Now weaned off high flow now on nasal cannula although desats when nasal cannula is off I believe today he desatted to 72% on room air. Encouraged to use oxygen encouraged to continue prone in position. Also encouraged patient to use incentive spirometer. We will continue to monitor repeat test for ambreen navirus was positive. 03/08: will await o2 sat today, additional Lasix being given today. Continue to encourage sitting up. Incentive spirometer. Prone positioning. Anticipate discharge on oxygen once oxygen demand is less than 3. 5/: Continue to encourage ambulatory, prone positioning, pulmonary exercises and wean oxygen as tolerated today. Received on the dose of Lasix keep monitoring blood pressures patient has some hypotensive episodes. 03/10: Continue supportive, discussed with nursing staff and will wean oxygen as tolerated, anticipate being able to discharge the patient home if oxygen requirement is less than 3 L with activity. History Interval history: Patient seen and examined has been weaned off of high flow although patient nursing staff patient not motivated to be active. Appears much upbeat today. He denies any depression. Did not tolerate 3 L of oxygen yesterday. Will try again today. He is always very thankful with our visit. Hospitalist Physical - Physical exam Narrative exam: VITAL SIGNS: Reviewed. GENERAL: The patient appears normally developed, sitting up. Vital signs as documented. HEAD: No signs of head trauma. EYES: Pupils are equal. Extraocular motions intact. EARS: Hearing grossly intact. MOUTH: Oropharynx is normal. NECK: No adenopathy, no JVD. CHEST: Chest with diminished breath sounds bilaterally. No wheezes, rales, or rhonchi. CARDIAC: Regular rate and rhythm. S1 and S2, without murmurs, gallops, or rubs. VASCULAR: No Edema. Peripheral pulses normal and equal in all extremities. ABDOMEN: Soft, non tender and non distended. No rebound or guarding, and no masses palpated. Bowel Sounds normal. MUSCULOSKELETAL: Good range of motion of all major joints. Extremities without clubbing, cyanosis or edema. NEUROLOGIC EXAM: Awake and oriented x 3 No focal sensory or strength deficits. Speech normal. Follows commands. PSYCHIATRIC: Mood calm SKIN: detail exam as documented in skin assessment - Constitutional Vitals: Temp Pulse Resp BP Pulse Ox 98.0 F 77 20 123/82 95 03/10/20 05:24 03/10/20 05:24 03/10/20 05:24 03/10/20 05:24 03/10/20 08:27 General appearance: Absent: mild distress Results - Labs CBC & Chem 7: 03/05/20 04:54 03/10/20 04:13 Labs: Laboratory Last Values WBC 9.7 K/mm3 (4.5-11.0) 03/05/20 04:54 RBC 5.56 M/mm3 (3.65-5.03) H 03/05/20 04:54 Hgb 15.7 gm/dl (11.8-15.2) H 03/05/20 04:54 Hct 46.8 % (35.5-45.6) H 03/05/20 04:54 MCV 84 fl (84-94) 03/05/20 04:54 MCH 28 pg (28-32) 03/05/20 04:54 MCHC 34 % (32-34) 03/05/20 04:54 RDW 13.7 % (13.2-15.2) 03/05/20 04:54 Plt Count 393 K/mm3 (140-440) 03/05/20 04:54 Lymph % (Auto) 18.1 % (13.4-35.0) 02/22/20 04:04 [place] % (Auto) 10.5 % (0.0-7.3) H 02/22/20 04:04 Eos % (Auto) 0.4 % (0.0-4.3) 02/22/20 04:04 Baso % (Auto) 0.9 % (0.0-1.8) 02/22/20 04:04 Lymph # 0.7 K/mm3 (1.2-5.4) L 02/22/20 04:04 [place] # 0.4 K/mm3 (0.0-0.8) 02/22/20 04:04 Eos # 0.0 K/mm3 (0.0-0.4) 02/22/20 04:04 Baso # 0.0 K/mm3 (0.0-0.1) 02/22/20 04:04 Add Manual Diff Complete 02/29/20 11:24 Total Counted 100 02/29/20 11:24 Seg Neutrophils % Cloth Shrinker 02/29/20 11:24 Seg Neuts % (Manual) 93.0 % (40.0-70.0) H 02/29/20 11:24 Band Neutrophils % 2.0 % 02/29/20 11:24 Lymphocytes % (Manual) 2.0 % (13.4-35.0) L 02/29/20 11:24 Reactive Lymphs % (Man) 0 % 02/29/20 11:24 Monocytes % (Manual) 3.0 % (0.0-7.3) 02/29/20 11:24 Eosinophils % (Manual) 0 % (0.0-4.3) 02/29/20 11:24 Basophils % (Manual) 0 % (0.0-1.8) 02/29/20 11:24 Metamyelocytes % 0 % 02/29/20 11:24 Myelocytes % 0 % 02/29/20 11:24 Promyelocytes % 0 % 02/29/20 11:24 Blast Cells % 0 % 02/29/20 11:24 Nucleated RBC % Not Reportable 02/29/20 11:24 Seg Neutrophils # 2.8 K/mm3 (1.8-7.7) 02/22/20 04:04 Seg Neutrophils # Man 6.0 K/mm3 (1.8-7.7) 02/29/20 11:24 Band Neutrophils # 0.1 K/mm3 02/29/20 11:24 Lymphocytes # (Manual) 0.1 K/mm3 (1.2-5.4) L 02/29/20 11:24 Abs React Lymphs (Man) 0.0 K/mm3 02/29/20 11:24 Monocytes # (Manual) 0.2 K/mm3 (0.0-0.8) 02/29/20 11:24 Eosinophils # (Manual) 0.0 K/mm3 (0.0-0.4) 02/29/20 11:24 Basophils # (Manual) 0.0 K/mm3 (0.0-0.1) 02/29/20 11:24 Metamyelocytes # 0.0 K/mm3 02/29/20 11:24 Myelocytes # 0.0 K/mm3 02/29/20 11:24 Promyelocytes # 0.0 K/mm3 02/29/20 11:24 Blast Cells # 0.0 K/mm3 02/29/20 11:24 WBC Morphology Not Reportable 02/29/20 11:24 Hypersegmented Neuts Not Reportable 02/29/20 11:24 Hyposegmented Neuts Not Reportable 02/29/20 11:24 Hypogranular Neuts Not Reportable 02/29/20 11:24 Smudge Cells Not Reportable 02/29/20 11:24 Toxic Granulation Not Reportable 02/29/20 11:24 Toxic Vacuolation Not Reportable 02/29/20 11:24 Dohle Bodies Not Reportable 02/29/20 11:24 Pelger-Huet Anomaly Not Reportable 02/29/20 11:24 Kana Rods Not Reportable 02/29/20 11:24 Platelet Estimate Consistent w auto 02/29/20 11:24 Clumped Platelets Rare 02/29/20 11:24 Plt Clumps, EDTA Not Reportable 02/29/20 11:24 Large Platelets Not Reportable 02/29/20 11:24 Giant Platelets Not Reportable 02/29/20 11:24 Platelet Satelliting Not Reportable 02/29/20 11:24 Plt Morphology Comment Not Reportable 02/29/20 11:24 RBC Morphology Normal 02/29/20 11:24 Dimorphic RBCs Not Reportable 02/29/20 11:24 Polychromasia Not Reportable 02/29/20 11:24 Hypochromasia Not Reportable 02/29/20 11:24 Poikilocytosis Not Reportable 02/29/20 11:24 Anisocytosis Not Reportable 02/29/20 11:24 Microcytosis Not Reportable 02/29/20 11:24 Macrocytosis Not Reportable 02/29/20 11:24 Spherocytes Not Reportable 02/29/20 11:24 Pappenheimer Bodies Not Reportable 02/29/20 11:24 Sickle Cells Not Reportable 02/29/20 11:24 Target Cells Not Reportable 02/29/20 11:24 Tear Drop Cells Not Reportable 02/29/20 11:24 Ovalocytes Not Reportable 02/29/20 11:24 Helmet Cells Not Reportable 02/29/20 11:24 Carpio-Bern Bodies Not Reportable 02/29/20 11:24 [place] Rings Not Reportable 02/29/20 11:24 Elijah Cells Not Reportable 02/29/20 11:24 Bite Cells Not Reportable 02/29/20 11:24 Crenated Cell Not Reportable 02/29/20 11:24 Elliptocytes Not Reportable 02/29/20 11:24 Acanthocytes (Spur) Not Reportable 02/29/20 11:24 Rouleaux Not Reportable 02/29/20 11:24 Hemoglobin C Crystals Not Reportable 02/29/20 11:24 Schistocytes Not Reportable 02/29/20 11:24 Malaria parasites Not Reportable 02/29/20 11:24 Martín Bodies Not Reportable 02/29/20 11:24 Hem Pathologist Commnt No 02/29/20 11:24 D-Dimer 1964.52 ng/mlDDU (0-234) H 03/05/20 04:54 Sodium 134 mmol/L (137-145) L 03/10/20 04:13 Potassium 4.8 mmol/L (3.6-5.0) 03/10/20 04:13 Chloride 98.4 mmol/L (98-107) 03/10/20 04:13 Carbon Dioxide 25 mmol/L (22-30) D 03/10/20 04:13 Anion Gap 15 mmol/L 03/10/20 04:13 BUN 22 mg/dL (9-20) H 03/10/20 04:13 Creatinine 0.6 mg/dL (0.8-1.5) L 03/10/20 04:13 Estimated GFR > 60 ml/min 03/10/20 04:13 BUN/Creatinine Ratio 37 % 03/10/20 04:13 Glucose 274 mg/dL (75-100) H 03/10/20 04:13 POC Glucose 120 (70-105) H 02/28/20 11:32 Lactic Acid 1.80 mmol/L (0.7-2.0) 02/21/20 15:29 Calcium 8.7 mg/dL (8.4-10.2) 03/10/20 04:13 Magnesium 2.40 mg/dL (1.7-2.3) H 03/04/20 13:37 Ferritin 1798.0 ng/mL (13.0-400.0) H 03/05/20 04:54 Total Bilirubin 0.60 mg/dL (0.1-1.2) 02/21/20 15:29 AST 31 units/L (5-40) 02/21/20 15:29 ALT 18 units/L (7-56) 02/21/20 15:29 Alkaline Phosphatase 71 units/L (35-129) 02/21/20 15:29 Lactate Dehydrogenase 726 units/L (91-180) H 03/05/20 04:54 C-Reactive Protein 0.10 mg/dL (0.00-1.30) 03/05/20 04:54 Total Protein 7.4 g/dL (6.3-8.2) 02/21/20 15:29 Albumin 3.8 g/dL (3.9-5) L 02/21/20 15:29 Albumin/Globulin Ratio 1.1 % 02/21/20 15:29 Procalcitonin 0.07 ng/mL (<0.15) 03/03/20 04:22 TSH 0.505 mlU/mL (0.270-4.200) 03/05/20 10:19 Free T4 1.59 ng/dL (0.76-1.46) H 03/05/20 10:19 Coronavirus (PCR) Positive (Negative) A 03/06/20 08:08 Hepatitis A IgM Ab Non-reactive (NonReactive) 02/27/20 04:58 Hep Bs Antigen Non-reactive (Negative) 02/27/20 04:58 Hep B Core IgM Ab Non-reactive (NonReactive) 02/27/20 04:58 Hepatitis C Antibody Non-reactive (NonReactive) 02/27/20 04:58 Influenza A (Rapid) Negative (Negative) 02/21/20 16:34 Influenza B (Rapid) Negative (Negative) 02/21/20 16:34 TB (QFT) Gold In Tube See scanned result 02/27/20 09:58 TB Test (QFT) Nil See scanned result 02/27/20 09:58 TB Test Mitogen - Nil See scanned result 02/27/20 09:58 TB Test Antigen - Nil See scanned result 02/27/20 09:58 Rivera/IV: Voiding Method Toilet IV Catheter Type [Left Upper INT / Saline Lock arm] IV Catheter Type [Right Upper INT / Saline Lock arm] IV Catheter Type [Right INT / Saline Lock Forearm] IV Catheter Type [Right INT / Saline Lock Antecubital] Active Medications - Current Medications Current Medications: Generic Name Dose Route Start Last Admin Trade Name Freq PRN Reason Stop Dose Admin Acetaminophen 650 mg 02/21/20 16:41 03/09/20 21:52 Tylenol PO 650 mg Q4H PRN Administration Pain MILD(1-3)/Fever >100.5/DELUNA Albuterol 2 puff 02/25/20 10:39 Proair IH Q6HRT PRN Shortness Of Breath Enoxaparin Sodium 130 mg 02/22/20 10:00 03/09/20 09:37 Enoxaparin SUB-Q 130 mg Q24HR SCOT Administration Methylprednisolone Sodium Succinate 20 mg 03/06/20 09:00 03/10/20 06:28 Solu-Medrol IV 20 mg Q8HR SCOT Administration Ondansetron HCl 4 mg 02/21/20 16:41 02/25/20 16:17 Zofran IV 4 mg Q8H PRN Administration Nausea And Vomiting Sodium Chloride 10 ml 02/21/20 22:00 03/09/20 21:51 Sodium Chloride Flush Syringe 10 Ml IV 10 ml BID SCOT Administration Sodium Chloride 10 ml 02/21/20 16:41 03/08/20 06:08 Sodium Chloride Flush Syringe 10 Ml IV 10 ml PRN PRN Administration LINE FLUSH Nutrition/Malnutrition Assess - Dietary Evaluation Nutrition/Malnutrition Findings: Nutrition Notes Start: 02/23/20 09:12 Freq: Status: Active Protocol: Document 03/07/20 11:18 LM (Rec: 03/07/20 11:23 LM [id number]) Nutrition Notes Initial or Follow up Reassessment Other Pertinent Diagnosis COVID-19 (+), pneu, ARF Current Diet Regular Labs/Tests Reviewed Pertinent Medications Reviewed Height 5 ft 9 in Weight 75.7 kg [place] Body Weight (kg) 72.72 BMI 24.6 Weight Status Appropriate Subjective/Other Information Pt stated he ate most of his breakfast this AM. Received food preferences from pt. Pt stated he likes Ensure but has not been receiving them. Pt wants to continue receiving Ensure. Percent of energy/protein needs met: 87%/91% (not including ONS) Burn Absent Trauma Absent Current % PO Good (75-100%) Minimum of two criteria No physical signs of malnutrition #1 Nutrition Diagnosis Inadequate oral intake Diagnosis Progress(for reassessment Resolved documentation) Is patient on ventilator? No Is Patient Ambulatory and/or Out of Bed Yes REE-([facility]-ambulatory/OOB) [ 2010.594 [id number]] Calculation [facility] Additional Notes Protein: 72-86g (1-1.2g/kg) Fluid: 1 ml/kcal Nutrition Intervention Change Diet Order: Continue regular diet Add Supplement/Snack (indicate name/kcal Ensure Enlive [place] daily /protein ) Provides kCal: 350 Provides Protein (gm) 20 Goal #1 Meet at least 75% of energy and protein needs Anticipated Discharge Needs: Regular diet Revisit per MD consult or patient Sign Off request:
[2020-03-10] MEDS: ENOXAPARIN 150 MG/1 ML INJ SUB-Q SCH (10:54)
--- NOTE | 2020-03-10 12:47 | Progress Note ---
Assessment and Plan 4 y/o male with COVID 19 positive pneumonia and no other prior medical history. 1. COVID positive 2. Now nasal cannula. Got Actemra 12 days ago. Would ask that patient prone himself, multiple times during the day shift and sleep proned at night. Continue steroids at current dosing. 3. Reviewed I/O, negative from yesterday but no labs checked. Please check chemistry if patient still here over the weekend. May need another dose of lasix. 4. Reviewed ID note. Appreciate their recs. They are ok with discharge. If home oxygen therapy can be arranged, ok with discharge as well. We can follow up in office and wean further if not able to get lower. He still will need walk test to determine the amount of O2 needed with exertion. 5. Needs higher O2 flow with ambulation up tp 6 LPM or higher. Subjective Date of service: 03/10/20 Principal diagnosis: COVID Interval history: Pt now on 4 LPM NC with resting sats in low to mid 90's but drops to 77% on minimal ambulation Objective Vital Signs - 12hr 03/10/20 03/10/20 03/10/20 05:24 08:27 12:02 Temperature 98.0 F 98.1 F Pulse Rate 77 92 H Respiratory 20 22 Rate Blood Pressure 123/82 120/75 O2 Sat by Pulse 90 95 82 L Oximetry Constitutional: no acute distress Eyes: non-icteric Ascultation: Bilateral: diminished breath sounds Cardiovascular: regular rate and rhythm Gastrointestinal: normoactive bowel sounds CBC and BMP: 03/05/20 04:54 03/10/20 04:13 ABG, PT/INR, D-dimer: PT/INR, D-dimer D-Dimer 1964.52 ng/mlDDU (0-234) H 03/05/20 04:54 Abnormal lab findings: Abnormal Labs 02/21/20 02/21/20 02/21/20 15:29 15:29 15:29 WBC 3.7 L RBC 5.62 H Hgb 16.5 H Hct 47.5 H MCV MCHC 35 H Plt Count [place] % (Auto) 8.9 H Lymph # 0.6 L Seg Neutrophils % 72.3 H Seg Neuts % (Manual) Lymphocytes % (Manual) Lymphocytes # (Manual) D-Dimer 5638.87 H Sodium 136 L Potassium Chloride 96.2 L Carbon Dioxide 20 L BUN 22 H Creatinine Glucose 124 H POC Glucose Calcium Magnesium Ferritin Lactate Dehydrogenase C-Reactive Protein Albumin 3.8 L Free T4 Coronavirus (PCR) 02/21/20 02/21/20 02/22/20 15:29 15:29 04:04 WBC 3.9 L RBC 5.47 H Hgb 15.8 H Hct MCV 83 L MCHC 35 H Plt Count [place] % (Auto) 10.5 H Lymph # 0.7 L Seg Neutrophils % 70.1 H Seg Neuts % (Manual) Lymphocytes % (Manual) Lymphocytes # (Manual) D-Dimer Sodium Potassium Chloride Carbon Dioxide BUN Creatinine Glucose POC Glucose Calcium Magnesium Ferritin 1484.0 H Lactate Dehydrogenase 486 H C-Reactive Protein 4.40 H Albumin Free T4 Coronavirus (PCR) 02/22/20 02/22/20 02/23/20 04:04 11:23 05:02 WBC 3.3 L RBC 5.19 H Hgb Hct MCV MCHC 35 H Plt Count [place] % (Auto) Lymph # Seg Neutrophils % Seg Neuts % (Manual) Lymphocytes % (Manual) Lymphocytes # (Manual) D-Dimer Sodium Potassium Chloride Carbon Dioxide BUN Creatinine Glucose 114 H POC Glucose Calcium 8.3 L Magnesium Ferritin Lactate Dehydrogenase C-Reactive Protein Albumin Free T4 Coronavirus (PCR) Positive A 02/23/20 02/23/20 02/23/20 05:02 05:02 05:02 WBC RBC Hgb Hct MCV MCHC Plt Count [place] % (Auto) Lymph # Seg Neutrophils % Seg Neuts % (Manual) Lymphocytes % (Manual) Lymphocytes # (Manual) D-Dimer 2109.52 H Sodium Potassium Chloride Carbon Dioxide BUN Creatinine Glucose POC Glucose Calcium Magnesium Ferritin 1571.0 H Lactate Dehydrogenase 531 H C-Reactive Protein 6.40 H Albumin Free T4 Coronavirus (PCR) 02/25/20 02/25/20 02/25/20 04:20 04:20 04:20 WBC RBC Hgb Hct MCV MCHC Plt Count [place] % (Auto) Lymph # Seg Neutrophils % Seg Neuts % (Manual) Lymphocytes % (Manual) Lymphocytes # (Manual) D-Dimer 1422.33 H Sodium Potassium Chloride Carbon Dioxide BUN Creatinine Glucose POC Glucose Calcium Magnesium Ferritin 2172.0 H Lactate Dehydrogenase 594 H C-Reactive Protein 8.70 H Albumin Free T4 Coronavirus (PCR) 02/27/20 02/27/20 02/27/20 04:58 04:58 04:58 WBC RBC Hgb Hct MCV MCHC Plt Count [place] % (Auto) Lymph # Seg Neutrophils % Seg Neuts % (Manual) Lymphocytes % (Manual) Lymphocytes # (Manual) D-Dimer 1111.97 H Sodium 134 L Potassium Chloride Carbon Dioxide 18 L BUN 24 H Creatinine Glucose 107 H POC Glucose Calcium Magnesium Ferritin 3392.0 H Lactate Dehydrogenase 681 H C-Reactive Protein 9.70 H Albumin Free T4 Coronavirus (PCR) 02/27/20 02/28/20 02/28/20 04:58 07:47 11:32 WBC 2.1 L RBC 5.19 H Hgb Hct MCV MCHC Plt Count [place] % (Auto) Lymph # Seg Neutrophils % Seg Neuts % (Manual) Lymphocytes % (Manual) Lymphocytes # (Manual) D-Dimer Sodium Potassium Chloride Carbon Dioxide BUN Creatinine Glucose POC Glucose 130 H 120 H Calcium Magnesium Ferritin Lactate Dehydrogenase C-Reactive Protein Albumin Free T4 Coronavirus (PCR) 02/29/20 02/29/20 02/29/20 11:24 11:24 11:24 WBC RBC 6.47 H Hgb 18.3 H D Hct 53.8 H D MCV 83 L MCHC Plt Count 544 H [place] % (Auto) Lymph # Seg Neutrophils % Seg Neuts % (Manual) 93.0 H Lymphocytes % (Manual) 2.0 L Lymphocytes # (Manual) 0.1 L D-Dimer 1464.27 H Sodium Potassium Chloride Carbon Dioxide BUN Creatinine Glucose POC Glucose Calcium Magnesium Ferritin Lactate Dehydrogenase 822 H C-Reactive Protein Albumin Free T4 Coronavirus (PCR) 02/29/20 03/03/20 03/03/20 11:24 04:22 04:22 WBC RBC Hgb Hct MCV MCHC Plt Count [place] % (Auto) Lymph # Seg Neutrophils % Seg Neuts % (Manual) Lymphocytes % (Manual) Lymphocytes # (Manual) D-Dimer 3769.82 H Sodium Potassium Chloride Carbon Dioxide BUN Creatinine Glucose POC Glucose Calcium Magnesium Ferritin 4163.0 H 2491.0 H Lactate Dehydrogenase C-Reactive Protein Albumin Free T4 Coronavirus (PCR) 03/03/20 03/04/20 03/05/20 04:22 13:37 04:54 WBC RBC Hgb Hct MCV MCHC Plt Count [place] % (Auto) Lymph # Seg Neutrophils % Seg Neuts % (Manual) Lymphocytes % (Manual) Lymphocytes # (Manual) D-Dimer 1964.52 H Sodium Potassium 5.6 H Chloride Carbon Dioxide BUN 26 H Creatinine Glucose 195 H POC Glucose Calcium Magnesium 2.40 H Ferritin Lactate Dehydrogenase 938 H C-Reactive Protein Albumin Free T4 Coronavirus (PCR) 03/05/20 03/05/20 03/05/20 04:54 04:54 04:54 WBC RBC 5.56 H Hgb 15.7 H Hct 46.8 H MCV MCHC Plt Count [place] % (Auto) Lymph # Seg Neutrophils % Seg Neuts % (Manual) Lymphocytes % (Manual) Lymphocytes # (Manual) D-Dimer Sodium Potassium Chloride 97.9 L Carbon Dioxide 32 H BUN 21 H Creatinine 0.7 L Glucose 155 H POC Glucose Calcium Magnesium Ferritin 1798.0 H Lactate Dehydrogenase 726 H C-Reactive Protein Albumin Free T4 Coronavirus (PCR) 03/05/20 03/06/20 03/06/20 10:19 08:08 08:31 WBC RBC Hgb Hct MCV MCHC Plt Count [place] % (Auto) Lymph # Seg Neutrophils % Seg Neuts % (Manual) Lymphocytes % (Manual) Lymphocytes # (Manual) D-Dimer Sodium Potassium Chloride Carbon Dioxide 35 H BUN 26 H Creatinine 0.7 L Glucose 117 H POC Glucose Calcium Magnesium Ferritin Lactate Dehydrogenase C-Reactive Protein Albumin Free T4 1.59 H Coronavirus (PCR) Positive A 03/10/20 04:13 WBC RBC Hgb Hct MCV MCHC Plt Count [place] % (Auto) Lymph # Seg Neutrophils % Seg Neuts % (Manual) Lymphocytes % (Manual) Lymphocytes # (Manual) D-Dimer Sodium 134 L Potassium Chloride Carbon Dioxide BUN 22 H Creatinine 0.6 L Glucose 274 H POC Glucose Calcium Magnesium Ferritin Lactate Dehydrogenase C-Reactive Protein Albumin Free T4 Coronavirus (PCR)
[2020-03-11] MEDS: methylPREDNISolone Sod Succinate 40 MG/1 ML INJ IV SCH ×3 (05:28→21:33)
--- NOTE | 2020-03-11 09:04 | Progress Note ---
Assessment and Plan Assessment and plan: 64 YO Male with No PMH presents to ED for evaluation. Pt states that he has experienced subjective fever, loss of appetite, generalized weakness, headache, shortness of breath, both dry and productive cough with production of yellow sputum over the past 1 week with progressively worsening symptoms over the past 3 days. Patient transported to [facility] via private vehicle for further evaluation and care. Patient seen and evaluated in the emergency department. Lab and imaging studies reviewed. Patient found to have temperature of 100.3 F, and pulse oximetry of 86% on room air which is consistent with acute hypoxemic respiratory failure. Patient underwent chest x-ray which revealed bilateral pneumonia which are consistent with suspected CO VID19. Patient admitted to medical floor and treated with pneumonia protocol. Patient also treated with initiation of CO VID19 protocol. Infectious disease service consulted in ED. Patient denies chest pain, palpitations, syncope, trauma, prolonged tr rolanda/immobility, individual/family history of DVT/bleeding/PE/blood clotting disorders, or known ill contacts. No prior admission for review. No medication listed for reconciliation at the time of admission. CXR: worsening Opacities Acute hypoxic respiratory failure due to COVID-19 pneumonia Bilateral pneumonia secondary to COVID-19 COVID-19 viral infection confirmed, completed 5 days of plaquenil, 1 dose of Actemra given 02/25 Sepsis syndrome, poa due to above NSVT-resolved Hypotension Acute hypoxic respiratory failure with pulse oximetry of 86% on room air Elevated d-dimer Headache Leukopenia- Resolved Plan 02/28/20: Day 7, my first day with patient and he looks ill but is trying to move around, he was in the prone position overnight which did help some; he is on 100% high flow. I spoke with cousin, Derrick Ray [phone] who is NOK in EMR. Patient has a son who is estranged per Derrick, Stressed the importance of Incentive spirometry 02/29/20: More tachypneic today, continue IV steroids day 2/7 then oral taper. Patient not doing Incentive spirometry correctly, I showed him how to do it correctly. He is trying. I called his cousin Derrick for update, left message. 03/01/20: Doing slightly better, able to hold his breath for 20 seconds, still doing poorly on Incentive spirometry, still on 100% High Flow, Inflammatory markers at up. He received Actmera 5 days ago, on day 4 of IV steroids. I called his cousin Derrick for update, no answer, no messgae left. 03/02/20: still on 100% fiO2 High flow, trying to do Incentive spirometry, advise to get in prone position. 03/03/20: on 95% high flow, still doing poorly on Incentive spirometry but trying, still not in prone position, counseling done. Mixed picture with inflammatory markers as d-dimer/LDH increasing but Ferritin/CRP decreasing. 03/04/20: on 95% high flow and O2 sat 95%, have asked Respiratory to try to wean down FiO2. Inflammatory marker tomorrow. 11 beat run of VTach. I will check bmp, magnesium, I will give IV mag/potassium and consult Cardiology 03/05/20: down to 90% high flow, we practiced the Inspirative spirometry, R Therapist at bedside, patient able to hold breath for 20 secords, still very difficult but he feels better. Still very weak. Inflammatory markers are improved. d/w Cardiology regarding NSVT. d/w Case management, hopefully d/c to LTACH if facility approved, I believe patient insurance has approved LTACH. Needs slow steroid taper per ID. 03/06: Over the past few days appears the patient has been weaning on steroids. Lasix has already been given to help improve oxygenation and aeration of the chest x-ray. Will obtain repeat electrolytes today and possibly repeat Lasix. I have also ordered a repeat coronavirus test as this is a requirement for the LTAC to be able to accept this patient, if repeat study comes back negative. Pulmonary weaning steroids and input is noted. ID input is noted. Cardiology input noted 03/07: Now weaned off high flow now on nasal cannula although desats when nasal cannula is off I believe today he desatted to 72% on room air. Encouraged to use oxygen encouraged to continue prone in position. Also encouraged patient to use incentive spirometer. We will continue to monitor repeat test for cor onavirus was positive. 03/08: will await o2 sat today, additional Lasix being given today. Continue to encourage sitting up. Incentive spirometer. Prone positioning. Anticipate discharge on oxygen once oxygen demand is less than 3. 5/: Continue to encourage ambulatory, prone positioning, pulmonary exercises and wean oxygen as tolerated today. Received on the dose of Lasix keep monitoring blood pressures patient has some hypotensive episodes. 5/2: Continue supportive, discussed with nursing staff and will wean oxygen as tolerated, anticipate being able to discharge the patient home if oxygen requirement is less than 3 L with activity. 5/3: Unfortunately still desaturating at NC of 3 liters, increase to 5 liters. continue to encourage Prone Positioning. History Interval history: Patient seen and examined has been weaned off of high flow although patient nursing staff patient not motivated to be active. Appears much upbeat today. He denies any depression. Did not tolerate 3 L of oxygen yesterday. Will try a gain today. He is always very thankful with our visit. Hospitalist Physical - Physical exam Narrative exam: VITAL SIGNS: Reviewed. GENERAL: The patient appears normally developed, sitting up. Vital signs as documented. HEAD: No signs of head trauma. EYES: Pupils are equal. Extraocular motions intact. EARS: Hearing grossly intact. MOUTH: Oropharynx is normal. NECK: No adenopathy, no JVD. CHEST: Chest with diminished breath sounds bilaterally. No wheezes, rales, or rhonchi. CARDIAC: Regular rate and rhythm. S1 and S2, without murmurs, gallops, or rubs. VASCULAR: No Edema. Peripheral pulses normal and equal in all extremities. ABDOMEN: Soft, non tender and non distended. No rebound or guarding, and no masses palpated. Bowel Sounds normal. MUSCULOSKELETAL: Good range of motion of all major joints. Extremities without clubbing, cyanosis or edema. NEUROLOGIC EXAM: Awake and oriented x 3 No focal sensory or strength deficits. Speech normal. Follows commands. PSYCHIATRIC: Mood calm SKIN: detail exam as documented in skin assessment - Constitutional Vitals: Temp Pulse Resp BP Pulse Ox 98.0 F 63 20 110/67 91 03/11/20 05:43 03/11/20 08:45 03/11/20 08:45 03/11/20 05:43 03/11/20 05:43 General appearance: Absent: mild distress Results - Labs CBC & Chem 7: 03/05/20 04:54 03/10/20 04:13 Labs: Laboratory Last Values WBC 9.7 K/mm3 (4.5-11.0) 03/05/20 04:54 RBC 5.56 M/mm3 (3.65-5.03) H 03/05/20 04:54 Hgb 15.7 gm/dl (11.8-15.2) H 03/05/20 04:54 Hct 46.8 % (35.5-45.6) H 03/05/20 04:54 MCV 84 fl (84-94) 03/05/20 04:54 MCH 28 pg (28-32) 03/05/20 04:54 MCHC 34 % (32-34) 03/05/20 04:54 RDW 13.7 % (13.2-15.2) 03/05/20 04:54 Plt Count 393 K/mm3 (140-440) 03/05/20 04:54 Lymph % (Auto) 18.1 % (13.4-35.0) 02/22/20 04:04 [place] % (Auto) 10.5 % (0.0-7.3) H 02/22/20 04:04 Eos % (Auto) 0.4 % (0.0-4.3) 02/22/20 04:04 Baso % (Auto) 0.9 % (0.0-1.8) 02/22/20 04:04 Lymph # 0.7 K/mm3 (1.2-5.4) L 02/22/20 04:04 [place] # 0.4 K/mm3 (0.0-0.8) 02/22/20 04:04 Eos # 0.0 K/mm3 (0.0-0.4) 02/22/20 04:04 Baso # 0.0 K/mm3 (0.0-0.1) 02/22/20 04:04 Add Manual Diff Complete 02/29/20 11:24 Total Counted 100 02/29/20 11:24 Seg Neutrophils % [employer] 02/29/20 11:24 Seg Neuts % (Manual) 93.0 % (40.0-70.0) H 02/29/20 11:24 Band Neutrophils % 2.0 % 02/29/20 11:24 Lymphocytes % (Manual) 2.0 % (13.4-35.0) L 02/29/20 11:24 Reactive Lymphs % (Man) 0 % 02/29/20 11:24 Monocytes % (Manual) 3.0 % (0.0-7.3) 02/29/20 11:24 Eosinophils % (Manual) 0 % (0.0-4.3) 02/29/20 11:24 Basophils % (Manual) 0 % (0.0-1.8) 02/29/20 11:24 Metamyelocytes % 0 % 02/29/20 11:24 Myelocytes % 0 % 02/29/20 11:24 Promyelocytes % 0 % 02/29/20 11:24 Blast Cells % 0 % 02/29/20 11:24 Nucleated RBC % Not Reportable 02/29/20 11:24 Seg Neutrophils # 2.8 K/mm3 (1.8-7.7) 02/22/20 04:04 Seg Neutrophils # Man 6.0 K/mm3 (1.8-7.7) 02/29/20 11:24 Band Neutrophils # 0.1 K/mm3 02/29/20 11:24 Lymphocytes # (Manual) 0.1 K/mm3 (1.2-5.4) L 02/29/20 11:24 Abs React Lymphs (Man) 0.0 K/mm3 02/29/20 11:24 Monocytes # (Manual) 0.2 K/mm3 (0.0-0.8) 02/29/20 11:24 Eosinophils # (Manual) 0.0 K/mm3 (0.0-0.4) 02/29/20 11:24 Basophils # (Manual) 0.0 K/mm3 (0.0-0.1) 02/29/20 11:24 Metamyelocytes # 0.0 K/mm3 02/29/20 11:24 Myelocytes # 0.0 K/mm3 02/29/20 11:24 Promyelocytes # 0.0 K/mm3 02/29/20 11:24 Blast Cells # 0.0 K/mm3 02/29/20 11:24 WBC Morphology Not Reportable 02/29/20 11:24 Hypersegmented Neuts Not Reportable 02/29/20 11:24 Hyposegmented Neuts Not Reportable 02/29/20 11:24 Hypogranular Neuts Not Reportable 02/29/20 11:24 Smudge Cells Not Reportable 02/29/20 11:24 Toxic Granulation Not Reportable 02/29/20 11:24 Toxic Vacuolation Not Reportable 02/29/20 11:24 Dohle Bodies Not Reportable 02/29/20 11:24 Pelger-Huet Anomaly Not Reportable 02/29/20 11:24 Kana Rods Not Reportable 02/29/20 11:24 Platelet Estimate Consistent w auto 02/29/20 11:24 Clumped Platelets Rare 02/29/20 11:24 Plt Clumps, EDTA Not Reportable 02/29/20 11:24 Large Platelets Not Reportable 02/29/20 11:24 Giant Platelets Not Reportable 02/29/20 11:24 Platelet Satelliting Not Reportable 02/29/20 11:24 Plt Morphology Comment Not Reportable 02/29/20 11:24 RBC Morphology Normal 02/29/20 11:24 Dimorphic RBCs Not Reportable 02/29/20 11:24 Polychromasia Not Reportable 02/29/20 11:24 Hypochromasia Not Reportable 02/29/20 11:24 Poikilocytosis Not Reportable 02/29/20 11:24 Anisocytosis Not Reportable 02/29/20 11:24 Microcytosis Not Reportable 02/29/20 11:24 Macrocytosis Not Reportable 02/29/20 11:24 Spherocytes Not Reportable 02/29/20 11:24 Pappenheimer Bodies Not Reportable 02/29/20 11:24 Sickle Cells Not Reportable 02/29/20 11:24 Target Cells Not Reportable 02/29/20 11:24 Tear Drop Cells Not Reportable 02/29/20 11:24 Ovalocytes Not Reportable 02/29/20 11:24 Helmet Cells Not Reportable 02/29/20 11:24 [place] Bodies Not Reportable 02/29/20 11:24 [place] Rings Not Reportable 02/29/20 11:24 [place] Cells Not Reportable 02/29/20 11:24 Bite Cells Not Reportable 02/29/20 11:24 Crenated Cell Not Reportable 02/29/20 11:24 Elliptocytes Not Reportable 02/29/20 11:24 Acanthocytes (Spur) Not Reportable 02/29/20 11:24 Rouleaux Not Reportable 02/29/20 11:24 Hemoglobin C Crystals Not Reportable 02/29/20 11:24 Schistocytes Not Reportable 02/29/20 11:24 Malaria parasites Not Reportable 02/29/20 11:24 Martín Bodies Not Reportable 02/29/20 11:24 Hem Pathologist Commnt No 02/29/20 11:24 D-Dimer 1964.52 ng/mlDDU (0-234) H 03/05/20 04:54 Sodium 134 mmol/L (137-145) L 03/10/20 04:13 Potassium 4.8 mmol/L (3.6-5.0) 03/10/20 04:13 Chloride 98.4 mmol/L (98-107) 03/10/20 04:13 Carbon Dioxide 25 mmol/L (22-30) D 03/10/20 04:13 Anion Gap 15 mmol/L 03/10/20 04:13 BUN 22 mg/dL (9-20) H 03/10/20 04:13 Creatinine 0.6 mg/dL (0.8-1.5) L 03/10/20 04:13 Estimated GFR > 60 ml/min 03/10/20 04:13 BUN/Creatinine Ratio 37 % 03/10/20 04:13 Glucose 274 mg/dL (75-100) H 03/10/20 04:13 POC Glucose 120 (70-105) H 02/28/20 11:32 Lactic Acid 1.80 mmol/L (0.7-2.0) 02/21/20 15:29 Calcium 8.7 mg/dL (8.4-10.2) 03/10/20 04:13 Magnesium 2.40 mg/dL (1.7-2.3) H 03/04/20 13:37 Ferritin 1798.0 ng/mL (13.0-400.0) H 03/05/20 04:54 Total Bilirubin 0.60 mg/dL (0.1-1.2) 02/21/20 15:29 AST 31 units/L (5-40) 02/21/20 15:29 ALT 18 units/L (7-56) 02/21/20 15:29 Alkaline Phosphatase 71 units/L (35-129) 02/21/20 15:29 Lactate Dehydrogenase 726 units/L (91-180) H 03/05/20 04:54 C-Reactive Protein 0.10 mg/dL (0.00-1.30) 03/05/20 04:54 Total Protein 7.4 g/dL (6.3-8.2) 02/21/20 15:29 Albumin 3.8 g/dL (3.9-5) L 02/21/20 15:29 Albumin/Globulin Ratio 1.1 % 02/21/20 15:29 Procalcitonin 0.07 ng/mL (<0.15) 03/03/20 04:22 TSH 0.505 mlU/mL (0.270-4.200) 03/05/20 10:19 Free T4 1.59 ng/dL (0.76-1.46) H 03/05/20 10:19 Coronavirus (PCR) Positive (Negative) A 03/06/20 08:08 Hepatitis A IgM Ab Non-reactive (NonReactive) 02/27/20 04:58 Hep Bs Antigen Non-reactive (Negative) 02/27/20 04:58 Hep B Core IgM Ab Non-reactive (NonReactive) 02/27/20 04:58 Hepatitis C Antibody Non-reactive (NonReactive) 02/27/20 04:58 Influenza A (Rapid) Negative (Negative) 02/21/20 16:34 Influenza B (Rapid) Negative (Negative) 02/21/20 16:34 TB (QFT) Gold In Tube See scanned result 02/27/20 09:58 TB Test (QFT) Nil See scanned result 02/27/20 09:58 TB Test Mitogen - Nil See scanned result 02/27/20 09:58 TB Test Antigen - Nil See scanned result 02/27/20 09:58 Rivera/IV: Voiding Method Urinal IV Catheter Type [Left Upper INT / Saline Lock arm] IV Catheter Type [Right Upper INT / Saline Lock arm] IV Catheter Type [Right INT / Saline Lock Forearm] IV Catheter Type [Right INT / Saline Lock Antecubital] Active Medications - Current Medications Current Medications: Generic Name Dose Route Start Last Admin Trade Name Freq PRN Reason Stop Dose Admin Acetaminophen 650 mg 02/21/20 16:41 03/09/20 21:52 Tylenol PO 650 mg Q4H PRN Administration Pain MILD(1-3)/Fever >100.5/DELUNA Albuterol 2 puff 02/25/20 10:39 Proair IH Q6HRT PRN Shortness Of Breath Enoxaparin Sodium 130 mg 02/22/20 10:00 03/10/20 10:54 Enoxaparin SUB-Q 130 mg Q24HR SCOT Administration Methylprednisolone Sodium Succinate 20 mg 03/06/20 09:00 03/11/20 05:28 Solu-Medrol IV 20 mg Q8HR SCOT Administration Ondansetron HCl 4 mg 02/21/20 16:41 02/25/20 16:17 Zofran IV 4 mg Q8H PRN Administration Nausea And Vomiting Sodium Chloride 10 ml 02/21/20 22:00 03/10/20 21:53 Sodium Chloride Flush Syringe 10 Ml IV 10 ml BID SCOT Administration Sodium Chloride 10 ml 02/21/20 16:41 03/08/20 06:08 Sodium Chloride Flush Syringe 10 Ml IV 10 ml PRN PRN Administration LINE FLUSH Nutrition/Malnutrition Assess - Dietary Evaluation Nutrition/Malnutrition Findings: Nutrition Notes Start: 02/23/20 09:12 Freq: Status: Active Protocol: Document 03/07/20 11:18 LM (Rec: 03/07/20 11:23 LM [id number]) Nutrition Notes Initial or Follow up Reassessment Other Pertinent Diagnosis COVID-19 (+), pneu, ARF Current Diet Regular Labs/Tests Reviewed Pertinent Medications Reviewed Height 5 ft 9 in Weight 75.7 kg [place] Body Weight (kg) 72.72 BMI 24.6 Weight Status Appropriate Subjective/Other Information Pt stated he ate most of his breakfast this AM. Received food preferences from pt. Pt stated he likes Ensure but has not been receiving them. Pt wants to continue receiving Ensure. Percent of energy/protein needs met: 87%/91% (not including ONS) Burn Absent Trauma Absent Current % PO Good (75-100%) Minimum of two criteria No physical signs of malnutrition #1 Nutrition Diagnosis Inadequate oral intake Diagnosis Progress(for reassessment Resolved documentation) Is patient on ventilator? No Is Patient Ambulatory and/or Out of Bed Yes REE-([facility]-ambulatory/OOB) [ [id number]] Calculation Used for Recommendations [facility] Additional Notes Protein: 72-86g (1-1.2g/kg) Fluid: 1 ml/kcal Nutrition Intervention Change Diet Order: Continue regular diet Add Supplement/Snack (indicate name/kcal Ensure Enlive [place] daily /protein ) Provides kCal: 350 Provides Protein (gm) 20 Goal #1 Meet at least 75% of energy and protein needs Anticipated Discharge Needs: Regular diet Revisit per MD consult or patient Sign Off request:
[2020-03-11] MEDS: ENOXAPARIN 150 MG/1 ML INJ SUB-Q SCH (10:02)
--- NOTE | 2020-03-11 11:32 | Progress Note ---
Assessment and Plan 4 y/o male with COVID 19 positive pneumonia and no other prior medical history. 1. COVID positive 2. Now nasal cannula. Got Actemra 13 days ago. Would ask that patient prone himself, multiple times during the day shift and sleep proned at night. Continue steroids at current dosing. 3. Reviewed I/O, negative from yesterday but no labs checked. Please check chemistry if patient still here over the weekend. May need another dose of lasix. 4. Reviewed ID note. Appreciate their recs. They are ok with discharge. If home oxygen therapy can be arranged, ok with discharge as well. We can follow up in office and wean further if not able to get lower. He still will need walk test to determine the amount of O2 needed with exertion. 5. Needs higher O2 flow with ambulation up tp 6 LPM or higher. 6. Continue to monitor closely for any further deterioration Subjective Date of service: 03/11/20 Principal diagnosis: COVID Interval history: Pt now on 4-5 LPM NC with resting sats in low to mid 90's but drops to 77% on minimal ambulation on 2 L. Continue to desaturate with ambulation however has not checked pulse ox with ambulation with 5 L nasal cannula Objective Vital Signs - 12hr 03/11/20 03/11/20 03/11/20 05:43 08:45 10:00 Temperature 98.0 F Pulse Rate 63 Pulse Rate [ 63 From Monitor] Respiratory 20 20 Rate Blood Pressure 110/67 O2 Sat by Pulse 91 93 Oximetry Constitutional: no acute distress Eyes: non-icteric Ascultation: Bilateral: diminished breath sounds Cardiovascular: regular rate and rhythm Gastrointestinal: normoactive bowel sounds CBC and BMP: 03/05/20 04:54 03/10/20 04:13 ABG, PT/INR, D-dimer: PT/INR, D-dimer D-Dimer 1964.52 ng/mlDDU (0-234) H 03/05/20 04:54 Abnormal lab findings: Abnormal Labs 02/21/20 02/21/20 02/21/20 15:29 15:29 15:29 WBC 3.7 L RBC 5.62 H Hgb 16.5 H Hct 47.5 H MCV MCHC 35 H Plt Count [place] % (Auto) 8.9 H Lymph # 0.6 L Seg Neutrophils % 72.3 H Seg Neuts % (Manual) Lymphocytes % (Manual) Lymphocytes # (Manual) D-Dimer 5638.87 H Sodium 136 L Potassium Chloride 96.2 L Carbon Dioxide 20 L BUN 22 H Creatinine Glucose 124 H POC Glucose Calcium Magnesium Ferritin Lactate Dehydrogenase C-Reactive Protein Albumin 3.8 L Free T4 Coronavirus (PCR) 02/21/20 02/21/20 02/22/20 15:29 15:29 04:04 WBC 3.9 L RBC 5.47 H Hgb 15.8 H Hct MCV 83 L MCHC 35 H Plt Count [place] % (Auto) 10.5 H Lymph # 0.7 L Seg Neutrophils % 70.1 H Seg Neuts % (Manual) Lymphocytes % (Manual) Lymphocytes # (Manual) D-Dimer Sodium Potassium Chloride Carbon Dioxide BUN Creatinine Glucose POC Glucose Calcium Magnesium Ferritin 1484.0 H Lactate Dehydrogenase 486 H C-Reactive Protein 4.40 H Albumin Free T4 Coronavirus (PCR) 02/22/20 02/22/20 02/23/20 04:04 11:23 05:02 WBC 3.3 L RBC 5.19 H Hgb Hct MCV MCHC 35 H Plt Count [place] % (Auto) Lymph # Seg Neutrophils % Seg Neuts % (Manual) Lymphocytes % (Manual) Lymphocytes # (Manual) D-Dimer Sodium Potassium Chloride Carbon Dioxide BUN Creatinine Glucose 114 H POC Glucose Calcium 8.3 L Magnesium Ferritin Lactate Dehydrogenase C-Reactive Protein Albumin Free T4 Coronavirus (PCR) Positive A 02/23/20 02/23/20 02/23/20 05:02 05:02 05:02 WBC RBC Hgb Hct MCV MCHC Plt Count [place] % (Auto) Lymph # Seg Neutrophils % Seg Neuts % (Manual) Lymphocytes % (Manual) Lymphocytes # (Manual) D-Dimer 2109.52 H Sodium Potassium Chloride Carbon Dioxide BUN Creatinine Glucose POC Glucose Calcium Magnesium Ferritin 1571.0 H Lactate Dehydrogenase 531 H C-Reactive Protein 6.40 H Albumin Free T4 Coronavirus (PCR) 02/25/20 02/25/20 02/25/20 04:20 04:20 04:20 WBC RBC Hgb Hct MCV MCHC Plt Count [place] % (Auto) Lymph # Seg Neutrophils % Seg Neuts % (Manual) Lymphocytes % (Manual) Lymphocytes # (Manual) D-Dimer 1422.33 H Sodium Potassium Chloride Carbon Dioxide BUN Creatinine Glucose POC Glucose Calcium Magnesium Ferritin 2172.0 H Lactate Dehydrogenase 594 H C-Reactive Protein 8.70 H Albumin Free T4 Coronavirus (PCR) 02/27/20 02/27/20 02/27/20 04:58 04:58 04:58 WBC RBC Hgb Hct MCV MCHC Plt Count [place] % (Auto) Lymph # Seg Neutrophils % Seg Neuts % (Manual) Lymphocytes % (Manual) Lymphocytes # (Manual) D-Dimer 1111.97 H Sodium 134 L Potassium Chloride Carbon Dioxide 18 L BUN 24 H Creatinine Glucose 107 H POC Glucose Calcium Magnesium Ferritin 3392.0 H Lactate Dehydrogenase 681 H C-Reactive Protein 9.70 H Albumin Free T4 Coronavirus (PCR) 02/27/20 02/28/20 02/28/20 04:58 07:47 11:32 WBC 2.1 L RBC 5.19 H Hgb Hct MCV MCHC Plt Count [place] % (Auto) Lymph # Seg Neutrophils % Seg Neuts % (Manual) Lymphocytes % (Manual) Lymphocytes # (Manual) D-Dimer Sodium Potassium Chloride Carbon Dioxide BUN Creatinine Glucose POC Glucose 130 H 120 H Calcium Magnesium Ferritin Lactate Dehydrogenase C-Reactive Protein Albumin Free T4 Coronavirus (PCR) 02/29/20 02/29/20 02/29/20 11:24 11:24 11:24 WBC RBC 6.47 H Hgb 18.3 H D Hct 53.8 H D MCV 83 L MCHC Plt Count 544 H [place] % (Auto) Lymph # Seg Neutrophils % Seg Neuts % (Manual) 93.0 H Lymphocytes % (Manual) 2.0 L Lymphocytes # (Manual) 0.1 L D-Dimer 1464.27 H Sodium Potassium Chloride Carbon Dioxide BUN Creatinine Glucose POC Glucose Calcium Magnesium Ferritin Lactate Dehydrogenase 822 H C-Reactive Protein Albumin Free T4 Coronavirus (PCR) 02/29/20 03/03/20 03/03/20 11:24 04:22 04:22 WBC RBC Hgb Hct MCV MCHC Plt Count [place] % (Auto) Lymph # Seg Neutrophils % Seg Neuts % (Manual) Lymphocytes % (Manual) Lymphocytes # (Manual) D-Dimer 3769.82 H Sodium Potassium Chloride Carbon Dioxide BUN Creatinine Glucose POC Glucose Calcium Magnesium Ferritin 4163.0 H 2491.0 H Lactate Dehydrogenase C-Reactive Protein Albumin Free T4 Coronavirus (PCR) 03/03/20 03/04/20 03/05/20 04:22 13:37 04:54 WBC RBC Hgb Hct MCV MCHC Plt Count [place] % (Auto) Lymph # Seg Neutrophils % Seg Neuts % (Manual) Lymphocytes % (Manual) Lymphocytes # (Manual) D-Dimer 1964.52 H Sodium Potassium 5.6 H Chloride Carbon Dioxide BUN 26 H Creatinine Glucose 195 H POC Glucose Calcium Magnesium 2.40 H Ferritin Lactate Dehydrogenase 938 H C-Reactive Protein Albumin Free T4 Coronavirus (PCR) 03/05/20 03/05/20 03/05/20 04:54 04:54 04:54 WBC RBC 5.56 H Hgb 15.7 H Hct 46.8 H MCV MCHC Plt Count [place] % (Auto) Lymph # Seg Neutrophils % Seg Neuts % (Manual) Lymphocytes % (Manual) Lymphocytes # (Manual) D-Dimer Sodium Potassium Chloride 97.9 L Carbon Dioxide 32 H BUN 21 H Creatinine 0.7 L Glucose 155 H POC Glucose Calcium Magnesium Ferritin 1798.0 H Lactate Dehydrogenase 726 H C-Reactive Protein Albumin Free T4 Coronavirus (PCR) 03/05/20 03/06/20 03/06/20 10:19 08:08 08:31 WBC RBC Hgb Hct MCV MCHC Plt Count [place] % (Auto) Lymph # Seg Neutrophils % Seg Neuts % (Manual) Lymphocytes % (Manual) Lymphocytes # (Manual) D-Dimer Sodium Potassium Chloride Carbon Dioxide 35 H BUN 26 H Creatinine 0.7 L Glucose 117 H POC Glucose Calcium Magnesium Ferritin Lactate Dehydrogenase C-Reactive Protein Albumin Free T4 1.59 H Coronavirus (PCR) Positive A 03/10/20 04:13 WBC RBC Hgb Hct MCV MCHC Plt Count [place] % (Auto) Lymph # Seg Neutrophils % Seg Neuts % (Manual) Lymphocytes % (Manual) Lymphocytes # (Manual) D-Dimer Sodium 134 L Potassium Chloride Carbon Dioxide BUN 22 H Creatinine 0.6 L Glucose 274 H POC Glucose Calcium Magnesium Ferritin Lactate Dehydrogenase C-Reactive Protein Albumin Free T4 Coronavirus (PCR)
[2020-03-12] MEDS: methylPREDNISolone Sod Succinate 40 MG/1 ML INJ IV SCH ×2 (05:54→14:22)
[2020-03-12] MEDS: ENOXAPARIN 150 MG/1 ML INJ SUB-Q SCH (09:03)
--- NOTE | 2020-03-12 10:21 | Progress Note ---
Assessment and Plan 64 y/o male with COVID 19 positive pneumonia and no other prior medical history. 1. COVID positive 2. Now nasal cannula. Got Actemra 14 days ago. Would ask that patient prone himself, multiple times during the day shift and sleep proned at night. Today is day 6 of solumedrol 20q8. If discharged today, please send out on Prednisone taper 60mg for 1 day, then 40mg daily for 3 days, 20mg daily for 3 days, then 10mg daily for 3 days then stop. Can use 20mg tablets. 3. In regards to oxygen therapy, ok with discharge on oxygen, for ambulation given that a true six minute walk cannot be done for safety purposes, suggest when ambulating patient were 5-6 liters and should have some one purchase a portable pulse ox for him to monitor sats. 88% and greater are acceptable. We will follow up with him in 2 weeks and do a repeat walk test in the office. No objection with discharge today. s Subjective Date of service: 03/12/20 Principal diagnosis: COVID Interval history: No acute events. Down to 3 liters but after talking to IMS this am, patient still desats significantly on ambulation with 3. Objective Vital Signs - 12hr 03/12/20 09:01 O2 Sat by Pulse 100 Oximetry Constitutional: no acute distress Eyes: non-icteric Ascultation: Bilateral: diminished breath sounds Cardiovascular: regular rate and rhythm Gastrointestinal: normoactive bowel sounds CBC and BMP: 03/05/20 04:54 03/10/20 04:13 ABG, PT/INR, D-dimer: PT/INR, D-dimer D-Dimer 1964.52 ng/mlDDU (0-234) H 03/05/20 04:54 Abnormal lab findings: Abnormal Labs 02/21/20 02/21/20 02/21/20 15:29 15:29 15:29 WBC 3.7 L RBC 5.62 H Hgb 16.5 H Hct 47.5 H MCV MCHC 35 H Plt Count Coffee % (Auto) 8.9 H Lymph # 0.6 L Seg Neutrophils % 72.3 H Seg Neuts % (Manual) Lymphocytes % (Manual) Lymphocytes # (Manual) D-Dimer 5638.87 H Sodium 136 L Potassium Chloride 96.2 L Carbon Dioxide 20 L BUN 22 H Creatinine Glucose 124 H POC Glucose Calcium Magnesium Ferritin Lactate Dehydrogenase C-Reactive Protein Albumin 3.8 L Free T4 Coronavirus (PCR) 02/21/20 02/21/20 02/22/20 15:29 15:29 04:04 WBC 3.9 L RBC 5.47 H Hgb 15.8 H Hct MCV 83 L MCHC 35 H Plt Count Coffee % (Auto) 10.5 H Lymph # 0.7 L Seg Neutrophils % 70.1 H Seg Neuts % (Manual) Lymphocytes % (Manual) Lymphocytes # (Manual) D-Dimer Sodium Potassium Chloride Carbon Dioxide BUN Creatinine Glucose POC Glucose Calcium Magnesium Ferritin 1484.0 H Lactate Dehydrogenase 486 H C-Reactive Protein 4.40 H Albumin Free T4 Coronavirus (PCR) 02/22/20 02/22/20 02/23/20 04:04 11:23 05:02 WBC 3.3 L RBC 5.19 H Hgb Hct MCV MCHC 35 H Plt Count Coffee % (Auto) Lymph # Seg Neutrophils % Seg Neuts % (Manual) Lymphocytes % (Manual) Lymphocytes # (Manual) D-Dimer Sodium Potassium Chloride Carbon Dioxide BUN Creatinine Glucose 114 H POC Glucose Calcium 8.3 L Magnesium Ferritin Lactate Dehydrogenase C-Reactive Protein Albumin Free T4 Coronavirus (PCR) Positive A 02/23/20 02/23/20 02/23/20 05:02 05:02 05:02 WBC RBC Hgb Hct MCV MCHC Plt Count Coffee % (Auto) Lymph # Seg Neutrophils % Seg Neuts % (Manual) Lymphocytes % (Manual) Lymphocytes # (Manual) D-Dimer 2109.52 H Sodium Potassium Chloride Carbon Dioxide BUN Creatinine Glucose POC Glucose Calcium Magnesium Ferritin 1571.0 H Lactate Dehydrogenase 531 H C-Reactive Protein 6.40 H Albumin Free T4 Coronavirus (PCR) 02/25/20 02/25/20 02/25/20 04:20 04:20 04:20 WBC RBC Hgb Hct MCV MCHC Plt Count Coffee % (Auto) Lymph # Seg Neutrophils % Seg Neuts % (Manual) Lymphocytes % (Manual) Lymphocytes # (Manual) D-Dimer 1422.33 H Sodium Potassium Chloride Carbon Dioxide BUN Creatinine Glucose POC Glucose Calcium Magnesium Ferritin 2172.0 H Lactate Dehydrogenase 594 H C-Reactive Protein 8.70 H Albumin Free T4 Coronavirus (PCR) 02/27/20 02/27/20 02/27/20 04:58 04:58 04:58 WBC RBC Hgb Hct MCV MCHC Plt Count Coffee % (Auto) Lymph # Seg Neutrophils % Seg Neuts % (Manual) Lymphocytes % (Manual) Lymphocytes # (Manual) D-Dimer 1111.97 H Sodium 134 L Potassium Chloride Carbon Dioxide 18 L BUN 24 H Creatinine Glucose 107 H POC Glucose Calcium Magnesium Ferritin 3392.0 H Lactate Dehydrogenase 681 H C-Reactive Protein 9.70 H Albumin Free T4 Coronavirus (PCR) 02/27/20 02/28/20 02/28/20 04:58 07:47 11:32 WBC 2.1 L RBC 5.19 H Hgb Hct MCV MCHC Plt Count Coffee % (Auto) Lymph # Seg Neutrophils % Seg Neuts % (Manual) Lymphocytes % (Manual) Lymphocytes # (Manual) D-Dimer Sodium Potassium Chloride Carbon Dioxide BUN Creatinine Glucose POC Glucose 130 H 120 H Calcium Magnesium Ferritin Lactate Dehydrogenase C-Reactive Protein Albumin Free T4 Coronavirus (PCR) 02/29/20 02/29/20 02/29/20 11:24 11:24 11:24 WBC RBC 6.47 H Hgb 18.3 H D Hct 53.8 H D MCV 83 L MCHC Plt Count 544 H Coffee % (Auto) Lymph # Seg Neutrophils % Seg Neuts % (Manual) 93.0 H Lymphocytes % (Manual) 2.0 L Lymphocytes # (Manual) 0.1 L D-Dimer 1464.27 H Sodium Potassium Chloride Carbon Dioxide BUN Creatinine Glucose POC Glucose Calcium Magnesium Ferritin Lactate Dehydrogenase 822 H C-Reactive Protein Albumin Free T4 Coronavirus (PCR) 02/29/20 03/03/20 03/03/20 11:24 04:22 04:22 WBC RBC Hgb Hct MCV MCHC Plt Count Coffee % (Auto) Lymph # Seg Neutrophils % Seg Neuts % (Manual) Lymphocytes % (Manual) Lymphocytes # (Manual) D-Dimer 3769.82 H Sodium Potassium Chloride Carbon Dioxide BUN Creatinine Glucose POC Glucose Calcium Magnesium Ferritin 4163.0 H 2491.0 H Lactate Dehydrogenase C-Reactive Protein Albumin Free T4 Coronavirus (PCR) 03/03/20 03/04/20 03/05/20 04:22 13:37 04:54 WBC RBC Hgb Hct MCV MCHC Plt Count Coffee % (Auto) Lymph # Seg Neutrophils % Seg Neuts % (Manual) Lymphocytes % (Manual) Lymphocytes # (Manual) D-Dimer 1964.52 H Sodium Potassium 5.6 H Chloride Carbon Dioxide BUN 26 H Creatinine Glucose 195 H POC Glucose Calcium Magnesium 2.40 H Ferritin Lactate Dehydrogenase 938 H C-Reactive Protein Albumin Free T4 Coronavirus (PCR) 03/05/20 03/05/20 03/05/20 04:54 04:54 04:54 WBC RBC 5.56 H Hgb 15.7 H Hct 46.8 H MCV MCHC Plt Count Coffee % (Auto) Lymph # Seg Neutrophils % Seg Neuts % (Manual) Lymphocytes % (Manual) Lymphocytes # (Manual) D-Dimer Sodium Potassium Chloride 97.9 L Carbon Dioxide 32 H BUN 21 H Creatinine 0.7 L Glucose 155 H POC Glucose Calcium Magnesium Ferritin 1798.0 H Lactate Dehydrogenase 726 H C-Reactive Protein Albumin Free T4 Coronavirus (PCR) 03/05/20 03/06/20 03/06/20 10:19 08:08 08:31 WBC RBC Hgb Hct MCV MCHC Plt Count Coffee % (Auto) Lymph # Seg Neutrophils % Seg Neuts % (Manual) Lymphocytes % (Manual) Lymphocytes # (Manual) D-Dimer Sodium Potassium Chloride Carbon Dioxide 35 H BUN 26 H Creatinine 0.7 L Glucose 117 H POC Glucose Calcium Magnesium Ferritin Lactate Dehydrogenase C-Reactive Protein Albumin Free T4 1.59 H Coronavirus (PCR) Positive A 03/10/20 04:13 WBC RBC Hgb Hct MCV MCHC Plt Count Coffee % (Auto) Lymph # Seg Neutrophils % Seg Neuts % (Manual) Lymphocytes % (Manual) Lymphocytes # (Manual) D-Dimer Sodium 134 L Potassium Chloride Carbon Dioxide BUN 22 H Creatinine 0.6 L Glucose 274 H POC Glucose Calcium Magnesium Ferritin Lactate Dehydrogenase C-Reactive Protein Albumin Free T4 Coronavirus (PCR)
--- NOTE | 2020-03-12 11:51 | Discharge Summary ---
Providers - Providers Date of Admission: 02/21/20 16:41 Attending physician: VICENTE BARRERA MD 02/21/20 16:43 Consult to Physician [CONS] Routine Comment: Consulting Provider: CHUY FALLON Physician Instructions: Reason For Exam: suspected covid 19 02/22/20 09:22 Consult to Physician [CONS] Routine Comment: Consulting Provider: ANDRAE ORTEGA Physician Instructions: Reason For Exam: hYPOXIC Respiratory failure 03/06/20 14:41 Occupational Therapy Evaluate and Treat [CONS] Routine Comment: covid positive day 14 Reason For Exam: generalized weakness Physical Therapy Evaluation and Treat [CONS] Routine Comment: covid positive, day 14 Reason For Exam: generalized weakness Primary care physician: [employer]ST Hospitalization Reason for admission: COVID 19 Condition: Serious Hospital course: 64 YO Male with No PMH presents to ED for evaluation. Pt states that he has experienced subjective fever, loss of appetite, generalized weakness, headache, shortness of breath, both dry and productive cough with production of yellow sputum over the past 1 week with progressively worsening symptoms over the past 3 days. Patient transported to [facility] via private vehicle for further evaluation and care. Patient seen and evaluated in the emergency department. Lab and imaging studies reviewed. Patient found to have temperature of 100.3 F, and pulse oximetry of 86% on room air which is consistent with acute hypoxemic respiratory failure. Patient underwent chest x-ray which revealed bilateral pneumonia which are consistent with suspected CO VID19. Patient admitted to medical floor and treated with pneumonia protocol. Patient also treated with initiation of CO VID19 protocol. Infectious disease service consulted in ED. Patient denies chest pain, palpitations, syncope, trauma, prolonged travel/immobility, individual/family history of DVT/bleeding/PE/blood clotting disorders, or known ill contacts. No prior admission for review. No medication listed for reconciliation at the time of admission. CXR: worsening Opacities Acute hypoxic respiratory failure due to COVID-19 pneumonia Bilateral pneumonia secondary to COVID-19 COVID-19 viral infection confirmed, completed 5 days of plaquenil, 1 dose of Actemra given 02/25 Sepsis syndrome, poa due to above NSVT-resolved Hypotension Acute hypoxic respiratory failure with pulse oximetry of 86% on room air Elevated d-dimer Headache Leukopenia- Resolved Plan 02/28/20: Day 7, my first day with patient and he looks ill but is trying to move around, he was in the prone position overnight which did help some; he is on 100% high flow. I spoke with cousin, Derrick Ray [phone] who is NOK in EMR. Patient has a son who is estranged per Derrick, Stressed the importance of Incentive spirometry 02/29/20: More tachypneic today, continue IV steroids day 27 then oral taper. Patient not doing Incentive spirometry correctly, I showed him how to do it correctly. He is trying. I called his cousin Derrick for update, left message. 03/01/20: Doing slightly better, able to hold his breath for 20 seconds, still doing poorly on Incentive spirometry, still on 100% High Flow, Inflammatory markers at up. He received Actmera 5 days ago, on day 02/13 of IV steroids. I called his cousin Derrick for update, no answer, no messgae left. 03/02/20: still on 100% fiO2 High flow, trying to do Incentive spirometry, advise to get in prone position. 03/03/20: on 95% high flow, still doing poorly on Incentive spirometry but tr juan, still not in prone position, counseling done. Mixed picture with inflammatory markers as d-dimer/LDH increasing but Ferritin/CRP decreasing. 03/04/20: on 95% high flow and O2 sat 95%, have asked Respiratory to try to wean down FiO2. Inflammatory marker tomorrow. 11 beat run of VTach. I will check bmp, magnesium, I will give IV mag/potassium and consult Cardiology 03/05/20: down to 90% high flow, we practiced the Inspirative spirometry, R Therapist at bedside, patient able to hold breath for 20 secords, still very difficult but he feels better. Still very weak. Inflammatory markers are im proved. d/w Cardiology regarding NSVT. d/w Case management, hopefully d/c to LTACH if facility approved, I believe patient insurance has approved LTACH. Needs slow steroid taper per ID. 03/06: Over the past few days appears the patient has been weaning on steroids. Lasix has already been given to help improve oxygenation and aeration of the chest x-ray. Will obtain repeat electrolytes today and possibly repeat Lasix. I have also ordered a repeat coronavirus test as this is a requirement for the LTAC to be able to accept this patient, if repeat study comes back negative. Pulmonary weaning steroids and input is noted. ID input is noted. Cardiology input noted 03/07: Now weaned off high flow now on nasal cannula although desats when nasal cannula is off I believe today he desatted to 72% on room air. Encouraged to use oxygen encouraged to continue prone in position. Also encouraged patient to use incentive spirometer. We will continue to monitor repeat test for coronavirus was positive. 03/08: will await o2 sat today, additional Lasix being given today. Continue to encourage sitting up. Incentive spirometer. Prone positioning. Anticipate discharge on oxygen once oxygen demand is less than 3. 03/09: Continue to encourage ambulatory, prone positioning, pulmonary exercises and wean oxygen as tolerated today. Received on the dose of Lasix keep monitoring blood pressures patient has some hypotensive episodes. 03/10: Continue supportive, discussed with nursing staff and will wean oxygen as tolerated, anticipate being able to discharge the patient home if oxygen requirement is less than 3 L with activity. 5: Unfortunately still desaturating at NC of 3 liters, increase to 5 liters. continue to encourage Prone Positioning. This morning patient continues to stay strong. At rest at 3 L he was 92% and on ambulation at 4 L he was at 90 to 91% he desires to go home and has done remarkably well we did encourage him to continue prone positioning. We did make a recommendation per pulmonary physician. He is to purchase a pulse oximeter and see the structural steel painter in the office in 2 weeks for reevaluation. He is to self isolate from family he verbalized understanding and is clinically stable for discharge at this time. Disposition: [id number] HOME UNDER HOME [facility] Time spent for discharge: 35 MINS Core Measure Documentation - Palliative Care Palliative Care/ Comfort Measures: Not Applicable - Core Measures Any of the following diagnoses?: none Exam - Physical Exam Narrative exam: VITAL SIGNS: Reviewed. GENERAL: The patient appears normally developed, Vital signs as documented. HEAD: No signs of head trauma. EYES: Pupils are equal. Extraocular motions intact. EARS: Hearing grossly intact. MOUTH: Oropharynx is normal. NECK: No adenopathy, no JVD. CHEST: Chest with diminished breath sounds bilaterally. No wheezes, rales, or rhonchi. CARDIAC: Regular rate and rhythm. S1 and S2, without murmurs, gallops, or rubs. VASCULAR: No Edema. Peripheral pulses normal and equal in all extremities. ABDOMEN: Soft, non tender and non distended. No rebound or guarding, and no masses palpated. Bowel Sounds normal. MUSCULOSKELETAL: Good range of motion of all major joints. Extremities without clubbing, cyanosis or edema. NEUROLOGIC EXAM: Awake and oriented x 3 No focal sensory or strength deficits. Speech normal. Follows commands. PSYCHIATRIC: Mood calm SKIN: detail exam as documented in skin assessment - Constitutional Vitals: Temp Pulse Resp BP Pulse Ox 98.4 F 63 18 116/74 100 03/11/20 21:22 03/11/20 21:22 03/11/20 21:22 03/11/20 21:22 03/12/20 09:01 Plan Activity: advance as tolerated, fall precautions Diet: low fat Special Instructions: record daily weights, record daily BP diary Additional Instructions: PATEINT TO PURCHASE PULSE OXIMETER TO HELP MONITOR HIS PULSE OX AT HOME [facility] RAPHAEL [Referring] - 3-5 Days ANDRAE ORTEGA MD [Staff Physician] - 14 Days Prescriptions: Apixaban [Eliquis] 5 mg PO BID #60 tablet Prednisone [predniSONE 10 mg (6-Day Pack, 21 Tabs)] 10 mg PO .TAPER #1 tab.ds.pk Albuterol INH(or & Nicu Only) [ProAir HFA Inhaler] 2 puff IH Q6HRT PRN #1 inha PRN Reason: Shortness Of Breath
--- NOTE | 2020-03-12 14:18 | Progress Note ---
Assessment and Plan Cultures: 02/21/2020 blood culture: no growth 02/23/2020 blood culture: no growth A/P: 64/M with subjective fever, loss of appetite, weakness, headaches along with cough and shortness of breath for a week prior to admission #Severe bilateral pneumonia secondary to COVID-19: Completed 5 days of Plaquenil. S/P Actemra 02/26/2020. Started steroid trial on 02/27/2020 #Acute hypoxic respiratory failure: Requiring oxygen. On nasal cannula 3 L/min Recs: continue with weight based anticoagulation/LMWH prophylaxis continue to encourage lying in prone position if patient is able to tolerate Markers are improved, O2 requirements are improved OK for DC from ID perspective when stable from a respiratory standpoint. Ok with pulm service as well. Santy Ortiz MD [facility] ([facility]) M: [phone] O: [phone] F: [phone] Subjective Date of service: 03/12/20 Principal diagnosis: COVID Interval history: Afebrile with a normal white count. Nasal cannula at 3 L/min Objective - Exam Narrative Exam: Constitutional: On NC Head, Ears, Nose: limited due to PPE conservation strategy Eyes: limited due to PPE conservation strategy Neck: limited due to PPE conservation strategy Oral: limited due to PPE conservation strategy Cardiovascular: limited due to PPE conservation strategy Respiratory: diminished per RT GI: limited due to PPE conservation strategy Musculoskeletal: limited due to PPE conservation strategy Skin: limited due to PPE conservation strategy Hem/Lymphatic: limited due to PPE conservation strategy Psych: limited due to PPE conservation strategy Neurological: limited due to PPE conservation strategy - Constitutional Vitals: Vital Signs Temp Pulse Resp BP Pulse Ox 98.3 F 86 18 104/71 93 03/12/20 11:51 03/12/20 11:51 03/12/20 11:51 03/12/20 11:51 03/12/20 11:51 Temperature -Last 24 Hours Temperature 98.3 F Temperature 98.3 F Temperature 98.4 F Temperature 98.0 F - Labs CBC & Chem 7: 03/05/20 04:54 03/10/20 04:13
[2020-03-12 17:30] VITALS: BP 115/75
== END 2020-03-12 20:29 | disposition home health service (06) | DRG 871 ==
LOC: ED 15:06 → 3A 16:41
PROVIDERS: ADMIT Internal Medicine; ATTEND Internal Medicine
DX: A41.89 Other specified sepsis (principal); U07.1 COVID-19; J12.89 Other viral pneumonia; J96.01 Acute respiratory failure with hypoxia; I47.2 Ventricular tachycardia; I95.9 Hypotension, unspecified; R51 Headache; D72.819 Decreased white blood cell count, unspecified; Z82.49 Family history of ischemic heart disease and other diseases of the circulatory system
CPT/HCPCS: 36415; 71045; 71046; 80048; 80053; 80074; 82140; 82164; 82728; 82962; 83615; 83735; 84145; 84439; 84443; 85007; 85025; 85027; 85379; 86140; 87040; 87400; 87635; 93005; 93010; 94640; 94760; G0378; J0456; J0696; J1650; J1940; J2405; J2920; J3475; J7030; J7050; U0003